=== PATIENT | female | born 1935 | race Caucasian/White ===

== ENCOUNTER 2016-05-26 10:52 | Inpatient (IN) | payer MEDICARE, OTHER ==
[~2016-05-26] VITALS: Ht 172.7 cm; Wt 97.5 kg
[~2016-05-26 10:52] MED LIST: AC325T PO; ALB0.5V INH; ALLP100T PO; ASP325T PO; ATEN100T45 PO; AZIT500T PO; CALC-18 PO; CEFD300C3 PO; CLOP75TA; CLOP75TA PO; DCS100C PO; EZET1TAB44; FISH OIL; FRSM40T; HYDR-2997 PO; HYDR-700; LEVO125T66; LOVA20TA2 PO; LSNP20T; LVT.15T PO; MULT-608 PO; NAPR250T34; NF-HYDR25T; NF-POTCH10; OMEG1CAP58 PO; POTA10CA16 PO; PRD10T PO; SSD50T; SULF1TAB38 PO; TRAM-21; TRAM50TA2 PO
[2016-05-26] MEDS ORDERED: fentaNYL INJECTION 100 MCG/2 ML AMP ONE (11:31)
--- NOTE | 2016-05-26 11:34 | ED Fall/Injury ---
General Chief Complaint: Trauma-Non Activation Stated Complaint: R HIP/LEG PAIN, FALL Nursing Triage Note: SEE TRAUMA NOTE. Source: patient, caregiver Exam Limitations: no limitations History of Present Illness Time seen by provider: 11:34 Initial Comments 80-year-old female patient presents to the emergency department with reports of losing her balance and falling onto the right side/hip. Now complains of right hip pain. Patient does take Plavix and aspirin. Denies hitting her head, loss of consciousness, headache, confusion, dizziness, neck pain, back pain. Location Injury Occurred: PT HOME Occurred: this morning Injuries/Pain Location: pelvis, lower extremity (rt hip) Context: lost balance Loss of Consciousness: no loss of consciousness Modifying Factors: Improves With Immobilization, Worse With Movement Allergies and Home Medications Allergies Coded Allergies: codeine (Unverified Allergy, Mild, 11/15/08) Penicillins (Verified Allergy, Unknown, 04/07/08) morphine (Verified Adverse Reaction, Mild, NAUSEA, 04/07/08) nylon (Verified Adverse Reaction, Unknown, ITCH, 04/07/08) Home Medications Acetaminophen 325 Mg Tablet, 650 MG PO Q6H PRN, (Reported) FOR MILD TO MODERATE PAIN Albuterol 2.5 Mg/0.5 Ml Nebu, 1 APPLIC INH TID&PRN, (Reported) USE NEBULIZER THREE TIMES PER DAY AND NEEDED FOR SHORTNESS OR AIR. Amlodipine/Atorvastatin 1 Each Tablet, 1 EACH PO DAILY, (Reported) Aspirin 325 Mg Tab, 325 MG PO DAILY, (Reported) Atenolol 100 Mg Tablet, 100 MG PO DAILY, (Reported) Azithromycin 500 Mg Tablet, 500 MG PO DAILY for 4 Days, (Reported) TAKE 500MG A DAY FOR 4 MORE DAYS Calcium Carbonate/Vitamin D3 1 Each Tablet, 1 TAB PO BID, (Reported) Cefdinir 300 Mg Capsule, 300 MG PO BID for 5 Days, (Reported) TAKE 300MG TWICE A DAY FOR 5 DAYS Clopidogrel Bisulfate 75 Mg Tablet, 75 MG PO, (Reported) TAKES SAT-SAT-SAT Docusate Sodium 100 Mg Capsule, 100 MG PO DAILY, (Reported) Levothyroxine Sodium 150 Mcg Tablet, 137 MCG PO DAILY, (Reported) Lovastatin 20 Mg Tablet, 40 MG PO DAILY, (Reported) Multivitamins 1 Tab Tablet, 1 TAB PO DAILY, (Reported) [place]-3 Fatty Acids/Fish Oil 1 Each Capsule, 2,000 MG PO DAILY, (Reported) Tramadol Hcl 50 Mg Tablet, 50 MG PO Q6H, (Reported) Constitutional: no symptoms reported Eyes: No Symptoms Reported Ears, Nose, Mouth, Throat: no symptoms reported Respiratory: No cough, No short of breath, No stridor, No wheezing Cardiovascular: No chest pain, No palpitations, No syncope Gastrointestinal: no symptoms reported Genitourinary: no symptoms reported Musculoskeletal: see HPI, No back pain, joint pain, No neck pain Skin: no symptoms reported Psychiatric/Neurological: Denies Headache, Denies Numbness, Denies Paresthesia , Denies Seizure, Denies Tingling, Denies Weakness All Other Systems Reviewed Negative Unless Noted: Yes (Negative excepted noted.) Past Nonqygf-Gwawsa-Yzezbl Hx Patient Social History Alcohol Use: Denies Use Recreational Drug Use: No Smoking Status: Never a Smoker 2nd Hand Smoke Exposure: No Recent Foreign Travel: No Contact w/Someone Who Travel: No Recent Infectious Disease Expo: No Recent Hopitalizations: No Surgeries HX Surgeries: Yes (heart stent, cataracts, MOLE REMOVAL, NECK FUSION) Surgeries: Hysterectomy, Thyroidectomy Respiratory Hx Respiratory Disorders: No Cardiovascular Hx Cardiac Disorders: Yes Cardiac Disorders: High Cholesterol, Hypertension Neurological Hx Neurological Disorders: No Reproductive System 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 Genitourinary Hx Genitourinary Disorders: Yes (stress incont) Gastrointestinal Hx Gastrointestinal Disorders: Yes (stricture esophagus) Musculoskeletal Hx Musculoskeletal Disorders: No Endocrine Hx Endocrine Disorders: Yes Endocrine Disorders: Hypothyroidsim HEENT HX ENT Disorders: No Cancer Hx Cancer: No Psychosocial Hx Psychiatric Problems: No Blood Transfusions Hx Blood Disorders: No Reviewed Nursing Assessment Reviewed/Agree w Nursing PMH: Yes Family Medical History Significant Family History: No Pertinent Family Hx Physical Exam Vital Signs Vital Sign - Last 12Hours 05/26/16 10:55 Temp 97.6 Pulse 68 Resp 20 B/P (MAP) 203/86 Pulse Ox 97 O2 Delivery Room Air Capillary Refill : Less Than 3 Seconds General Appearance: WD/WN, no apparent distress HEENT: PERRL/EOMI, normal ENT inspection, TMs normal, pharynx normal, other ( normocephalic, atraumatic.) Neck: non-tender, full range of motion, supple, normal inspection Cardiovascular: normal peripheral pulses, regular rate, rhythm, no murmur Respiratory: lungs clear, normal breath sounds, no respiratory distress Peripheral Pulses: 2+ Dorsalis Pedis (R), 2+ Left Dors-Pedis (L), 2+ Radial Pulses (R), 2+ Radial Pulses (L) Gastrointestinal: normal bowel sounds, non tender, soft, No distended Back: normal inspection, no vertebral tenderness Extremities: normal capillary refill, pelvis stable, other (tenderness and swelling right hip. Decreased range of motion.) Neurologic/Psychiatric: prefinish operator II-XII nml as tested, no motor/sensory deficits, alert, normal mood/affect, oriented x 3 Skin: normal color, warm/dry [place] Score Best Eye Response: (4) Open Spontaneously Best Verbal Response: (5) Oriented Best Motor Response: (6) Obeys Commands William Total: 15 Progress/Results/Core Measures Results/Orders Lab Results Laboratory Tests Test 05/26/16 11:30 Range/Units White Blood Count 6.5 4.3-11.0 10^3/uL Red Blood Count 4.75 4.35-5.85 10^6/uL Hemoglobin 14.9 11.5-16.0 G/DL Hematocrit 44 35-52 % Mean Corpuscular Volume 92 80-99 FL Mean Corpuscular Hemoglobin 31 25-34 PG Mean Corpuscular Hemoglobin Concent 34 32-36 G/DL Red Cell Distribution Width 13.0 10.0-14.5 % Platelet Count 213 130-400 10^3/uL Mean Platelet Volume 9.9 7.4-10.4 FL Neutrophils (%) (Auto) 56 42-75 % Lymphocytes (%) (Auto) 30 12-44 % Monocytes (%) (Auto) 9 0-12 % Eosinophils (%) (Auto) 4 0-10 % Basophils (%) (Auto) 0 0-10 % Neutrophils # (Auto) 3.7 1.8-7.8 X 10^3 Lymphocytes # (Auto) 2.0 1.0-4.0 X 10^3 Monocytes # (Auto) 0.6 0.0-1.0 X 10^3 Eosinophils # (Auto) 0.3 0.0-0.3 10^3/uL Basophils # (Auto) 0.0 0.0-0.1 10^3/uL Prothrombin Time 12.9 12.2-14.7 SEC INR Comment 1.0 0.8-1.4 Activated Partial Thromboplast Time 24 24-35 SEC Sodium Level 142 135-145 MMOL/L Potassium Level 4.1 3.6-5.0 MMOL/L Chloride Level 110 H 98-107 MMOL/L Carbon Dioxide Level 21 21-32 MMOL/L Anion Gap 11 5-14 MMOL/L Blood Urea Nitrogen 14 7-18 MG/DL Creatinine 0.82 0.60-1.30 MG/DL Estimat Glomerular Filtration Rate > 60 BUN/Creatinine Ratio 17 Glucose Level 102 70-105 MG/DL Calcium Level 9.3 8.5-10.1 MG/DL Total Bilirubin 0.7 0.1-1.0 MG/DL Aspartate Amino Transf (AST/SGOT) 21 5-34 U/L Alanine Aminotransferase (ALT/SGPT) 15 0-55 U/L Alkaline Phosphatase 77 40-136 U/L Total Protein 6.2 L 6.4-8.2 G/DL Albumin 3.8 3.2-4.5 G/DL My Orders Orders - BOBO REDMOND PA Fentanyl Injection (Sublimaze Injection (05/26/16 11:45) Ct Head Wo (05/26/16 11:34) Saline Lock/Iv-Start (05/26/16 11:38) Chest 1 View, Ap/Pa Only (05/26/16 11:41) Cbc With Automated Diff (05/26/16 12:03) Comprehensive Metabolic Panel (05/26/16 12:03) Protime With Inr (05/26/16 12:03) Partial Thromboplastin Time (05/26/16 12:03) Ua Culture If Indicated (05/26/16 12:03) Dipht,Pertuss(Acell),Tet Adult (Boostrix (05/26/16 12:03) Catheter(Urinary) Insert & Ass 15 (05/26/16 12:03) Fentanyl Injection (Sublimaze Injection (05/26/16 12:15) Medications Given in ED Current Medications Medications Dose Ordered Sig/Tmi Route Start Time Stop Time Status Last Admin Dose Admin Fentanyl Citrate 50 mcg ONCE ONCE IVP 05/26/16 11:45 05/26/16 11:46 DC 05/26/16 11:45 50 MCG Fentanyl Citrate 50 mcg ONCE ONCE IVP 05/26/16 12:15 05/26/16 12:16 DC 05/26/16 12:20 50 MCG Vital Signs/I&O Vital Sign - Last 12Hours 05/26/16 10:55 Temp 97.6 Pulse 68 Resp 20 B/P (MAP) 203/86 Pulse Ox 97 O2 Delivery Room Air Blood Pressure Mean: 125 Diagnostic Imaging Diagonstic Imaging: CT Plain Films/CT/US/NM/MRI: head Comments Findings: There is moderate cortical atrophy. There is also considerable cerebellar atrophy. There is no intracranial hemorrhage. No mass effect. No extra-axial fluid collection. No hydrocephalus. Basal cisterns are clear. Mastoid air cells and paranasal sinuses are clear. IMPRESSION: No acute intracranial abnormalities noted. There is generalized cortical atrophy as described. Dictated by: Dictated on workstation # [id number] Reviewed: Reviewed by Me (radiology report reviewed by me) Diagonstic Imaging: Xray Plain Films/CT/US/NM/MRI: pelvis Comments FINDINGS: AP view of the pelvis shows SI joints are symmetrical with moderate sclerosis. Pubic symphysis is in good alignment. There are no pelvic fractures. Femoral heads are in normal articulation bilaterally. There is noted a transverse fracture of the right femoral neck. IMPRESSION: 1. No pelvic fracture. 2. Transverse fracture right femoral neck. Dictated by: Dictated on workstation # [id number] Reviewed: Reviewed by Me (radiology report reviewed by me) Diagonstic Imaging: Xray Plain Films/CT/US/NM/MRI: hip Comments FINDINGS: 2 view shows femoral neck fracture. Alignment is good. Femoral head remains in articulation with the acetabulum. No evidence of trochanteric fracture. IMPRESSION: Transverse femoral neck fracture with no evidence of displacement. Dictated by: Dictated on workstation # [id number] Reviewed: Reviewed by Me (radiology report reviewed by me) Diagonstic Imaging: Xray Plain Films/CT/US/NM/MRI: chest Comments FINDINGS: Lungs are well-aerated. No infiltrates or masses have developed. There is cardiomegaly. There is no pulmonary edema. No pleural effusion. IMPRESSION: Cardiomegaly with no acute changes. Dictated by: Dictated on workstation # [id number] Reviewed: Reviewed by Me (radiology report reviewed by me) Departure Communication Time/Spoke to Admitting Phy: 12:[address] Rose accepts patient to his orthopedic surgical service for planned surgical intervention tomorrow morning at 0800. Time/Spoke to Consulting Physi: 13:09 Communication/Consulting 1309 Dr. Roach notified of consult for medical management. 1311 Dr. Stratton notified of consult for cardiac clearance. Progress Notes Diagnostic findings as well as plan for admission discussed with the patient. Patient voices understanding and agrees with the treatment plan. Patient case discussed with Wai Cole, he agrees with the plan of care. Impression Impression: Primary Impression: Closed right hip fracture Qualified Codes: S72.001A - Fracture of unspecified part of neck of right femur, initial encounter for closed fracture Additional Impression: Fall on same level Qualified Codes: W18.30XA - Fall on same level, unspecified, initial encounter Disposition: ADMITTED INPATIENT Condition: Stable Decision to Admit Reason: Admit from ER (General) Decision to Admit/Date: May 26, 2016 Time/Decision to Admit Time: 12:20 Departure-Patient Inst. Referrals: BELLA DIEGO DO (PCP/Family) Primary Care Physician BOBO REDMOND May 26, 2016 11:34
[2016-05-26] MEDS ORDERED: fentaNYL INJECTION 100 MCG/2 ML AMP IVP ONE ×2 (11:45→12:15)
[2016-05-26] MEDS ORDERED: TETANUS,DIPTH,PERTUSS P/F (BOOSTRIX) 0.5 ML VIAL IM STA (12:03)
--- NOTE | 2016-05-26 12:04 | Diagnostic Imaging Report ---
PROCEDURE: CT head without contrast. TECHNIQUE: Multiple contiguous axial images were obtained through the brain without the use of intravenous contrast. INDICATION: Fall. Comparison with 04/03/2013. Findings: There is moderate cortical atrophy. There is also considerable cerebellar atrophy. There is no intracranial hemorrhage. No mass effect. No extra-axial fluid collection. No hydrocephalus. Basal cisterns are clear. Mastoid air cells and paranasal sinuses are clear. IMPRESSION: No acute intracranial abnormalities noted. There is generalized cortical atrophy as described. Dictated by: Dictated on workstation # [id number]
--- NOTE | 2016-05-26 12:05 | Diagnostic Imaging Report ---
INDICATION: Fall. FINDINGS: 2 view shows femoral neck fracture. Alignment is good. Femoral head remains in articulation with the acetabulum. No evidence of trochanteric fracture. IMPRESSION: Transverse femoral neck fracture with no evidence of displacement. Dictated by: Dictated on workstation # [id number]
--- NOTE | 2016-05-26 12:08 | Diagnostic Imaging Report ---
INDICATION: Loss of balance, fall. FINDINGS: AP view of the pelvis shows SI joints are symmetrical with moderate sclerosis. Pubic symphysis is in good alignment. There are no pelvic fractures. Femoral heads are in normal articulation bilaterally. There is noted a transverse fracture of the right femoral neck. IMPRESSION: 1. No pelvic fracture. 2. Transverse fracture right femoral neck. Dictated by: Dictated on workstation # [id number]
[2016-05-26 12:09] LABS: BASOPHILS % (AUTO) 0 % (0-10); EOSINOPHILS # (AUTO) 0.3 10^3/uL (0.0-0.3); EOSINOPHILS % (AUTO) 4 % (0-10); LYMPHOCYTES % (AUTO) 30 % (12-44); MEAN CORPUSCULAR HEMOGLOBIN 31 PG (25-34); MEAN CORPUSCULAR HGB CONC 34 G/DL (32-36); MEAN CORPUSCULAR VOLUME 92 FL (80-99); MEAN PLATELET VOLUME 9.9 FL (7.4-10.4); MONOCYTES # (AUTO) 0.6 X 10^3 (0.0-1.0); MONOCYTES % (AUTO) 9 % (0-12); NEUTROPHILS # (AUTO) 3.7 X 10^3 (1.8-7.8); NEUTROPHILS % (AUTO) 56 % (42-75); PLATELET COUNT 213 10^3/uL (130-400); RED BLOOD COUNT 4.75 10^6/uL (4.35-5.85); WHITE BLOOD COUNT 6.5 10^3/uL (4.3-11.0)
--- NOTE | 2016-05-26 12:10 | Diagnostic Imaging Report ---
INDICATION: Hip fracture. Comparison with 01/30/2012. FINDINGS: Lungs are well-aerated. No infiltrates or masses have developed. There is cardiomegaly. There is no pulmonary edema. No pleural effusion. IMPRESSION: Cardiomegaly with no acute changes. Dictated by: Dictated on workstation # [id number]
[2016-05-26 12:13] LABS: PROTHROMBIN TIME PATIENT 12.9 SEC (12.2-14.7)
[2016-05-26 12:21] LABS: ALANINE AMINOTRANSFERASE 15 U/L (0-55); ALBUMIN 3.8 G/DL (3.2-4.5); ANION GAP 11 MMOL/L (5-14); ASPARTATE AMINO TRANSFERASE 21 U/L (5-34); BILIRUBIN,TOTAL 0.7 MG/DL (0.1-1.0); BLOOD UREA NITROGEN 14 MG/DL (7-18); BUN/CREATININE RATIO 17; CALCIUM 9.3 MG/DL (8.5-10.1); CARBON DIOXIDE 21 MMOL/L (21-32); CHLORIDE 110 MMOL/L (98-107); CREATININE SERUM 0.82 MG/DL (0.60-1.30); GFR ESTIMATED > 60; GLUCOSE 102 MG/DL (70-105); POTASSIUM 4.1 MMOL/L (3.6-5.0); SODIUM 142 MMOL/L (135-145); TOTAL PROTEIN 6.2 G/DL (6.4-8.2)
[2016-05-26 12:37] LABS: BILIRUBIN,URINE NEGATIVE (NEGATIVE); KETONES,URINE NEGATIVE (NEGATIVE); LEUKOCYTE ESTERASE ,URINE 3+ (NEGATIVE); NITRITE,URINE NEGATIVE (NEGATIVE); PH,URINE 7 (5-9); PROTEIN,URINE 1+ (NEGATIVE); UROBILINOGEN,URINE NORMAL (NORMAL)
[2016-05-26 12:45] LABS: SQUAMOUS EPITHELIAL CELL,UR RARE /HPF; WBC,URINE 50-100 /HPF
[2016-05-26] MEDS ORDERED: HYDROmorphone (DILAUDID) 2 MG/ML VIAL IVP STA (12:57)
[2016-05-26] MEDS ORDERED: ONDANSETRON 4 MG/2 ML (SDV) Z0FRAN IVP ONE (13:00)
[2016-05-26] MEDS ORDERED: ACETAMINOPHEN 325 MG TABLET/CAPLET (TYLENOL) ONE ×2 (13:51→14:52)
[2016-05-26] MEDS ORDERED: CATHETER FLUSH 10 ML SYR IV PRN (14:45)
[2016-05-26] MEDS ORDERED: NS IV 1000 ML 1,000 ML IV SCH ×2 (14:45→23:59)
[2016-05-26] MEDS ORDERED: cefTRIAXone 1 GM/NS 50 ML IVPB IV SCH ×2 (15:00)
[2016-05-26] MEDS ORDERED: ACETAMINOPHEN 500 MG TAB (TYLENOL) PO PRN (15:00)
[2016-05-26] MEDS ORDERED: ONDANSETRON 4 MG/2 ML (SDV) Z0FRAN ONE (15:12)
[2016-05-26] MEDS ORDERED: NS IV 1000 ML 1,000 ML ONE (15:14)
--- NOTE | 2016-05-26 15:18 | Consultation-Cardiology ---
HPI-Cardiology Cardiology Consultation: Date of Consultation 05/26/16 Date of Admission Attending Physician Carmella Gonzalez MD Admitting Physician Carmella Gonzalez MD Consulting Physician RAJAT KIRAN MD, FACP, FACC, [facility], CCDS Physician requesting consult: Dr Rose HPI: Chief Complaint: Reason for consultation: Cardiac eval prior to hip surgery 80 yo woman who took a non-syncopal fall at home that has resulted in R hip fracture and she is now awaiting hip surgery She does not report cp or palp or shortness of breath or syncope She does not report any other new symptoms lately Review of Systems-Cardiology Review of Systems Constitutional: No weight loss, No weight gain Eyes: No vision change Ears/Nose/Throat: No epistaxis, No nasal drainage, No recent hearing loss Respiratory: As described under HPI Cardiovascular: As described under HPI Gastrointestinal: No diarrhea, No nausea, No vomiting Genitourinary: No dysuria, No hematuria Musculoskeletal: back pain (chronic) Skin: No rash, No ulcerations Psychiatric/Neurological: No focal weakness, No seizure, No syncope Hematologic: No bleeding abnormalities All Other Systems Reviewed Negative Unless Noted: Yes (Negative excepted noted.) RPW-Rzpibz-Tlgsee Hx Patient Social History Alcohol Use: Denies Use Recreational Drug Use: No Smoking Status: Never a Smoker 2nd Hand Smoke Exposure: No Recent Foreign Travel: No Recent Infectious Disease Expo: No Hospitalization with Isolation: Denies Past Medical History PMH As described under Assessment. Family Medical History Family Medical History: She does not report fam h/o early CAD Allergies and Home Medications Allergies Coded Allergies: codeine (Unverified Allergy, Mild, 11/15/08) Penicillins (Verified Allergy, Unknown, 04/07/08) morphine (Verified Adverse Reaction, Mild, NAUSEA, 04/07/08) nylon (Verified Adverse Reaction, Unknown, ITCH, 04/07/08) Home Medications Acetaminophen 325 Mg Tablet, 650 MG PO Q6H PRN, (Reported) FOR MILD TO MODERATE PAIN Albuterol 2.5 Mg/0.5 Ml Nebu, 1 APPLIC INH TID&PRN, (Reported) USE NEBULIZER THREE TIMES PER DAY AND NEEDED FOR SHORTNESS OR AIR. Amlodipine/Atorvastatin 1 Each Tablet, 1 EACH PO DAILY, (Reported) Aspirin 325 Mg Tab, 325 MG PO DAILY, (Reported) Atenolol 100 Mg Tablet, 100 MG PO DAILY, (Reported) Azithromycin 500 Mg Tablet, 500 MG PO DAILY for 4 Days, (Reported) TAKE 500MG A DAY FOR 4 MORE DAYS Calcium Carbonate/Vitamin D3 1 Each Tablet, 1 TAB PO BID, (Reported) Cefdinir 300 Mg Capsule, 300 MG PO BID for 5 Days, (Reported) TAKE 300MG TWICE A DAY FOR 5 DAYS Clopidogrel Bisulfate 75 Mg Tablet, 75 MG PO DAILY, (Reported) Docusate Sodium 100 Mg Capsule, 100 MG PO DAILY, (Reported) Levothyroxine Sodium 150 Mcg Tablet, 137 MCG PO DAILY, (Reported) Lovastatin 20 Mg Tablet, 40 MG PO DAILY, (Reported) Multivitamins 1 Tab Tablet, 1 TAB PO DAILY, (Reported) [place]-3 Fatty Acids/Fish Oil 1 Each Capsule, 2,000 MG PO DAILY, (Reported) Tramadol Hcl 50 Mg Tablet, 50 MG PO Q6H, (Reported) Physical Exam-Cardiology Physical Exam Vital Signs/I&O Vital Sign - Last 12Hours 05/26/16 05/26/16 10:55 13:37 Temp 97.6 97.6 Pulse 68 62 Resp 20 16 B/P (MAP) 203/86 Pulse Ox 97 96 O2 Delivery Room Air Capillary Refill : Less Than 3 Seconds Constitutional: AAO x 3, well-developed, well-nourished HEENT: EOMI, hearing is well preserved, No xanthelasmas are seen Neck: carotid pulses are 2 + bilaterally, with good upstrokes Respiratory: No accessory muscle use, lungs clear to auscultation Cardiovascular: regular rate-rhythm, S1 and S2, systolic murmur (faint JEAN PIERRE at cardiac base) Gastrointestinal: No tender, soft, No guarding, No rebound, audible bowel sounds Extremities: No clubbing, No cyanosis, No significant edema Neurologic/Psychiatric: grossly intact, power is 5/5 both on sides (we did not attempt any motion at the hip joints) Data Review Labs Laboratory Tests 05/26/16 11:30: White Blood Count 6.5, Red Blood Count 4.75, Hemoglobin 14.9, Hematocrit 44, Mean Corpuscular Volume 92, Mean Corpuscular Hemoglobin 31, Mean Corpuscular Hemoglobin Concent 34, Red Cell Distribution Width 13.0, Platelet Count 213, Mean Platelet Volume 9.9, Neutrophils (%) (Auto) 56, Lymphocytes (%) (Auto) 30, Monocytes (%) (Auto) 9, Eosinophils (%) (Auto) 4, Basophils (%) (Auto) 0, Neutrophils # (Auto) 3.7, Lymphocytes # (Auto) 2.0, Monocytes # (Auto) 0.6, Eosinophils # (Auto) 0.3, Basophils # (Auto) 0.0, Prothrombin Time 12.9, INR Comment 1.0, Activated Partial Thromboplast Time 24, Sodium Level 142, Potassium Level 4.1, Chloride Level 110H, Carbon Dioxide Level 21, Anion Gap 11 , Blood Urea Nitrogen 14, Creatinine 0.82, Estimat Glomerular Filtration Rate > 60, BUN/Creatinine Ratio 17, Glucose Level 102, Calcium Level 9.3, Total Bilirubin 0.7, Aspartate Amino Transf (AST/SGOT) 21, Alanine Aminotransferase ( ALT/SGPT) 15, Alkaline Phosphatase 77, Total Protein 6.2L, Albumin 3.8 05/26/16 12:30: Urine Color YELLOW, Urine Clarity SLIGHTLY CLOUDY, Urine pH 7, Urine Specific [place] 1.015L, Urine Protein 1+H, Urine Glucose (UA) NEGATIVE, Urine Ketones NEGATIVE, Urine Nitrite NEGATIVE, Urine Bilirubin NEGATIVE, Urine Urobilinogen NORMAL, Urine Leukocyte Esterase 3+H, Urine RBC (Auto) 1+H, Urine RBC NONE, Urine WBC 50-100H, Urine Squamous Epithelial Cells RARE, Urine Crystals NONE, Urine Bacteria MODERATEH, Urine Casts NONE, Urine Mucus NEGATIVE, Urine Culture Indicated YES ECG Impression ECG Comment ECG on 05/26/16: NSR with LVH and associated ST abn; no acute ST/T changes A/P-Cardiology Assessment/Admission Diagnosis Right hip fracture following a non-syncopal fall on 05/26/16 Coronary artery disease, primarily single vessel, treated with drug-eluting stenting of the mid left anterior descending artery with Promus 3.0 x 15-mm stent on 04/07/08. 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 Dick. Tests of 01/13/16 are consistent with some degree of hyperthyroidism, probably due to overcorrection, and she is following with Dr Dick for that Moderate distal peripheral arterial disease. Ankle brachial indices in February 2007 were normal, but the toe brachial indices were moderately diminished. MAXIMINO if February 2016 showed no evidence of any significant obstructive peripheral arterial disease Degenerative joint disease Low backache Hyperlipidemia, currently being treated with lovastatin Elevated body mass index of approximately 33 History of chronic right ankle swelling, minimal, following remote trauma, currently controlled Mild bilateral carotid arterial disease per u/s of August 2015 Impaired fasting glucose, mild. Discussion and Recomendations * Cardiac risk for non-cardiac surgery is estimated to be intermediate. This appears clinically well optimized. I explained her risk to her and her fam. They understand and wish to proceed * Continue current cardiac regimen as far as possible * DVT prophylaxis with enoxaparin is recommended RAJAT KIRAN MD FACP FAC CCDS May 26, 2016 15:18
[2016-05-26] MEDS: fentaNYL INJECTION 100 MCG/2 ML AMP IV PRN ×3 (15:44→22:55)
[2016-05-26] MEDS ORDERED: [UNRECOGNIZED DRUG - CODE] PO (15:57)
[2016-05-26] MEDS ORDERED: ATENOLOL 50 MG (TENORMIN) TAB PO NR (16:00)
[2016-05-26] MEDS ORDERED: amLODIPine 5 MG (NORVASC) TAB PO NR (16:00)
[2016-05-26] MEDS ORDERED: ASPIRIN 81 MG CHEW (CHILDREN'S ASA) PO ONE (16:00)
[2016-05-26] MEDS ORDERED: ENOXAPARIN 40 MG/0.4 ML (LOVENOX) SYR SC SCH (16:00)
[2016-05-26] MEDS ORDERED: PROMETHAZINE INJ 25 MG/ML (PHENERGAN) AMP IVP PRN (16:45)
[2016-05-26 16:50] VITALS: BP 134/96
--- NOTE | 2016-05-26 16:52 | History & Physicial ---
History of Present Illness History of Present Illness Reason for visit/HPI Patient fell and landed on her right side and fractured her right hip. Onset this morning brought out to the emergency room and admitted area Surgeries complete hysterectomy, thyroid, mild from hand and stent 2008. Family history grandson asthma denies TB diabetes heart disease lung disease cancer in family. Head denies headache dizziness fainting problem with HEENT denies diplopia tinnitus or throat. Heart denies chest pain shortness of breath or diaphoresis. Has coronary stent on aspirin and Plavix. Lungs denies asthma TB coughing congestion smoking the wheezing. Gastrointestinal is vomiting now. Genitourinary denies blood pain or frequency. UA shows infection Date of Admission May 26, 2016 at 12:27 I consulted on this patient on 05/26/16 16:39 Attending Physician Carmella Gonzalez MD Admitting Physician Carmella Gonzalez MD Consult Allergies and Home Medications Allergies Coded Allergies: codeine (Unverified Allergy, Mild, 11/15/08) Penicillins (Verified Allergy, Unknown, 04/07/08) morphine (Verified Adverse Reaction, Mild, NAUSEA, 04/07/08) nylon (Verified Adverse Reaction, Unknown, ITCH, 04/07/08) Home Medications Acetaminophen 325 Mg Tablet, 650 MG PO Q6H PRN, (Reported) FOR MILD TO MODERATE PAIN Albuterol 2.5 Mg/0.5 Ml Nebu, 1 APPLIC INH TID&PRN, (Reported) USE NEBULIZER THREE TIMES PER DAY AND NEEDED FOR SHORTNESS OR AIR. Amlodipine/Atorvastatin 1 Each Tablet, 1 EACH PO DAILY, (Reported) Aspirin 325 Mg Tab, 325 MG PO DAILY, (Reported) Atenolol 100 Mg Tablet, 100 MG PO DAILY, (Reported) Azithromycin 500 Mg Tablet, 500 MG PO DAILY for 4 Days, (Reported) TAKE 500MG A DAY FOR 4 MORE DAYS Calcium Carbonate/Vitamin D3 1 Each Tablet, 1 TAB PO BID, (Reported) Cefdinir 300 Mg Capsule, 300 MG PO BID for 5 Days, (Reported) TAKE 300MG TWICE A DAY FOR 5 DAYS Clopidogrel Bisulfate 75 Mg Tablet, 75 MG PO, (Reported) TAKES MON-WED-SAT Docusate Sodium 100 Mg Capsule, 100 MG PO DAILY, (Reported) Levothyroxine Sodium 150 Mcg Tablet, 137 MCG PO DAILY, (Reported) Lovastatin 20 Mg Tablet, 40 MG PO DAILY, (Reported) Multivitamins 1 Tab Tablet, 1 TAB PO DAILY, (Reported) [place]-3 Fatty Acids/Fish Oil 1 Each Capsule, 2,000 MG PO DAILY, (Reported) Tramadol Hcl 50 Mg Tablet, 50 MG PO Q6H, (Reported) Past Qtjbplb-Lvuohv-Dkyuia Hx Patient Social History Alcohol Use: Denies Use Recreational Drug Use: No Smoking Status: Never a Smoker 2nd Hand Smoke Exposure: No Recent Foreign Travel: No Contact w/other who traveled: No Recent Hopitalizations: No Recent Infectious Disease Expo: No Surgeries HX Surgeries: Yes (heart stent, cataracts, MOLE REMOVAL, NECK FUSION) Surgeries: Coronary Stent, Hysterectomy, Thyroidectomy Respiratory Hx Respiratory Disorders: No Cardiovascular Hx Cardiovascular Disorders: Yes Cardiac Disorders: High Cholesterol, Hypertension Neurological Hx Neurological Disorders: No Reproductive System Hx Reproductive Disorders: No Genitourinary Hx Genitourinary Disorders: Yes (stress incont) Gastrointestinal Hx Gastrointestinal Disorders: Yes (stricture esophagus) Musculoskeletal Hx Musculoskeletal Disorders: No Endocrine Hx Endocrine Disorders: Yes Endocrine Disorders: Hypothyroidsim HEENT HX ENT Disorders: No Cancer Hx Cancer: No Psychosocial Hx Psychiatric Problems: No Blood Transfusions Hx Blood Disorders: No Reviewed Nursing Assessment Reviewed/Agree w Nursing PMH: Yes Family Medical History Significant Family History: No Pertinent Family Hx Constitutional: no symptoms reported EENTM: no symptoms reported Respiratory: no symptoms reported Cardiovascular: no symptoms reported Gastrointestinal: nausea, vomiting Genitourinary: no symptoms reported Physical Exam Vital Signs Vital Sign - Last 12Hours 05/26/16 10:55 Temp 97.6 Pulse 68 Resp 20 B/P (MAP) 203/86 Pulse Ox 97 O2 Delivery Room Air Capillary Refill : Less Than 3 Seconds General Appearance: No Apparent Distress, WD/WN Eyes: Bilateral Eye Normal Inspection HEENT: Normal ENT Inspection Neck: Full Range of Motion, Normal Inspection, Non Tender Respiratory: Chest Non Tender, Lungs Clear, Normal Breath Sounds, No Accessory Muscle Use, No Respiratory Distress Cardiovascular: Regular Rate, Rhythm, No Murmur Gastrointestinal: Non Tender, Soft Assessment/Plan Assessment and Plan Right hip fracture. Coronary artery disease. Stent. Hypertension. infection. Patient have surgery tomorrow. Spoke to patient and daughter Problems: ABHINAV LOVELL DO May 26, 2016 16:51
[2016-05-26] MEDS ORDERED: ONDANSETRON 4 MG/2 ML (SDV) Z0FRAN IV PRN (19:00)
[2016-05-26] MEDS: CYCLOBENZAPRINE 10 MG (FLEXERIL) TAB PO PRN (19:54)
[2016-05-26] MEDS: GABAPENTIN 300 MG (NEURONTIN) CAP PO SCH (20:10)
[2016-05-26] MEDS: FAMOTIDINE 20MG/2ML IV (PEPCID) IV SCH (20:10)
[2016-05-26 20:36] VITALS: BP 183/75
[2016-05-26 23:34] VITALS: BP 156/71
[2016-05-27] MEDS: fentaNYL INJECTION 100 MCG/2 ML AMP IV PRN ×2 (02:27→05:45)
[2016-05-27 04:00] VITALS: BP_SYST 136; BP_DIAS 6; BP_DIAS 62
[2016-05-27 04:57] LABS: BASOPHILS % (AUTO) 0 % (0-10); EOSINOPHILS # (AUTO) 0.1 10^3/uL (0.0-0.3); EOSINOPHILS % (AUTO) 1 % (0-10); LYMPHOCYTES # (AUTO) 1.5 X 10^3 (1.0-4.0); LYMPHOCYTES % (AUTO) 16 % (12-44); MEAN CORPUSCULAR HEMOGLOBIN 31 PG (25-34); MEAN CORPUSCULAR HGB CONC 33 G/DL (32-36); MEAN CORPUSCULAR VOLUME 93 FL (80-99); MEAN PLATELET VOLUME 9.8 FL (7.4-10.4); MONOCYTES % (AUTO) 11 % (0-12); NEUTROPHILS # (AUTO) 6.9 X 10^3 (1.8-7.8); NEUTROPHILS % (AUTO) 72 % (42-75); PLATELET COUNT 224 10^3/uL (130-400); RED BLOOD COUNT 4.27 10^6/uL (4.35-5.85); WHITE BLOOD COUNT 9.6 10^3/uL (4.3-11.0)
[2016-05-27 05:13] LABS: ALANINE AMINOTRANSFERASE 12 U/L (0-55); ALBUMIN 3.4 G/DL (3.2-4.5); ANION GAP 7 MMOL/L (5-14); ASPARTATE AMINO TRANSFERASE 15 U/L (5-34); BILIRUBIN,TOTAL 0.6 MG/DL (0.1-1.0); BLOOD UREA NITROGEN 13 MG/DL (7-18); BUN/CREATININE RATIO 17; CALCIUM 8.4 MG/DL (8.5-10.1); CARBON DIOXIDE 25 MMOL/L (21-32); CHLORIDE 109 MMOL/L (98-107); CREATININE SERUM 0.75 MG/DL (0.60-1.30); GFR ESTIMATED > 60; GLUCOSE 89 MG/DL (70-105); POTASSIUM 3.9 MMOL/L (3.6-5.0); SODIUM 141 MMOL/L (135-145); TOTAL PROTEIN 5.5 G/DL (6.4-8.2)
[2016-05-27] MEDS: LEVOTHYROXINE 112 MCG (LEVOTHROID) TAB PO SCH (05:45)
[2016-05-27] MEDS: LEVOTHYROXINE 25 MCG (LEVOTHROID) TAB PO SCH (05:46)
[2016-05-27] MEDS ORDERED: fentaNYL INJECTION 100 MCG/2 ML AMP ONE (06:50)
[2016-05-27] MEDS ORDERED: LIDOCAINE PF 2% 10 ML (XYLOCAINE) AMP ONE (06:52)
[2016-05-27] MEDS ORDERED: ROCURONIUM 50 MG/5 ML (ZEMURON) VIAL IV ONE (06:52)
[2016-05-27] MEDS ORDERED: LIDOCAINE JELLY 2% (XYLOCAINE) 5 ML TUBE ONE (06:52)
[2016-05-27] MEDS ORDERED: proPOfol 200 MG/20 ML (DIPRIVAN) VIAL IV ONE (06:52)
[2016-05-27] MEDS ORDERED: ONDANSETRON 4 MG/2 ML (SDV) Z0FRAN ONE (06:52)
[2016-05-27] MEDS ORDERED: MIDAZOLAM 2 MG/2 ML (VERSED) VIAL ONE (06:53)
[2016-05-27] MEDS ORDERED: LACTATED RINGERS 1,000 ML IV ONE ×2 (06:53→09:00)
[2016-05-27] MEDS ORDERED: BUPIVACAINE 0.5% 30 ML (SENSORCAINE) VIAL ONE (06:53)
--- NOTE | 2016-05-27 07:13 | Progress Note (SOAP) ---
Subjective Subjective/Events-last exam fractured hip. Patient ready for surgery. Patient has pain in hip. Objective Exam Vital Signs Date Time Temp Pulse Resp B/P (MAP) Pulse Ox O2 Delivery O2 Flow Rate FiO2 05/27/16 04:00 98.5 66 20 136/6 31 Room Air 05/26/16 23:34 98.9 59 18 156/71 92 Room Air 05/26/16 20:36 98.5 67 18 183/75 93 Room Air 05/26/16 16:50 97.1 60 18 134/96 92 Room Air 05/26/16 13:37 97.6 62 16 96 05/26/16 10:55 97.6 68 20 203/86 97 Room Air I & O 05/27/16 07:00 Intake Total 340 ml Output Total 1100 ml Balance -760 ml Capillary Refill : Less Than 3 Seconds General Appearance: No Apparent Distress, WD/WN HEENT: Normal ENT Inspection Neck: Full Range of Motion, Normal Inspection Respiratory: Chest Non Tender, Lungs Clear, Normal Breath Sounds, No Accessory Muscle Use, No Respiratory Distress Cardiovascular: Regular Rate, Rhythm, No Murmur Results Lab Laboratory Tests 05/26/16 11:30 05/27/16 04:35 Laboratory Tests 05/26/16 11:30: White Blood Count 6.5, Red Blood Count 4.75, Hemoglobin 14.9, Hematocrit 44, Mean Corpuscular Volume 92, Mean Corpuscular Hemoglobin 31, Mean Corpuscular Hemoglobin Concent 34, Red Cell Distribution Width 13.0, Platelet Count 213, Mean Platelet Volume 9.9, Neutrophils (%) (Auto) 56, Lymphocytes (%) (Auto) 30, Monocytes (%) (Auto) 9, Eosinophils (%) (Auto) 4, Basophils (%) (Auto) 0, Neutrophils # (Auto) 3.7, Lymphocytes # (Auto) 2.0, Monocytes # (Auto) 0.6, Eosinophils # (Auto) 0.3, Basophils # (Auto) 0.0, Prothrombin Time 12.9, INR Comment 1.0, Activated Partial Thromboplast Time 24, Sodium Level 142, Potassium Level 4.1, Chloride Level 110H, Carbon Dioxide Level 21, Anion Gap 11 , Blood Urea Nitrogen 14, Creatinine 0.82, Estimat Glomerular Filtration Rate > 60, BUN/Creatinine Ratio 17, Glucose Level 102, Calcium Level 9.3, Total Bilirubin 0.7, Aspartate Amino Transf (AST/SGOT) 21, Alanine Aminotransferase ( ALT/SGPT) 15, Alkaline Phosphatase 77, Total Protein 6.2L, Albumin 3.8 05/26/16 12:30: Urine Color YELLOW, Urine Clarity SLIGHTLY CLOUDY, Urine pH 7, Urine Specific Bernice 1.015L, Urine Protein 1+H, Urine Glucose (UA) NEGATIVE, Urine Ketones NEGATIVE, Urine Nitrite NEGATIVE, Urine Bilirubin NEGATIVE, Urine Urobilinogen NORMAL, Urine Leukocyte Esterase 3+H, Urine RBC (Auto) 1+H, Urine RBC NONE, Urine WBC 50-100H, Urine Squamous Epithelial Cells RARE, Urine Crystals NONE, Urine Bacteria MODERATEH, Urine Casts NONE, Urine Mucus NEGATIVE, Urine Culture Indicated YES 05/27/16 04:35: White Blood Count 9.6, Red Blood Count 4.27L, Hemoglobin 13.2, Hematocrit 40, Mean Corpuscular Volume 93, Mean Corpuscular Hemoglobin 31, Mean Corpuscular Hemoglobin Concent 33, Red Cell Distribution Width 13.0, Platelet Count 224, Mean Platelet Volume 9.8, Neutrophils (%) (Auto) 72, Lymphocytes (%) (Auto) 16, Monocytes (%) (Auto) 11, Eosinophils (%) (Auto) 1, Basophils (%) (Auto) 0, Neutrophils # (Auto) 6.9, Lymphocytes # (Auto) 1.5, Monocytes # (Auto) 1.0, Eosinophils # (Auto) 0.1, Basophils # (Auto) 0.0, Sodium Level 141, Potassium Level 3.9, Chloride Level 109H, Carbon Dioxide Level 25, Anion Gap 7, Blood Urea Nitrogen 13, Creatinine 0.75, Estimat Glomerular Filtration Rate > 60, BUN/ Creatinine Ratio 17, Glucose Level 89, Calcium Level 8.4L, Total Bilirubin 0.6, Aspartate Amino Transf (AST/SGOT) 15, Alanine Aminotransferase (ALT/SGPT) 12, Alkaline Phosphatase 64, Total Protein 5.5L, Albumin 3.4 Assessment/Plan Assessment/Plan Assess & Plan/Chief Complaint hip fracture. Patient have surgery this morning Clinical Quality Measures DVT/VTE Risk/Contraindication: Risk Factor Score Per Nursin RFS Level Per Nursing on Admit: 4+=Very High Contraindications-Pharm: Other *list below* Contraindications-Mechi: Other *list below* ABHINAV LOVELL DO May 27, 2016 07:13
[2016-05-27] MEDS: LACTATED RINGERS 1,000 ML IV SCH ×2 (07:25→09:00)
[2016-05-27] MEDS: ATENOLOL 50 MG (TENORMIN) TAB PO SCH (07:30)
[2016-05-27] MEDS ORDERED: diphenhydrAMINE 50 MG/ML INJ (BENADRYL) IVP PRN (07:45)
[2016-05-27] MEDS ORDERED: fentaNYL INJECTION 100 MCG/2 ML AMP IVP PRN ×2 (07:45→09:45)
[2016-05-27] MEDS ORDERED: ONDANSETRON 4 MG/2 ML (SDV) Z0FRAN IVP PRN ×2 (07:45→09:45)
[2016-05-27] MEDS ORDERED: ceFAZolin 2 GM/50 ML NS 50 ML IV NR (07:45)
[2016-05-27] MEDS ORDERED: TEMAZEPAM 15 MG (RESTORIL) CAP PO PRN (07:45)
--- NOTE | 2016-05-27 07:49 | Progress Note-Pre Operative ---
Pre-Operative Progress Note H&P Reviewed The H&P was reviewed, patient examined and no changes noted. Date H&P Reviewed: May 27, 2016 Time H&P Reviewed: 07:11 Pre-Operative Diagnosis: Closed, displaced right femoral neck fracture ROLO JO MD May 27, 2016 07:49
--- NOTE | 2016-05-27 07:50 | Progress Note-Post Operative ---
Post-Operative Progess Note Inside Phone Sales Bebeto Mcguire Pre-Operative Diagnosis Closed, displaced right femoral neck fracture Post-Operative Diagnosis Closed, displaced right femoral neck fracture Post-Op Procedure Note Date of Procedure: May 27, 2016 Name of Procedure: right hip bipolar replacement Anesthesia Type GETA Estimated blood loss (mL): 200 ML Packing: none Specimen(s) collected NONE ROLO JO MD May 27, 2016 07:50
[2016-05-27] MEDS ORDERED: ISOFLURANE (FORANE) 15 ML/15 MIN INHALATION ONE ×7 (08:42→09:19)
[2016-05-27] MEDS ORDERED: hydrALAZINE (APESOLINE) 20 MG/ML VIAL ONE (08:42)
[2016-05-27] MEDS ORDERED: HYDROmorphone (DILAUDID) 2 MG/ML VIAL ONE (09:19)
[2016-05-27] MEDS ORDERED: MEPERIDINE (DEMEROL) INJ 50 MG/ML IVP PRN (09:45)
--- NOTE | 2016-05-27 10:22 | Diagnostic Imaging Report ---
INDICATION: Postop right hip. FINDINGS: Two views of the right hip shows postoperative changes of total joint arthroplasty. There is satisfactory alignment. There is no fracture. No unsuspected foreign body is seen. IMPRESSION: Satisfactory postoperative right hip. Dictated by: Dictated on workstation # [id number]
--- NOTE | 2016-05-27 10:24 | Diagnostic Imaging Report ---
INDICATION: Postop right hip. Left hip pain Two views of the left hip show no fracture, dislocation or other acute bony abnormality. No significant degenerative changes are seen. No avascular necrosis is seen. IMPRESSION: No significant abnormality is seen. Dictated by: Dictated on workstation # [id number]
[2016-05-27] MEDS: FAMOTIDINE 20MG/2ML IV (PEPCID) IV SCH ×2 (11:12→20:23)
[2016-05-27] MEDS: GABAPENTIN 300 MG (NEURONTIN) CAP PO SCH ×2 (11:13→20:23)
[2016-05-27] MEDS: amLODIPine 5 MG (NORVASC) TAB PO SCH (11:13)
[2016-05-27] MEDS: SENNOSIDES 8.6 MG (SENOKOT) TAB PO SCH ×2 (11:13→20:23)
[2016-05-27] MEDS: oxyCODONE/APAP 5/325MG (PERCOCET 5) TABLET PO PRN ×2 (11:14→15:37)
[2016-05-27 12:00] VITALS: BP 130/57
--- NOTE | 2016-05-27 13:27 | HISTORY AND PHYSICAL ---
DATE OF ADMISSION: 05/26/2016 REASON FOR ADMISSION: Right displaced femoral neck fracture. SUMMARY: The patient is an 80-year-old independently living female who fell at home today. She presented with complaints of right leg pain. She was found to have a Garden type III closed right femoral neck fracture for which she was admitted. She denies any antecedent pain. She denies any loss of consciousness. REVIEW OF SYSTEMS: No chest pain, no shortness of breath. No dysuria. ALLERGIES: 1. CODEINE. 2. PENICILLIN. 3. MORPHINE. 4. NYLON. MEDICATIONS: 1. Acetaminophen. 2. Albuterol. 3. Allopurinol. 4. Aspirin. 5. Atenolol. 6. Calcium. 7. Cefdinir. 8. Plavix. 9. Levothyroxine. 10. Lovastatin. 11. Multivitamin. 12. Potassium. 13. Tramadol. SOCIAL HISTORY: The patient denies alcohol and tobacco use. PAST SURGERIES: 1. Coronary stent. 2. Cervical fusion. 3. Hysterectomy. 4. Thyroidectomy. PHYSICAL EXAMINATION: The patient is well-developed, well-nourished, in no acute distress. HEENT: Normocephalic, atraumatic. Pupils are equal, round and reactive to light, oropharynx is clear. NECK: Supple. No lymphadenopathy. LUNGS: Clear to auscultation bilaterally. HEART: Regular rate and rhythm. ABDOMEN: Soft, nontender, nondistended. EXTREMITY EXAM: The right lower extremity demonstrates tenderness at her hip. There are no skin lesions noted. She has intact dorsiflexion and plantarflexion of the toes, sensation is intact throughout. IMPRESSION: Right displaced femoral neck fracture closed. PLAN: Right hip bipolar replacement. The risks, benefits, options, ramifications and recovery were discussed at length with the patient and her daughter. They understand and wish to proceed. Job ID: [id number] Dictated Date: 05/26/2016 15:10:20 Desk Reporter Date: 05/27/2016 13:22:00/nilton
--- NOTE | 2016-05-27 14:56 | OPERATIVE REPORT ---
PROCEDURE PHYSICIAN: ROLO JO DATE OF PROCEDURE: 05/27/2016 PREOPERATIVE DIAGNOSIS: Right displaced closed femoral neck fracture. POSTOPERATIVE DIAGNOSIS: Right displaced closed femoral neck fracture. PROCEDURE: Right hip bipolar replacement SURGEON: Rose PACKAGING ASSEMBLER: Bebeto Mcguire who assisted throughout the procedure and closed the incision. ANESTHESIA: General endotracheal by Bebeto Javed. ESTIMATED BLOOD LOSS: 200 mL. DRAINS: None. COMPLICATIONS: None. MATERIALS: Press-fit size 7 stem with -3 neck, 28 mm head and a 53 mm shell. POSTOPERATIVE PLAN: Routine hip precautions. The patient was transported to the recovery room, awake, and in stable condition. STATEMENT OF MEDICAL NECESSITY: The patient is an 80-year-old female who fell at home yesterday and was found to have a displaced right femoral neck fracture. In order to maintain her ambulatory status, the patient elected to proceed with surgical intervention. PROCEDURE: After risks and benefits of procedure were discussed and questions were answered an informed consent was signed and placed on the chart. The operative site was confirmed in the preoperative holding and initialed by the surgeon. The patient was then transported to the operating room and after adequate levels of general endotracheal anesthetic were obtained, the patient was carefully placed in the left lateral decubitus position, being careful to place on the axillary roll and pad all bony prominences. The right hip and lower extremity were prepped and draped usual sterile fashion. A standard anterolateral approach was utilized. Hemostasis was obtained with cautery. The iliotibial band was incised in line with the incision. The abductor tendon was released and tagged in the greater trochanter. A capsulotomy was performed and the hip was dislocated. A broach was used as a guide with the femoral neck cut which was made 2 cm proximal to the lesser trochanter. The femoral head was removed. No abnormalities were noted grossly. This was sized to a size 53. The acetabulum was irrigated. No loose bodies were noted. The femur was then prepared with a cookie punch followed by the T-handle reamer and the broaches. This was broached to a size 7 with good fill noted. The trials were placed and with a -3 neck and a 53 mm shell; reduction was obtained and the hip was stable in all planes with no impingement noted and no instability noted. The trials were removed after re-dislocating the prosthesis. The joint was copiously irrigated with pulse lavage. The press fit stem was placed in 15 degrees of anteversion. The neck was then irrigated and the head shell construct was placed. The acetabulum was closely inspected for any loose bodies. The hip was reduced and taken through a range of motion and was found to be stable in all planes with no impingement noted. A total of 3 liters of pulse lavage was used. The abductor and capsule was reapproximated with a number 5 Tevdek in a [id number] interrupted fashion. The iliotibial band was then closed in running fashion with number 1 Vicryl. The subcutaneous tissues were copiously irrigated. 0 Vicryl was used for deep subcutaneous tissue. 2-0 Vicryl for superficial subcutaneous tissue. Quan were used on the skin. A soft dressing and abduction pillow were applied. The patient was transported to the recovery room, awake, in stable condition. Job ID: [id number] Dictated Date: 05/27/2016 09:34:06 [place] Worker Date: 05/27/2016 14:44:11 / nilton
[2016-05-27] MEDS: CYCLOBENZAPRINE 10 MG (FLEXERIL) TAB PO PRN (15:37)
[2016-05-27] MEDS ORDERED: NS IV 1000 ML 1,000 ML ONE (15:57)
[2016-05-27] MEDS: CEFUROXIME INJECTION 750 MG in NS (IVPB) 50 ML IV SCH ×2 (16:01→23:33)
--- NOTE | 2016-05-27 16:10 | Progress Note-Cardiology ---
Cardiology SOAP Progress Note Subjective: No cp or palp or syncope or shortness of breath Objective: I&O/Vital Signs Vital Sign - Last 12Hours 05/27/16 05/27/16 05/27/16 10:55 12:00 15:40 Temp 98.4 Pulse 63 Resp 20 B/P (MAP) 130/57 Pulse Ox 92 97 O2 Delivery Nasal Cannula Room Air O2 Flow Rate 2.00 1.00 Intake and Output 05/27/16 00:00 Intake Total 340 ml Output Total 700 ml Balance -360 ml Weight (Pounds): 215 Weight (Ounces): 0.0 Weight (Calculated Kilograms): 97.488962 Constitutional: AAO x 3, well-developed, well-nourished Respiratory: No accessory muscle use, lungs clear to auscultation Cardiovascular: regular rate-rhythm, S1 and S2, systolic murmur (faint JEAN PIERRE at cardiac base) Gastrointestional: No tender, soft, No guarding, No rebound, audible bowel sounds Extremities: No clubbing, No cyanosis, No significant edema Neurologic/Psychiatric: grossly intact, power is 5/5 both on sides (we did not attempt any motion at the hip joints) Results/Procedures: Labs Laboratory Tests 05/27/16 04:35: White Blood Count 9.6, Red Blood Count 4.27L, Hemoglobin 13.2, Hematocrit 40, Mean Corpuscular Volume 93, Mean Corpuscular Hemoglobin 31, Mean Corpuscular Hemoglobin Concent 33, Red Cell Distribution Width 13.0, Platelet Count 224, Mean Platelet Volume 9.8, Neutrophils (%) (Auto) 72, Lymphocytes (%) (Auto) 16, Monocytes (%) (Auto) 11, Eosinophils (%) (Auto) 1, Basophils (%) (Auto) 0, Neutrophils # (Auto) 6.9, Lymphocytes # (Auto) 1.5, Monocytes # (Auto) 1.0, Eosinophils # (Auto) 0.1, Basophils # (Auto) 0.0, Sodium Level 141, Potassium Level 3.9, Chloride Level 109H, Carbon Dioxide Level 25, Anion Gap 7, Blood Urea Nitrogen 13, Creatinine 0.75, Estimat Glomerular Filtration Rate > 60, BUN/ Creatinine Ratio 17, Glucose Level 89, Calcium Level 8.4L, Total Bilirubin 0.6, Aspartate Amino Transf (AST/SGOT) 15, Alanine Aminotransferase (ALT/SGPT) 12, Alkaline Phosphatase 64, Total Protein 5.5L, Albumin 3.4 Microbiology 05/26/16 Urine Culture - Preliminary, Resulted A/P: Assessment: Right hip fracture following a non-syncopal fall on 05/26/16; s/p R hip surgery on 05/27/16 Coronary artery disease, primarily single vessel, treated with drug-eluting stenting of the mid left anterior descending artery with Promus 3.0 x 15-mm stent on 04/07/08. 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 Dick. Tests of 01/13/16 are consistent with some degree of hyperthyroidism, probably due to overcorrection, and she is following with Dr Dick for that Moderate distal peripheral arterial disease. Ankle brachial indices in February 2007 were normal, but the toe brachial indices were moderately diminished. MAXIMINO if February 2016 showed no evidence of any significant obstructive peripheral arterial disease Degenerative joint disease Low backache Hyperlipidemia, currently being treated with lovastatin Elevated body mass index of approximately 33 History of chronic right ankle swelling, minimal, following remote trauma, currently controlled Mild bilateral carotid arterial disease per u/s of August 2015 Impaired fasting glucose, mild. Plan: * I spoke with her regarding her CV issues * Continue to monitor lab work and to monitor clinically * DVT prophylaxis with enoxaparin is recommended (this is being managed by the [facility]opedic [facility]) RAJAT KIRAN MD FACP FAC CCDS May 27, 2016 16:10
[2016-05-27] MEDS: NS IV 1000 ML 1,000 ML IV SCH (16:34)
[2016-05-27 16:59] VITALS: BP 110/50
[2016-05-27 20:00] VITALS: BP 163/91
[2016-05-27 23:25] VITALS: BP 160/75
[2016-05-28] MEDS: NS IV 1000 ML 1,000 ML IV SCH ×3 (03:13→18:52)
[2016-05-28 04:00] VITALS: BP 111/55
[2016-05-28] MEDS: MULTIVIT W/MINERALS TAB (THERAGRAN M) PO SCH (06:16)
[2016-05-28] MEDS: LEVOTHYROXINE 112 MCG (LEVOTHROID) TAB PO SCH (06:16)
[2016-05-28] MEDS: LEVOTHYROXINE 25 MCG (LEVOTHROID) TAB PO SCH (06:16)
--- NOTE | 2016-05-28 07:55 | Progress Note-Standard ---
Standard Progress Note Progress Notes/Assess & Plan Progress/Assessment & Plan c/o lateral hip pain Vital Signs Date Time Temp Pulse Resp B/P (MAP) Pulse Ox O2 Delivery O2 Flow Rate FiO2 05/28/16 04:00 98.9 70 20 111/55 94 Room Air 05/27/16 23:25 97.5 60 20 160/75 90 Room Air 05/27/16 21:00 Nasal Cannula 2.00 05/27/16 20:00 96.3 64 20 163/91 93 Room Air 05/27/16 16:59 97.3 63 20 110/50 94 Room Air 05/27/16 15:40 97 1.00 05/27/16 12:00 98.4 63 20 130/57 92 Room Air 05/27/16 10:55 Nasal Cannula 2.00 I & O 05/28/16 07:00 Intake Total 2780 ml Output Total 720 ml Balance 2060 ml RLE--dressing intact. NVI distally no calf tenderness Radiographs--HW well positioned. No fractures s/p R bipolar hip mobilize IRU ROLO Cornell MD May 28, 2016 07:55
[2016-05-28 08:00] VITALS: BP 101/67
[2016-05-28] MEDS ORDERED: ENOXAPARIN 40 MG/0.4 ML (LOVENOX) SYR SC SCH (08:00)
[2016-05-28] MEDS: oxyCODONE/APAP 5/325MG (PERCOCET 5) TABLET PO PRN (08:17)
--- NOTE | 2016-05-28 08:38 | Progress Note-Cardiology ---
Cardiology SOAP Progress Note Subjective: In bed. C/O right hip discomfort. No c/o CP, palpitations or dyspnea. Objective: I&O/Vital Signs Vital Sign - Last 12Hours 05/27/16 05/28/16 05/28/16 23:25 04:00 08:00 Temp 97.5 98.9 100.2 Pulse 60 70 87 Resp 20 20 20 B/P (MAP) 160/75 111/55 101/67 Pulse Ox 90 94 94 O2 Delivery Room Air Room Air Room Air Intake and Output 05/28/16 00:00 Intake Total 580 ml Output Total 400 ml Balance 180 ml Weight (Pounds): 215 Weight (Ounces): 0.0 Weight (Calculated Kilograms): 97.726701 Constitutional: AAO x 3, well-developed, well-nourished Respiratory: No accessory muscle use, lungs clear to auscultation Cardiovascular: regular rate-rhythm, S1 and S2, systolic murmur (faint JEAN PIERRE at cardiac base) Gastrointestional: No tender, soft, No guarding, No rebound, audible bowel sounds Extremities: No clubbing, No cyanosis, No significant edema Neurologic/Psychiatric: grossly intact, power is 5/5 both on sides (we did not attempt any motion at the hip joints) Results/Procedures: Labs Microbiology 05/26/16 Urine Culture - Final, Complete Laboratory Tests 05/26/16 11:30 05/27/16 04:35 A/P: Assessment: Right hip fracture following a non-syncopal fall on 05/26/16; s/p R hip surgery on 05/27/16 Coronary artery disease, primarily single vessel, treated with drug-eluting stenting of the mid left anterior descending artery with Promus 3.0 x 15-mm stent on 04/07/08. 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 Dick. Tests of 01/13/16 are consistent with some degree of hyperthyroidism, probably due to overcorrection, and she is following with Dr Dick for that Moderate distal peripheral arterial disease. Ankle brachial indices in February 2007 were normal, but the toe brachial indices were moderately diminished. MAXIMINO if February 2016 showed no evidence of any significant obstructive peripheral arterial disease Degenerative joint disease Low backache Hyperlipidemia, currently being treated with lovastatin Elevated body mass index of approximately 33 History of chronic right ankle swelling, minimal, following remote trauma, currently controlled Mild bilateral carotid arterial disease per u/s of August 2015 Impaired fasting glucose, mild. Plan: * No new c/o * Continue to monitor lab work and to monitor clinically * DVT prophylaxis with enoxaparin is recommended (this is being managed by the Orthopedic [facility]) Physician Assessment Physician Assessment Lungs: good bilat air entry Cor: reg A&R * As documented in our note above JENNIFER BASHIR May 28, 2016 08:38 RAJAT KIRAN MD FACP FAC CCDS May 28, 2016 09:14
--- NOTE | 2016-05-28 08:52 | Progress Note (SOAP) ---
Subjective Subjective/Events-last exam PT IS AN 80 Y/O FEMALE WHO IS A NEW PATIENT IN MY PRACTICE. THE PATIENT REPORTS THAT SHE DOES NOT KNOW WHY SHE FELL, BUT SHE ENDED UP ON HER RIGHT HIP, WITH TREMENDOUS PAIN AND WAS TRANSPORTED TO THE HOSPITAL. SHE UNDERWENT A PARTIAL RIGHT HIP REPLACEMENT ON 05/27/16. SHE REPORTS THAT SHE HAS SOME PAIN IN HER HIP, BUT MOST OF HER DISCOMFORT IS FROM THE WEDGE BETWEEN HER LEGS. Review of Systems General: Fatigue HEENT: No Head Aches Pulmonary: No Dyspnea, No Cough Cardiovascular: No: Chest Pain, Palpitations Gastrointestinal: No: Abdominal Pain, Constipation, Nausea Genitourinary: No Dysuria Musculoskeletal: leg pain (RIGHT HIP) Neurological: Confusion (INTERMITTENT), Weakness Objective Exam Vital Signs Date Time Temp Pulse Resp B/P (MAP) Pulse Ox O2 Delivery O2 Flow Rate FiO2 05/28/16 04:00 98.9 70 20 111/55 94 Room Air 05/27/16 23:25 97.5 60 20 160/75 90 Room Air 05/27/16 21:00 Nasal Cannula 2.00 05/27/16 20:00 96.3 64 20 163/91 93 Room Air 05/27/16 16:59 97.3 63 20 110/50 94 Room Air 05/27/16 15:40 97 1.00 05/27/16 12:00 98.4 63 20 130/57 92 Room Air 05/27/16 10:55 Nasal Cannula 2.00 I & O 05/28/16 07:00 Intake Total 2780 ml Output Total 720 ml Balance 2060 ml Capillary Refill : Less Than 3 Seconds General Appearance: No Apparent Distress, WD/WN HEENT: PERRL/EOMI, Pharynx Normal Neck: Full Range of Motion, Supple Respiratory: Chest Non Tender, Lungs Clear, Normal Breath Sounds, No Accessory Muscle Use Cardiovascular: Regular Rate, Rhythm, No Edema Gastrointestinal: normal bowel sounds, non tender, soft, no organomegaly, no pulsatile mass Extremity: Pedal Edema Neurologic/Psychiatric: Alert, No Motor/Sensory Deficits, Normal Mood/Affect, Other (ORIENTED TO PERSON, PLACE, NOT TIME) Skin: Warm/Dry Lymphatic: No Adenopathy Results Lab Microbiology 05/26/16 Urine Culture - Final, Complete Assessment/Plan Assessment/Plan Assess & Plan/Chief Complaint RIGHT HIP FRACTURE HYPERTENSION CONFUSION HYPERLIPIDEMIA PERIPHERAL VASCULAR DISEASE PERIPHERAL NEUROPATHY RIGHT HIP FX - PT IS POST OP DAY #1 PARTIAL RIGHT HIP REPLACEMENT. CONTINUE WITH CURRENT TREATMENT WITH THERAPY - WILL ASK SOFTWARE DEVELOPMENT ENGINEER TO GET PT EVAL FROM [facility] [place] [facility] FOR REHAB. HTN - RESTARTED HOME MEDICATION - MONITOR PRESSURES, MAY INCREASE THE AMLODIPINE FURTHER IF INDICATED. CONFUSION - LIKELY DUE TO HER PAIN MEDICATION - MONITOR SYMPTOMS. MAY NEED TO RESTART TRAMADOL. HYPERLIPIDEMIA - RESTART STATIN. PERIPHERAL VASCULAR DISEASE - PT ON PLAVIX AT HOME - WILL RESTART ON DISCHARGE. PERIPHERAL NEUROPATHY - RESTART GABAPENTIN Clinical Quality Measures DVT/VTE Risk/Contraindication: Risk Factor Score Per Nursin RFS Level Per Nursing on Admit: 4+=Very High Contraindications-Pharm: Other *list below* Contraindications-Mechi: Other *list below* HEATHER DAHL MD May 28, 2016 08:51
[2016-05-28] MEDS: FAMOTIDINE 20MG/2ML IV (PEPCID) IV SCH (09:37)
[2016-05-28] MEDS: amLODIPine 5 MG (NORVASC) TAB PO SCH (09:37)
[2016-05-28] MEDS: SENNOSIDES 8.6 MG (SENOKOT) TAB PO SCH ×2 (09:37→20:31)
[2016-05-28] MEDS: ATENOLOL 50 MG (TENORMIN) TAB PO SCH (09:37)
[2016-05-28] MEDS: GABAPENTIN 300 MG (NEURONTIN) CAP PO SCH ×2 (09:38→20:31)
--- NOTE | 2016-05-28 09:59 | Physical Therapy Evaluation ---
PT Evaluation-General Medical Diagnosis Admission Date May 26, 2016 at 12:27 Medical Diagnosis: right femoral neck fracture Onset Date: May 26, 2016 Therapy Diagnosis Therapy Diagnosis: generalized weakness and debility Height/Weight Height (Feet): 5 Height (Inches): 8.00 Weight (Pounds): 215 Weight (Ounces): 0.0 Precautions Precautions/Isolations: Fall Prevention, Standard Precautions Weight Bear Status Weight Bearing Restriction: Weight Bearing/Tolerated Location Restriction: R LE Referral Physician: Rose Reason for Referral: Evaluation/Treatment Medical History Pertinent Medical History: HTN, Hypothroidism Additional Medical History fall at home/unable to remember exact details Current History s/p bipolar right hip Reviewed History: Yes Social History Home: Apartment Current Living Status: Alone Entry Into Home: Level Entry Prior/Core FIM Prior Level of Function Functional [place] Measure 0=Not Assessed/NA 4=Minimal Assistance 1=Total Assistance 5=Supervision or Setup 2=Maximal Assistance 6=Modified [place] 3=Moderate Assistance 7=Complete [place] Bed Mobility: 6 Transfers (B,C,W/C) (FIM): 6 Gait: 6 4WW and cane PLOF PT Evaluation-Current Subjective Patient is in bed and agrees to PT. Pain Numeric Pain Scale: 10-Worst Possible Pain Location: Right Location Body Site: Hip Pain Description: Acute Objective Patient Orientation: Normal For Age Problem Solving: Fair Attachments: Morrell Catheter, IV ROM/Strength ROM Lower Extremities left LE WFL right LE hip precautions Strenght Lower Extremities left knee flexion/extension 3/5; hip flexion 3/5; ankle dorsi/plantarflexion 3/5 right knee flexion/extension 3-/5; hip flexion 2-/5; ankle dorsi/plantarflexion 3/5 Integumentary/Posture Integumentary refer to nursing notes Bowel Incontinence: No Bladder Incontinence: Morrell Cath Posture flexed hip posture Neuromuscular (Tone, Coordination, Reflexes) grossly intact Sensory Vision: Functional Hearing: Functional Sensation Right Lower Extremit: Intact Sensation Left Lower Extremity: Intact Transfers Functional [place] Measure 0=Not Assessed/NA 4=Minimal Assistance 1=Total Assistance 5=Supervision or Setup 2=Maximal Assistance 6=Modified [place] 3=Moderate Assistance 7=Complete [place] Transfers (B, C, W/C) (FIM): 3 Scootin Rollin Supine to/from Sit: 3 Sit to/from Stand: 3 Gait Mode of Locomotion: Walk Anticipated Mode of Locomotion: Walk Gait (FIM): 1 Distance (FIM): 1=up to 49 ft Distance: 5' Gait Level of Assist: 3 Gait Persons Needed: 1 Gait Assistive Device: FWW Comments/Gait Description continuous verbal instruction for posture and FWW use. Patient unable to advance right or left LE at this time and "scoots" feet to move. Patient is also impulsive to sit in hip chair before it is safe. Balance Sitting Static: Normal Sitting Dynamic: Normal Standing Static: Fair Standing Dynamic: Fair Assessment/Needs 80 y.o. female, will benefit from skilled PT to address functional strength and mobility to improve current LOF and to safely return to home or care facility at maximum LOF. Patient is highly limited with safe mobility and will require time to advance to safe mobility. Rehab Potential: Good Post Rehab Potential-Barriers: pain PT Short Term Goals Short Term Goals Time Frame: Jun 04, 2016 Transfers (B,C,W/C) (FIM): 4 Gait (FIM): 2 Distance (FIM): 4=145-53 ft Gait Distance Comment: 50' Gait Level of Assist: 4 Gait Assistive Device: FWW PT Heel Seat Fitter Goals Skilled Nursing Goals PT Skilled Nursing Goals Time Frame: Jun 11, 2016 Transfers (B,C,W/C) (FIM): 5 Gait (FIM): 5 Gait distance (FIM): 3=150 ft Distance: 200' Gait Level of Assist: 5 Gait Assistive Device: FWW PT Plan Problem List Problem List: Activity Tolerance, Functional Strength, Safety, Balance, Gait, Transfer, Bed Mobility Treatment/Plan Treatment Plan: Continue Plan of Care Treatment Plan: Bed Mobility, Education, Functional Activity [place], Functional Strength, Gait, Safety, Therapeutic Exercise, Transfers Treatment Duration: Jun 11, 2016 # of days/week 6 Visits Per Week: 11 Pt/Family Agrees w/Plan: Yes Safety Risks/Education Patient Education: Safety Issues Teaching Recipient: Patient Teaching Methods: Discussion Response to Teaching: Verbalize Understanding, Reinforcement Needed Discharge Recommendations Therapy D/C Recommendations: Home Independently, Physical Therapy Home Care, Jail (TCU/NH) Time/GCodes Time In: 901 Time Out: 930 Total Billed Treatment Time: 29 [facility] May 28, 2016 09:59
[2016-05-28 10:07] LABS: MEAN PLATELET VOLUME 9.7 FL (7.4-10.4); RED BLOOD COUNT 3.3 10^6/uL (4.35-5.85); RED CELL DISTRIBUTION WIDTH 13.1 % (10.0-14.5); WHITE BLOOD COUNT 10.5 10^3/uL (4.3-11.0)
[2016-05-28 10:35] LABS: ANION GAP 8 MMOL/L (5-14); BLOOD UREA NITROGEN 20 MG/DL (7-18); BUN/CREATININE RATIO 23; CALCIUM 8.2 MG/DL (8.5-10.1); CARBON DIOXIDE 22 MMOL/L (21-32); CHLORIDE 108 MMOL/L (98-107); CREATININE SERUM 0.88 MG/DL (0.60-1.30); GFR ESTIMATED > 60; GLUCOSE 131 MG/DL (70-105); POTASSIUM 3.8 MMOL/L (3.6-5.0); SODIUM 138 MMOL/L (135-145)
[2016-05-28] MEDS ORDERED: GABA-488 PO (11:02)
[2016-05-28] MEDS ORDERED: CLOP75TA28 PO (11:02)
[2016-05-28] MEDS ORDERED: AMLO2.5T PO (11:02)
[2016-05-28] MEDS ORDERED: LOVA40TA2 PO (11:02)
[2016-05-28] MEDS ORDERED: ATEN100T PO (11:02)
[2016-05-28] MEDS: ACETAMINOPHEN 325 MG TABLET/CAPLET (TYLENOL) PO PRN ×2 (11:10→17:13)
[2016-05-28] MEDS: ENOXAPARIN 40 MG/0.4 ML (LOVENOX) SYR SC SCH (11:12)
[2016-05-28 12:00] VITALS: BP 129/75
--- NOTE | 2016-05-28 14:00 | Anesthesia-General Post-Op ---
General Patient Condition Mental Status/LOC: Same as Preop Cardiovascular: Satisfactory Nausea/Vomiting: Absent Respiratory: Satisfactory Pain: Controlled Complications: Absent Post Op Complications Complications None Follow Up Care/Instructions Patient Instructions None needed. Anesthesia/Patient Condition Patient Condition Patient is doing well, no complaints, stable vital signs, no apparent adverse anesthesia problems. No complications reported per nursing. D/C home per [facility] Criteria: No ELVIA REID CRNA May 28, 2016 14:00
--- NOTE | 2016-05-28 14:08 | Physical Therapy Daily Note ---
PT Daily Note-Current Subjective Patient is in bed and very lethargic. Pain Numeric Pain Scale: 10-Worst Possible Pain Location: Right Location Body Site: Hip Pain Description: Acute Comment: FLACC Mental Status Patient Orientation: Mumbles, Listless Attachments: Morrell Catheter, IV Transfers Functional [place] Measure 0=Not Assessed/NA 4=Minimal Assistance 1=Total Assistance 5=Supervision or Setup 2=Maximal Assistance 6=Modified [place] 3=Moderate Assistance 7=Complete IndependenceIRFPAI Quality Coding Scale 6 Independent with activity with or without an assistive device 5 Patient requires set up or clean up by helper. Patient completes activity by themselves 4 Supervision or touching assist (CGA). [place] provide cues , steadying assist 3 The helper provides less than half the effort to complete the activity 2 The helper provides more than half the effort to complete the activity 1 Dependent. The helper does all the effort to complete an activity 7 Patient refused to complete or attempt activity 9 The patient did not perform the activity before the current illness or injury 88 Not attempted due to Medical conditions or safety concerns Exercises Supine Ex: Ankle pumps, Heel Slides, Straight leg raise, Hip abd/add Supine Reps: 15 (bilateral LE AAROM x 2 sets) Assessment Patient is too lethargic and unsafe to be up OOB at this time. RN agrees. PT to increase activity as tolerated by patient. PT Short Term Goals Short Term Goals Time Frame: Jun 04, 2016 Transfers (B,C,W/C) (FIM): 4 Gait (FIM): 2 Distance (FIM): 0=893-51 ft Gait Distance Comment: 50' Gait Level of Assist: 4 Gait Assistive Device: FWW PT Grounds Maintenance Worker Goals Grounds Maintenance Worker Goals PT Grounds Maintenance Worker Goals Time Frame: Jun 11, 2016 Transfers (B,C,W/C) (FIM): 5 Gait (FIM): 5 Gait distance (FIM): 3=150 ft Distance: 200' Gait Level of Assist: 5 Gait Assistive Device: FWW PT Plan Treatment/Plan Treatment Plan: Continue Plan of Care Treatment Plan: Bed Mobility, Education, Functional Activity [place], Functional Strength, Gait, Safety, Therapeutic Exercise, Transfers Treatment Duration: Jun 11, 2016 Visits Per Week: 11 Time/GCodes Time In: 1345 Time Out: 1400 Total Billed Treatment Time: 15 Total Billed Treatment 1 visit EX 15 min CALI SAM PT May 28, 2016 14:08
--- NOTE | 2016-05-28 15:15 | Occupational Therapy Eval ---
OT Evaluation-General/PLF Medical Diagnosis Admission Date May 26, 2016 at 12:27 Medical Diagnosis: right femoral neck fracture Onset Date: May 26, 2016 Therapy Diagnosis Therapy Diagnosis: weakness, decr self care, decr functional mobility, decr activ tolerance Height/Weight Height (Feet): 5 Height (Inches): 8.00 Weight (Pounds): 215 Weight (Ounces): 0.0 Precautions Precautions/Isolations: Fall Prevention, Standard Precautions, Pressure Ulcer Safety Interventions: Bed Exit Alarm Weight Bear Status Weight Bearing Restriction: Weight Bearing/Tolerated Location Restriction: R LE Total Hip Precautions Referral Physician: Rose Referral Reason: Evaluation/Treatment Medical History Pertinent Medical History: CAD, HTN, Hypothroidism, Neuropathy, PVD Additional Medical History Cardiac stents, cataract surgery, neck fusion, stress incontinence, esophageal stricture Current History Fell on R hip, with fx. R SCHUYLER put in 05-27-16 Social History Home: Apartment ([address] in [place]) Current Living Status: Alone Entry Into Home: Level Entry ADL-Prior Level of Function ADL PLOF Comments Pt reported that she was able to manage her basic self care needs. 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 she indicated that she has never driven. Occupation: director of early childhood Drive Self: No OT Current Status Subjective Pt seen in room, up in hip chair after PT. Pt indicated that her low back hurt but she was unable to rate or describe her pain. Appearance Awake but lethargic. Mumbles and hard to understand at times Mental Status/Objective Patient Orientation: Person Attachments: Morrell Catheter, IV Current Glasses/Contacts: Yes Hand Dominance: Right Upper Extremity ROM Grossly WFL bilat (shoulders to about 90 degr flex/abd) Upper Extremity Strength Grossly 4/5 bilat. Difficult to test due to IV in wrist Pt's R iris was smaller than L and tended to point toward center. Movements not parallel with L eye. Nursing aware ADL-Treatment ADL-Current Deferred Functional [place] Measure 0=Not Assessed/NA 4=Minimal Assistance 1=Total Assistance 5=Supervision or Setup 2=Maximal Assistance 6=Modified [place] 3=Moderate Assistance 7=Complete IndependenceIRFPAI Quality Coding Scale 6 Independent with activity with or without an assistive device 5 Patient requires set up or clean up by helper. Patient completes activity by themselves 4 Supervision or touching assist (CGA). [place] provide cues , steadying assist 3 The helper provides less than half the effort to complete the activity 2 The helper provides more than half the effort to complete the activity 1 Dependent. The helper does all the effort to complete an activity 7 Patient refused to complete or attempt activity 9 The patient did not perform the activity before the current illness or injury 88 Not attempted due to Medical conditions or safety concerns Other Treatments Discusse dhip precautions with pt and her friend and wrote them on the white board in her room Education OT Patient Education: Purpose of tx/functional activities, Rehab process Teaching Recipient: Patient Teaching Methods: Discussion Response to Teaching: Verbalize Understanding OT Short Term Goals Short Term Goals 1=Demonstrate adherence to instructed precautions during ADL tasks. 2=Patient will verbalize/demonstrate understanding of assistive devices/ modifications for ADL. 3=Patient will improve strength/tolerance for activity to enable patient to perform ADL's. OT Oracle Database Developer Goals Detention Goals Time Frame: Jun 15, 2016 Eating (FIM): 6 Grooming(FIM): 6 Bathing(FIM): 5 Upper Body Dressing(FIM): 5 Lower Body Dressing(FIM): 5 Toileting(FIM): 5 Toilet/Commode Transfer(FIM): 5 Shower Transfer(FIM): 5 Additional Goals: 2-Verbalize Understanding, 3-ImproveStrength/[place]rey 1=Demonstrate adherence to instructed precautions during ADL tasks. 2=Patient will verbalize/demonstrate understanding of assistive devices/ modifications for ADL. 3=Patient will improve strength/tolerance for activity to enable patient to perform ADL's. OT Education/Plan Problem List/Assessment Assessment: Decreased Activ Tolerance, Decreased Safety Aware, Decreased UE Strength, Dependent Transfers, Impaired Funct Balance, Impaired Self-Care Skills Pt would benefit from skilled OT to increase her independence in basic self care to allow her to return to her apartment to live alone Discharge Recommendations Plan/Recommendations: Continue POC Treatment Plan/Plan of Care Treatment,Training & Education: Yes Patient would benefit from OT for education, treatment and training to promote independence in ADL's, mobility, safety and/or upper extremity function for ADL' s. Plan of Care: ADL Retraining, Functional Mobility, UE Funct Exercise/Act, UE Neuromus Re-Ed/Coord Treatment Duration: Jun 15, 2016 # of days/week 5 Visits Per Week: 5 Agreement: Yes Rehab Potential: Good Time/GCodes Start Time: 09:35 Stop Time: 09:50 Total Time Billed (hr/min): 15 Billed Treatment Time visit, 15 minutes evaluation moderate complexity BELLA BERMUDEZ OT May 28, 2016 15:15
[2016-05-28 16:24] VITALS: BP 118/71
[2016-05-28] MEDS: ASPIRIN 81 MG CHEW (CHILDREN'S ASA) PO SCH (18:25)
[2016-05-28 20:00] VITALS: BP 149/68
[2016-05-28] MEDS: FAMOTIDINE 20 MG (PEPCID) TABLET PO SCH (20:31)
[2016-05-29] VITALS (7 sets, daily range): BP systolic 148–179; BP diastolic 66–82
[2016-05-29] MEDS: ACETAMINOPHEN 325 MG TABLET/CAPLET (TYLENOL) PO PRN ×4 (00:27→21:08)
[2016-05-29] MEDS: CYCLOBENZAPRINE 10 MG (FLEXERIL) TAB PO PRN ×2 (00:27→21:08)
[2016-05-29] MEDS: NS IV 1000 ML 1,000 ML IV SCH (03:20)
[2016-05-29] MEDS: MULTIVIT W/MINERALS TAB (THERAGRAN M) PO SCH (06:20)
[2016-05-29] MEDS: LEVOTHYROXINE 112 MCG (LEVOTHROID) TAB PO SCH (06:20)
[2016-05-29] MEDS: LEVOTHYROXINE 25 MCG (LEVOTHROID) TAB PO SCH (06:20)
--- NOTE | 2016-05-29 07:02 | Progress Note-Standard ---
Standard Progress Note Progress Notes/Assess & Plan Progress/Assessment & Plan c/o lateral hip pain Vital Signs Date Time Temp Pulse Resp B/P (MAP) Pulse Ox O2 Delivery O2 Flow Rate FiO2 05/28/16 04:00 98.9 70 20 111/55 94 Room Air 05/27/16 23:25 97.5 60 20 160/75 90 Room Air 05/27/16 21:00 Nasal Cannula 2.00 05/27/16 20:00 96.3 64 20 163/91 93 Room Air 05/27/16 16:59 97.3 63 20 110/50 94 Room Air 05/27/16 15:40 97 1.00 05/27/16 12:00 98.4 63 20 130/57 92 Room Air 05/27/16 10:55 Nasal Cannula 2.00 I & O 05/28/16 07:00 Intake Total 2780 ml Output Total 720 ml Balance 2060 ml RLE--dressing intact. NVI distally no calf tenderness Radiographs--HW well positioned. No fractures s/p R bipolar hip mobilize IRU eval Final Diagnosis Patient confused this AM Vital Signs Date Time Temp Pulse Resp B/P (MAP) Pulse Ox O2 Delivery O2 Flow Rate FiO2 05/29/16 05:03 100.2 99 20 165/69 93 Room Air 05/29/16 04:30 100.4 105 22 173/74 90 Room Air 05/29/16 00:19 97.6 89 18 148/69 99 Room Air 05/28/16 20:00 98.9 78 20 149/68 91 Room Air 05/28/16 16:24 98.7 73 20 118/71 94 Room Air 05/28/16 12:00 100.9 72 20 129/75 92 Room Air 05/28/16 08:00 100.2 87 20 101/67 94 Room Air I & O 05/29/16 07:00 Intake Total 2810 ml Output Total 1900 ml Balance 910 ml Laboratory Tests Test 05/28/16 09:59 05/29/16 06:15 Range/Units White Blood Count 10.5 4.3-11.0 10^3/uL Red Blood Count 3.30 L 4.35-5.85 10^6/uL Hemoglobin 10.5 #L 11.5-16.0 G/DL Hematocrit 31 L 35-52 % Mean Corpuscular Volume 95 80-99 FL Mean Corpuscular Hemoglobin 32 25-34 PG Mean Corpuscular Hemoglobin Concent 34 32-36 G/DL Red Cell Distribution Width 13.1 10.0-14.5 % Platelet Count 210 130-400 10^3/uL Mean Platelet Volume 9.7 7.4-10.4 FL Sodium Level 138 135-145 MMOL/L Potassium Level 3.8 3.6-5.0 MMOL/L Chloride Level 108 H 98-107 MMOL/L Carbon Dioxide Level 22 21-32 MMOL/L Anion Gap 8 5-14 MMOL/L Blood Urea Nitrogen 20 H 7-18 MG/DL Creatinine 0.88 0.60-1.30 MG/DL Estimat Glomerular Filtration Rate > 60 BUN/Creatinine Ratio 23 Glucose Level 131 H 70-105 MG/DL Calcium Level 8.2 L 8.5-10.1 MG/DL R hip incision clean and dry. No calf tenderness s/p r bipolar mobilize IRU? ROLO Dunham MD May 29, 2016 07:02
[2016-05-29] MEDS: FAMOTIDINE 20 MG (PEPCID) TABLET PO SCH ×2 (09:05→21:07)
[2016-05-29] MEDS: GABAPENTIN 300 MG (NEURONTIN) CAP PO SCH ×2 (09:05→21:07)
[2016-05-29] MEDS: SENNOSIDES 8.6 MG (SENOKOT) TAB PO SCH ×2 (09:05→21:07)
[2016-05-29] MEDS: ASPIRIN 81 MG CHEW (CHILDREN'S ASA) PO SCH (09:05)
[2016-05-29] MEDS: amLODIPine 5 MG (NORVASC) TAB PO SCH (09:05)
[2016-05-29] MEDS: ATENOLOL 50 MG (TENORMIN) TAB PO SCH (09:05)
--- NOTE | 2016-05-29 09:14 | Progress Note (SOAP) ---
Subjective Subjective/Events-last exam PT REPORTS THAT SHE IS FEELING BETTER TODAY. SHE REPORTS STILL HAVING PAIN IN LATERAL RIGHT HIP. Review of Systems General: Fatigue HEENT: Head Aches Pulmonary: No Dyspnea, No Cough Cardiovascular: No: Chest Pain Gastrointestinal: No: Abdominal Pain, Nausea Genitourinary: No Dysuria Musculoskeletal: leg pain Neurological: Confusion (INTERMITTENT - WORSE IN EVENINGS), Weakness Objective Exam Vital Signs Date Time Temp Pulse Resp B/P (MAP) Pulse Ox O2 Delivery O2 Flow Rate FiO2 05/29/16 08:00 99.6 88 24 179/82 94 Room Air 05/29/16 05:03 100.2 99 20 165/69 93 Room Air 05/29/16 04:30 100.4 105 22 173/74 90 Room Air 05/29/16 00:19 97.6 89 18 148/69 99 Room Air 05/28/16 20:00 98.9 78 20 149/68 91 Room Air 05/28/16 16:24 98.7 73 20 118/71 94 Room Air 05/28/16 12:00 100.9 72 20 129/75 92 Room Air I & O 05/29/16 07:00 Intake Total 2810 ml Output Total 1900 ml Balance 910 ml Capillary Refill : Less Than 3 SecondsLess Than 3 Seconds General Appearance: No Apparent Distress, WD/WN HEENT: PERRL/EOMI, Pharynx Normal Neck: Full Range of Motion, Supple Respiratory: Chest Non Tender, Lungs Clear, Normal Breath Sounds Gastrointestinal: normal bowel sounds, non tender, soft, no organomegaly, no pulsatile mass Extremity: Pedal Edema, Other (HEALING INCISION RIGHT LATERAL HIP) Skin: Warm/Dry Lymphatic: No Adenopathy Results Lab Laboratory Tests 05/28/16 09:59: White Blood Count 10.5, Red Blood Count 3.30L, Hemoglobin 10.5#L, Hematocrit 31L , Mean Corpuscular Volume 95, Mean Corpuscular Hemoglobin 32, Mean Corpuscular Hemoglobin Concent 34, Red Cell Distribution Width 13.1, Platelet Count 210, Mean Platelet Volume 9.7, Sodium Level 138, Potassium Level 3.8, Chloride Level 108H, Carbon Dioxide Level 22, Anion Gap 8, Blood Urea Nitrogen 20H, Creatinine 0.88, Estimat Glomerular Filtration Rate > 60, BUN/Creatinine Ratio 23, Glucose Level 131H, Calcium Level 8.2L 05/29/16 06:15: Hemoglobin 8.9L, Hematocrit 27L Microbiology 05/27/16 MRSA Screen - Final, Complete MRSA not isolated 05/26/16 Urine Culture - Final, Complete Assessment/Plan Assessment/Plan Assess & Plan/Chief Complaint RIGHT HIP FRACTURE HYPERTENSION CONFUSION HYPERLIPIDEMIA PERIPHERAL VASCULAR DISEASE PERIPHERAL NEUROPATHY RIGHT HIP FX - PT IS POST OP DAY #2 PARTIAL RIGHT HIP REPLACEMENT. CONTINUE WITH CURRENT TREATMENT WITH THERAPY -FAMILY AND PATIENT HAVE DECIDED ON INPATIENT REHAB HTN - RESTARTED HOME MEDICATION - MONITOR PRESSURES, MAY INCREASE THE AMLODIPINE FURTHER IF INDICATED. CONFUSION - LIKELY DUE TO HER PAIN MEDICATION - MONITOR SYMPTOMS. HYPERLIPIDEMIA - RESTARTED STATIN. PERIPHERAL VASCULAR DISEASE - PT ON PLAVIX AT HOME - WILL RESTART ON DISCHARGE. PERIPHERAL NEUROPATHY - RESTART GABAPENTIN Clinical Quality Measures DVT/VTE Risk/Contraindication: Risk Factor Score Per Nursin RFS Level Per Nursing on Admit: 4+=Very High Contraindications-Pharm: Other *list below* Contraindications-Mechi: Other *list below* HEATHER DAHL MD May 29, 2016 09:14
--- NOTE | 2016-05-29 10:09 | Progress Note-Cardiology ---
Cardiology SOAP Progress Note Subjective: C/O some discomfort at the surgical site. Daughter at the bedside. No c/o CP, palpitations, dyspnea, syncope or near syncope. Reports some confusion over night. Objective: I&O/Vital Signs Vital Sign - Last 12Hours 05/29/16 05/29/16 05/29/16 05/29/16 04:30 05:03 08:00 12:00 Temp 100.4 100.2 99.6 99.1 Pulse 105 99 88 71 Resp 22 20 24 20 B/P (MAP) 173/74 165/69 179/82 148/66 Pulse Ox 90 93 94 95 O2 Delivery Room Air Room Air Room Air Room Air Intake and Output 05/29/16 00:00 Intake Total 1610 ml Output Total 1650 ml Balance -40 ml Weight (Pounds): 215 Weight (Ounces): 0.0 Weight (Calculated Kilograms): 97.195950 Constitutional: AAO x 3, well-developed, well-nourished Respiratory: No accessory muscle use, lungs clear to auscultation Cardiovascular: regular rate-rhythm, S1 and S2, systolic murmur (faint JEAN PIERRE at cardiac base) Gastrointestional: No tender, soft, round, No guarding, No rebound, audible bowel sounds Extremities: No clubbing, No cyanosis, No significant edema Neurologic/Psychiatric: grossly intact Results/Procedures: Labs Laboratory Tests 05/29/16 06:15: Hemoglobin 8.9L, Hematocrit 27L Microbiology 05/27/16 MRSA Screen - Final, Complete MRSA not isolated 05/26/16 Urine Culture - Final, Complete A/P: Assessment: Right hip fracture following a non-syncopal fall on 05/26/16; s/p R hip surgery on 05/27/16 Mild post-op anemia - management per medical/ortho services UTI - management per medical services Coronary artery disease, primarily single vessel, treated with drug-eluting stenting of the mid left anterior descending artery with Promus 3.0 x 15-mm stent on 04/07/08. 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 Dick. Tests of 01/13/16 are consistent with some degree of hyperthyroidism, probably due to overcorrection, and she is following with Dr Dick for that Moderate distal peripheral arterial disease. Ankle brachial indices in February 2007 were normal, but the toe brachial indices were moderately diminished. MAXIMINO if February 2016 showed no evidence of any significant obstructive peripheral arterial disease Degenerative joint disease Low backache Hyperlipidemia, currently being treated with lovastatin Elevated body mass index of approximately 33 History of chronic right ankle swelling, minimal, following remote trauma, currently controlled Mild bilateral carotid arterial disease per u/s of August 2015 Impaired fasting glucose, mild. Plan: * Mild post-op anemia - management per medical/orthopedic services * Continue to monitor lab work and to monitor clinically * BP somewhat elevated - pt and family would like to hold off on increasing anti -hypertensives at this time - will monitor * Confusion over night possibly r/t pain medications and/or UTI - pain meds reduced per medical services * UTI - management per medical services * DVT prophylaxis with enoxaparin is recommended (this is being managed by the Orthopedic Service) Physician Assessment Physician Assessment Lungs: good bilateral air entry Cor: reg A&R * As documented in our note above JENNIFER BASHIR May 29, 2016 10:08 RAJAT KIRAN MD FACP FAC CCDS May 29, 2016 13:37
[2016-05-29] MEDS: ENOXAPARIN 40 MG/0.4 ML (LOVENOX) SYR SC SCH (10:50)
[2016-05-29] MEDS: cefTRIAXone INJECTION 1,000 MG in NS (IVPB) 50 ML IV SCH (10:50)
--- NOTE | 2016-05-29 11:50 | Physical Therapy Daily Note ---
PT Daily Note-Current Subjective Patient is in bed and agrees to PT. Pain Numeric Pain Scale: 10-Worst Possible Pain Location: Right Location Body Site: Hip Pain Description: Acute Comment: FLACC Mental Status Patient Orientation: Person, Time, Situation Attachments: IV Transfers Functional [place] Measure 0=Not Assessed/NA 4=Minimal Assistance 1=Total Assistance 5=Supervision or Setup 2=Maximal Assistance 6=Modified [place] 3=Moderate Assistance 7=Complete IndependenceIRFPAI Quality Coding Scale 6 Independent with activity with or without an assistive device 5 Patient requires set up or clean up by helper. Patient completes activity by themselves 4 Supervision or touching assist (CGA). [place] provide cues , steadying assist 3 The helper provides less than half the effort to complete the activity 2 The helper provides more than half the effort to complete the activity 1 Dependent. The helper does all the effort to complete an activity 7 Patient refused to complete or attempt activity 9 The patient did not perform the activity before the current illness or injury 88 Not attempted due to Medical conditions or safety concerns Transfers (B, C, W/C) (FIM): 2 Scootin Supine to/from Sit: 2 Sit to/from Stand: 3 Bed to/from Chair: 3 Weight Bearing Weight Bearing Restriction: Weight Bearing/Tolerated Location Restriction: R LE Gait Training Gait (FIM): 1 Distance (FIM): 1=up to 49 ft Distance: 3 steps Gait Level of Assist: 2 Gait Persons Needed: 1 Gait Assistive Device: FWW Patient is able to advance right LE slightly in stand with FWW, however, patient is unable to weight shift to right to advance left LE due to pain, posture and strength. Education with patient on weight shifting to right, however, patient is very resistive to perform this due to pain. Patient took 3 shuffle steps with extremely decreased step length and required chair to be place behind her due to impulsiveness to sit. Exercises Supine Ex: Ankle pumps, Heel Slides, Straight leg raise Supine Reps: 10 Assessment Patient tolerates minimal activity at this time due to pain tolerance right LE. From a PT standpoint, patient will require extended time to fully recover from right hip surgery to return safely to home at [facility]. PT Short Term Goals Short Term Goals Time Frame: Jun 04, 2016 Gait (FIM): 2 Distance (FIM): 8=483-99 ft Gait Distance Comment: 50' Gait Level of Assist: 4 Gait Assistive Device: FWW PT Fpc Goals Fpc Goals PT Radio Broadcaster Goals Time Frame: Jun 11, 2016 Transfers (B,C,W/C) (FIM): 5 Gait (FIM): 5 Gait distance (FIM): 3=150 ft Distance: 200' Gait Level of Assist: 5 Gait Assistive Device: FWW PT Plan Treatment/Plan Treatment Plan: Continue Plan of Care Treatment Plan: Bed Mobility, Education, Functional Activity Jeffrey, Functional Strength, Gait, Safety, Therapeutic Exercise, Transfers Treatment Duration: Jun 11, 2016 Visits Per Week: 11 Time/GCodes Time In: 1101 Time Out: 1126 Total Billed Treatment Time: 25 Total Billed Treatment 1 visit EX 10 min FA 15 min CALI SAM PT May 29, 2016 11:50
--- NOTE | 2016-05-29 13:25 | Physical Therapy Daily Note ---
PT Daily Note-Current Subjective Patient is up in hip chair and agrees to PT and to return to bed. Pain Numeric Pain Scale: 10-Worst Possible Pain Location: Right Location Body Site: Hip Pain Description: Acute Comment: Nursing in to administer pain medication Mental Status Patient Orientation: Person, Time, Situation Transfers Functional [place] Measure 0=Not Assessed/NA 4=Minimal Assistance 1=Total Assistance 5=Supervision or Setup 2=Maximal Assistance 6=Modified [place] 3=Moderate Assistance 7=Complete IndependenceIRFPAI Quality Coding Scale 6 Independent with activity with or without an assistive device 5 Patient requires set up or clean up by helper. Patient completes activity by themselves 4 Supervision or touching assist (CGA). [place] provide cues , steadying assist 3 The helper provides less than half the effort to complete the activity 2 The helper provides more than half the effort to complete the activity 1 Dependent. The helper does all the effort to complete an activity 7 Patient refused to complete or attempt activity 9 The patient did not perform the activity before the current illness or injury 88 Not attempted due to Medical conditions or safety concerns Transfers (B, C, W/C) (FIM): 1 Scootin Rollin Supine to/from Sit: 1 Sit to/from Stand: 2 Bed to/from Chair: 3 Patient unable to assist with bed mobility exercises due to pain and resistive to all movement right LE. Weight Bearing Weight Bearing Restriction: Weight Bearing/Tolerated Location Restriction: R LE Gait Training Gait (FIM): 1 Distance (FIM): 1=up to 49 ft Distance: 3 steps Gait Level of Assist: 2 Gait Persons Needed: 1 Gait Assistive Device: FWW Patient able to advance right LE slightly and scoot left foot forward to "scoot " to move to bed. Patient educated during treatment on weight shifting techniques to right to advance left LE, however, patient is unable to perform. Patient continues to present with flexed trunk posture with FWW. Exercises Supine Ex: Ankle pumps, Heel Slides, Straight leg raise, Hip abd/add Supine Reps: 10 (AAROM bilaterally) Seated Therapy Exercises: Ankle pumps, Long arc quads Seated Reps: 10 (AAROM) Assessment Patient tolerates minimal activity and is repositioned supine in bed with pillow between bilateral LE and SCD's in place. Patient also toileted ( dependent assist) prior to returning to bed. Call light in hand and side rails up. Patient progressing very slowly. PT Short Term Goals Short Term Goals Time Frame: Jun 04, 2016 Gait (FIM): 2 Distance (FIM): 7=857-59 ft Gait Distance Comment: 50' Gait Level of Assist: 4 Gait Assistive Device: FWW PT Long-Term Goals Charge Loader Goals PT Charge Loader Goals Time Frame: Jun 11, 2016 Transfers (B,C,W/C) (FIM): 5 Gait (FIM): 5 Gait distance (FIM): 3=150 ft Distance: 200' Gait Level of Assist: 5 Gait Assistive Device: FWW PT Plan Treatment/Plan Treatment Plan: Continue Plan of Care Treatment Plan: Bed Mobility, Education, Functional Activity Jeffrey, Functional Strength, Gait, Safety, Therapeutic Exercise, Transfers Treatment Duration: Jun 11, 2016 Visits Per Week: 11 Time/GCodes Time In: 1250 Time Out: 1315 Total Billed Treatment Time: 25 Total Billed Treatment 1 visit FA 15 min EX 10 min CALI SAM PT May 29, 2016 13:25
--- NOTE | 2016-05-29 14:21 | Occupational Ther Daily Note ---
OT Current Status-Daily Note Subjective Pt seen in room, up in bed, agreeable to OT. No pain mentioned Appearance Alert, cooperative Mental Status/Objective Functional [place] Measure 0=Not Assessed/NA 4=Minimal Assistance 1=Total Assistance 5=Supervision or Setup 2=Maximal Assistance 6=Modified [place] 3=Moderate Assistance 7=Complete [place] ADL-Treatment Pt was given information on hip precautions yesterday during evaluation and they were written on her white board. Today she could not recall any of the precautions so was given written information which she was able to read. Each of the three precautions were discussed and practical examples of each were provided (she demonstrated understanding by talking about a java support engineer that she uses at home to keep from bending over). After education, she was unable to recall any of the hip precautions. Pt encouraged to review written instructions on her own in preparation for coming to ARU tomorrow. She will require repetition and reinforcement with these precautions in order to not dislocate her hip. Pt left up in bed, all needs met. Education OT Patient Education: Disease process, Modified ADL techniques, Purpose of tx/ functional activities, Reviewed precautions (hip precautions) Teaching Recipient: Patient Teaching Methods: Discussion Response to Teaching: Reinforcement Needed OT Short Term Goals Short Term Goals 1=Demonstrate adherence to instructed precautions during ADL tasks. 2=Patient will verbalize/demonstrate understanding of assistive devices/ modifications for ADL. 3=Patient will improve strength/tolerance for activity to enable patient to perform ADL's. OT Usp Goals Gas Meter Checker Goals Time Frame: Jun 15, 2016 Eating (FIM): 6 Grooming(FIM): 6 Bathing(FIM): 5 Upper Body Dressing(FIM): 5 Lower Body Dressing(FIM): 5 Toileting(FIM): 5 Toilet/Commode Transfer(FIM): 5 Shower Transfer(FIM): 5 Additional Goals: 2-Verbalize Understanding, 3-ImproveStrength/[place] 1=Demonstrate adherence to instructed precautions during ADL tasks. 2=Patient will verbalize/demonstrate understanding of assistive devices/ modifications for ADL. 3=Patient will improve strength/tolerance for activity to enable patient to perform ADL's. OT Education/Plan Problem List/Assessment Pt would benefit from skilled OT to increase her independence in basic self care to allow her to return to her apartment to live alone Discharge Recommendations Plan/Recommendations: Continue POC Treatment Plan/Plan of Care Patient would benefit from OT for education, treatment and training to promote independence in ADL's, mobility, safety and/or upper extremity function for ADL' s. Plan of Care: ADL Retraining, Functional Mobility, UE Funct Exercise/Act, UE Neuromus Re-Ed/Coord Treatment Duration: Jun 15, 2016 Visits Per Week: 5 Agreement: Yes Rehab Potential: Good Time/GCodes Start Time: 13:55 Stop Time: 14:10 Total Time Billed (hr/min): 15 Billed Treatment Time visit, 15 minutes ADL BELLA BERMUDEZ OT May 29, 2016 14:21
[2016-05-30] VITALS: BP 150/74
[2016-05-30 04:00] VITALS: BP 177/89
[2016-05-30] MEDS: LEVOTHYROXINE 25 MCG (LEVOTHROID) TAB PO SCH (06:11)
[2016-05-30] MEDS: MULTIVIT W/MINERALS TAB (THERAGRAN M) PO SCH (06:11)
[2016-05-30] MEDS: LEVOTHYROXINE 112 MCG (LEVOTHROID) TAB PO SCH (06:11)
[2016-05-30 08:00] VITALS: BP 180/72
[2016-05-30] MEDS ORDERED: SULF1TAB35 PO (08:44)
[2016-05-30] MEDS ORDERED: AMLO5TAB2 PO (08:44)
[2016-05-30] MEDS ORDERED: ASPI-999 PO (08:44)
[2016-05-30] MEDS ORDERED: LACT1CAP45 PO (08:44)
--- NOTE | 2016-05-30 08:45 | Discharge Summary ---
Diagnosis/Chief Complaint Date of Admission May 26, 2016 at 12:27 Date of Discharge Discharge Date: May 30, 2016 Discharge Time: 929 Admission Diagnosis Admission Diagnosis Right hip fracture. Coronary artery disease. Stent. Hypertension. infection. Patient have surgery tomorrow. Spoke to patient and daughter Discharge Diagnosis RIGHT HIP FRACTURE HYPERTENSION CONFUSION HYPERLIPIDEMIA PERIPHERAL VASCULAR DISEASE PERIPHERAL NEUROPATHY Reason Hospital Visit Patient fell and landed on her right side and fractured her right hip. Onset this morning brought out to the emergency room and admitted area Surgeries complete hysterectomy, thyroid, mild from hand and stent 2008. Family history grandson asthma denies TB diabetes heart disease lung disease cancer in family. Head denies headache dizziness fainting problem with HEENT denies diplopia tinnitus or throat. Heart denies chest pain shortness of breath or diaphoresis. Has coronary stent on aspirin and Plavix. Lungs denies asthma TB coughing congestion smoking the wheezing. Gastrointestinal is vomiting now. Genitourinary denies blood pain or frequency. UA shows infection Discharge Summary Discharge Physical Examination Allergies: Coded Allergies: codeine (Unverified Allergy, Mild, 11/15/08) Penicillins (Verified Allergy, Unknown, HAS RECEIVED ANCEF IN THE PAST, ) morphine (Verified Adverse Reaction, Mild, NAUSEA, 04/07/08) Influenza Virus Vaccines (Unverified Adverse Reaction, Unknown, 05/30/16) nylon (Verified Adverse Reaction, Unknown, ITCH, 04/07/08) Vitals & I&Os General Appearance: Alert, Oriented X3, Cooperative HEENT: Atraumatic, PERRLA Respiratory: Clear to Auscultation Cardiovascular: Regular Rate Abdominal: Normal Bowel Sounds, Soft Extremities: No Clubbing Skin: Other Psych/Mental Status: Mental Status NL, Mood NL Hospital Course RIGHT HIP FRACTURE HYPERTENSION CONFUSION HYPERLIPIDEMIA PERIPHERAL VASCULAR DISEASE PERIPHERAL NEUROPATHY RIGHT HIP FX - PT IS POST OP PARTIAL RIGHT HIP REPLACEMENT. CONTINUE WITH CURRENT TREATMENT WITH THERAPY - PT TO GO TO INPATIENT REHAB HTN - RESTARTED HOME MEDICATION - MONITOR PRESSURES, MAY INCREASE THE AMLODIPINE FURTHER IF INDICATED. CONFUSION - LIKELY DUE TO HER PAIN MEDICATION - MONITOR SYMPTOMS. MAY NEED TO RESTART TRAMADOL. HYPERLIPIDEMIA - RESTART STATIN. PERIPHERAL VASCULAR DISEASE - PT ON PLAVIX AT HOME - WILL RESTART ON DISCHARGE. PERIPHERAL NEUROPATHY - RESTART GABAPENTIN Discharge Condition at discharge IMPROVING Instructions to patient/family Please see electonic discharge instructions given to patient. Discharge Medications Reviewed and agree with Discharge Medication list on patient's Discharge Instruction sheet Clinical Quality Measures DVT/VTE Risk/Contraindication: Risk Factor Score Per Nursin RFS Level Per Nursing on Admit: 4+=Very High Contraindications-Pharm: Other *list below* Contraindications-Mechi: Other *list below* HEATHER DAHL MD May 30, 2016 08:45
--- NOTE | 2016-05-30 09:20 | Progress Note-Cardiology ---
Cardiology SOAP Progress Note Subjective: Sitting up in a chair at the bedside. No c/o CP, dyspnea or palpitations. Objective: I&O/Vital Signs Vital Sign - Last 12Hours 05/30/16 05/30/16 08:00 10:00 Temp 99.8 Pulse 85 85 Resp 24 24 B/P (MAP) 180/72 180/72 Pulse Ox 96 96 O2 Delivery Room Air O2 Flow Rate 2.00 Intake and Output 05/30/16 00:00 Intake Total 2050 ml Output Total 575 ml Balance 1475 ml Weight (Pounds): 215 Weight (Ounces): 0.0 Weight (Calculated Kilograms): 97.947300 Constitutional: AAO x 3, well-developed, well-nourished Respiratory: No accessory muscle use, lungs clear to auscultation Cardiovascular: regular rate-rhythm, S1 and S2, systolic murmur (faint JEAN PIERRE at cardiac base) Gastrointestional: No tender, soft, round, No guarding, No rebound, audible bowel sounds Extremities: No clubbing, No cyanosis, No significant edema Neurologic/Psychiatric: grossly intact Results/Procedures: Labs Microbiology 05/27/16 MRSA Screen - Final, Complete MRSA not isolated 05/26/16 Urine Culture - Final, Complete A/P: Assessment: Right hip fracture following a non-syncopal fall on 05/26/16; s/p R hip surgery on 05/27/16 Mild post-op anemia - management per medical/ortho services UTI - management per medical services Coronary artery disease, primarily single vessel, treated with drug-eluting stenting of the mid left anterior descending artery with Promus 3.0 x 15-mm stent on 04/07/08. 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 Dick. Tests of 01/13/16 are consistent with some degree of hyperthyroidism, probably due to overcorrection, and she is following with Dr Dick for that Moderate distal peripheral arterial disease. Ankle brachial indices in February 2007 were normal, but the toe brachial indices were moderately diminished. MAXIMINO if February 2016 showed no evidence of any significant obstructive peripheral arterial disease Degenerative joint disease Low backache Hyperlipidemia, currently being treated with lovastatin Elevated body mass index of approximately 33 History of chronic right ankle swelling, minimal, following remote trauma, currently controlled Mild bilateral carotid arterial disease per u/s of August 2015 Impaired fasting glucose, mild. Plan: * Mild post-op anemia - management per medical/orthopedic services * Continue to monitor lab work and to monitor clinically * BP remains elevated - will adjust antihypertensive regimen * Confusion - improved * UTI - management per medical services * DVT prophylaxis with enoxaparin is recommended (this is being managed by the Orthopedic Service) Physician Assessment Physician Assessment Lungs: clear Cor: reg A&R As documented in our note above I reviewed management plan for hypertension JENNIFER BASHIR May 30, 2016 09:20 RAJAT KIRAN MD FACP FAC CCDS May 30, 2016 17:06
[2016-05-30] MEDS: cefTRIAXone INJECTION 1,000 MG in NS (IVPB) 50 ML IV SCH (09:22)
[2016-05-30] MEDS: FAMOTIDINE 20 MG (PEPCID) TABLET PO SCH (09:23)
[2016-05-30] MEDS: amLODIPine 5 MG (NORVASC) TAB PO SCH (09:23)
[2016-05-30] MEDS: ENOXAPARIN 40 MG/0.4 ML (LOVENOX) SYR SC SCH (09:23)
[2016-05-30] MEDS: GABAPENTIN 300 MG (NEURONTIN) CAP PO SCH (09:23)
[2016-05-30] MEDS: SENNOSIDES 8.6 MG (SENOKOT) TAB PO SCH (09:23)
[2016-05-30] MEDS: ASPIRIN 81 MG CHEW (CHILDREN'S ASA) PO SCH (09:23)
[2016-05-30] MEDS: ATENOLOL 50 MG (TENORMIN) TAB PO SCH (09:23)
[2016-05-30] MEDS ORDERED: ATENOLOL 25 MG (TENORMIN) TAB PO NR (09:39)
[2016-05-30 10:00] VITALS: BP 180/72
[2016-05-31] MEDS ORDERED: ATENOLOL 50 MG (TENORMIN) TAB PO SCH (09:00)
[2016-06-15] MEDS ORDERED: POLY17PO23 PO (08:20)
[2016-06-15] MEDS ORDERED: Multivitamins/Minerals Therap PO (08:20)
[2016-06-15] MEDS ORDERED: LEVO25TA5 PO (08:20)
[2016-06-15] MEDS ORDERED: SENN-140 PO (08:20)
[2016-06-15] MEDS ORDERED: LEVO112T55 PO (08:20)
[2016-06-15] MEDS ORDERED: ACET325T49 PO (08:20)
[2016-06-15] MEDS ORDERED: ACID1TAB PO (08:20)
[2016-06-15] MEDS ORDERED: FAMO20TA5 PO (08:20)
== END 2016-05-30 10:25 | DRG 470 ==
LOC: DELPENDDIS → EDUNIT# 10:52 → ER 10:53 → 4TH 12:27 → OBSVTOIN 12:27
PROVIDERS: ADMIT Orthopaedic Surgery; ATTEND Family Medicine
PROC: 0SRR01A Replacement of Right Hip Joint, Femoral Surface with Metal Synthetic Substitute, Uncemented, Open Approach (ICD-10-PCS; principal; 2016-05-27 07:45)
DX: S72.001A Fracture of unspecified part of neck of right femur, initial encounter for closed fracture (principal); N39.0 Urinary tract infection, site not specified; I10 Essential (primary) hypertension; E89.0 Postprocedural hypothyroidism; E78.00 Pure hypercholesterolemia, unspecified; N39.3 Stress incontinence (female) (male); I11.9 Hypertensive heart disease without heart failure; I73.9 Peripheral vascular disease, unspecified; M54.5 Low back pain; G62.9 Polyneuropathy, unspecified; R41.0 Disorientation, unspecified; I65.23 Occlusion and stenosis of bilateral carotid arteries; D64.9 Anemia, unspecified; R73.01 Impaired fasting glucose; Z95.5 Presence of coronary angioplasty implant and graft; Z79.82 Long term (current) use of aspirin; Z98.1 Arthrodesis status; Z79.02 Long term (current) use of antithrombotics/antiplatelets; W18.30XA Fall on same level, unspecified, initial encounter; Y92.009 Unspecified place in unspecified non-institutional (private) residence as the place of occurrence of the external cause
CPT/HCPCS: 36415; 51702; 70450; 71010; 72170; 73502; 80048; 80053; 81000; 85014; 85018; 85025; 85027; 85610; 85730; 86850; 86900; 86901; 87081; 87088; 93005; 94664; 96374; 96375; 96376

== ENCOUNTER 2016-05-30 08:44 | Inpatient (IN) | payer MEDICARE, OTHER ==
[~2016-05-30] VITALS: Ht 172.7 cm; Wt 97.2 kg
[~2016-05-30 08:44] MED LIST changes: +AMLO2.5T PO; +AMLO5TAB2 PO; +ASPI-999 PO; +ATEN100T PO; +CLOP75TA28 PO; +GABA-488 PO; +LACT1CAP45 PO; +LOVA40TA2 PO; +SULF1TAB35 PO; +[UNRECOGNIZED DRUG - CODE] PO
[2016-05-30] MEDS ORDERED: ATENOLOL 25 MG (TENORMIN) TAB PO NR (10:44)
[2016-05-30] MEDS ORDERED: CATHETER FLUSH 10 ML SYR IV PRN (10:45)
[2016-05-30 10:48] VITALS: BP 126/65
--- NOTE | 2016-05-30 10:52 | Progress Note-Standard ---
Standard Progress Note Progress Notes/Assess & Plan Progress/Assessment & Plan To IRU feeling better today RLE--dressing intact. Neg Brandon. Neg SLR s/p R bipolar continue PT/OT ROLO JO MD May 30, 2016 10:52
--- NOTE | 2016-05-30 11:03 | Physical Therapy Evaluation ---
PT Evaluation-General Medical Diagnosis Admission Date May 30, 2016 at 10:25 Medical Diagnosis: right femoral neck fx Onset Date: May 26, 2016 Therapy Diagnosis Therapy Diagnosis: impaired mobility, strength, endurance, ROM Height/Weight Height (Feet): 5 Height (Inches): 8.00 Weight (Pounds): 215 Weight (Ounces): 0.0 Precautions Precautions/Isolations: Standard Precautions Weight Bear Status Weight Bearing Restriction: Weight Bearing/Tolerated Location Restriction: R LE Referral Physician: Vu Reason for Referral: Evaluation/Treatment Medical History Pertinent Medical History: CAD, HTN, Hypothroidism, Neuropathy, PVD Additional Medical History Patient had a fall at home. Current History s/p bipolar right total hip Reviewed History: Yes Social History Home: Single Level Current Living Status: Alone Entry Into Home: Level Entry Prior/Core FIM Prior Level of Function Functional [place] Measure 0=Not Assessed/NA 4=Minimal Assistance 1=Total Assistance 5=Supervision or Setup 2=Maximal Assistance 6=Modified [place] 3=Moderate Assistance 7=Complete [place] Bed Mobility: 6 Transfers (B,C,W/C) (FIM): 6 Gait: 6 Patient used a single point cane, she also has a 4 wheeled walker and shower chair PT Evaluation-Current Subjective Patient in chair pre tx, agrees to PT, patient is on medical floor, ready to go to rehab. Patient states she has pain of 9/10 in her right hip. She is aware of her precautions but can only state 2 of them. Pt/Family Goals to be independent at home Objective Patient Orientation: Person, Situation Patient had to ask what town she was in. ROM/Strength ROM Lower Extremities NT Strenght Lower Extremities left lower extremity (hip flexion 3+/5, knee flexion 4+/5, knee extension 4+/5, dorsiflexion 5/5), right lower extremity (hip flexion 3-/5, knee flexion 4+/5, knee extension 4+/5, dorsiflexion 5/5) Integumentary/Posture Bowel Incontinence: No Bladder Incontinence: No Neuromuscular (Tone, Coordination, Reflexes) WNL Sensory Vision: Wears Glasses Hearing: Hearing Aid/Aides Sensation Right Lower Extremit: Intact Sensation Left Lower Extremity: Intact Sensation Lower Extremities Patient states she has neuropathy but she did have intact light touch sensation in both legs. Transfers Functional [place] Measure 0=Not Assessed/NA 4=Minimal Assistance 1=Total Assistance 5=Supervision or Setup 2=Maximal Assistance 6=Modified [place] 3=Moderate Assistance 7=Complete IndependenceIRFPAI Quality Coding Scale 6 Independent with activity with or without an assistive device 5 Patient requires set up or clean up by helper. Patient completes activity by themselves 4 Supervision or touching assist (CGA). [place] provide cues , steadying assist 3 The helper provides less than half the effort to complete the activity 2 The helper provides more than half the effort to complete the activity 1 Dependent. The helper does all the effort to complete an activity 7 Patient refused to complete or attempt activity 9 The patient did not perform the activity before the current illness or injury 88 Not attempted due to Medical conditions or safety concerns Transfers (B, C, W/C) (FIM): 3 Scootin Rollin Roll Left to Right (QC): 4 Supine to/from Sit: 3 Sit to/from Stand: 3 bed t/f WC(FIM only if WC use): 3 Sit to Lying (QC): 2 Lying to Sitting/Side of Bed(Q: 2 Sit to Stand (QC): 2 Chair/Cqx-co-Qmjut Xfer(QC): 2 Car Transfer (QC): 88 cues for safety and hand placement Gait Does the Patient Walk?: Yes Mode of Locomotion: Both Anticipated Mode of Locomotion: Walk Gait (FIM): 1 Walk 10 feet (QC): 4 Walk 50 ft with 2 Turns(QC): 88 Walk 150 ft (QC): 88 Walking 10ft/uneven surface-QC: 88 Gait Level of Assist: 4 Gait Persons Needed: 1 Gait Assistive Device: FWW Comments/Gait Description slow, antalgic, patient has trouble advancing her right leg due to weakness and also her left leg because she has trouble bearing weight on it Wheelchair Training Does the Pt Use a Wheelchair?: Yes Wheelchair (FIM): 1 Distance: 10' Wheelchair Level of Assist: 2 Type of Wheelchair: Manual patient can only propel a manual wheelchair in a strait line Stairs NT due to patient impairments in strength, not safe for stairs, fall risk. Balance Sitting Static: Normal Sitting Dynamic: Normal Standing Static: Fair Standing Dynamic: Fair Picking up an Object (QC): 88 Treatment Patient was also toileted and wheelchair adjusted. Assessment/Needs Patient has impairment in mobility, strength, endurance post right hip fx and SCHUYLER. Rehab Potential: Fair PT Short Term Goals Short Term Goals Time Frame: Jun 06, 2016 Transfers (B,C,W/C) (FIM): 4 Gait (FIM): 2 Gait Distance Comment: 50' Gait Level of Assist: 4 PT Rfid Developer Goals Rfid Developer Goals PT Rfid Developer Goals Time Frame: Jun 20, 2016 Transfers (B,C,W/C) (FIM): 5 Sit to Lying (QC): 4 Lying-Sitting on Side/Bed(QC): 4 Sit to Stand (QC): 4 Rollin Roll Left to Right (QC): 4 Chair/Bby-az-Zahxe Xfer(QC): 4 Car Transfer (QC): 3 Gait (FIM): 4 Distance: 150' Walk 10 feet (QC): 4 Walk 10ft-Uneven Surface(QC): 4 Walk 50ft with 2 Turns (QC): 4 Walk 150 ft (QC): 4 Gait Level of Assist: 4 Gait Assistive Device: FWW Stairs (FIM): 2 # of Steps: 4 1 Step (curb) (QC): 4 4 Steps (QC): 4 12 Steps (QC): 88 Stairs Level Of Assist: 4 Picking up an Object (QC): 88 PT Plan Problem List Problem List: Activity Tolerance, Functional Strength, Safety, Balance, Gait, Transfer, Bed Mobility, ROM Treatment/Plan Treatment Plan: Continue Plan of Care Treatment Plan: Bed Mobility, Education, Functional Activity Jeffrey, Functional Strength, Group Therapy, Gait, Safety, Therapeutic Exercise, Transfers Treatment Duration: Jun 20, 2016 # of days/week 5-6 Visits Per Week: 10-11 Minutes/Day (M-F): 60-90 Minutes/Day (Sat/[place]): 15-30 Pt/Family Agrees w/Plan: Yes Safety Risks/Education Patient Education: Gait Training, Transfer Techniques, Reviewed Precautions, Correct Positioning, W/C Management, Disease Process, Safety Issues Teaching Recipient: Patient Teaching Methods: Demonstration, Discussion Response to Teaching: Reinforcement Needed Discharge Recommendations Plan Patient will perform bed mobility and transfer training, balance and endurance training, functional strengthening, stair training, gait training, and education to improve functional mobility and independence at home. Therapy D/C Recommendations: Home w/ Family Support Time/GCodes Time In: 1100 Time Out: 1200 Total Billed Treatment Time: 60 Total Billed Treatment 1 visit EVL 15 min GT 15 min FA 15 min WCH 15 min GISELLE BAH PT May 30, 2016 11:03
[2016-05-30] MEDS: ACETAMINOPHEN 325 MG TABLET/CAPLET (TYLENOL) PO PRN (12:03)
[2016-05-30] MEDS: LACTOBACILLUS Acidoph/Bulgar (LACTINEX/FLORANEX) TAB PO SCH ×2 (12:03→16:00)
--- NOTE | 2016-05-30 12:57 | Occupational Therapy Eval ---
OT Evaluation-General/PLF Medical Diagnosis Admission Date May 30, 2016 at 10:25 Medical Diagnosis: right femoral neck fx Onset Date: May 26, 2016 Therapy Diagnosis Therapy Diagnosis: weakness, decr self care, decr funct mobility, decr activ tolerance Height/Weight Height (Feet): 5 Height (Inches): 8.00 Weight (Pounds): 215 Weight (Ounces): 0.0 Precautions Precautions/Isolations: Fall Prevention, Standard Precautions Weight Bear Status Weight Bearing Restriction: Weight Bearing/Tolerated Location Restriction: R LE Total hip precautions Referral Physician: Vu Medical History Pertinent Medical History: CAD, HTN, Hypothroidism, Neuropathy, PVD Additional Medical History Cardiac stents, cataract surgery, neck fusion, stress incontinence, esophageal stricture Current History Fell on R hip, with fx. R SCHUYLER put in 05/27/16 Social History Home: Apartment ([place] in [place]) Current Living Status: Alone Entry Into Home: Level Entry ADL-Prior Level of Function ADL PLOF Comments Pt reported that she was able to manage her basic self care needs prior to injury. 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 She indicated that she has never driven. 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 She reported pain in her R hip rated 4-5/10 and described it as "Aching or pressing." She requested pain meds. Appearance Alert, cooperative Mental Status/Objective Patient Orientation: Person, Place Memory: 3 (recalls common tasks but is unable to recall hip precautions during same tx session) Current Glasses/Contacts: Yes Dentures/Partials: No (missing teeth) Hand Dominance: Right Upper Extremity ROM Grossly WFL bilat Upper Extremity Sensation Pt reported neuropathy in hands and feet. She said that using her hands seems to help the neuropathy Upper Extremity Strength Grossly 4/5 bilat ADL-Treatment ADL-Current Hip precautions were reviewed with patient and she read them from a handout. She was able to identify some ADL situations that would be affected by these precautions but, later in treatment session, could not recall the precautions. Pt may need BSC over toilet at home to raise toilet to follow precautions. Functional [place] Measure 0=Not Assessed/NA 4=Minimal Assistance 1=Total Assistance 5=Supervision or Setup 2=Maximal Assistance 6=Modified [place] 3=Moderate Assistance 7=Complete IndependenceIRFPAI Quality Coding Scale 6 Independent with activity with or without an assistive device 5 Patient requires set up or clean up by helper. Patient completes activity by themselves 4 Supervision or touching assist (CGA). Bath provide cues , steadying assist 3 The helper provides less than half the effort to complete the activity 2 The helper provides more than half the effort to complete the activity 1 Dependent. The helper does all the effort to complete an activity 7 Patient refused to complete or attempt activity 9 The patient did not perform the activity before the current illness or injury 88 Not attempted due to Medical conditions or safety concerns Eating (FIM): 5 (Some setup. Able to feed self without devices) Eating (QC): 5 Toileting (FIM): 1 (Two nurses to manage clothing and hygiene with BSC, FWW) Toileting Hygiene (QC): 1 (Two person assist, one for pt management, one for clothing help) Transfers (B, C, W/C) (FIM): 3 (Transferred mod assist from recliner to w/c and back, moving very slowly. Skilled cues needed for hand placement, FWW. Some difficulty with weight shifting) Toilet/Commode Transfer (FIM): 1 (Two nurses transferred her on and off BSC, FWW. Mod assist sit to stand) Toilet Transfer (QC): 1 (two person help) Other Treatments Pt transferred to w/c mod assist, FWW. Transported to gym where she completed 10 minutes bilat UE exercise on arm bike set at 10W resistance, requiring at least one recovery period. Exercise to help with transfers and standing during ADLs and weight bearing during ambulation. Pt was returned to her room, transferred mod assist to recliner, left up in chair with legs elevated, all needs met. Education OT Patient Education: Modified ADL techniques, Progress toward Goal/Update tx plan, Purpose of tx/functional activities, Rehab process, Safety issues, Transfer techniques Teaching Recipient: Patient Teaching Methods: Demonstration, Discussion Response to Teaching: Reinforcement Needed OT Short Term Goals Short Term Goals Time Frame: Jun 08, 2016 Lower Body Dressing(FIM): 3 Toileting(FIM): 3 Toilet/Commode Transfer(FIM): 3 Additional Short Term Goals: 2-Verbalize Understanding, 3-ImproveStrength/Jeffrey 1=Demonstrate adherence to instructed precautions during ADL tasks. 2=Patient will verbalize/demonstrate understanding of assistive devices/ modifications for ADL. 3=Patient will improve strength/tolerance for activity to enable patient to perform ADL's. OT Turning And Beading Machine Operator Goals Turning And Beading Machine Operator Goals Time Frame: Jun 20, 2016 Eating (FIM): 6 Eating (QC): 6 Groomin Oral Hygiene (QC): 6 Bathing(FIM): 5 Shower/Bathe Self (QC): 5 Upper Body Dressing(FIM): 5 Upper Body Dressing (QC): 5 Lower Body Dressing(FIM): 5 Lower Body Dressing (QC): 5 On/Off Footwear (QC): 5 Toileting(FIM): 6 Toileting Hygiene (QC): 6 Transfers (B,C,W/C) (FIM): 5 Toilet/Commode Transfer(FIM): 6 Toilet/Commode Transfer (QC): 6 Shower Transfer(FIM): 5 Additional Goals: 2-Verbalize Understanding, 3-ImproveStrength/Jeffrey 1=Demonstrate adherence to instructed precautions during ADL tasks. 2=Patient will verbalize/demonstrate understanding of assistive devices/ modifications for ADL. 3=Patient will improve strength/tolerance for activity to enable patient to perform ADL's. OT Education/Plan Problem List/Assessment Assessment: Decreased Activ Tolerance, Decreased Safety Aware, Decreased UE Strength, Dependent Transfers, Impaired Funct Balance, Impaired Self-Care Skills Pt would benefit from skilled OT to increase her independence in basic self care to allow her to return safely to her home and to decrease caregiver burden. Discharge Recommendations Plan/Recommendations: Continue POC Barriers to Progress Decreased recall of hip precautions Target Placement Home if able to be safe Treatment Plan/Plan of Care Treatment,Training & Education: Yes Patient would benefit from OT for education, treatment and training to promote independence in ADL's, mobility, safety and/or upper extremity function for ADL' s. Plan of Care: ADL Retraining, Functional Mobility, Group Exercise/Act as Ind ( education, exercise, memory, functional activities, socialization), UE Funct Exercise/Act, UE Neuromus Re-Ed/Coord, W/C Management Training Treatment Duration: Jun 20, 2016 # of days/week 5-6 Visits Per Week: 10-11 Minutes/Day (M-F): 75-90 Minutes/Day (Sat/[place]): PRN Agreement: Yes Rehab Potential: Fair Time/GCodes Start Time: 11:00 Stop Time: 12:00 Total Time Billed (hr/min): 60 Billed Treatment Time visit, evaluation 15 minutes moderate complexity, ADL 15 minutes, exercise 30 minutes BELLA BERMUDEZ OT May 30, 2016 12:57
--- NOTE | 2016-05-30 14:38 | Therapy Group Daily Note ---
Therapy Daily Group Note Patient Education Topic Fall Prevention Exercises LE Seated Exercise, UE Exercise Other/Notes Pt was an active participant in OT/PT group. She introduced herself to the group for socialization and participated in education/discussion on fall prevention and home safety. At the end of the discussion, she was able to identify at least one change that she has made or will make in her home to be safer. She also did seated UE and LE exercises and was returned to her room per w/c. She was left up in the w/c, visiting a friend, per her request. All needs met. Start Time: 13:00 Stop Time: 14:15 Total Billed Treatment Time: 75 Total Billed Treatment visit, 75 minutes group BELLA BERMUDEZ OT May 30, 2016 14:38
--- NOTE | 2016-05-30 15:39 | ST Cognitive Linguistic Eval ---
Speech Evaluation-General Medical Diagnosis right femoral neck fx Onset Date: May 26, 2016 Therapy Diagnosis Therapy Diagnosis: Mild Cognitive Impairment Precautions Precautions/Isolations: Fall Prevention, Standard Precautions Referral Referring Physician: Dr. Marlon Womack Reason for Referral: Evaluation/Treatment Cognitive Evaluation Medical History Pertinent Medical History: CAD, HTN, Hypothroidism, Neuropathy, PVD Reviewed History: Yes Social History Current Living Status: Alone Speech PLF-Current Status Prior Level of Function The patient denied prior challenges with speech, language, or cognition. To note, the patient independently read the white board in her room. She stated to the clinician they must have written the wrong information on the board because it lists "hip precautions." The patient was reminded of her hip precautions covered earlier this date with OT. Subjective The patient was recently admitted to [facility] following a hip fracture. The patient greeted the clinician appropriately and agreed to participate in the cognitive evaluation on this date. Language Eval: Auditory Comprehends Simple Yes/No Ques: Functional Indent/Objects Multiple Zuniga: Functional Ident/Pics in Multiple Zuniga: Functional Follows 1-Step Commands: Functional Follows Complex Directions: Mild Follows General Conversations: Mild Language Eval: Verbal Language Completes Spontaneous Greeting: Functional Produces Auto, Serial Info: Mild (Patient demonstrated difficulty recalling home address.) Imitates Simple Words/Phrases: Functional Word Finding: Functional Requests Basic Needs: Functional States Basic Personal Info: Functional Expresses Complex Ideas: Mild Cognitive Patient Orientation The patient was oriented to day of week and year. The patient required clinician cueing to adequately recall month and date. Objective Cognitive Domain Attention: WNL Memory: Mild Problem Solving: Mild Objective Impression The patient demonstrated mild cognitive impairments in the areas of memory and problem solving. Communication/Social Cognition Comprehension: 4 Expression: 5 Social Interaction: 5 Problem Solvin Memory: 2 Speech Patient Assess Expression of Ideas/Wants: Expression (4) Understanding [place] Content: Understands (4) Brief Interview-Mental Status: Yes Repetition of Three Words: Three (3) Temporal Orientation: Year: Correct (3) Temporal Orientation: Month: Accurate within 5 days(2) Temporal Orientation: Day: Correct (1) Recall : Wear to say "Sock": Yes, no cue required (2) Recall : Color: Yes, after cueing (1) Recall : Bed: Yes,after cueing (1) Speech Short Term Goals Short Term Goals Short Term Goals 1. The patient will demonstrate and recall three functional memory strategies for use at home. 2. The patient will recall hip precautions with 80% accuracy, independently. 3. The patient will demonstrated 80% accuracy with functional safety problem solving. Time Frame-STG: Two Weeks Speech Advertising Layout Worker Goals Advertising Layout Worker Goals 1. The patient will demonstrate improved cognitive linguistic skills for increased safety and function with ADL's in the least restrictive setting. Time Frame: Three Weeks Comprehension: 5 Expression: 5 Social Interaction: 5 Problem Solvin Memory: 4 Speech-Plan Treatment Plan Speech Therapy Treatment Plan: Continue Plan of Care Continue skilled speech pathology to target functional memory and problem solving. Treatment Duration: Jun 20, 2016 # of days/week Five. Visits Per Week: Five. Minutes/Day (M-F): 30 Rehab Potential: Fair Safety Risks/Education Teaching Recipient: Patient Teaching Methods: Discussion Response to Teaching: Verbalize Understanding Education Topics Provided: Plan of Care, Results, Recommendations Time Speech Therapy Time In: 14:30 Speech Therapy Time Out: 14:45 Total Billed Time: 15 Billed Treatment Time 1, VICTORIA MONTOYA May 30, 2016 15:39
[2016-05-30] MEDS: TRIM/SULFAMETH 160/800 (SEPTRA DS) TAB PO SCH (16:01)
[2016-05-30 18:16] VITALS: BP 133/74
[2016-05-30] MEDS: FAMOTIDINE 20 MG (PEPCID) TABLET PO SCH (20:32)
[2016-05-30] MEDS: SIMvastatin 40 MG (ZOCOR) TAB PO SCH (20:32)
[2016-05-30] MEDS: GABAPENTIN 300 MG (NEURONTIN) CAP PO SCH (20:32)
[2016-05-30] MEDS: SENNOSIDES 8.6 MG (SENOKOT) TAB PO SCH (20:32)
[2016-05-31] MEDS: ACETAMINOPHEN 325 MG TABLET/CAPLET (TYLENOL) PO PRN ×3 (03:43→20:31)
[2016-05-31] MEDS: CYCLOBENZAPRINE 10 MG (FLEXERIL) TAB PO PRN ×2 (05:03→20:30)
[2016-05-31 05:28] VITALS: BP 167/69
[2016-05-31 06:07] LABS: ANION GAP 7 MMOL/L (5-14); BLOOD UREA NITROGEN 16 MG/DL (7-18); BUN/CREATININE RATIO 23; CALCIUM 8.4 MG/DL (8.5-10.1); CARBON DIOXIDE 24 MMOL/L (21-32); CHLORIDE 111 MMOL/L (98-107); GFR ESTIMATED > 60; GLUCOSE 102 MG/DL (70-105); POTASSIUM 3.6 MMOL/L (3.6-5.0); SODIUM 142 MMOL/L (135-145)
[2016-05-31] MEDS: LEVOTHYROXINE 25 MCG (LEVOTHROID) TAB PO SCH (06:15)
[2016-05-31] MEDS: LACTOBACILLUS Acidoph/Bulgar (LACTINEX/FLORANEX) TAB PO SCH ×3 (06:15→18:33)
[2016-05-31] MEDS: TRIM/SULFAMETH 160/800 (SEPTRA DS) TAB PO SCH ×2 (06:15→18:33)
[2016-05-31] MEDS: LEVOTHYROXINE 112 MCG (LEVOTHROID) TAB PO SCH (06:15)
[2016-05-31] MEDS: MULTIVIT W/MINERALS TAB (THERAGRAN M) PO SCH (06:16)
--- NOTE | 2016-05-31 07:33 | HISTORY AND PHYSICAL ---
DATE OF ADMISSION: 05/30/2016 CHIEF COMPLAINT: Difficulty with walking. HISTORY OF THE PRESENT ILLNESS: The patient is an 80-year-old female who had been modified independent with a cane, who lives alone. She fell at home 05/26/2016. [facility] where x-rays revealed a right femoral neck fracture. She was admitted to the service of Dr. Gonzalez, PCP. She was seen in consultation by Dr. Rose and on 05/27 the patient underwent emergency right hip bipolar replacement. The patient had a decline in functional independence due to all of this. Her UA was abnormal and she had some confusion. She was treated empirically for UTI. She is now referred to Inpatient Rehabilitation Unit. DVT prophylaxis is managed with Lovenox subcutaneous. Currently, she is mod assist for transfers and assist for ambulation short distances with a front wheel walker. She is set up for eating. Mod assist for transfers. Mod assist for toileting. Min assist for upper body dressing. Max assist for lower body dressing. She is utilizing Tylenol for pain control. She is on Bactrim DS she is utilizing Flexeril p.r.n. for spasms. PAST MEDICAL HISTORY: 1. Hypertension. 2. Hypercholesteremia. 3. Falls. PAST SURGICAL HISTORY: As per above. ALLERGIES: 1. INFLUENZA VIRUS VACCINE INTOLERANCE. 2. PENICILLIN. 3. CODEINE. 4. MORPHINE. 5. NYLON. FAMILY HISTORY: Noncontributory. SOCIAL HISTORY: Lives alone in [place]. She is . REVIEW OF SYSTEMS: Ten-point review of systems significant for hip pain, hearing loss. MEDICATIONS: 1. Plavix 75 mg p.o. on Saturday, Saturday, Saturday. 2. Lovenox 40 mg subcutaneous daily. 3. ASA 81 mg p.o. daily. 4. Atenolol 100 mg p.o. daily. 5. Norvasc 5 mg p.o. daily. 6. MiraLAX 17 grams p.o. daily. 7. Multivitamins with minerals 1 tablet p.o. daily. 8. Synthroid 137 mcg p.o. daily. 9. Pepcid 20 mg p.o. b.i.d. 10. Gabapentin 300 mg p.o. b.i.d. 11. Senokot 1 tablet p.o. b.i.d. 12. Zocor 40 mg p.o. at bedtime. 13. Bactrim DS 1 tablet p.o. b.i.d. 14. Lactinex 1 tablet p.o. before meals. 15. Flexeril 10 mg p.o. q.6 hours p.r.n. muscle spasm. 16. Tylenol 650 mg p.o. q.6 hours p.r.n. mild pain or fever. PHYSICAL EXAMINATION: Significant for a pleasant female, appearing her stated age, alert and oriented, somewhat obese with a BMI of 32.7 kg per meter squared. VITAL SIGNS: She is afebrile. Pulse 74, respirations 18, blood pressure 133/74, O2 sats 96% on room air. HEENT: Vision, speech, hearing, grossly intact. No oral lesion is noted. NECK: Supple without mass. HEART: Regular rhythm. LUNGS: Clear. ABDOMEN: Soft, nontender. Bowel sounds present. EXTREMITIES: Trace edema right ankle, no calf tenderness. MUSCULOSKELETAL: The patient has functional strength and active range of motion in both of upper extremities. Right lower extremity 2-/5 hip flexion, knee flexion 4+/5, knee extension 4+/5, dorsiflexion at the ankle 5/5. Left lower extremity hip flexion 3+/5, knee flexion 4+/5, knee extension, 4+/5, dorsiflexion 5/5. NEUROLOGIC: Sensation grossly intact to touch. She has hearing aids. She wears glasses. Sensation is grossly intact to touch. Cognition grossly intact. IMPRESSION: 1. Ambulatory dysfunction status post fall resulting right hip fracture status post bipolar hip replacement, Dr. Rose, 05/27/2016, weight-bearing as tolerated. 2. Hypertension, controlled with medication. 3. Postop DVT prophylaxis, on Lovenox subcutaneous. 4. UTI, under treatment. 5. Hyperlipidemia, on statin. 6. Hypothyroidism on replacement. 7. Coronary artery disease, status post stent, on Plavix PLAN: The patient will comprehensive program of inpatient orthopedic rehabilitation with goal of maximizing level of functional independence prior to discharge home with family with home health care. The patient will have PT/OT 90 minutes per day, each discipline, 5 days week for gait strengthening, conditioning, balance, ADLs, any patient/family/caregiver training necessary, any adaptive equipment and training necessary. Speech therapy has done cognitive assessment and found patient to be functional signed off. Rehabilitation nursing to assist with bowel, bladder, skin, wound care, medication administration, pain management. food and nutrition services assistant to assist with discharge planning, community reentry. Follow-up with Dr. Gonzalez and Dr. Rose as per their schedules. I appreciate Dr. Rose's note. ESTIMATED LENGTH OF STAY: Two to 3 weeks. PROGNOSIS: Rehab prognosis appears good for goal of discharging home with family and home health care modified independent to supervision for ADLs and mobility skills. DIET: Regular. CODE STATUS: FULL code. POST ADMISSION PHYSICIAN ASSESSMENT: The preadmission screen agrees with the post admission assessment that the patient is a good candidate for inpatient rehabilitation. She appears to be well motivated to participate in 3 hours of therapy a day. She should be able tolerate 3 hours of therapy a day from a medical and surgical standpoint. She should benefit 3 hours of therapy a day. She has reasonable discharge plan, reasonable discharge rehabilitation goals and supportive family. She has various comorbidities that need to be closely monitored with medications and treatments adjusted on a daily basis as needed. These include her hypertension, and history of coronary artery disease. BARRIERS TO DISCHARGE: Barriers to discharge for this patient who had been modified independent prior to this are for her to be modified independent to supervision for ADLs and mobility skills prior to discharge home so as to lessen the burden of the caregivers. RISKS FOR THIS PATIENT INCLUDE: 1. Recurrent fall. 2. Fracture. 3. DVT. 4. Pulmonary embolism. 5. Skin breakdown. 6. Wound infection. 7. Contractures. 8. Poorly control pain. 9. Poorly controlled hypertension. 10. Urinary retention. 11. Recurrent UTI. 12. Respiratory infection. 13. Aspiration. Job ID: [id number] Dictated Date: 05/30/2016 21:06:26 C4 Planner Date: 05/31/2016 07:15:00/irvin
[2016-05-31 08:01] VITALS: BP 146/72
[2016-05-31] MEDS: SENNOSIDES 8.6 MG (SENOKOT) TAB PO SCH ×2 (08:03→20:30)
[2016-05-31] MEDS: ASPIRIN 81 MG CHEW (CHILDREN'S ASA) PO SCH (08:03)
[2016-05-31] MEDS: FAMOTIDINE 20 MG (PEPCID) TABLET PO SCH ×2 (08:03→20:30)
[2016-05-31] MEDS: amLODIPine 5 MG (NORVASC) TAB PO SCH (08:03)
[2016-05-31] MEDS: GABAPENTIN 300 MG (NEURONTIN) CAP PO SCH ×2 (08:03→20:30)
[2016-05-31] MEDS: POLYETHYLENE GLYCOL 17 GM (MIRALAX) PACK PO SCH (08:04)
[2016-05-31] MEDS: ATENOLOL 50 MG (TENORMIN) TAB PO SCH (08:31)
--- NOTE | 2016-05-31 08:51 | PM & R (SOAP) Progress Note ---
Subjective Subjective/Events-last exam Patient was seen in her room this AM Adjusting well to unit.Therapy assessments noted Objective Exam Last Set of Vital Signs Vital Signs Date Time Temp Pulse Resp B/P (MAP) Pulse Ox O2 Delivery O2 Flow Rate FiO2 05/31/16 08:01 87 146/72 05/31/16 05:28 99.9 20 93 Room Air Capillary Refill : Less Than 3 Seconds I&O Bad tableGeneral: Alert, Oriented X3, Cooperative, No Acute Distress HEENT: Atraumatic, PERRLA, EOMI, Mucous Memb Moist/[place] Neck: Supple, No JVD Lungs: Clear to Auscultation Heart: Regular Rate Abdomen: Normal Bowel Sounds Extremities: Other (trace edema rt ankle) Neuro: Other (weakness proximal rt hip s/p frx and repair) Results Lab Laboratory Tests 05/31/16 05:40: Hemoglobin 8.1L, Hematocrit 25L, Sodium Level 142, Potassium Level 3.6, Chloride Level 111H, Carbon Dioxide Level 24, Anion Gap 7, Blood Urea Nitrogen 16, Creatinine 0.70, Estimat Glomerular Filtration Rate > 60, BUN/Creatinine Ratio 23, Glucose Level 102, Calcium Level 8.4L Assessment/Plan Assessment Fall/frx rt hip s/p repair ortho WBAT HTN controlled Plan Continue PT/OT Check labs See orders. BRITTA WALLACE MD May 31, 2016 08:51
[2016-05-31] MEDS ORDERED: cefTRIAXone INJECTION 1,000 MG in NS (IVPB) 50 ML IV SCH (09:00)
[2016-05-31] MEDS ORDERED: ATENOLOL 50 MG (TENORMIN) TAB PO SCH (09:00)
--- NOTE | 2016-05-31 09:19 | Consultation ---
History of Present Illness History of Present Illness Patient Consulted On(shanelle/time) 05/31/16 09:19 Date of Admission History of Present Illness pt was admitted to the hospital with hip fracture, surgically fixed by Orthopedics, transferred to inpatient rehab for therapy with goal of pt going home on discharge. Allergies and Home Medications Allergies Coded Allergies: codeine (Unverified Allergy, Mild, 11/15/08) Penicillins (Verified Allergy, Unknown, HAS RECEIVED ANCEF IN THE PAST, ) morphine (Verified Adverse Reaction, Mild, NAUSEA, 04/07/08) Influenza Virus Vaccines (Unverified Adverse Reaction, Unknown, 05/30/16) nylon (Verified Adverse Reaction, Unknown, ITCH, 04/07/08) Home Medications Acetaminophen 325 Mg Tablet, 650 MG PO Q6H PRN for Mild Pain or Fever for 30 Days, #30 Prescribed by: BRITTA WALLACE on 06/15/16819 Atenolol 100 Mg Tablet, 100 MG PO DAILY, (Reported) Clopidogrel Bisulfate 75 Mg Tablet, 75 MG PO MoWeFr, (Reported) Famotidine 20 Mg Tablet, 20 MG PO BID for 30 Days, #30 Prescribed by: BRITTA WALLACE on 06/15/16819 Gabapentin 300 Mg Capsule, 300 MG PO BID, (Reported) L. Acidophilus/Bulgaricus 1 Each Tablet, 1 TAB.CHEW PO AC for 30 Days, #30 Prescribed by: BRITTA WALLACE on 06/15/16819 Levothyroxine Sodium 112 Mcg Tablet, 112 MCG PO DAILY@0630 for 30 Days, #30 Prescribed by: BRITTA WALLACE on 06/15/16819 Levothyroxine Sodium 25 Mcg Tablet, 25 MCG PO DAILY@0630 for 30 Days, #30 Prescribed by: BRITTA WALLACE on 06/15/16819 Lovastatin 40 Mg Tablet, 80 MG PO DAILY, (Reported) TAKES 2 (40 MG) TABLETS Polyethylene Glycol 3350 17 Gm Powd.pack, 17 GM PO DAILY for 30 Days, #30 Prescribed by: BRITTA WALLACE on 06/15/16819 Sennosides 8.6 Mg Tablet, 8.6 MG PO BID for 30 Days, #60 Prescribed by: BRITTA WALLACE on 06/15/16819 [Multivitamins/Minerals Therap] 1 EA TABLET, 1 EA PO DAILY@0700 for 30 Days, #30 Prescribed by: BRITTA WALLACE on 06/15/16 0820 Past Rpcfvxz-Emqwwl-Cazlmt Hx Patient Social History Alcohol Use: Denies Use Recreational Drug Use: No Smoking Status: Never a Smoker 2nd Hand Smoke Exposure: No Recent Foreign Travel: No Contact w/Someone Who Travel: No Recent Infectious Disease Expo: No Recent Hopitalizations: No Physical Abuse Screen: No Sexual Abuse: No Immunizations Up To Date Date of Pneumonia Vaccine: May 30, 2014 Seasonal Allergies Seasonal Allergies: No Surgeries HX Surgeries: Yes (heart stent, cataracts, MOLE REMOVAL, NECK FUSION) Surgeries: Coronary Stent, Hysterectomy, Thyroidectomy Respiratory Hx Respiratory Disorders: No Cardiovascular Hx Cardiac Disorders: Yes Cardiac Disorders: High Cholesterol, Hypertension Neurological Hx Neurological Disorders: No Reproductive System Hx Reproductive Disorders: No 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 Genitourinary Hx Genitourinary Disorders: Yes (stress incont) Gastrointestinal Hx Gastrointestinal Disorders: Yes (stricture esophagus) Musculoskeletal Hx Musculoskeletal Disorders: No Endocrine Hx Endocrine Disorders: Yes Endocrine Disorders: Hypothyroidsim HEENT HX ENT Disorders: No HEENT Disorders: Cataract Loss of Vision: Bilateral Hearing Impairment: Hard of Hearing, Bilateral Hearing Aide Cancer Hx Cancer: No Psychosocial Hx Psychiatric Problems: No Blood Transfusions Hx Blood Disorders: No Reviewed Nursing Assessment Reviewed/Agree w Nursing PMH: Yes Family Medical History Significant Family History: Hypertension, Stroke Family Medial History: Completed stroke Hypertension 19 FATHER 19 MOTHER Review of Systems-General Constitutional: No chills, No fever, weakness EENTM: No hoarseness, No throat pain Respiratory: No cough, No dyspnea on exertion Cardiovascular: No chest pain Gastrointestinal: No abdominal pain Genitourinary: no symptoms reported Musculoskeletal: other (hip pain) Skin: no symptoms reported Psychiatric/Neurological: Anxiety Physical Exam-General Problems Physical Exam Vital Signs Vital Sign - Last 12Hours 05/30/16 10:48 Temp 98.6 Pulse 75 Resp 18 B/P (MAP) 126/65 Pulse Ox 95 O2 Delivery Room Air Capillary Refill : Less Than 3 Seconds General Appearance: WD/WN, no apparent distress Eyes: Bilateral Eye EOMI, Bilateral Eye Normal Inspection, Bilateral Eye PERRL HEENT: PERRL/EOMI, pharynx normal Neck: non-tender, supple Respiratory: chest non-tender, lungs clear, normal breath sounds, no respiratory distress Cardiovascular: regular rate, rhythm Gastrointestinal: normal bowel sounds, non tender, soft, no organomegaly, no pulsatile mass Extremities: other (surgical dressing c/d/i) Neurologic/Psychiatric: storage engineer II-XII nml as tested, alert, oriented x 3 Lymphatic: no adenopathy Assessment/Plan Assessment/Plan Admission Diagnosis/Plan RIGHT HIP FRACTURE HYPERTENSION CONFUSION HYPERLIPIDEMIA PERIPHERAL VASCULAR DISEASE PERIPHERAL NEUROPATHY RIGHT HIP FX - PT IS POST OP PARTIAL RIGHT HIP REPLACEMENT. CONTINUE WITH CURRENT TREATMENT WITH THERAPY -FAMILY AND PATIENT HAVE DECIDED ON INPATIENT REHAB -CONTINUE WITH THERAPY - GOAL OF PT TO GO HOME ON DISCHARGE. HTN - RESTARTED HOME MEDICATION - MONITOR PRESSURES, MAY INCREASE THE AMLODIPINE FURTHER IF INDICATED. CONFUSION - LIKELY DUE TO HER PAIN MEDICATION - MONITOR SYMPTOMS. HYPERLIPIDEMIA - RESTARTED STATIN. PERIPHERAL VASCULAR DISEASE - PT ON PLAVIX AT HOME - WILL RESTART ON DISCHARGE. PERIPHERAL NEUROPATHY - RESTART GABAPENTIN Clinical Quality Measures DVT/VTE Risk/Contraindication: Risk Factor Score Per Nursin RFS Level Per Nursing on Admit: 4+=Very High HEATHER DAHL MD May 31, 2016 09:19
[2016-05-31] MEDS: ENOXAPARIN 40 MG/0.4 ML (LOVENOX) SYR SC SCH (10:18)
--- NOTE | 2016-05-31 10:42 | Progress Note-Cardiology ---
Cardiology SOAP Progress Note Subjective: Sitting up in a chair at the bedside. No c/o CP, SOB, palpitations, syncope or near syncope. Objective: I&O/Vital Signs Vital Sign - Last 12Hours 05/31/16 05/31/16 05/31/16 05:28 08:01 08:58 Temp 99.9 Pulse 57 87 Resp 20 B/P (MAP) 167/69 146/72 Pulse Ox 93 O2 Delivery Room Air Room Air Intake and Output 05/31/16 00:00 Intake Total 560 ml Balance 560 ml Weight (Pounds): 215 Weight (Ounces): 0.0 Weight (Calculated Kilograms): 97.023659 Constitutional: AAO x 3 Respiratory: lungs clear to auscultation Cardiovascular: regular rate-rhythm Gastrointestional: soft, round, audible bowel sounds Extremities: significant edema (mild to mod RLE edema (post surgical)) Neurologic/Psychiatric: grossly intact Skin: No rash, No ulcerations Results/Procedures: Labs Laboratory Tests 05/31/16 05:40: Hemoglobin 8.1L, Hematocrit 25L, Sodium Level 142, Potassium Level 3.6, Chloride Level 111H, Carbon Dioxide Level 24, Anion Gap 7, Blood Urea Nitrogen 16, Creatinine 0.70, Estimat Glomerular Filtration Rate > 60, BUN/Creatinine Ratio 23, Glucose Level 102, Calcium Level 8.4L A/P: Assessment: Right hip fracture following a non-syncopal fall on 05/26/16; s/p R hip surgery on 05/27/16 Mild post-op anemia - management per medical/ortho services UTI - management per medical services Coronary artery disease, primarily single vessel, treated with drug-eluting stenting of the mid left anterior descending artery with Promus 3.0 x 15-mm stent on 04/07/08. 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 Dick. Tests of 01/13/16 are consistent with some degree of hyperthyroidism, probably due to overcorrection, and she is following with Dr Dick for that Moderate distal peripheral arterial disease. Ankle brachial indices in February 2007 were normal, but the toe brachial indices were moderately diminished. MAXIMINO if February 2016 showed no evidence of any significant obstructive peripheral arterial disease Degenerative joint disease Low backache Hyperlipidemia, currently being treated with lovastatin Elevated body mass index of approximately 33 History of chronic right ankle swelling, minimal, following remote trauma, currently controlled Mild bilateral carotid arterial disease per u/s of August 2015 Impaired fasting glucose, mild. Plan: Continue current regimen Monitor lab Cardiac status clinically stable Physician Assessment Physician Assessment Lungs: good bilat air entry Cor: reg A&R * As documented in our note above JENNIFER BASHIR DEVELOPMENT EXPERT May 31, 2016 10:42 RAJAT KIRAN MD FACP FAC CCDS May 31, 2016 13:09
--- NOTE | 2016-05-31 11:14 | Occupational Ther Daily Note ---
OT Current Status-Daily Note Subjective Pt seen in room, up in recliner, agreeable to OT. No pain mentioned initially but she did have some pain getting off BSC and had to sit back down. "This is all so weird. What happens if I don't follow these precautions?" Appearance Alert, cooperative Mental Status/Objective Functional [place] Measure 0=Not Assessed/NA 4=Minimal Assistance 1=Total Assistance 5=Supervision or Setup 2=Maximal Assistance 6=Modified [place] 3=Moderate Assistance 7=Complete [place] ADL-Treatment Hip precautions were discussed throughout treatment. She could recall that people have talked to her about them - this time could remember one - "Something about not bending over". Also, in the shower, she recalled use of the sponge and knew she wasn't supposed to bend over to wash her feet (but did not carry over idea that she could not bend over to dry her feet.) Functional [place] Measure 0=Not Assessed/NA 4=Minimal Assistance 1=Total Assistance 5=Supervision or Setup 2=Maximal Assistance 6=Modified [place] 3=Moderate Assistance 7=Complete IndependenceIRFPAI Quality Coding Scale 6 Independent with activity with or without an assistive device 5 Patient requires set up or clean up by helper. Patient completes activity by themselves 4 Supervision or touching assist (CGA). Lucas provide cues , steadying assist 3 The helper provides less than half the effort to complete the activity 2 The helper provides more than half the effort to complete the activity 1 Dependent. The helper does all the effort to complete an activity 7 Patient refused to complete or attempt activity 9 The patient did not perform the activity before the current illness or injury 88 Not attempted due to Medical conditions or safety concerns Eating (FIM): 5 (setup. Has some trouble opening packages. Able to feed herself without assistance.) Eating (QC): 5 Grooming (FIM): 5 (setup to brush teeth and hair, wash face and hands in shower. No makeup) Oral Hygiene (QC): 5 Bathing (FIM): 4 (Washed and dried all parts except lower legs and back. Pt education use of long handle sponge for washing and dryong lower legs. Shower bench, grab bars, hand held shower. ) Bathing Location: L Arm, R Arm, L Upper Leg, R Upper Leg, Chest, Abdomen, Buttocks, Perineal Area Shower/Bathe Self (QC): 3 Upper Body (FIM): 5 (setup to doff and don shirt. Chooses not to wear bra) Upper Body Dressing (QC): 5 Lower Body Dressing (FIM): 2 (Hep to get feet into pants. Pt educ modified technique. help to get pants over hips. Able to stand SBA when pulling them up. Unable to get slipper socks off or on. pt educ use of dressing stick and catheter builder to assist with dressing. ) Lower Body Dressing (QC): 2 (Pt did about 1/3) On/Off Footwear (QC): 1 Toileting (FIM): 3 (Helps get pants up and down over hips, CGA at time for standing, FWW. Able to wipe. Pt toileted 3 times during session - has UTI, per nursing) Toileting Hygiene (QC): 3 Transfers (B, C, W/C) (FIM): 4 (Min assist sit to stand from recliner, FWW. Cues for hand placement) Toilet/Commode Transfer (FIM): 4 (Min assist off BSC over toilet with arms. Some help needed to maneuver walker to get positioned on toilet) Toilet Transfer (QC): 3 Shower Transfer(FIM): 3 (Mod assist getting off shower bench. Has to pull up from grab bars rather than push up from arm rests.) Other Treatment Pt was returned to her recliner, all needs met. Education OT Patient Education: Modified ADL techniques, Progress toward Goal/Update tx plan, Purpose of tx/functional activities, Reviewed precautions, Safety issues, Transfer techniques, Use of adapted equipment Teaching Recipient: Patient Teaching Methods: Demonstration, Discussion Response to Teaching: Verbalize Understanding, Return Demonstration, Reinforcement Needed OT Short Term Goals Short Term Goals Time Frame: Jun 08, 2016 Lower Body Dressing(FIM): 3 Toileting(FIM): 3 Transfers (B,C,W/C) (FIM): 4 Toilet/Commode Transfer(FIM): 3 Additional Short Term Goals: 2-Verbalize Understanding, 3-ImproveStrength/Jeffrey 1=Demonstrate adherence to instructed precautions during ADL tasks. 2=Patient will verbalize/demonstrate understanding of assistive devices/ modifications for ADL. 3=Patient will improve strength/tolerance for activity to enable patient to perform ADL's. OT Retirement Goals Pictures Editor Goals Time Frame: Jun 20, 2016 Eating (FIM): 6 Eating (QC): 6 Groomin Oral Hygiene (QC): 6 Bathing(FIM): 5 Shower/Bathe Self (QC): 5 Upper Body Dressing(FIM): 5 Upper Body Dressing (QC): 5 Lower Body Dressing(FIM): 5 Lower Body Dressing (QC): 5 On/Off Footwear (QC): 5 Toileting(FIM): 6 Toileting Hygiene (QC): 6 Transfers (B,C,W/C) (FIM): 5 Toilet/Commode Transfer(FIM): 6 Toilet/Commode Transfer (QC): 6 Shower Transfer(FIM): 5 Comprehension(FIM): 5 Expression (FIM): 5 Social Interaction(FIM): 5 Problem Solving(FIM): 4 Memory(FIM): 4 Additional Goals: 2-Verbalize Understanding, 3-ImproveStrength/Jeffrey 1=Demonstrate adherence to instructed precautions during ADL tasks. 2=Patient will verbalize/demonstrate understanding of assistive devices/ modifications for ADL. 3=Patient will improve strength/tolerance for activity to enable patient to perform ADL's. OT Education/Plan Problem List/Assessment Pt would benefit from skilled OT to increase her independence in basic self care to allow her to return safely to her home and to decrease caregiver burden. Discharge Recommendations Plan/Recommendations: Continue POC Treatment Plan/Plan of Care Patient would benefit from OT for education, treatment and training to promote independence in ADL's, mobility, safety and/or upper extremity function for ADL' s. Plan of Care: ADL Retraining, Functional Mobility, Group Exercise/Act as Ind ( education, exercise, memory, functional activities, socialization), UE Funct Exercise/Act, UE Neuromus Re-Ed/Coord, W/C Management Training Treatment Duration: Jun 20, 2016 Visits Per Week: 10-11 Minutes/Day (M-F): 75-90 Minutes/Day (Sat/[place]): PRN Agreement: Yes Rehab Potential: Fair Time/GCodes Start Time: 08:30 Stop Time: 09:45 Total Time Billed (hr/min): 75 Billed Treatment Time visit, 75 minutes ADL BELLA BERMUDEZ OT May 31, 2016 11:14
--- NOTE | 2016-05-31 11:39 | Speech Therapy Daily Note ---
Speech Daily Progress Note Subjective The patient was seated upright in recliner upon entrance. The patient greeted the clinician appropriately and agreed to participate in the cognitive treatment session on this date. Objective Recall of Hip Precautions: The patient stated for a second time that she believed the sign "hip precautions" on her board was "new." The clinician reminded the patient they reviewed precautions on the previous date and will spend today discussing them, as well. The patient's hip precautions were highlighted and placed in several places around the room. The patient was unable to recall any of the precautions at the start of the session. At the close of the session, the patient was able to recall one of three precautions independently and three of three precautions with verbal cues. Assessment Assessment Current Status: Fair Progress Treatment Plan Continue Plan of Care Communication Comprehension: 3 Expression: 4 Social Cognition Social Interaction: 5 Problem Solvin Memory: 2 Speech Short Term Goals Short Term Goals Short Term Goals 1. The patient will demonstrate and recall three functional memory strategies for use at home. 2. The patient will recall hip precautions with 80% accuracy, independently. 3. The patient will demonstrated 80% accuracy with functional safety problem solving. Time Frame-STG: Two Weeks Speech Jute Bag Clipper Goals Prison Goals 1. The patient will demonstrate improved cognitive linguistic skills for increased safety and function with ADL's in the least restrictive setting. Time Frame: Three Weeks Comprehension: 5 Expression: 5 Social Interaction: 5 Problem Solvin Memory: 4 Speech-Plan Treatment Plan Continue skilled speech pathology to target improved functional memory strategies. Treatment Duration: Jun 20, 2016 # of days/week Five. Visits Per Week: Five. Minutes/Day (M-F): 30 Rehab Potential: Fair Safety Risks/Education Teaching Recipient: Patient Teaching Methods: Demonstration, Handout, Discussion Response to Teaching: Reinforcement Needed Education Topics Provided: Hip Precautions Time Speech Therapy Time In: 10:30 Speech Therapy Time Out: 11:00 Total Billed Time: 30 Billed Treatment Time 1JAYSTEPHEN SANJANAVI[address]IA ST May 31, 2016 11:39
--- NOTE | 2016-05-31 12:00 | Physician Query ---
PQ-Further Specificity Admission/Discharge Admission Date: May 30, 2016 at 10:25 Discharge Date: The medical record reflects the following clinical scenario: History/Risk Factors: Fall Clinical Findings: 05/26 pelvic xray - transverse Rt. femoral neck fracture Treatment: Bipolar prosthesis Question: Can you further specify Rt. femoral neck fracture per the clinical indicators above? Please document below. 1. Transverse Rt. femoral neck fracture 2. Rt. femoral neck fracture 3. Other, with explanation of the clinical findings. 4. Clinically undetermined, no explanation for the clinical findings. PHYSICIAN RESPONSE Explanation/Clinical Findings RT displaced closed femoral neck frx as per DR Ribera op note Please remember a lack of response to the above will prompt a phone page by CDI/ coding staff. In responding to this query, please exercise your independent professional judgment. The purpose of this communication is to more accurately reflect the complexity of your patients condition. The fact that a question is asked does not imply that any particular answer is desired or expected. Thank you for your timely response to this clarification. Requestors name: Winifred THIS PHYSICIAN QUERY FORM IS A PERMANENT PART OF THE MEDICAL RECORD WINIFRED WISE May 31, 2016 12:00 BRITTA WALLACE MD Jun 01, 2016 07:05
--- NOTE | 2016-05-31 12:22 | Physical Therapy Daily Note ---
PT Daily Note-Current Subjective Pt sitting in recliner upon arrival. PT reviewing Hip Precautions and pt's surgery when pt's daughter arrives. Pt's daughter had a lot of questions about how this Therapy progress works but pt agreed to PT. Pain Location: Right, Incisional, Lateral Location Body Site: Hip Pain Description: Ache, Tightness Comment: Pt reports pain in R hip at incision site but doesn't rate pain. Mental Status Patient Orientation: Person, Confused Transfers Functional [place] Measure 0=Not Assessed/NA 4=Minimal Assistance 1=Total Assistance 5=Supervision or Setup 2=Maximal Assistance 6=Modified [place] 3=Moderate Assistance 7=Complete IndependenceIRFPAI Quality Coding Scale 6 Independent with activity with or without an assistive device 5 Patient requires set up or clean up by helper. Patient completes activity by themselves 4 Supervision or touching assist (CGA). [place] provide cues , steadying assist 3 The helper provides less than half the effort to complete the activity 2 The helper provides more than half the effort to complete the activity 1 Dependent. The helper does all the effort to complete an activity 7 Patient refused to complete or attempt activity 9 The patient did not perform the activity before the current illness or injury 88 Not attempted due to Medical conditions or safety concerns Transfers (B, C, W/C) (FIM): 4 Scootin Sit to/from Stand: 4 Sit to Stand (QC): 4 Chair/Jda-qp-Nwkzs Xfer(QC): 4 Bed to/from Chair: 4 Weight Bearing Weight Bearing Restriction: Weight Bearing/Tolerated Location Restriction: R LE Gait Training Does the Patient Walk?: Yes Distance (FIM): 1=up to 49 ft Distance: 10' Walk 10 feet (QC): 4 Gait Level of Assist: 4 Gait Persons Needed: 1 Gait Assistive Device: FWW Pt has difficulty ambulating and needs VC to weight shift off stronger LLE and put more weight on RLE in order to advance L side. Pt needs VC for Hip Precautions and WBAT status. Pt's sonia is slow but steady though. Wheelchair Training Does the Pt Use a Wheelchair?: No Treatments Pt's daughter has many questions such as how long pt would stay, what happens after discharge, can pt use 4WW from home, can Therapy or Nursing help shave pt' s chin, does pt still have UTI, can note be put in pt's dietary form to not allow pt soda while in Rehab (pt's family will bring once a week)? Daughter also informed PT that employee benefits attorney would be present at Noon and she needed a few minutes to visit with her Mom before employee benefits attorney arrives. PT gave pt/family education over above items as well as reminder of Hip Precautions and that they are posted next to pt's recliner for review if needed. After visiting with OT, informed pt/daughter that Therapy and Nursing could not shave pt but could assist/monitor as daughter shaved. Pt used BSC per daughter's request before employee benefits attorney arrived. Pt had wet through clothes so PT assisted pt with dressing. Pt returned to recliner to eat lunch and visit with daughter before employee benefits attorney's arrival. Pt is left with all needs met at end of tx. Assessment Pt is improving with transfers and ambulation with increased VC of Hip Precautions and reminders of weight shifting to RLE as tolerated to allow LLE to advance. Pt is dealing with some cognitive deficits. PT Short Term Goals Short Term Goals Time Frame: Jun 06, 2016 Transfers (B,C,W/C) (FIM): 4 Gait (FIM): 2 Gait Distance Comment: 50' Gait Level of Assist: 4 Wheelchair Distance: 10' PT Jail Goals Jail Goals PT Hole Digger Operator Goals Time Frame: Jun 20, 2016 Transfers (B,C,W/C) (FIM): 5 Sit to Lying (QC): 4 Lying-Sitting on Side/Bed(QC): 4 Sit to Stand (QC): 4 Rollin Roll Left to Right (QC): 4 Chair/Nkz-es-Djgrv Xfer(QC): 4 Car Transfer (QC): 3 Gait (FIM): 4 Distance: 150' Walk 10 feet (QC): 4 Walk 10ft-Uneven Surface(QC): 4 Walk 50ft with 2 Turns (QC): 4 Walk 150 ft (QC): 4 Gait Level of Assist: 4 Gait Assistive Device: FWW Stairs (FIM): 2 # of Steps: 4 1 Step (curb) (QC): 4 4 Steps (QC): 4 12 Steps (QC): 88 Stairs Level Of Assist: 4 Picking up an Object (QC): 88 PT Plan Problem List Problem List: Activity Tolerance, Functional Strength, Safety, Balance, Gait, Transfer Treatment/Plan Treatment Plan: Continue Plan of Care Treatment Plan: Bed Mobility, Education, Functional Activity Jeffrey, Functional Strength, Group Therapy, Gait, Safety, Therapeutic Exercise, Transfers Treatment Duration: Jun 20, 2016 Visits Per Week: 10-11 Minutes/Day (M-F): 60-90 Minutes/Day (Sat/[place]): 15-30 Safety Risks/Education Patient Education: Gait Training, Transfer Techniques, Reviewed Precautions, Correct Positioning, Disease Process, Safety Issues Teaching Recipient: Patient, Family Teaching Methods: Discussion Response to Teaching: Verbalize Understanding Time/GCodes Time In: 1100 Time Out: 1200 Total Billed Treatment Time: 60 Total Billed Treatment visit, FA X4 (60m) SHEREE GARCIA PTA May 31, 2016 12:22
--- NOTE | 2016-05-31 14:31 | Physical Therapy Daily Note ---
PT Daily Note-Current Subjective Pt sitting in recliner upon arrival. Pt reports needing to use restroom and then would like to return to bed at end of tx. Mental Status Patient Orientation: Person, Confused Transfers Functional [place] Measure 0=Not Assessed/NA 4=Minimal Assistance 1=Total Assistance 5=Supervision or Setup 2=Maximal Assistance 6=Modified [place] 3=Moderate Assistance 7=Complete IndependenceIRFPAI Quality Coding Scale 6 Independent with activity with or without an assistive device 5 Patient requires set up or clean up by helper. Patient completes activity by themselves 4 Supervision or touching assist ([facility]). [place] provide cues , steadying assist 3 The helper provides less than half the effort to complete the activity 2 The helper provides more than half the effort to complete the activity 1 Dependent. The helper does all the effort to complete an activity 7 Patient refused to complete or attempt activity 9 The patient did not perform the activity before the current illness or injury 88 Not attempted due to Medical conditions or safety concerns Scootin Sit to/from Stand: 4 Sit to Stand (QC): 4 Chair/Ydd-au-Inbzk Xfer(QC): 4 Bed to/from Chair: 4 Weight Bearing Weight Bearing Restriction: Weight Bearing/Tolerated Location Restriction: R LE Gait Training Does the Patient Walk?: Yes Distance (FIM): 1=up to 49 ft Distance: 15' Gait Level of Assist: 4 Gait Persons Needed: 1 Gait Assistive Device: FWW Pt gets confused easy and needs VC for reminders of sequencing and hand placement. Wheelchair Training Does the Pt Use a Wheelchair?: No Treatments Pt transferred to standing from recliner. Pt ambulated to restroom using FWW at [facility]. After finished, pt transferred to standing and ambulated to bed to rest. pt transferred to supine at Min A for assist for lifting BLE into bed. Pt is left with all needs met at end of tx. Assessment Current Status: Fair Progress Pt needs reminders to stay on task instead of visiting. Pt also gets confused about daily items such as which toilet is bigger, BSC or Toilet riser on toilet. Pt is needing looser fitting pants so that dressing is not being rubbed while donning and doffing pants while toileting, while ambulating, etc. PT Short Term Goals Short Term Goals Time Frame: Jun 06, 2016 Transfers (B,C,W/C) (FIM): 4 Gait (FIM): 2 Gait Distance Comment: 50' Gait Level of Assist: 4 Wheelchair Distance: 10' PT Fpc Goals Fpc Goals PT Jacquard Plate Maker Goals Time Frame: Jun 20, 2016 Transfers (B,C,W/C) (FIM): 5 Sit to Lying (QC): 4 Lying-Sitting on Side/Bed(QC): 4 Sit to Stand (QC): 4 Rollin Roll Left to Right (QC): 4 Chair/Eym-ic-Ihous Xfer(QC): 4 Car Transfer (QC): 3 Gait (FIM): 4 Distance: 150' Walk 10 feet (QC): 4 Walk 10ft-Uneven Surface(QC): 4 Walk 50ft with 2 Turns (QC): 4 Walk 150 ft (QC): 4 Gait Level of Assist: 4 Gait Assistive Device: FWW Stairs (FIM): 2 # of Steps: 4 1 Step (curb) (QC): 4 4 Steps (QC): 4 12 Steps (QC): 88 Stairs Level Of Assist: 4 Picking up an Object (QC): 88 PT Plan Problem List Problem List: Activity Tolerance, Functional Strength, Safety, Balance, Gait, Transfer, Bed Mobility Treatment/Plan Treatment Plan: Continue Plan of Care Treatment Plan: Bed Mobility, Education, Functional Activity Jeffrey, Functional Strength, Group Therapy, Gait, Safety, Therapeutic Exercise, Transfers Treatment Duration: Jun 20, 2016 Visits Per Week: 10-11 Minutes/Day (M-F): 60-90 Minutes/Day (Sat/[place]): 15-30 Safety Risks/Education Patient Education: Gait Training, Transfer Techniques, Correct Positioning, Safety Issues Teaching Recipient: Patient Teaching Methods: Discussion Response to Teaching: Reinforcement Needed Time/GCodes Time In: 1350 Time Out: 1405 Total Billed Treatment Time: 15 Total Billed Treatment visit, FA (15m) SHEREE GARCIA PTA May 31, 2016 14:31
[2016-05-31 18:57] VITALS: BP 134/71
[2016-05-31] MEDS: SIMvastatin 40 MG (ZOCOR) TAB PO SCH (20:30)
[2016-06-01 05:00] VITALS: BP 166/79
[2016-06-01] MEDS: ACETAMINOPHEN 325 MG TABLET/CAPLET (TYLENOL) PO PRN ×3 (05:08→20:09)
[2016-06-01] MEDS: CYCLOBENZAPRINE 10 MG (FLEXERIL) TAB PO PRN ×2 (05:08→20:09)
[2016-06-01] MEDS: LACTOBACILLUS Acidoph/Bulgar (LACTINEX/FLORANEX) TAB PO SCH ×3 (05:09→17:18)
[2016-06-01] MEDS: LEVOTHYROXINE 112 MCG (LEVOTHROID) TAB PO SCH (06:12)
[2016-06-01] MEDS: MULTIVIT W/MINERALS TAB (THERAGRAN M) PO SCH (06:12)
[2016-06-01] MEDS: TRIM/SULFAMETH 160/800 (SEPTRA DS) TAB PO SCH ×2 (06:12→17:18)
[2016-06-01] MEDS: LEVOTHYROXINE 25 MCG (LEVOTHROID) TAB PO SCH (06:12)
--- NOTE | 2016-06-01 07:01 | Individualized Plan of Care ---
Individualized Plan of Care Rehab Nursing IPOC Order Admission Date May 30, 2016 at 10:25 Current Orders Orders Atenolol Tablet (Tenormin Tablet) (05/31/16 09:00) Patient Visit (05/31/16 ) Treat. Speech/Lang/Voice (05/31/16 ) Patient Visit (05/31/16 ) Functional Activities, Ea 15 (05/31/16 ) Toilet every (bladder): (hrs): q2 hours while awake PT IPOC Problem List: Activity Tolerance, Functional Strength, Safety, Balance, Gait, Transfer, Bed Mobility Treatment Plan: Continue Plan of Care Bed Mobility, Education, Functional Activity Jeffrey, Functional Strength, Group Therapy, Gait, Safety, Therapeutic Exercise, Transfers Treatment Duration: Jun 20, 2016 Visits Per Week: 10-11 Minutes/Day (M-F): 60-90 Minutes/Day (Sat/[place]): 15-30 OT IPOC Problems: Decreased Activ Tolerance, Decreased Safety Aware, Decreased UE Strength, Dependent Transfers, Impaired Funct Balance, Impaired Self-Care Skills OT Problems Pt would benefit from skilled OT to increase her independence in basic self care to allow her to return safely to her home and to decrease caregiver burden. Plan of Care: ADL Retraining, Functional Mobility, Group Exercise/Act as Ind ( education, exercise, memory, functional activities, socialization), UE Funct Exercise/Act, UE Neuromus Re-Ed/Coord, W/C Management Training Treatment Duration: Jun 20, 2016 Visits Per Week: 10-11 Minutes/Day (M-F): 75-90 Minutes/Day (Sat/[place]): PRN ST IPOC Speech Therapy Treatment Plan: Continue Plan of Care Treatment Duration: Jun 20, 2016 Visits Per Week: Five. Minutes/Day (M-F): 30 Physician IPOC Medical Issues being managed closely and that require the 24 hour availability of a physician:postop anemia.HTN UTI Coronary Art D Medical Issues: DVT Prophylaxis, Falls Precautions, Fluid/Electrolyte/ Nutrition Balance, Infection Protection, Pain Management, Weight Bearing Precautions, Wound Care, Other (List) (as per above) Brief Synthesis of Preadmission Screen, Post-Admission Evaluation, and Therapy Evaluations- 80 yo female s/p fall with rt hip frx had been Modified Independent prior to this now s/p repair dr Rose and referred to [facility] for ortho rehab Being followed by PCP as well as cardiology with UTI being treated and other comorbidities as per above being followed by Cardiology ST following as well for mild cognitive deficits Medical Prognosis: good Anticipated Length of Stay: 06/19/16 Rehab Goals Modified Independent for adls and mobility skills Anticipated discharge destinat: Home with [facility] and family BRITTA WALLACE MD Jun 01, 2016 07:01
--- NOTE | 2016-06-01 07:43 | PM & R (SOAP) Progress Note ---
Subjective Subjective/Events-last exam Patient was seen in her room this AM requesting pain pill for hip pain but doesnt remember if RN provided it-Will check with RN Patient min assist for transfers. Patient min assist for transfers Objective Exam Last Set of Vital Signs Vital Signs Date Time Temp Pulse Resp B/P (MAP) Pulse Ox O2 Delivery O2 Flow Rate FiO2 06/01/16 05:00 100.1 82 20 166/79 95 Room Air Capillary Refill : Less Than 3 Seconds I&O Intake and Output 06/01/16 00:00 Intake Total 950 ml Balance 950 ml Intake Oral 950 ml # Voids 5 # Bowel Movements 1 General: Alert, Oriented X3, Cooperative, No Acute Distress HEENT: Atraumatic, PERRLA, EOMI, Mucous Memb Moist/[place] Neck: Supple, No JVD Lungs: Clear to Auscultation Heart: Regular Rate Abdomen: Normal Bowel Sounds Extremities: Other (trace edema rt ankle) Neuro: Other (weakness proximal rt hip s/p frx and repair) Results Lab Laboratory Tests 05/31/16 05:40: Hemoglobin 8.1L, Hematocrit 25L, Sodium Level 142, Potassium Level 3.6, Chloride Level 111H, Carbon Dioxide Level 24, Anion Gap 7, Blood Urea Nitrogen 16, Creatinine 0.70, Estimat Glomerular Filtration Rate > 60, BUN/Creatinine Ratio 23, Glucose Level 102, Calcium Level 8.4L 06/01/16 05:40: Hemoglobin 8.5L, Hematocrit 27L Assessment/Plan Assessment 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 DR Rose 05/27/16 HTN better controlled with adjustment in meds UTI treated Hypothyroidism-on replacement Mild postop anemia-improving Mild cognitive deficits ST addressing Hypocalcemia Plan Continue PT/OT/ST Check labs-done F/U with PCP and cardiology prn Appreciate DR Lam and cardiology notes and orders BRITTA WALLACE MD Jun 01, 2016 07:43
[2016-06-01] MEDS: POLYETHYLENE GLYCOL 17 GM (MIRALAX) PACK PO SCH (08:02)
[2016-06-01] MEDS: ATENOLOL 50 MG (TENORMIN) TAB PO SCH (08:02)
[2016-06-01] MEDS: GABAPENTIN 300 MG (NEURONTIN) CAP PO SCH ×2 (08:02→20:10)
[2016-06-01] MEDS: FAMOTIDINE 20 MG (PEPCID) TABLET PO SCH ×2 (08:03→20:09)
[2016-06-01] MEDS: SENNOSIDES 8.6 MG (SENOKOT) TAB PO SCH ×2 (08:03→20:09)
[2016-06-01] MEDS: ASPIRIN 81 MG CHEW (CHILDREN'S ASA) PO SCH (08:03)
[2016-06-01] MEDS: amLODIPine 5 MG (NORVASC) TAB PO SCH (08:03)
--- NOTE | 2016-06-01 10:36 | Speech Therapy Daily Note ---
Speech Daily Progress Note Subjective The patient was seated upright in recliner upon entrance. The patient greeted the clinician appropriately and agreed to participate in the cognitive treatment session on this date. Objective Hip Precautions: The patient independently recalled three of three hip precautions previously reviewed and posted in her room, independently. External Memory Strategies: External memory strategies were discussed and demonstrated on this date. The patient stated she keeps three books at home for dates. One book contains appointments, one book contains her budget, and the third book contains "everything else." Additionally, the patient keeps a pill box which she fills on Saturday and Saturday. The patient does not follow a routine, stating "that would be too boring." The speech pathologist recommended consideration of a routine as it aids with recall. Assessment Assessment Current Status: Good Progress Treatment Plan Continue Plan of Care Communication Comprehension: 3 Expression: 5 Social Cognition Social Interaction: 5 Problem Solvin Memory: 2 Speech Short Term Goals Short Term Goals Short Term Goals 1. The patient will demonstrate and recall three functional memory strategies for use at home. 2. The patient will recall hip precautions with 80% accuracy, independently. 3. The patient will demonstrated 80% accuracy with functional safety problem solving. Time Frame-STG: Two Weeks Speech Cloth Bale Header Goals Cloth Bale Header Goals 1. The patient will demonstrate improved cognitive linguistic skills for increased safety and function with ADL's in the least restrictive setting. Time Frame: Three Weeks Comprehension: 5 Expression: 5 Social Interaction: 5 Problem Solvin Memory: 4 Speech-Plan Treatment Plan Speech Therapy Treatment Plan: Continue Plan of Care Continue skilled speech therapy to target functional memory strategies. Treatment Duration: Jun 20, 2016 # of days/week Five. Visits Per Week: Five. Minutes/Day (M-F): 30 Rehab Potential: Fair Safety Risks/Education Teaching Recipient: Patient Teaching Methods: Demonstration, Handout, Discussion Response to Teaching: Verbalize Understanding, Reinforcement Needed Education Topics Provided: External Memory Strategies Time Speech Therapy Time In: 08:15 Speech Therapy Time Out: 08:45 Total Billed Time: 30 Billed Treatment Time MehranJAYJIMMIE BISWASBETH Jun 01, 2016 10:36
[2016-06-01] MEDS: ENOXAPARIN 40 MG/0.4 ML (LOVENOX) SYR SC SCH (10:58)
[2016-06-01] MEDS: CLOPIDOGREL 75 MG (PLAVIX) TABLET PO SCH (11:56)
--- NOTE | 2016-06-01 12:34 | Physical Therapy Daily Note ---
PT Daily Note-Current Subjective Pt sitting in recliner upon arrival. Pt reports needing to use restroom before leaving for tx. PT reminded pt that pt has an UTI and that it si normal to feel the urge to toilet but will stop before leaving room to try. Pt agrees to PT. Pain Location: Right, Incisional, Lateral Location Body Site: Hip Pain Description: Ache, Tightness Mental Status Patient Orientation: Person, Confused Transfers Functional [place] Measure 0=Not Assessed/NA 4=Minimal Assistance 1=Total Assistance 5=Supervision or Setup 2=Maximal Assistance 6=Modified [place] 3=Moderate Assistance 7=Complete IndependenceIRFPAI Quality Coding Scale 6 Independent with activity with or without an assistive device 5 Patient requires set up or clean up by helper. Patient completes activity by themselves 4 Supervision or touching assist ([facility]). [place] provide cues , steadying assist 3 The helper provides less than half the effort to complete the activity 2 The helper provides more than half the effort to complete the activity 1 Dependent. The helper does all the effort to complete an activity 7 Patient refused to complete or attempt activity 9 The patient did not perform the activity before the current illness or injury 88 Not attempted due to Medical conditions or safety concerns Transfers (B, C, W/C) (FIM): 4 Scootin Sit to/from Stand: 4 Sit to Stand (QC): 4 Weight Bearing Weight Bearing Restriction: Weight Bearing/Tolerated Location Restriction: R LE Weight Bearing: Pt needs VC for advancing LLE by WB on RLE Gait Training Does the Patient Walk?: Yes Distance (FIM): 8=218-02 ft Distance: 100' Walk 10 feet (QC): 4 Walk 50 ft with 2 Turns(QC): 4 Gait Level of Assist: 4 Gait Persons Needed: 1 Gait Assistive Device: FWW Pt's sonia is slow but steady with no LOB although fatigues easy. Pt reports discomfort with movement. Pt needs VC for advancing LLE during gait because needing more WB to take weight off L side. Treatments Pt transfers from recliner to standing using FWW at [facility]. Pt uses restroom before ambulating. Pt ambulates using FWW at [facility]. Pt transfers from chair with arms during ambulation several times before returning to room to use restroom again at end of tx. Pt is left with all needs met and nursing present. Assessment Current Status: Fair Progress Pt lacks motivation and needs encouragement to participate but will with encouragement. Pt can ambulate better than pt believes although is CGA due to some confusion during tx. PT Short Term Goals Short Term Goals Time Frame: Jun 06, 2016 Transfers (B,C,W/C) (FIM): 4 Gait (FIM): 2 Gait Distance Comment: 50' Gait Level of Assist: 4 Wheelchair Distance: 10' PT Low Pressure Boiler Operator Goals Low Pressure Boiler Operator Goals PT Low Pressure Boiler Operator Goals Time Frame: Jun 20, 2016 Transfers (B,C,W/C) (FIM): 5 Sit to Lying (QC): 4 Lying-Sitting on Side/Bed(QC): 4 Sit to Stand (QC): 4 Rollin Roll Left to Right (QC): 4 Chair/Qge-ho-Aizsu Xfer(QC): 4 Car Transfer (QC): 3 Gait (FIM): 4 Distance: 150' Walk 10 feet (QC): 4 Walk 10ft-Uneven Surface(QC): 4 Walk 50ft with 2 Turns (QC): 4 Walk 150 ft (QC): 4 Gait Level of Assist: 4 Gait Assistive Device: FWW Stairs (FIM): 2 # of Steps: 4 1 Step (curb) (QC): 4 4 Steps (QC): 4 12 Steps (QC): 88 Stairs Level Of Assist: 4 Picking up an Object (QC): 88 PT Plan Problem List Problem List: Activity Tolerance, Functional Strength, Safety, Balance, Gait, Transfer, Bed Mobility Treatment/Plan Treatment Plan: Continue Plan of Care Treatment Plan: Bed Mobility, Education, Functional Activity Jeffrey, Functional Strength, Group Therapy, Gait, Safety, Therapeutic Exercise, Transfers Treatment Duration: Jun 20, 2016 Visits Per Week: 10-11 Minutes/Day (M-F): 60-90 Minutes/Day (Sat/[place]): 15-30 Safety Risks/Education Patient Education: Gait Training, Transfer Techniques, Reviewed Precautions, Correct Positioning, Safety Issues Teaching Recipient: Patient Teaching Methods: Discussion Response to Teaching: Verbalize Understanding Time/GCodes Time In: 1100 Time Out: 1145 Total Billed Treatment Time: 45 Total Billed Treatment visit, FA X3 (45m) SHEREE GARCIA PTA Jun 01, 2016 12:34
--- NOTE | 2016-06-01 12:58 | Occupational Ther Daily Note ---
OT Current Status-Daily Note Subjective Pt seen in room, up in recliner, agreeable to OT. No pain mentioned except burning in her incision when she stood up. Pt declined bathing, stating, "I just don't feel good. I think I have a urinary infection." Appearance Alert, cooperative Mental Status/Objective Functional [place] Measure 0=Not Assessed/NA 4=Minimal Assistance 1=Total Assistance 5=Supervision or Setup 2=Maximal Assistance 6=Modified [place] 3=Moderate Assistance 7=Complete [place] ADL-Treatment Pt was able to partially recall one of three hip precautions - "I can't bend over to tie my shoes." When addressing use of assistive devices for dressing, pt stated, "This is awkward. When I'm home I just won't wear pants." Functional [place] Measure 0=Not Assessed/NA 4=Minimal Assistance 1=Total Assistance 5=Supervision or Setup 2=Maximal Assistance 6=Modified [place] 3=Moderate Assistance 7=Complete IndependenceIRFPAI Quality Coding Scale 6 Independent with activity with or without an assistive device 5 Patient requires set up or clean up by helper. Patient completes activity by themselves 4 Supervision or touching assist (CGA). [place] provide cues , steadying assist 3 The helper provides less than half the effort to complete the activity 2 The helper provides more than half the effort to complete the activity 1 Dependent. The helper does all the effort to complete an activity 7 Patient refused to complete or attempt activity 9 The patient did not perform the activity before the current illness or injury 88 Not attempted due to Medical conditions or safety concerns Grooming (FIM): 5 (Brushed teeth with setup, in recliner. Brushed hair setup.) Upper Body (FIM): 5 (Donned bra in standing, with SBA, FWW available for support.) Lower Body Dressing (FIM): 4 (Pt used cert occupational therapy asst to doff and don underwear but still needed help getting pants over her feet and slipper socks. She was incontinent and had to change her underwear twice. ) Toileting (FIM): 5 (Managed clothing and hygiene, SBA, FWW) Transfers (B, C, W/C) (FIM): 5 (Skilled cues for hand placement for sit to stand and stand to sit, for safety) Toilet Transfer (QC): 5 (SBA, FWW, BSC over toilet, grab bars.) Pt was left up in recliner, all needs met. Education OT Patient Education: Modified ADL techniques, Progress toward Goal/Update tx plan, Purpose of tx/functional activities, Safety issues, Transfer techniques, Use of adapted equipment Teaching Recipient: Patient Teaching Methods: Demonstration, Discussion Response to Teaching: Verbalize Understanding, Return Demonstration, Reinforcement Needed OT Short Term Goals Short Term Goals Time Frame: Jun 08, 2016 Lower Body Dressing(FIM): 3 Toileting(FIM): 3 Transfers (B,C,W/C) (FIM): 4 Toilet/Commode Transfer(FIM): 3 Additional Short Term Goals: 2-Verbalize Understanding, 3-ImproveStrength/Jeffrey 1=Demonstrate adherence to instructed precautions during ADL tasks. 2=Patient will verbalize/demonstrate understanding of assistive devices/ modifications for ADL. 3=Patient will improve strength/tolerance for activity to enable patient to perform ADL's. OT Inserter Operator Goals Inserter Operator Goals Time Frame: Jun 20, 2016 Eating (FIM): 6 Eating (QC): 6 Groomin Oral Hygiene (QC): 6 Bathing(FIM): 5 Shower/Bathe Self (QC): 5 Upper Body Dressing(FIM): 5 Upper Body Dressing (QC): 5 Lower Body Dressing(FIM): 5 Lower Body Dressing (QC): 5 On/Off Footwear (QC): 5 Toileting(FIM): 6 Toileting Hygiene (QC): 6 Transfers (B,C,W/C) (FIM): 5 Toilet/Commode Transfer(FIM): 6 Toilet/Commode Transfer (QC): 6 Shower Transfer(FIM): 5 Comprehension(FIM): 5 Expression (FIM): 5 Social Interaction(FIM): 5 Problem Solving(FIM): 4 Memory(FIM): 4 Additional Goals: 2-Verbalize Understanding, 3-ImproveStrength/Jeffrey 1=Demonstrate adherence to instructed precautions during ADL tasks. 2=Patient will verbalize/demonstrate understanding of assistive devices/ modifications for ADL. 3=Patient will improve strength/tolerance for activity to enable patient to perform ADL's. OT Education/Plan Problem List/Assessment Pt would benefit from skilled OT to increase her independence in basic self care to allow her to return safely to her home and to decrease caregiver burden. Discharge Recommendations Plan/Recommendations: Continue POC Treatment Plan/Plan of Care Patient would benefit from OT for education, treatment and training to promote independence in ADL's, mobility, safety and/or upper extremity function for ADL' s. Plan of Care: ADL Retraining, Functional Mobility, Group Exercise/Act as Ind ( education, exercise, memory, functional activities, socialization), UE Funct Exercise/Act, UE Neuromus Re-Ed/Coord, W/C Management Training Treatment Duration: Jun 20, 2016 Visits Per Week: 10-11 Minutes/Day (M-F): 75-90 Minutes/Day (Sat/[place]): PRN Agreement: Yes Rehab Potential: Fair Time/GCodes Start Time: 08:45 Stop Time: 09:35 Total Time Billed (hr/min): 50 Billed Treatment Time visit, 50 minutes BELLA IRIWN OT Jun 01, 2016 12:58
--- NOTE | 2016-06-01 14:06 | Progress Note-Standard ---
Standard Progress Note Progress Notes/Assess & Plan Progress/Assessment & Plan To IRU feeling better today RLE--dressing intact. Neg [place]. Neg SLR s/p R bipolar continue PT/OT Final Diagnosis Patient in group No complaints R hip dressing intact s/p R hip bipolar pt/ot ROLO JO MD Jun 01, 2016 14:06
--- NOTE | 2016-06-01 14:32 | Progress Note-Cardiology ---
Cardiology SOAP Progress Note Subjective: Sitting up in a w/c at the bedside. Visitors x2 at the bedside. No c/o CP, SOB , palpitations, syncope or near syncope. Objective: I&O/Vital Signs Vital Sign - Last 12Hours 06/01/16 06/01/16 05:00 09:00 Temp 100.1 Pulse 82 Resp 20 B/P (MAP) 166/79 Pulse Ox 95 O2 Delivery Room Air Room Air Intake and Output 06/01/16 00:00 Intake Total 600 ml Balance 600 ml Weight (Pounds): 215 Weight (Ounces): 0.0 Weight (Calculated Kilograms): 97.783506 Constitutional: AAO x 3 Respiratory: lungs clear to auscultation Cardiovascular: regular rate-rhythm Gastrointestional: soft, round, audible bowel sounds Extremities: significant edema (mild to mod RLE edema (post surgical)) Neurologic/Psychiatric: grossly intact Skin: No rash, No ulcerations Results/Procedures: Labs Laboratory Tests 06/01/16 05:40: Hemoglobin 8.5L, Hematocrit 27L A/P: Assessment: Right hip fracture following a non-syncopal fall on 05/26/16; s/p R hip surgery on 05/27/16 Post-op anemia - management per medical/ortho services UTI - management per medical services Coronary artery disease, primarily single vessel, treated with drug-eluting stenting of the mid left anterior descending artery with Promus 3.0 x 15-mm stent on 04/07/08. 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 Dick. Tests of 01/13/16 are consistent with some degree of hyperthyroidism, probably due to overcorrection, and she is following with Dr Dick for that Moderate distal peripheral arterial disease. Ankle brachial indices in February 2007 were normal, but the toe brachial indices were moderately diminished. MAXIMINO if February 2016 showed no evidence of any significant obstructive peripheral arterial disease Degenerative joint disease Low backache Hyperlipidemia, currently being treated with lovastatin Elevated body mass index of approximately 33 History of chronic right ankle swelling, minimal, following remote trauma, currently controlled Mild bilateral carotid arterial disease per u/s of August 2015 Impaired fasting glucose, mild. Plan: Continue current regimen Monitor lab Cardiac status clinically stable Hgb remains below 9.0; advise transfusion to keep Hgb greater than 9.0. Discussed with patient recommendations for transfusion. She does not wish to have a transfusion. Medical services to manage JENNIFER BASHIR Jun 01, 2016 14:32
--- NOTE | 2016-06-01 14:48 | Therapy Group Daily Note ---
Therapy Daily Group Note Exercises Balance, Sit to/from Stand, Fine Motor, UE Exercise Other/Notes PT ambulated to Group using FWW at [facility]. Pt participated in PT/OT Group which involved Introduction (Name, Where are you from and Favorite Springtime Activity ), Socialization, Sit to Stand, Standing Balance, UE Ex/Fine Motor, Memory Recall for remembering a way to prevent fall in the home that were reviewed in the last Group a few days previous as well as Problem Solving during table top activity. Pt actively participated in Group by recalling Fall Prevention, performing EX and participating in table top game independently. Pt returned to room to rest at end of Group with all needs met. Start Time: 13:00 Stop Time: 14:15 Total Billed Treatment Time: 75 Total Billed Treatment 1, GRP SHEREE GARCIA TANNING WHEEL OPERATOR Jun 01, 2016 14:48
[2016-06-01 18:00] VITALS: BP 148/74
[2016-06-01] MEDS: SIMvastatin 40 MG (ZOCOR) TAB PO SCH (20:09)
[2016-06-02] MEDS: ACETAMINOPHEN 325 MG TABLET/CAPLET (TYLENOL) PO PRN (04:51)
[2016-06-02] MEDS: CYCLOBENZAPRINE 10 MG (FLEXERIL) TAB PO PRN (04:51)
[2016-06-02 05:05] VITALS: BP 152/70
[2016-06-02] MEDS: LEVOTHYROXINE 25 MCG (LEVOTHROID) TAB PO SCH (05:58)
[2016-06-02] MEDS: TRIM/SULFAMETH 160/800 (SEPTRA DS) TAB PO SCH ×2 (05:58→16:52)
[2016-06-02] MEDS: LEVOTHYROXINE 112 MCG (LEVOTHROID) TAB PO SCH (05:58)
[2016-06-02] MEDS: MULTIVIT W/MINERALS TAB (THERAGRAN M) PO SCH (05:58)
[2016-06-02] MEDS: LACTOBACILLUS Acidoph/Bulgar (LACTINEX/FLORANEX) TAB PO SCH ×3 (05:58→16:52)
[2016-06-02] MEDS: amLODIPine 5 MG (NORVASC) TAB PO SCH (08:05)
[2016-06-02] MEDS: ATENOLOL 50 MG (TENORMIN) TAB PO SCH (08:05)
[2016-06-02] MEDS: GABAPENTIN 300 MG (NEURONTIN) CAP PO SCH ×2 (08:05→20:48)
[2016-06-02] MEDS: SENNOSIDES 8.6 MG (SENOKOT) TAB PO SCH ×2 (08:05→20:47)
[2016-06-02] MEDS: FAMOTIDINE 20 MG (PEPCID) TABLET PO SCH ×2 (08:05→20:47)
[2016-06-02] MEDS: ASPIRIN 81 MG CHEW (CHILDREN'S ASA) PO SCH (08:06)
[2016-06-02] MEDS: POLYETHYLENE GLYCOL 17 GM (MIRALAX) PACK PO SCH (08:06)
[2016-06-02] MEDS: ENOXAPARIN 40 MG/0.4 ML (LOVENOX) SYR SC SCH (11:21)
--- NOTE | 2016-06-02 13:12 | Physical Therapy Daily Note ---
PT Daily Note-Current Subjective Pain rated 5/10 (R) hip upon arrival and 5/10 post therapy session. Pt requests BR privileges. Pt able to recall 1/3 hip precautions. Mental Status Patient Orientation: Person, Place, Situation Transfers Functional [place] Measure 0=Not Assessed/NA 4=Minimal Assistance 1=Total Assistance 5=Supervision or Setup 2=Maximal Assistance 6=Modified [place] 3=Moderate Assistance 7=Complete IndependenceIRFPAI Quality Coding Scale 6 Independent with activity with or without an assistive device 5 Patient requires set up or clean up by helper. Patient completes activity by themselves 4 Supervision or touching assist (CGA). [place] provide cues , steadying assist 3 The helper provides less than half the effort to complete the activity 2 The helper provides more than half the effort to complete the activity 1 Dependent. The helper does all the effort to complete an activity 7 Patient refused to complete or attempt activity 9 The patient did not perform the activity before the current illness or injury 88 Not attempted due to Medical conditions or safety concerns SBA for sit to stand transfers. Pt requires vc's for improved proximity to chair prior to sitting. Gait Training Gait Assistive Device: FWW Pt amb with FWW 2 x 50ft with seated rest break between, CGA Treatments Pt SBA for BR privileges and hand washing at sink. Assessment Current Status: Good Progress Pt scout well. Pt needs occasional vc's for safe mobility. Pt back to chair with call light and all needs met. Pt calling in her lunch. PT Short Term Goals Short Term Goals Time Frame: Jun 06, 2016 Transfers (B,C,W/C) (FIM): 4 Gait (FIM): 2 Gait Distance Comment: 50' Gait Level of Assist: 4 Wheelchair Distance: 10' PT Halfway Goals Halfway Goals PT Halfway Goals Time Frame: Jun 20, 2016 Transfers (B,C,W/C) (FIM): 5 Sit to Lying (QC): 4 Lying-Sitting on Side/Bed(QC): 4 Sit to Stand (QC): 4 Rollin Roll Left to Right (QC): 4 Chair/[id number]-Sfzjh Xfer(QC): 4 Car Transfer (QC): 3 Gait (FIM): 4 Distance: 150' Walk 10 feet (QC): 4 Walk 10ft-Uneven Surface(QC): 4 Walk 50ft with 2 Turns (QC): 4 Walk 150 ft (QC): 4 Gait Level of Assist: 4 Gait Assistive Device: FWW Stairs (FIM): 2 # of Steps: 4 1 Step (curb) (QC): 4 4 Steps (QC): 4 12 Steps (QC): 88 Stairs Level Of Assist: 4 Picking up an Object (QC): 88 PT Plan Treatment/Plan Treatment Plan: Continue Plan of Care Treatment Plan: Bed Mobility, Education, Functional Activity Jeffrey, Functional Strength, Group Therapy, Gait, Safety, Therapeutic Exercise, Transfers Treatment Duration: Jun 20, 2016 Visits Per Week: 10-11 Minutes/Day (M-F): 60-90 Minutes/Day (Sat/[place]): 15-30 Time/GCodes Time In: 1140 Time Out: 1205 Total Billed Treatment Time: 25 Total Billed Treatment 1, gait 15 min, FA 10 min DEBBY OTTO CPTA Jun 02, 2016 13:12
[2016-06-02 18:17] VITALS: BP 139/63
[2016-06-02] MEDS: SIMvastatin 40 MG (ZOCOR) TAB PO SCH (20:48)
[2016-06-03 05:14] VITALS: BP 163/72
[2016-06-03] MEDS: TRIM/SULFAMETH 160/800 (SEPTRA DS) TAB PO SCH ×2 (06:17→17:21)
[2016-06-03] MEDS: LEVOTHYROXINE 112 MCG (LEVOTHROID) TAB PO SCH (06:17)
[2016-06-03] MEDS: MULTIVIT W/MINERALS TAB (THERAGRAN M) PO SCH (06:17)
[2016-06-03] MEDS: LACTOBACILLUS Acidoph/Bulgar (LACTINEX/FLORANEX) TAB PO SCH ×3 (06:17→17:21)
[2016-06-03] MEDS: LEVOTHYROXINE 25 MCG (LEVOTHROID) TAB PO SCH (06:17)
[2016-06-03] MEDS: amLODIPine 5 MG (NORVASC) TAB PO SCH (08:31)
[2016-06-03] MEDS: GABAPENTIN 300 MG (NEURONTIN) CAP PO SCH ×2 (08:31→20:58)
[2016-06-03] MEDS: SENNOSIDES 8.6 MG (SENOKOT) TAB PO SCH ×2 (08:31→20:58)
[2016-06-03] MEDS: ASPIRIN 81 MG CHEW (CHILDREN'S ASA) PO SCH (08:31)
[2016-06-03] MEDS: ATENOLOL 50 MG (TENORMIN) TAB PO SCH (08:31)
[2016-06-03] MEDS: FAMOTIDINE 20 MG (PEPCID) TABLET PO SCH ×2 (08:31→20:58)
[2016-06-03] MEDS: POLYETHYLENE GLYCOL 17 GM (MIRALAX) PACK PO SCH (08:33)
[2016-06-03] MEDS: ENOXAPARIN 40 MG/0.4 ML (LOVENOX) SYR SC SCH (09:56)
[2016-06-03 17:58] VITALS: BP 148/72
[2016-06-03] MEDS: SIMvastatin 40 MG (ZOCOR) TAB PO SCH (20:58)
[2016-06-04 04:40] VITALS: BP 134/60
[2016-06-04] MEDS: LEVOTHYROXINE 112 MCG (LEVOTHROID) TAB PO SCH (06:12)
[2016-06-04] MEDS: LEVOTHYROXINE 25 MCG (LEVOTHROID) TAB PO SCH (06:12)
[2016-06-04] MEDS: MULTIVIT W/MINERALS TAB (THERAGRAN M) PO SCH (06:12)
[2016-06-04] MEDS: LACTOBACILLUS Acidoph/Bulgar (LACTINEX/FLORANEX) TAB PO SCH ×3 (06:12→17:07)
[2016-06-04] MEDS: TRIM/SULFAMETH 160/800 (SEPTRA DS) TAB PO SCH ×2 (06:52→17:07)
[2016-06-04] MEDS: ASPIRIN 81 MG CHEW (CHILDREN'S ASA) PO SCH (08:13)
[2016-06-04] MEDS: SENNOSIDES 8.6 MG (SENOKOT) TAB PO SCH ×2 (08:13→20:34)
[2016-06-04] MEDS: FAMOTIDINE 20 MG (PEPCID) TABLET PO SCH ×2 (08:13→20:33)
[2016-06-04] MEDS: POLYETHYLENE GLYCOL 17 GM (MIRALAX) PACK PO SCH ×2 (08:14→08:32)
[2016-06-04] MEDS: ATENOLOL 50 MG (TENORMIN) TAB PO SCH (08:14)
[2016-06-04] MEDS: amLODIPine 5 MG (NORVASC) TAB PO SCH (08:14)
[2016-06-04] MEDS: GABAPENTIN 300 MG (NEURONTIN) CAP PO SCH ×2 (08:14→20:33)
[2016-06-04] MEDS: CYCLOBENZAPRINE 10 MG (FLEXERIL) TAB PO PRN (08:15)
--- NOTE | 2016-06-04 09:33 | Physical Therapy Daily Note ---
PT Daily Note-Current Subjective Patient in bed pre tx, agrees to PT, has 5/10 pain in right leg, states she has been having some muscle spasms. Appearance Patient in recliner post tx with nurse call, phone, tray, all needs met. Has OT right after PT. Mental Status Patient Orientation: Person, Place, Situation Transfers Functional [place] Measure 0=Not Assessed/NA 4=Minimal Assistance 1=Total Assistance 5=Supervision or Setup 2=Maximal Assistance 6=Modified [place] 3=Moderate Assistance 7=Complete IndependenceIRFPAI Quality Coding Scale 6 Independent with activity with or without an assistive device 5 Patient requires set up or clean up by helper. Patient completes activity by themselves 4 Supervision or touching assist (CGA). [place] provide cues , steadying assist 3 The helper provides less than half the effort to complete the activity 2 The helper provides more than half the effort to complete the activity 1 Dependent. The helper does all the effort to complete an activity 7 Patient refused to complete or attempt activity 9 The patient did not perform the activity before the current illness or injury 88 Not attempted due to Medical conditions or safety concerns Transfers (B, C, W/C) (FIM): 4 Scootin Rollin Supine to/from Sit: 4 Bed to/from Chair: 4 min assist for supine to sit, CGA for transfers, cues for hand placement and safety Gait Training Gait (FIM): 2 Distance: 130', 60', 70' Gait Level of Assist: 4 Gait Persons Needed: 1 Gait Assistive Device: FWW CGA, slow, antalgic Exercises Standing: Hip Abduction, Heel/toe raises, Mini squats Standing Reps: 20 LAQ alternating x 5min Treatments bed mobility and transfers, ambulation, functional strengthening Assessment Current Status: Fair Progress improving endurance PT Short Term Goals Short Term Goals Time Frame: Jun 06, 2016 Transfers (B,C,W/C) (FIM): 4 Gait (FIM): 2 Gait Distance Comment: 50' Gait Level of Assist: 4 Wheelchair Distance: 10' PT Snf Goals Customs [employer] Border [employer] Officer Goals PT Customs [employer] Border [employer] Officer Goals Time Frame: Jun 20, 2016 Transfers (B,C,W/C) (FIM): 5 Sit to Lying (QC): 4 Lying-Sitting on Side/Bed(QC): 4 Sit to Stand (QC): 4 Rollin Roll Left to Right (QC): 4 Chair/Nhp-wg-Jgmss Xfer(QC): 4 Car Transfer (QC): 3 Gait (FIM): 4 Distance: 150' Walk 10 feet (QC): 4 Walk 10ft-Uneven Surface(QC): 4 Walk 50ft with 2 Turns (QC): 4 Walk 150 ft (QC): 4 Gait Level of Assist: 4 Gait Assistive Device: FWW Stairs (FIM): 2 # of Steps: 4 1 Step (curb) (QC): 4 4 Steps (QC): 4 12 Steps (QC): 88 Stairs Level Of Assist: 4 Picking up an Object (QC): 88 PT Plan Problem List Problem List: Activity Tolerance, Functional Strength, Safety, Balance, Gait, Transfer, Bed Mobility, ROM Treatment/Plan Treatment Plan: Continue Plan of Care Treatment Plan: Bed Mobility, Education, Functional Activity Jeffrey, Functional Strength, Group Therapy, Gait, Safety, Therapeutic Exercise, Transfers Treatment Duration: Jun 20, 2016 Visits Per Week: 10-11 Minutes/Day (M-F): 60-90 Minutes/Day (Sat/[place]): 15-30 Safety Risks/Education Patient Education: Gait Training, Transfer Techniques, Correct Positioning, Disease Process, Safety Issues Teaching Recipient: Patient Teaching Methods: Demonstration, Discussion Response to Teaching: Reinforcement Needed Time/GCodes Time In: 845 Time Out: 930 Total Billed Treatment Time: 45 Total Billed Treatment 1 visit EX 15 min GT 30 min GISELLE BAH PT Jun 04, 2016 09:33
[2016-06-04] MEDS: CLOPIDOGREL 75 MG (PLAVIX) TABLET PO SCH (10:41)
[2016-06-04] MEDS: ENOXAPARIN 40 MG/0.4 ML (LOVENOX) SYR SC SCH (10:42)
--- NOTE | 2016-06-04 11:32 | Occupational Ther Daily Note ---
OT Current Status-Daily Note Subjective Pt seen in room, up in recliner, agreeable to OT. No pain mentioned. "I'm going to [place] [email or web address] when I leave here, for a week or however long I need to be there." Appearance Alert, cooperative Mental Status/Objective Functional [place] Measure 0=Not Assessed/NA 4=Minimal Assistance 1=Total Assistance 5=Supervision or Setup 2=Maximal Assistance 6=Modified [place] 3=Moderate Assistance 7=Complete [place] ADL-Treatment Pt was able to recall 2 0f 3 hip precautions, with prompting for second one. She understands she cannot reach past her knees but has difficulty applying this to all steps of ADLs (for example, it applies to underwear and also to slacks). All ADLs slower than usual. Pt more comfortable using bundle collector than dressing stick because she used a bundle collector at home prior to fall. Functional [place] Measure 0=Not Assessed/NA 4=Minimal Assistance 1=Total Assistance 5=Supervision or Setup 2=Maximal Assistance 6=Modified [place] 3=Moderate Assistance 7=Complete IndependenceIRFPAI Quality Coding Scale 6 Independent with activity with or without an assistive device 5 Patient requires set up or clean up by helper. Patient completes activity by themselves 4 Supervision or touching assist (CGA). [place] provide cues , steadying assist 3 The helper provides less than half the effort to complete the activity 2 The helper provides more than half the effort to complete the activity 1 Dependent. The helper does all the effort to complete an activity 7 Patient refused to complete or attempt activity 9 The patient did not perform the activity before the current illness or injury 88 Not attempted due to Medical conditions or safety concerns Bathing (FIM): 5 (Pt washed and dried all parts, using shower bench, grab bars , hand held shower, long handled sponge. Pt educ use of sponge to also dry legs) Upper Body (FIM): 5 (Stood SBA to fasten bra and turn it around, FWW. Donned shirt without help.) Lower Body Dressing (FIM): 4 (Minimal help to get pants up over feet, using bundle collector. Pt educ on following hip precautions during dressing. Stood SBA, FWW and help to get pants over hips (due to continued edema over R hip). Pt used dressing stick to take slipper socks off prior to shower. ) Toileting (FIM): 5 (SBA to manage clothing and hygiene, tall toilet, grab bars , FWW) Transfers (B, C, W/C) (FIM): 5 (Struggles to get up and down but able to do it with SBA, FWW. Cues for hand placement) Toilet Transfer (QC): 5 (Verbal cues placement of walker. Tall toilet, grab bars, BSC over toilet) Shower Transfer(FIM): 4 (Min assist to get up off shower bench, using grab bars ) Other Treatment Pt transferred to bed and needed a little help to get her R leg into bed. Skilled cues for positioning herself in bed. 4 rails up, all needs met. Education OT Patient Education: Modified ADL techniques, Purpose of tx/functional activities, Safety issues, Transfer techniques, Use of adapted equipment Teaching Recipient: Patient Teaching Methods: Demonstration, Discussion Response to Teaching: Reinforcement Needed OT Short Term Goals Short Term Goals Time Frame: Jun 08, 2016 Lower Body Dressing(FIM): 3 Toileting(FIM): 3 Transfers (B,C,W/C) (FIM): 4 Toilet/Commode Transfer(FIM): 3 Additional Short Term Goals: 2-Verbalize Understanding, 3-ImproveStrength/Jeffrey 1=Demonstrate adherence to instructed precautions during ADL tasks. 2=Patient will verbalize/demonstrate understanding of assistive devices/ modifications for ADL. 3=Patient will improve strength/tolerance for activity to enable patient to perform ADL's. OT Correction Goals Correction Goals Time Frame: Jun 20, 2016 Eating (FIM): 6 Eating (QC): 6 Groomin Oral Hygiene (QC): 6 Bathing(FIM): 5 Shower/Bathe Self (QC): 5 Upper Body Dressing(FIM): 5 Upper Body Dressing (QC): 5 Lower Body Dressing(FIM): 5 Lower Body Dressing (QC): 5 On/Off Footwear (QC): 5 Toileting(FIM): 6 Toileting Hygiene (QC): 6 Transfers (B,C,W/C) (FIM): 5 Toilet/Commode Transfer(FIM): 6 Toilet/Commode Transfer (QC): 6 Shower Transfer(FIM): 5 Comprehension(FIM): 5 Expression (FIM): 5 Social Interaction(FIM): 5 Problem Solving(FIM): 4 Memory(FIM): 4 Additional Goals: 2-Verbalize Understanding, 3-ImproveStrength/Jeffrey 1=Demonstrate adherence to instructed precautions during ADL tasks. 2=Patient will verbalize/demonstrate understanding of assistive devices/ modifications for ADL. 3=Patient will improve strength/tolerance for activity to enable patient to perform ADL's. OT Education/Plan Problem List/Assessment Pt would benefit from skilled OT to increase her independence in basic self care to allow her to return safely to her home and to decrease caregiver burden. Discharge Recommendations Plan/Recommendations: Continue POC Treatment Plan/Plan of Care Patient would benefit from OT for education, treatment and training to promote independence in ADL's, mobility, safety and/or upper extremity function for ADL' s. Plan of Care: ADL Retraining, Functional Mobility, Group Exercise/Act as Ind ( education, exercise, memory, functional activities, socialization), UE Funct Exercise/Act, UE Neuromus Re-Ed/Coord, W/C Management Training Treatment Duration: Jun 20, 2016 Visits Per Week: 10-11 Minutes/Day (M-F): 75-90 Minutes/Day (Sat/[place]): PRN Agreement: Yes Rehab Potential: Fair Time/GCodes Start Time: 09:30 Stop Time: 10:30 Total Time Billed (hr/min): 60 Billed Treatment Time visit, 60 minutes ADL BELLA BERMUDEZ OT Jun 04, 2016 11:32
--- NOTE | 2016-06-04 12:32 | Speech Therapy Daily Note ---
Speech Daily Progress Note Subjective The patient was seated upright in bed upon entrance. The patient greeted the clinician appropriately and agreed to participate in the cognitive treatment session on this date. Objective Recall of Hip Precautions: The clinician reviewed and discussed hip precautions with the patient. The patient's hip precautions were highlighted and placed in several locations around the room. The patient was able to recall two of three hip precautions independently and three of three hip precautions with mild clinician verbal cueing. Assessment Assessment Current Status: Good Progress Treatment Plan Continue Plan of Care Speech Short Term Goals Short Term Goals Short Term Goals 1. The patient will demonstrate and recall three functional memory strategies for use at home. 2. The patient will recall hip precautions with 80% accuracy, independently. 3. The patient will demonstrated 80% accuracy with functional safety problem solving. Time Frame-STG: Two Weeks Speech Process Improvement Engineer Goals Process Improvement Engineer Goals 1. The patient will demonstrate improved cognitive linguistic skills for increased safety and function with ADL's in the least restrictive setting. Time Frame: Three Weeks Comprehension: 5 Expression: 5 Social Interaction: 5 Problem Solvin Memory: 4 Speech-Plan Treatment Plan Speech Therapy Treatment Plan: Continue Plan of Care Continue skilled speech therapy to target functional problem solving and memory strategies. Treatment Duration: Jun 20, 2016 # of days/week Five Visits Per Week: Five. Minutes/Day (M-F): 30 Rehab Potential: Fair Safety Risks/Education Teaching Recipient: Patient Teaching Methods: Discussion Response to Teaching: Return Demonstration, Reinforcement Needed Education Topics Provided: Hip Precautions Time Speech Therapy Time In: 10:30 Speech Therapy Time Out: 11:00 Total Billed Time: 30 Billed Treatment Time 1MARLON ELIZABETH ST Jun 04, 2016 12:32
--- NOTE | 2016-06-04 13:36 | Occupational Ther Daily Note ---
OT Current Status-Daily Note Mental Status/Objective Functional [place] Measure 0=Not Assessed/NA 4=Minimal Assistance 1=Total Assistance 5=Supervision or Setup 2=Maximal Assistance 6=Modified [place] 3=Moderate Assistance 7=Complete [place] ADL-Treatment Functional [place] Measure 0=Not Assessed/NA 4=Minimal Assistance 1=Total Assistance 5=Supervision or Setup 2=Maximal Assistance 6=Modified [place] 3=Moderate Assistance 7=Complete IndependenceIRFPAI Quality Coding Scale 6 Independent with activity with or without an assistive device 5 Patient requires set up or clean up by helper. Patient completes activity by themselves 4 Supervision or touching assist (CGA). [place] provide cues , steadying assist 3 The helper provides less than half the effort to complete the activity 2 The helper provides more than half the effort to complete the activity 1 Dependent. The helper does all the effort to complete an activity 7 Patient refused to complete or attempt activity 9 The patient did not perform the activity before the current illness or injury 88 Not attempted due to Medical conditions or safety concerns OT Short Term Goals Short Term Goals Time Frame: Jun 08, 2016 Lower Body Dressing(FIM): 3 Toileting(FIM): 3 Transfers (B,C,W/C) (FIM): 4 Toilet/Commode Transfer(FIM): 3 Additional Short Term Goals: 2-Verbalize Understanding, 3-ImproveStrength/Jeffrey 1=Demonstrate adherence to instructed precautions during ADL tasks. 2=Patient will verbalize/demonstrate understanding of assistive devices/ modifications for ADL. 3=Patient will improve strength/tolerance for activity to enable patient to perform ADL's. OT Usp Goals Trim Master Operator Goals Time Frame: Jun 20, 2016 Eating (FIM): 6 Eating (QC): 6 Groomin Oral Hygiene (QC): 6 Bathing(FIM): 5 Shower/Bathe Self (QC): 5 Upper Body Dressing(FIM): 5 Upper Body Dressing (QC): 5 Lower Body Dressing(FIM): 5 Lower Body Dressing (QC): 5 On/Off Footwear (QC): 5 Toileting(FIM): 6 Toileting Hygiene (QC): 6 Transfers (B,C,W/C) (FIM): 5 Toilet/Commode Transfer(FIM): 6 Toilet/Commode Transfer (QC): 6 Shower Transfer(FIM): 5 Comprehension(FIM): 5 Expression (FIM): 5 Social Interaction(FIM): 5 Problem Solving(FIM): 4 Memory(FIM): 4 Additional Goals: 2-Verbalize Understanding, 3-ImproveStrength/Jeffrey 1=Demonstrate adherence to instructed precautions during ADL tasks. 2=Patient will verbalize/demonstrate understanding of assistive devices/ modifications for ADL. 3=Patient will improve strength/tolerance for activity to enable patient to perform ADL's. OT Education/Plan Problem List/Assessment Pt would benefit from skilled OT to increase her independence in basic self care to allow her to return safely to her home and to decrease caregiver burden. Discharge Recommendations Plan/Recommendations: Continue POC Treatment Plan/Plan of Care Patient would benefit from OT for education, treatment and training to promote independence in ADL's, mobility, safety and/or upper extremity function for ADL' s. Plan of Care: ADL Retraining, Functional Mobility, Group Exercise/Act as Ind ( education, exercise, memory, functional activities, socialization), UE Funct Exercise/Act, UE Neuromus Re-Ed/Coord, W/C Management Training Treatment Duration: Jun 20, 2016 Visits Per Week: 10-11 Minutes/Day (M-F): 75-90 Minutes/Day (Sat/[place]): PRN Agreement: Yes Rehab Potential: Fair Time/GCodes Start Time: 13:00 Stop Time: 13:30 Total Time Billed (hr/min): 30 Billed Treatment Time visit, ADL 10 minutes, exercise 20 minutes BELLA BERMUDEZ OT Jun 04, 2016 13:36
--- NOTE | 2016-06-04 14:05 | Physical Therapy Daily Note ---
PT Daily Note-Current Subjective Pt. agrees to Rx reluctantly stating she cant imagine walking an entire 150 ft. States the Rx wears her out but she knows she needs it. Pain Numeric Pain Scale: 0-No Pain Location: No Pain Reported Mental Status Patient Orientation: MR [place] Functional [place] Measure 0=Not Assessed/NA 4=Minimal Assistance 1=Total Assistance 5=Supervision or Setup 2=Maximal Assistance 6=Modified [place] 3=Moderate Assistance 7=Complete IndependenceIRFPAI Quality Coding Scale 6 Independent with activity with or without an assistive device 5 Patient requires set up or clean up by helper. Patient completes activity by themselves 4 Supervision or touching assist (CGA). [place] provide cues , steadying assist 3 The helper provides less than half the effort to complete the activity 2 The helper provides more than half the effort to complete the activity 1 Dependent. The helper does all the effort to complete an activity 7 Patient refused to complete or attempt activity 9 The patient did not perform the activity before the current illness or injury 88 Not attempted due to Medical conditions or safety concerns Transfers (B, C, W/C) (FIM): 3 Scootin Rollin Supine to/from Sit: 3 Sit to/from Stand: 4 Bed to/from Chair: 4 pt.required mod assist sit to supine and for scooting as well Gait Training Does the Patient Walk?: Yes Gait (FIM): 4 Distance (FIM): 3=150 ft (55,150) Gait Level of Assist: 4 Gait Persons Needed: 1 Gait Assistive Device: FWW pt. walks with very slow velocity, need skilled verbal instruction to stay on task and try to have equal step length. pt. veers FWW to right and occas runs in to furniture if not cued Exercises Supine Ex: Ankle pumps, Quad Set, Rolling, Heel Slides, Straight leg raise, Hip abd/add Supine Reps: 10 Assessment Current Status: Good Progress needs much encouragement and education PT Short Term Goals Short Term Goals Time Frame: Jun 06, 2016 Transfers (B,C,W/C) (FIM): 4 Gait (FIM): 2 Gait Distance Comment: 50' Gait Level of Assist: 4 Wheelchair Distance: 10' PT Assisted Goals Assisted Goals PT Assisted Goals Time Frame: Jun 20, 2016 Transfers (B,C,W/C) (FIM): 5 Sit to Lying (QC): 4 Lying-Sitting on Side/Bed(QC): 4 Sit to Stand (QC): 4 Rollin Roll Left to Right (QC): 4 Chair/Ixq-dm-Bydmj Xfer(QC): 4 Car Transfer (QC): 3 Gait (FIM): 4 Distance: 150' Walk 10 feet (QC): 4 Walk 10ft-Uneven Surface(QC): 4 Walk 50ft with 2 Turns (QC): 4 Walk 150 ft (QC): 4 Gait Level of Assist: 4 Gait Assistive Device: FWW Stairs (FIM): 2 # of Steps: 4 1 Step (curb) (QC): 4 4 Steps (QC): 4 12 Steps (QC): 88 Stairs Level Of Assist: 4 Picking up an Object (QC): 88 PT Plan Treatment/Plan Treatment Plan: Continue Plan of Care Treatment Plan: Bed Mobility, Education, Functional Activity Jeffrey, Functional Strength, Group Therapy, Gait, Safety, Therapeutic Exercise, Transfers Treatment Duration: Jun 20, 2016 Visits Per Week: 10-11 Minutes/Day (M-F): 60-90 Minutes/Day (Sat/[place]): 15-30 Safety Risks/Education Patient Education: Gait Training, Transfer Techniques, Correct Positioning, Disease Process, Safety Issues Teaching Recipient: Patient Teaching Methods: Demonstration, Discussion Response to Teaching: Verbalize Understanding, Return Demonstration, Reinforcement Needed Time/GCodes Time In: 1330 Time Out: 1400 Total Billed Treatment Time: 30 Total Billed Treatment 1,GT20m,EX10m G Codes Necessary: JARED Salcedo [employer] ASSOCIATE Jun 04, 2016 14:05
--- NOTE | 2016-06-04 15:12 | Occupational Ther Daily Note ---
OT Current Status-Daily Note Subjective Pt seen in room, in bed, agreeable to OT. Wants to stay in bed but knows she needs to get up. Appearance Alert, cooperative Mental Status/Objective Functional [place] Measure 0=Not Assessed/NA 4=Minimal Assistance 1=Total Assistance 5=Supervision or Setup 2=Maximal Assistance 6=Modified [place] 3=Moderate Assistance 7=Complete [place] ADL-Treatment Functional [place] Measure 0=Not Assessed/NA 4=Minimal Assistance 1=Total Assistance 5=Supervision or Setup 2=Maximal Assistance 6=Modified [place] 3=Moderate Assistance 7=Complete IndependenceIRFPAI Quality Coding Scale 6 Independent with activity with or without an assistive device 5 Patient requires set up or clean up by helper. Patient completes activity by themselves 4 Supervision or touching assist (CGA). [place] provide cues , steadying assist 3 The helper provides less than half the effort to complete the activity 2 The helper provides more than half the effort to complete the activity 1 Dependent. The helper does all the effort to complete an activity 7 Patient refused to complete or attempt activity 9 The patient did not perform the activity before the current illness or injury 88 Not attempted due to Medical conditions or safety concerns Toileting (FIM): 5 (SBA, standing to manage clothing. Tall toilet, FWW, grab bars) Toilet Transfer (QC): 5 (Able to get up and donw on BSC with SBA, FWW. Some cues for managing walker prior to sitting down and once up.) Other Treatment Pt walked to commons area and sat in chair with arms before she was in position. Pt educ walker and hand management for stand to sit. Pt did 10 reps bilat UE exercise with 2# weight, with education on how to do each exercise and some physical assistance to do exercises correctly. She was able to switch sides but had a little difficulty tracking repetitions. If she was interrupted, she started counting reps again at 1. UE exercise to help wit strength to get up and down from chairs and bed. Pt returned to her room, CGA, FWW and was left up in recliner, all needs met. Education OT Patient Education: Exercise program, Progress toward Goal/Update tx plan, Purpose of tx/functional activities, Safety issues, Transfer techniques Teaching Recipient: Patient Teaching Methods: Demonstration, Discussion Response to Teaching: Verbalize Understanding, Return Demonstration, Reinforcement Needed OT Short Term Goals Short Term Goals Time Frame: Jun 08, 2016 Lower Body Dressing(FIM): 3 Toileting(FIM): 3 Transfers (B,C,W/C) (FIM): 4 Toilet/Commode Transfer(FIM): 3 Additional Short Term Goals: 2-Verbalize Understanding, 3-ImproveStrength/Jeffrey 1=Demonstrate adherence to instructed precautions during ADL tasks. 2=Patient will verbalize/demonstrate understanding of assistive devices/ modifications for ADL. 3=Patient will improve strength/tolerance for activity to enable patient to perform ADL's. OT Supervisor Blueprinting And Photocopy Goals Supervisor Blueprinting And Photocopy Goals Time Frame: Jun 20, 2016 Eating (FIM): 6 Eating (QC): 6 Groomin Oral Hygiene (QC): 6 Bathing(FIM): 5 Shower/Bathe Self (QC): 5 Upper Body Dressing(FIM): 5 Upper Body Dressing (QC): 5 Lower Body Dressing(FIM): 5 Lower Body Dressing (QC): 5 On/Off Footwear (QC): 5 Toileting(FIM): 6 Toileting Hygiene (QC): 6 Transfers (B,C,W/C) (FIM): 5 Toilet/Commode Transfer(FIM): 6 Toilet/Commode Transfer (QC): 6 Shower Transfer(FIM): 5 Comprehension(FIM): 5 Expression (FIM): 5 Social Interaction(FIM): 5 Problem Solving(FIM): 4 Memory(FIM): 4 Additional Goals: 2-Verbalize Understanding, 3-ImproveStrength/Jeffrey 1=Demonstrate adherence to instructed precautions during ADL tasks. 2=Patient will verbalize/demonstrate understanding of assistive devices/ modifications for ADL. 3=Patient will improve strength/tolerance for activity to enable patient to perform ADL's. OT Education/Plan Problem List/Assessment Pt would benefit from skilled OT to increase her independence in basic self care to allow her to return safely to her home and to decrease caregiver burden. Discharge Recommendations Plan/Recommendations: Continue POC Treatment Plan/Plan of Care Patient would benefit from OT for education, treatment and training to promote independence in ADL's, mobility, safety and/or upper extremity function for ADL' s. Plan of Care: ADL Retraining, Functional Mobility, Group Exercise/Act as Ind ( education, exercise, memory, functional activities, socialization), UE Funct Exercise/Act, UE Neuromus Re-Ed/Coord, W/C Management Training Treatment Duration: Jun 20, 2016 Visits Per Week: 10-11 Minutes/Day (M-F): 75-90 Minutes/Day (Sat/[place]): PRN Agreement: Yes Rehab Potential: Fair Time/GCodes Start Time: 13:00 Stop Time: 13:30 Total Time Billed (hr/min): 30 Billed Treatment Time visit, 10 minutes ADL, 20 minutes exercise BELLA BERMUDEZ OT Jun 04, 2016 15:12
[2016-06-04 17:35] VITALS: BP 122/57
--- NOTE | 2016-06-04 20:15 | PM & R (SOAP) Progress Note ---
Subjective Subjective/Events-last exam Patient was seen in her room this evening Patient c/o constipation this am but now relieved by RX Patient min assist for transfers. Objective Exam Last Set of Vital Signs Vital Signs Date Time Temp Pulse Resp B/P (MAP) Pulse Ox O2 Delivery O2 Flow Rate FiO2 06/04/16 17:35 100.5 68 18 122/57 95 Room Air Capillary Refill : Less Than 3 Seconds I&O Intake and Output 06/04/16 00:00 Intake Total 1850 ml Balance 1850 ml Intake Oral 1850 ml # Voids 7 General: Alert, Oriented X3, Cooperative, No Acute Distress HEENT: Atraumatic, PERRLA, EOMI, Mucous Memb Moist/[place] Neck: Supple, No JVD Lungs: Clear to Auscultation Heart: Regular Rate Abdomen: Normal Bowel Sounds Extremities: Other (trace edema rt ankle) Neuro: Other (weakness proximal rt hip s/p frx and repair) Results Lab Laboratory Tests 06/02/16 05:47: Hemoglobin 8.9L, Hematocrit 28L 06/03/16 06:09: Hemoglobin 8.7L, Hematocrit 27L 06/04/16 06:59: Hemoglobin 9.7L, Hematocrit 31L Assessment/Plan Assessment 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
[2016-06-04] MEDS: SIMvastatin 40 MG (ZOCOR) TAB PO SCH (20:33)
[2016-06-05] MEDS: ACETAMINOPHEN 325 MG TABLET/CAPLET (TYLENOL) PO PRN ×2 (05:30→11:14)
[2016-06-05] MEDS: LEVOTHYROXINE 25 MCG (LEVOTHROID) TAB PO SCH (05:30)
[2016-06-05] MEDS: LACTOBACILLUS Acidoph/Bulgar (LACTINEX/FLORANEX) TAB PO SCH ×3 (05:30→16:45)
[2016-06-05] MEDS: LEVOTHYROXINE 112 MCG (LEVOTHROID) TAB PO SCH (05:31)
[2016-06-05 05:38] VITALS: BP 162/74
[2016-06-05] MEDS: TRIM/SULFAMETH 160/800 (SEPTRA DS) TAB PO SCH ×2 (06:06→17:50)
[2016-06-05] MEDS: CYCLOBENZAPRINE 10 MG (FLEXERIL) TAB PO PRN ×2 (06:06→11:13)
[2016-06-05] MEDS: MULTIVIT W/MINERALS TAB (THERAGRAN M) PO SCH (06:07)
--- NOTE | 2016-06-05 08:46 | Speech Therapy Daily Note ---
Speech Daily Progress Note Subjective The patient was seated upright in bed upon entrance. The patient greeted the clinician appropriately and agreed to participate in the cognitive treatment session on this date. Objective Assessment of Language Related Functions (CARLA): Functional language tasks were evaluated on this date similar to activities the patient will complete at home. Results are as follows: - Telling Time: The patient was shown specific times on an analog clock and asked to state the time present. The patient demonstrated 90% accuracy with this task, independently. - Daily Math: The patient was provided common math problems (bills, time equations, etc). The patient demonstrated 70% accuracy with this task, independently. Hip Precautions: The patient recalled two of three hip precautions, independently. The patient recalled three of three hip precautions with mild clinician cueing. Assessment Assessment Current Status: Good Progress Treatment Plan Continue Plan of Care Communication Comprehension: 4 Expression: 5 Social Cognition Social Interaction: 5 Problem Solvin Memory: 3 Speech Short Term Goals Short Term Goals Short Term Goals 1. The patient will demonstrate and recall three functional memory strategies for use at home. 2. The patient will recall hip precautions with 80% accuracy, independently. 3. The patient will demonstrated 80% accuracy with functional safety problem solving. Time Frame-STG: Two Weeks Speech Mcfp Goals Scan Coordinator Goals 1. The patient will demonstrate improved cognitive linguistic skills for increased safety and function with ADL's in the least restrictive setting. Time Frame: Three Weeks Comprehension: 5 Expression: 5 Social Interaction: 5 Problem Solvin Memory: 4 Speech-Plan Treatment Plan Speech Therapy Treatment Plan: Continue Plan of Care Continue skilled speech therapy to target functional memory strategies. Treatment Duration: Jun 20, 2016 # of days/week Five. Visits Per Week: Five. Minutes/Day (M-F): 30 Rehab Potential: Fair Safety Risks/Education Teaching Recipient: Patient Teaching Methods: Discussion Response to Teaching: Return Demonstration Education Topics Provided: Memory Strategies Time Speech Therapy Time In: 08:00 Speech Therapy Time Out: 08:30 Total Billed Time: 30 Billed Treatment Time MehranMARLONVICTORIA ST Jun 05, 2016 08:46
[2016-06-05] MEDS: POLYETHYLENE GLYCOL 17 GM (MIRALAX) PACK PO SCH (09:20)
[2016-06-05] MEDS: ASPIRIN 81 MG CHEW (CHILDREN'S ASA) PO SCH (09:20)
[2016-06-05] MEDS: FAMOTIDINE 20 MG (PEPCID) TABLET PO SCH ×2 (09:21→21:10)
[2016-06-05] MEDS: SENNOSIDES 8.6 MG (SENOKOT) TAB PO SCH ×2 (09:21→21:10)
[2016-06-05] MEDS: amLODIPine 5 MG (NORVASC) TAB PO SCH (09:21)
[2016-06-05] MEDS: GABAPENTIN 300 MG (NEURONTIN) CAP PO SCH ×2 (09:21→21:09)
[2016-06-05] MEDS: ATENOLOL 50 MG (TENORMIN) TAB PO SCH (09:22)
--- NOTE | 2016-06-05 11:08 | Physical Therapy Daily Note ---
PT Daily Note-Current Subjective Pt. states she is going to [employer] after DC from here. Pt. states this is the hardest work she has ever done. Pt. is difficult to motivate at times and asks fort this ORE GRADER to help her with TRFs before she has tried, rudi for sup to sit. and sit to supine. Pain Numeric Pain Scale: 4 Location: Right Location Body Site: Hip Pain Description: Ache Comment: during supine to sit TRF Mental Status Patient Orientation: MR (pt. appears to have challenged slow learning) Transfers Functional [place] Measure 0=Not Assessed/NA 4=Minimal Assistance 1=Total Assistance 5=Supervision or Setup 2=Maximal Assistance 6=Modified [place] 3=Moderate Assistance 7=Complete IndependenceIRFPAI Quality Coding Scale 6 Independent with activity with or without an assistive device 5 Patient requires set up or clean up by helper. Patient completes activity by themselves 4 Supervision or touching assist (CGA). [place] provide cues , steadying assist 3 The helper provides less than half the effort to complete the activity 2 The helper provides more than half the effort to complete the activity 1 Dependent. The helper does all the effort to complete an activity 7 Patient refused to complete or attempt activity 9 The patient did not perform the activity before the current illness or injury 88 Not attempted due to Medical conditions or safety concerns Transfers (B, C, W/C) (FIM): 3 Scootin Rollin Supine to/from Sit: 3 Sit to/from Stand: 4 Weight Bearing Weight Bearing Restriction: Weight Bearing/Tolerated Location Restriction: RT FOOT Gait Training Does the Patient Walk?: Yes Gait (FIM): 3 Distance (FIM): 3=150 ft (150x1,75x2) Gait Level of Assist: 4 Gait Persons Needed: 1 Gait Assistive Device: FWW narrow ASHWIN, step to gait pattern Exercises Supine Ex: Ankle pumps, Quad Set, Rolling, Glut sets, Heel Slides, Short Arc Quads, Scooting, Straight leg raise (w assist), Hip abd/add Seated Therapy Exercises: Ankle pumps, Sit to stand, Long arc quads, Hip abd/ add Seated Reps: 12 Treatments toileted with SBA for pants up down Assessment Current Status: Fair Progress poorly motivated, difficulty staying on task, c/o pain at8/10 but then laughs and wants to converse moments later PT Short Term Goals Short Term Goals Time Frame: Jun 06, 2016 Transfers (B,C,W/C) (FIM): 4 Gait (FIM): 2 Gait Distance Comment: 50' Gait Level of Assist: 4 Wheelchair Distance: 10' PT Long-Term Goals Long-Term Goals PT Vp Delivery Goals Time Frame: Jun 20, 2016 Transfers (B,C,W/C) (FIM): 5 Sit to Lying (QC): 4 Lying-Sitting on Side/Bed(QC): 4 Sit to Stand (QC): 4 Rollin Roll Left to Right (QC): 4 Chair/Rfx-dv-Vqqee Xfer(QC): 4 Car Transfer (QC): 3 Gait (FIM): 4 Distance: 150' Walk 10 feet (QC): 4 Walk 10ft-Uneven Surface(QC): 4 Walk 50ft with 2 Turns (QC): 4 Walk 150 ft (QC): 4 Gait Level of Assist: 4 Gait Assistive Device: FWW Stairs (FIM): 2 # of Steps: 4 1 Step (curb) (QC): 4 4 Steps (QC): 4 12 Steps (QC): 88 Stairs Level Of Assist: 4 Picking up an Object (QC): 88 PT Plan Treatment/Plan Treatment Plan: Continue Plan of Care Treatment Plan: Bed Mobility, Education, Functional Activity Jeffrey, Functional Strength, Group Therapy, Gait, Safety, Therapeutic Exercise, Transfers Treatment Duration: Jun 20, 2016 Visits Per Week: 10-11 Minutes/Day (M-F): 60-90 Minutes/Day (Sat/[place]): 15-30 Safety Risks/Education Patient Education: Gait Training, Transfer Techniques, Correct Positioning, Safety Issues Teaching Recipient: Patient Teaching Methods: Demonstration, Discussion Response to Teaching: Verbalize Understanding, Return Demonstration, Reinforcement Needed Time/GCodes Time In: 1005 Time Out: 1105 Total Billed Treatment Time: 60 Total Billed Treatment 1,FA20m,EX15m,GT25m G Codes Necessary: JARED Salcedo [employer] Jun 05, 2016 11:08
[2016-06-05] MEDS: ENOXAPARIN 40 MG/0.4 ML (LOVENOX) SYR SC SCH (11:13)
--- NOTE | 2016-06-05 11:54 | Occupational Ther Daily Note ---
OT Current Status-Daily Note Subjective Pt seen in room, up in bed, agreeable to OT. Stated that she didn't sleep well last night. No pain mentioned. Appearance Alert, cooperative Mental Status/Objective Functional [place] Measure 0=Not Assessed/NA 4=Minimal Assistance 1=Total Assistance 5=Supervision or Setup 2=Maximal Assistance 6=Modified [place] 3=Moderate Assistance 7=Complete [place] Memory(FIM): 3 (Recalled 1 0f 3 hip precautions and had difficulty understanding some of the restirctions. Pt asked at least three times how long she would need to follow them.) ADL-Treatment Pt declined bathing today since she had showered yesterday but did want to brush her teeth and change clothes. Functional [place] Measure 0=Not Assessed/NA 4=Minimal Assistance 1=Total Assistance 5=Supervision or Setup 2=Maximal Assistance 6=Modified [place] 3=Moderate Assistance 7=Complete IndependenceIRFPAI Quality Coding Scale 6 Independent with activity with or without an assistive device 5 Patient requires set up or clean up by helper. Patient completes activity by themselves 4 Supervision or touching assist (CGA). [place] provide cues , steadying assist 3 The helper provides less than half the effort to complete the activity 2 The helper provides more than half the effort to complete the activity 1 Dependent. The helper does all the effort to complete an activity 7 Patient refused to complete or attempt activity 9 The patient did not perform the activity before the current illness or injury 88 Not attempted due to Medical conditions or safety concerns Grooming (FIM): 5 (Pt brushed teeth and comber hair standing at sink with FWW> Pt educ to keep walker in front of her at the sink so that she would have it handy for balancing.) Upper Body (FIM): 5 (Donned bra and shirt while sitting, problem-solving the bra frontend engineer.) Lower Body Dressing (FIM): 4 (A little help needed to pull pants up in back. Pt education and repetition on using loader malt house vs dressing stick to get pants off and back on. FW.) Toileting (FIM): 5 (SBA for hygiene and clothing management. Tall toilet, grab bar, FWW) Transfers (B, C, W/C) (FIM): 5 (On and off bed, on recliner. Pt was able to get up with SBA, FWW) Toilet/Commode Transfer (FIM): 5 (SBA, FWW, grab bars. Managed walker better in small space) Other Treatment Pt was left up in recliner, all needs met, after tx. Education OT Patient Education: Modified ADL techniques, Progress toward Goal/Update tx plan, Purpose of tx/functional activities, Safety issues, Transfer techniques, Use of adapted equipment Teaching Recipient: Patient Teaching Methods: Demonstration, Discussion Response to Teaching: Reinforcement Needed OT Short Term Goals Short Term Goals Time Frame: Jun 08, 2016 Lower Body Dressing(FIM): 3 Toileting(FIM): 3 Transfers (B,C,W/C) (FIM): 4 Toilet/Commode Transfer(FIM): 3 Additional Short Term Goals: 2-Verbalize Understanding, 3-ImproveStrength/Jeffrey 1=Demonstrate adherence to instructed precautions during ADL tasks. 2=Patient will verbalize/demonstrate understanding of assistive devices/ modifications for ADL. 3=Patient will improve strength/tolerance for activity to enable patient to perform ADL's. OT Demonstrator Sales Goals Demonstrator Sales Goals Time Frame: Jun 20, 2016 Eating (FIM): 6 Eating (QC): 6 Groomin Oral Hygiene (QC): 6 Bathing(FIM): 5 Shower/Bathe Self (QC): 5 Upper Body Dressing(FIM): 5 Upper Body Dressing (QC): 5 Lower Body Dressing(FIM): 5 Lower Body Dressing (QC): 5 On/Off Footwear (QC): 5 Toileting(FIM): 6 Toileting Hygiene (QC): 6 Transfers (B,C,W/C) (FIM): 5 Toilet/Commode Transfer(FIM): 6 Toilet/Commode Transfer (QC): 6 Shower Transfer(FIM): 5 Comprehension(FIM): 5 Expression (FIM): 5 Social Interaction(FIM): 5 Problem Solving(FIM): 4 Memory(FIM): 4 Additional Goals: 2-Verbalize Understanding, 3-ImproveStrength/Jeffrey 1=Demonstrate adherence to instructed precautions during ADL tasks. 2=Patient will verbalize/demonstrate understanding of assistive devices/ modifications for ADL. 3=Patient will improve strength/tolerance for activity to enable patient to perform ADL's. OT Education/Plan Problem List/Assessment Pt would benefit from skilled OT to increase her independence in basic self care to allow her to return safely to her home and to decrease caregiver burden. Discharge Recommendations Plan/Recommendations: Continue POC Treatment Plan/Plan of Care Patient would benefit from OT for education, treatment and training to promote independence in ADL's, mobility, safety and/or upper extremity function for ADL' s. Plan of Care: ADL Retraining, Functional Mobility, Group Exercise/Act as Ind ( education, exercise, memory, functional activities, socialization), UE Funct Exercise/Act, UE Neuromus Re-Ed/Coord, W/C Management Training Treatment Duration: Jun 20, 2016 Visits Per Week: 10-11 Minutes/Day (M-F): 75-90 Minutes/Day (Sat/[place]): PRN Agreement: Yes Rehab Potential: Fair Time/GCodes Start Time: 09:20 Stop Time: 10:05 Total Time Billed (hr/min): 45 Billed Treatment Time visit, 45 minutes ADL BELLA BERMUDEZ OT Jun 05, 2016 11:54
--- NOTE | 2016-06-05 13:56 | Physical Therapy Daily Note ---
PT Daily Note-Current Subjective Pt. c/o she is tired and that her hip hurts when she is trying to TRF but she is willing to do Rx if she can rest in bed afterward Pain Numeric Pain Scale: 4 Location: Right Location Body Site: Hip Pain Description: Ache Comment: during TRFs Transfers Functional [place] Measure 0=Not Assessed/NA 4=Minimal Assistance 1=Total Assistance 5=Supervision or Setup 2=Maximal Assistance 6=Modified [place] 3=Moderate Assistance 7=Complete IndependenceIRFPAI Quality Coding Scale 6 Independent with activity with or without an assistive device 5 Patient requires set up or clean up by helper. Patient completes activity by themselves 4 Supervision or touching assist (CGA). [place] provide cues , steadying assist 3 The helper provides less than half the effort to complete the activity 2 The helper provides more than half the effort to complete the activity 1 Dependent. The helper does all the effort to complete an activity 7 Patient refused to complete or attempt activity 9 The patient did not perform the activity before the current illness or injury 88 Not attempted due to Medical conditions or safety concerns sit to stands all SBA and much encouragement and instruction for wt shift. sit to supine is pts greatest challenge, required min to mod assist , lengthy task and requires education each trial Gait Training Does the Patient Walk?: Yes Gait Assistive Device: FWW 75ftx2 FWW better step length, less frequent stops for rest Exercises Supine Ex: Ankle pumps, Heel Slides, Hip abd/add Supine Reps: 10 Assessment Current Status: Fair Progress PT Short Term Goals Short Term Goals Time Frame: Jun 06, 2016 Transfers (B,C,W/C) (FIM): 4 Gait (FIM): 2 Gait Distance Comment: 50' Gait Level of Assist: 4 Wheelchair Distance: 10' PT Machinery Mechanic Goals Correction Goals PT Correction Goals Time Frame: Jun 20, 2016 Transfers (B,C,W/C) (FIM): 5 Sit to Lying (QC): 4 Lying-Sitting on Side/Bed(QC): 4 Sit to Stand (QC): 4 Rollin Roll Left to Right (QC): 4 Chair/[id number]-Pxggz Xfer(QC): 4 Car Transfer (QC): 3 Gait (FIM): 4 Distance: 150' Walk 10 feet (QC): 4 Walk 10ft-Uneven Surface(QC): 4 Walk 50ft with 2 Turns (QC): 4 Walk 150 ft (QC): 4 Gait Level of Assist: 4 Gait Assistive Device: FWW Stairs (FIM): 2 # of Steps: 4 1 Step (curb) (QC): 4 4 Steps (QC): 4 12 Steps (QC): 88 Stairs Level Of Assist: 4 Picking up an Object (QC): 88 PT Plan Treatment/Plan Treatment Plan: Continue Plan of Care Treatment Plan: Bed Mobility, Education, Functional Activity Jeffrey, Functional Strength, Group Therapy, Gait, Safety, Therapeutic Exercise, Transfers Treatment Duration: Jun 20, 2016 Visits Per Week: 10-11 Minutes/Day (M-F): 60-90 Minutes/Day (Sat/[place]): 15-30 Safety Risks/Education Patient Education: Gait Training, Transfer Techniques Time/GCodes Time In: 1335 Time Out: 1355 Total Billed Treatment Time: 20 Total Billed Treatment 1,FA20m G Codes Necessary: JARED Salcedo CLINICAL RESEARCH MANAGEMENT ASSOCIATE Jun 05, 2016 13:56
--- NOTE | 2016-06-05 14:15 | PM & R (SOAP) Progress Note ---
Subjective Subjective/Events-last exam Patient was seen in her room this noonhour Patient min to mod assist for transfers Review of Systems Musculoskeletal: leg pain Objective Exam Last Set of Vital Signs Vital Signs Date Time Temp Pulse Resp B/P (MAP) Pulse Ox O2 Delivery O2 Flow Rate FiO2 06/05/16 05:38 99.0 76 20 162/74 94 Room Air Capillary Refill : Less Than 3 Seconds I&O Intake and Output 06/05/16 00:00 Intake Total 1300 ml Balance 1300 ml Intake Oral 1300 ml # Voids 7 # Bowel Movements 2 General: Alert, Oriented X3, Cooperative, No Acute Distress HEENT: Atraumatic, PERRLA, EOMI, Mucous Memb Moist/[place] Neck: Supple, No JVD Lungs: Clear to Auscultation Heart: Regular Rate Abdomen: Normal Bowel Sounds Extremities: Other ( mild tenderness at hip) Neuro: Other (weakness proximal rt hip s/p frx and repair) Results Lab Laboratory Tests 06/03/16 06:09: Hemoglobin 8.7L, Hematocrit 27L 06/04/16 06:59: Hemoglobin 9.7L, Hematocrit 31L 06/05/16 06:22: Hemoglobin 9.7L, Hematocrit 30L Assessment/Plan Assessment 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
--- NOTE | 2016-06-05 14:34 | Occupational Ther Daily Note ---
OT Current Status-Daily Note Subjective Pt seen in room, up in bed, agreeable to OT. Pt reported R leg hurt but didn't rate pain. Appearance Alert, cooperative Mental Status/Objective Functional [place] Measure 0=Not Assessed/NA 4=Minimal Assistance 1=Total Assistance 5=Supervision or Setup 2=Maximal Assistance 6=Modified [place] 3=Moderate Assistance 7=Complete [place] ADL-Treatment Pt practiced on removing and donning slipper socks, using dressing stick to take them off and hard sock aide to put them on. She needed just a little bit of help as well as instruction in using the devices. Pt left up in recliner, all needs met. Functional [place] Measure 0=Not Assessed/NA 4=Minimal Assistance 1=Total Assistance 5=Supervision or Setup 2=Maximal Assistance 6=Modified [place] 3=Moderate Assistance 7=Complete IndependenceIRFPAI Quality Coding Scale 6 Independent with activity with or without an assistive device 5 Patient requires set up or clean up by helper. Patient completes activity by themselves 4 Supervision or touching assist (CGA). [place] provide cues , steadying assist 3 The helper provides less than half the effort to complete the activity 2 The helper provides more than half the effort to complete the activity 1 Dependent. The helper does all the effort to complete an activity 7 Patient refused to complete or attempt activity 9 The patient did not perform the activity before the current illness or injury 88 Not attempted due to Medical conditions or safety concerns Grooming (FIM): 5 (Washed hands at sink, SBA, FWW. Cues for walker placement) Toileting (FIM): 5 (Managed clothing and hygiene with SBA, BSC over toilet, grab bar) Transfers (B, C, W/C) (FIM): 5 (Verbal cus for hand palcement. Walked in room with SBA, FWW) Toilet/Commode Transfer (FIM): 5 (SBA, on and off BSC over toilet. SKilled cues for hand placement when sitting) OT Short Term Goals Short Term Goals Time Frame: Jun 08, 2016 Lower Body Dressing(FIM): 3 Toileting(FIM): 3 Transfers (B,C,W/C) (FIM): 4 Toilet/Commode Transfer(FIM): 3 Additional Short Term Goals: 2-Verbalize Understanding, 3-ImproveStrength/Jeffrey 1=Demonstrate adherence to instructed precautions during ADL tasks. 2=Patient will verbalize/demonstrate understanding of assistive devices/ modifications for ADL. 3=Patient will improve strength/tolerance for activity to enable patient to perform ADL's. OT Jail Goals Jail Goals Time Frame: Jun 20, 2016 Eating (FIM): 6 Eating (QC): 6 Groomin Oral Hygiene (QC): 6 Bathing(FIM): 5 Shower/Bathe Self (QC): 5 Upper Body Dressing(FIM): 5 Upper Body Dressing (QC): 5 Lower Body Dressing(FIM): 5 Lower Body Dressing (QC): 5 On/Off Footwear (QC): 5 Toileting(FIM): 6 Toileting Hygiene (QC): 6 Transfers (B,C,W/C) (FIM): 5 Toilet/Commode Transfer(FIM): 6 Toilet/Commode Transfer (QC): 6 Shower Transfer(FIM): 5 Comprehension(FIM): 5 Expression (FIM): 5 Social Interaction(FIM): 5 Problem Solving(FIM): 4 Memory(FIM): 4 Additional Goals: 2-Verbalize Understanding, 3-ImproveStrength/Jeffrey 1=Demonstrate adherence to instructed precautions during ADL tasks. 2=Patient will verbalize/demonstrate understanding of assistive devices/ modifications for ADL. 3=Patient will improve strength/tolerance for activity to enable patient to perform ADL's. OT Education/Plan Problem List/Assessment Pt would benefit from skilled OT to increase her independence in basic self care to allow her to return safely to her home and to decrease caregiver burden. Discharge Recommendations Plan/Recommendations: Continue POC Treatment Plan/Plan of Care Patient would benefit from OT for education, treatment and training to promote independence in ADL's, mobility, safety and/or upper extremity function for ADL' s. Plan of Care: ADL Retraining, Functional Mobility, Group Exercise/Act as Ind ( education, exercise, memory, functional activities, socialization), UE Funct Exercise/Act, UE Neuromus Re-Ed/Coord, W/C Management Training Treatment Duration: Jun 20, 2016 Visits Per Week: 10-11 Minutes/Day (M-F): 75-90 Minutes/Day (Sat/[place]): PRN Agreement: Yes Rehab Potential: Fair Time/GCodes Start Time: 13:00 Stop Time: 13:30 Total Time Billed (hr/min): 30 Billed Treatment Time visit, 30 minutes ADL BELLA BERMUDEZ OT Jun 05, 2016 14:34
[2016-06-05 18:18] VITALS: BP 155/76
[2016-06-05] MEDS: SIMvastatin 40 MG (ZOCOR) TAB PO SCH (21:10)
[2016-06-06 05:33] VITALS: BP 146/81
[2016-06-06] MEDS: LACTOBACILLUS Acidoph/Bulgar (LACTINEX/FLORANEX) TAB PO SCH ×3 (06:33→16:53)
[2016-06-06] MEDS: MULTIVIT W/MINERALS TAB (THERAGRAN M) PO SCH (06:33)
[2016-06-06] MEDS: TRIM/SULFAMETH 160/800 (SEPTRA DS) TAB PO SCH ×2 (06:34→16:53)
[2016-06-06] MEDS: LEVOTHYROXINE 112 MCG (LEVOTHROID) TAB PO SCH (06:34)
[2016-06-06] MEDS: LEVOTHYROXINE 25 MCG (LEVOTHROID) TAB PO SCH (06:34)
--- NOTE | 2016-06-06 08:19 | PM & R (SOAP) Progress Note ---
Subjective Subjective/Events-last exam Patient was seen in her room this AM Patient mod assist for transfers but gradually improving with decreasing hip pain.H&H noted Objective Exam Last Set of Vital Signs Vital Signs Date Time Temp Pulse Resp B/P (MAP) Pulse Ox O2 Delivery O2 Flow Rate FiO2 06/06/16 05:33 99.2 70 18 146/81 96 Room Air Capillary Refill : Less Than 3 Seconds I&O Intake and Output 06/06/16 00:00 Intake Total 700 ml Balance 700 ml Intake Oral 700 ml # Voids 7 # Bowel Movements 1 General: Alert, Oriented X3, Cooperative, No Acute Distress HEENT: Atraumatic, PERRLA, EOMI, Mucous Memb Moist/[place] Neck: Supple, No JVD Lungs: Clear to Auscultation Heart: Regular Rate Abdomen: Normal Bowel Sounds Extremities: Other ( mild tenderness at hip) Neuro: Other (weakness proximal rt hip s/p frx and repair) Results Lab Laboratory Tests 06/04/16 06:59: Hemoglobin 9.7L, Hematocrit 31L 06/05/16 06:22: Hemoglobin 9.7L, Hematocrit 30L 06/06/16 05:29: Hemoglobin 9.1L, Hematocrit 29L Assessment/Plan Assessment 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 DR Rose 05/27/16 HTN better controlled with adjustment in meds UTI treated Hypothyroidism-on replacement Mild postop anemia-improving Mild cognitive deficits ST addressing Hypocalcemia Postop constipation improved Plan Continue PT/OT/ST Check labs-done F/U with PCP and cardiology prn Appreciate DR Lam and cardiology notes and orders Next Team Conference later today See report for full functional update and POC and ELOS Pain management as needed Check Incision BRITTA WALLACE MD Jun 06, 2016 08:19
[2016-06-06] MEDS: GABAPENTIN 300 MG (NEURONTIN) CAP PO SCH ×2 (08:43→20:17)
[2016-06-06] MEDS: ATENOLOL 50 MG (TENORMIN) TAB PO SCH (08:43)
[2016-06-06] MEDS: amLODIPine 5 MG (NORVASC) TAB PO SCH (08:43)
[2016-06-06] MEDS: SENNOSIDES 8.6 MG (SENOKOT) TAB PO SCH ×2 (08:44→20:17)
[2016-06-06] MEDS: FAMOTIDINE 20 MG (PEPCID) TABLET PO SCH ×2 (08:44→20:17)
[2016-06-06] MEDS: ASPIRIN 81 MG CHEW (CHILDREN'S ASA) PO SCH (08:44)
[2016-06-06] MEDS: POLYETHYLENE GLYCOL 17 GM (MIRALAX) PACK PO SCH (08:48)
--- NOTE | 2016-06-06 10:58 | Occupational Ther Daily Note ---
OT Current Status-Daily Note Subjective Pt seen in room, up in recliner, agreeable to OT. No pain mentioned Appearance Alert, cooperative. Mental Status/Objective Functional [place] Measure 0=Not Assessed/NA 4=Minimal Assistance 1=Total Assistance 5=Supervision or Setup 2=Maximal Assistance 6=Modified [place] 3=Moderate Assistance 7=Complete [place] Problem Solving(FIM): 4 (Difficulty applying hip precautions to daily tasks) Memory(FIM): 3 (Asks multiple times how long she must follow hip precautions. Requires repetition. Asks every tx about using 4WW that she owns) ADL-Treatment Verbal cues to use long handled sponge to wash feet. "Oh yes, I'm not supposed to reach my feet." Stopped pt from reaching feet to dry them - poor carryover of information. Stopped pt from reaching to pull pants up off the floor when on the toilet - although she could verbalize the hip precautions, she is not able to consistently apply them during ADLs. Functional [place] Measure 0=Not Assessed/NA 4=Minimal Assistance 1=Total Assistance 5=Supervision or Setup 2=Maximal Assistance 6=Modified [place] 3=Moderate Assistance 7=Complete IndependenceIRFPAI Quality Coding Scale 6 Independent with activity with or without an assistive device 5 Patient requires set up or clean up by helper. Patient completes activity by themselves 4 Supervision or touching assist (CGA). [place] provide cues , steadying assist 3 The helper provides less than half the effort to complete the activity 2 The helper provides more than half the effort to complete the activity 1 Dependent. The helper does all the effort to complete an activity 7 Patient refused to complete or attempt activity 9 The patient did not perform the activity before the current illness or injury 88 Not attempted due to Medical conditions or safety concerns Bathing (FIM): 5 (Supervision. washed and dried all parts, using shower bench, grab bars, hand held shower, long handled sponge. Required verbal intervention to maintain hip precautions during bathing) Upper Body (FIM): 5 (Setup, incl bra and shirt) Lower Body Dressing (FIM): 4 (Help with slipper socks and TEDs) Toileting (FIM): 5 (SBA when standing to manage clothing, hygiene. BSC over toilet, grab bars, FWW) Transfers (B, C, W/C) (FIM): 5 (SBA, occasional cues for hand placement, FWW) Toilet/Commode Transfer (FIM): 5 (SBA, BSC over toilet, grab bar, FWW) Shower Transfer(FIM): 4 (Min to CGA assist getting off shower bench. Cues for problem-solving hand placement to get into shower. ) Other Treatment Pt returned to recliner, all needs met. Education OT Patient Education: Modified ADL techniques, Reviewed precautions, Safety issues, Transfer techniques, Use of adapted equipment Teaching Recipient: Patient Teaching Methods: Demonstration, Discussion Response to Teaching: Verbalize Understanding, Return Demonstration, Reinforcement Needed OT Short Term Goals Short Term Goals Time Frame: Jun 08, 2016 Lower Body Dressing(FIM): 3 Toileting(FIM): 3 Transfers (B,C,W/C) (FIM): 4 Toilet/Commode Transfer(FIM): 3 Additional Short Term Goals: 2-Verbalize Understanding, 3-ImproveStrength/Jeffrey 1=Demonstrate adherence to instructed precautions during ADL tasks. 2=Patient will verbalize/demonstrate understanding of assistive devices/ modifications for ADL. 3=Patient will improve strength/tolerance for activity to enable patient to perform ADL's. OT Supervisor Force Adjustment Goals Intermediate Goals Time Frame: Jun 20, 2016 Eating (FIM): 6 Eating (QC): 6 Groomin Oral Hygiene (QC): 6 Bathing(FIM): 5 Shower/Bathe Self (QC): 5 Upper Body Dressing(FIM): 5 Upper Body Dressing (QC): 5 Lower Body Dressing(FIM): 5 Lower Body Dressing (QC): 5 On/Off Footwear (QC): 5 Toileting(FIM): 6 Toileting Hygiene (QC): 6 Transfers (B,C,W/C) (FIM): 5 Toilet/Commode Transfer(FIM): 6 Toilet/Commode Transfer (QC): 6 Shower Transfer(FIM): 5 Comprehension(FIM): 5 Expression (FIM): 5 Social Interaction(FIM): 5 Problem Solving(FIM): 4 Memory(FIM): 4 Additional Goals: 2-Verbalize Understanding, 3-ImproveStrength/Jeffrey 1=Demonstrate adherence to instructed precautions during ADL tasks. 2=Patient will verbalize/demonstrate understanding of assistive devices/ modifications for ADL. 3=Patient will improve strength/tolerance for activity to enable patient to perform ADL's. OT Education/Plan Problem List/Assessment Pt would benefit from skilled OT to increase her independence in basic self care to allow her to return safely to her home and to decrease caregiver burden. Discharge Recommendations Plan/Recommendations: Continue POC Treatment Plan/Plan of Care Patient would benefit from OT for education, treatment and training to promote independence in ADL's, mobility, safety and/or upper extremity function for ADL' s. Plan of Care: ADL Retraining, Functional Mobility, Group Exercise/Act as Ind ( education, exercise, memory, functional activities, socialization), UE Funct Exercise/Act, UE Neuromus Re-Ed/Coord, W/C Management Training Treatment Duration: Jun 20, 2016 Visits Per Week: 10-11 Minutes/Day (M-F): 75-90 Minutes/Day (Sat/[place]): PRN Agreement: Yes Rehab Potential: Fair Time/GCodes Start Time: 08:45 Stop Time: 09:45 Total Time Billed (hr/min): 60 Billed Treatment Time visit, 60 minutes ADL BELLA BERMUDEZ OT Jun 06, 2016 10:58
--- NOTE | 2016-06-06 11:17 | Speech Therapy Daily Note ---
Speech Daily Progress Note Subjective The patient was seated upright in recliner upon entrance. The patient greeted the clinician appropriately and agreed to participate in the cognitive treatment session on this date. Objective Assessment of Language Related Functional Activities (CARLA): The CARLA was continued on this date with the below results: - Writing a Check/Completing a Check Registrar: The patient demonstrated 100% accuracy with writing a check and completing a check registrar for specific bills (independently). - Using a Calendar: The patient demonstrated 100% accuracy with calendar tasks on this date, independently. Assessment Assessment Current Status: Good Progress Treatment Plan Discontinue ST, Goals Met Communication Comprehension: 5 Expression: 5 Social Cognition Social Interaction: 5 Problem Solvin Memory: 3 Speech Short Term Goals Short Term Goals Short Term Goals 1. The patient will demonstrate and recall three functional memory strategies for use at home. 2. The patient will recall hip precautions with 80% accuracy, independently. 3. The patient will demonstrated 80% accuracy with functional safety problem solving. Time Frame-STG: Two Weeks Speech Ingot Header Goals Usp Goals 1. The patient will demonstrate improved cognitive linguistic skills for increased safety and function with ADL's in the least restrictive setting. Time Frame: Three Weeks Comprehension: 5 Expression: 5 Social Interaction: 5 Problem Solvin Memory: 4 Speech-Plan Treatment Plan Speech Therapy Treatment Plan: Discontinue ST, Goals Met Speech pathology goals met. Treatment Duration: Jun 20, 2016 # of days/week Five. Visits Per Week: Five. Minutes/Day (M-F): 30 Rehab Potential: Fair Safety Risks/Education Teaching Recipient: Patient Teaching Methods: Discussion Response to Teaching: Verbalize Understanding Education Topics Provided: Plan of Care, Recommendations Time Speech Therapy Time In: 08:00 Speech Therapy Time Out: 08:30 Total Billed Time: 30 Billed Treatment Time 1, VICTORIA ALANIS Jun 06, 2016 11:17
--- NOTE | 2016-06-06 11:20 | Therapy Team Discharge Summary ---
Therapy Discharge Summary Discharge Recommendations Date of Discharge Therapy D/C Recommendations: Home w/ Family Support Speech-Language Pathology The patient was admitted to [facility] following a hip fracture with repair. Upon admission, the patient demonstrated moderate difficulty with functional memory tasks. Skilled speech pathology focused on functional memory strategies and functional daily tasks. The patient met speech pathology goals placed upon admission with modifications (memory aids). At this time, speech pathology will discharge the patient from services. Additional speech language pathology services are not warranted post discharge. PT Medical Lab Technologist Goals Medical Lab Technologist Goals PT Correction Goals Time Frame: Jun 20, 2016 Transfers (B,C,W/C) (FIM): 5 Roll Left to Right (QC): 4 Sit to Lying (QC): 4 Lying-Sitting on Side/Bed(QC): 4 Sit to Stand (QC): 4 Chair/Bng-ka-Uxtxz Xfer(QC): 4 Car Transfer (QC): 3 Gait (FIM): 4 Distance: 150' Walk 10 feet (QC): 4 Walk 10ft-Uneven Surface(QC): 4 Walk 50ft with 2 Turns (QC): 4 Walk 150 ft (QC): 4 Gait Level of Assist: 4 Gait Assistive Device: FWW Stairs (FIM): 2 # of Steps: 4 1 Step (curb) (QC): 4 4 Steps (QC): 4 12 Steps (QC): 88 Stairs Level Of Assist: 4 Picking up an Object (QC): 88 OT Medical Lab Technologist Goals Correction Goals Time Frame: Jun 20, 2016 Eating (FIM): 6 Eating (QC): 6 Oral Hygiene (QC): 6 Grooming(FIM): 6 Bathing(FIM): 5 Shower/Bathe Self (QC): 5 Upper Body Dressing(FIM): 5 Upper Body Dressing (QC): 5 Lower Body Dressing(FIM): 5 Lower Body Dressing (QC): 5 On/Off Footwear (QC): 5 Toileting(FIM): 6 Toileting Hygiene (QC): 6 Transfers (B,C,W/C) (FIM): 5 Toilet/Commode Transfer(FIM): 6 Toilet/Commode Transfer (QC): 6 Shower Transfer(FIM): 5 Comprehension(FIM): 5 Expression (FIM): 5 Social Interaction(FIM): 5 Problem Solving(FIM): 4 Memory(FIM): 4 Additional Goals: 2-Verbalize Understanding, 3-ImproveStrength/Jeffrey 1=Demonstrate adherence to instructed precautions during ADL tasks. 2=Patient will verbalize/demonstrate understanding of assistive devices/ modifications for ADL. 3=Patient will improve strength/tolerance for activity to enable patient to perform ADL's. Speech Correction Goals Correction Goals 1. The patient will demonstrate improved cognitive linguistic skills for increased safety and function with ADL's in the least restrictive setting. Time Frame: Three Weeks Comprehension: 5 (MET) Expression: 5 (MET) Social Interaction: 5 (MET) Problem Solvin (MET) Memory: 4 (NOT MET) VICTORIA ALLAN Jun 06, 2016 11:20
[2016-06-06] MEDS: ENOXAPARIN 40 MG/0.4 ML (LOVENOX) SYR SC SCH (11:27)
[2016-06-06] MEDS: CLOPIDOGREL 75 MG (PLAVIX) TABLET PO SCH (11:27)
--- NOTE | 2016-06-06 11:37 | Progress Note-Standard ---
Standard Progress Note Progress Notes/Assess & Plan Progress/Assessment & Plan To IRU feeling better today RLE--dressing intact. Neg Ava's. Neg SLR s/p R bipolar continue PT/OT Final Diagnosis No complaints r hip nontender at incision improved SLR improved hip abduction strength s/p r bipolar hip continue PT/OT ROLO JO MD Jun 06, 2016 11:37
--- NOTE | 2016-06-06 12:28 | Physical Therapy Daily Note ---
PT Daily Note-Current Subjective Pt. c/o she is so very tired and cant do this therapy now. Pt. states it would be an attractive DC plan to have someone cook, dispense meds and do laundry , help her when needed etc. Pain Numeric Pain Scale: 4 Location: Right Location Body Site: Hip Pain Description: Pressure Appearance pt. resists and perhaps stalls Rx ea. session Mental Status Patient Orientation: MR (slow to learn, perhaps history of LD) Transfers Functional [place] Measure 0=Not Assessed/NA 4=Minimal Assistance 1=Total Assistance 5=Supervision or Setup 2=Maximal Assistance 6=Modified [place] 3=Moderate Assistance 7=Complete IndependenceIRFPAI Quality Coding Scale 6 Independent with activity with or without an assistive device 5 Patient requires set up or clean up by helper. Patient completes activity by themselves 4 Supervision or touching assist (CGA). [place] provide cues , steadying assist 3 The helper provides less than half the effort to complete the activity 2 The helper provides more than half the effort to complete the activity 1 Dependent. The helper does all the effort to complete an activity 7 Patient refused to complete or attempt activity 9 The patient did not perform the activity before the current illness or injury 88 Not attempted due to Medical conditions or safety concerns Transfers (B, C, W/C) (FIM): 3 Scootin Rollin Supine to/from Sit: 3 Sit to/from Stand: 5 Bed to/from Chair: 4 Gait Training Does the Patient Walk?: Yes Gait (FIM): 4 Distance (FIM): 3=150 ft (x2) Gait Level of Assist: 4 Gait Persons Needed: 1 Gait Assistive Device: FWW step to gait with kyphotic posture, small steps and frequent stops to rest Stair Training no step training today, Exercises Supine Ex: Ankle pumps, Quad Set, Rolling, Glut sets, Heel Slides (assist), Short Arc Quads, Scooting, Straight leg raise (ssist), Hip abd/add (assist) Seated Therapy Exercises: Long arc quads, Hip flexion Seated Reps: 10 Treatments much time spent on sup to sit and sit to sup, pt. reaches for therapist and pulls, doesnt recall instruction from time to time Assessment Current Status: Fair Progress PT Short Term Goals Short Term Goals Time Frame: Jun 06, 2016 Transfers (B,C,W/C) (FIM): 4 Gait (FIM): 2 Gait Distance Comment: 50' Gait Level of Assist: 4 Wheelchair Distance: 10' PT Alf Goals Senior Vice President & General Counsel Goals PT Alf Goals Time Frame: Jun 20, 2016 Transfers (B,C,W/C) (FIM): 5 Sit to Lying (QC): 4 Lying-Sitting on Side/Bed(QC): 4 Sit to Stand (QC): 4 Rollin Roll Left to Right (QC): 4 Chair/Orv-ca-Cqchz Xfer(QC): 4 Car Transfer (QC): 3 Gait (FIM): 4 Distance: 150' Walk 10 feet (QC): 4 Walk 10ft-Uneven Surface(QC): 4 Walk 50ft with 2 Turns (QC): 4 Walk 150 ft (QC): 4 Gait Level of Assist: 4 Gait Assistive Device: FWW Stairs (FIM): 2 # of Steps: 4 1 Step (curb) (QC): 4 4 Steps (QC): 4 12 Steps (QC): 88 Stairs Level Of Assist: 4 Picking up an Object (QC): 88 PT Plan Treatment/Plan Treatment Plan: Continue Plan of Care Treatment Plan: Bed Mobility, Education, Functional Activity Jeffrey, Functional Strength, Group Therapy, Gait, Safety, Therapeutic Exercise, Transfers Treatment Duration: Jun 20, 2016 Visits Per Week: 10-11 Minutes/Day (M-F): 60-90 Minutes/Day (Sat/[place]): 15-30 Safety Risks/Education Patient Education: Gait Training, Transfer Techniques, Correct Positioning, Disease Process, Safety Issues Teaching Recipient: Patient Teaching Methods: Demonstration, Discussion Response to Teaching: Verbalize Understanding, Return Demonstration (needs instruction each time), Reinforcement Needed Time/GCodes Time In: 1015 Time Out: 1100 Total Billed Treatment Time: 45 Total Billed Treatment 1,FA20m,EX15m,GT10m G Codes Necessary: JARED Salcedo DOUGHNUT DOUGH MIXER Jun 06, 2016 12:28
--- NOTE | 2016-06-06 14:41 | Therapy Group Daily Note ---
Therapy Daily Group Note Patient Education Topic Home Safety, Other List Below (Home emergency preparedness, DC planning, continuum of healthcare, Rehab process) Exercises LE Seated Exercise, UE Exercise Other/Notes Pt. attended group PT OT session this date.Pt. required min assist to TRF to ambulate with FWWto from group. Pt was eager participant in introduction and socialization. Pt. requires much encouragement for exercise portion . Seated U/ L extremity exercise was lead by OT. Pts. all contributed to discussion about the healthcare process. Equipment for home use was demonstrated by OT as well. Pt. in bed with rosales at hand after Rx. Alarm insitu Start Time: 13:00 Stop Time: 14:15 Total Billed Treatment Time: 75 Total Billed Treatment 1,GRP JARED MILLER OFFICE SWEEPER Jun 06, 2016 14:41
[2016-06-06] MEDS: ACETAMINOPHEN 325 MG TABLET/CAPLET (TYLENOL) PO PRN (15:14)
[2016-06-06 18:29] VITALS: BP 160/77
[2016-06-06] MEDS: SIMvastatin 40 MG (ZOCOR) TAB PO SCH (20:17)
[2016-06-06] MEDS: CYCLOBENZAPRINE 10 MG (FLEXERIL) TAB PO PRN (22:45)
[2016-06-07] MEDS: LEVOTHYROXINE 112 MCG (LEVOTHROID) TAB PO SCH (05:40)
[2016-06-07] MEDS: LACTOBACILLUS Acidoph/Bulgar (LACTINEX/FLORANEX) TAB PO SCH ×3 (05:40→16:25)
[2016-06-07] MEDS: LEVOTHYROXINE 25 MCG (LEVOTHROID) TAB PO SCH (05:40)
[2016-06-07] MEDS: MULTIVIT W/MINERALS TAB (THERAGRAN M) PO SCH (05:41)
[2016-06-07 06:00] VITALS: BP 156/75
--- NOTE | 2016-06-07 08:20 | PM & R (SOAP) Progress Note ---
Subjective Subjective/Events-last exam Patient was seen in her room this AM Discussed case with RN Patient had BM with Laxative last night Patient Mod assist for transfers ST has signed off as Memory at baseline Compenstation techniques provided by ST for impaired memory Objective Exam Last Set of Vital Signs Vital Signs Date Time Temp Pulse Resp B/P (MAP) Pulse Ox O2 Delivery O2 Flow Rate FiO2 06/07/16 06:00 98.3 68 20 156/75 95 Room Air Capillary Refill : Less Than 3 Seconds I&O Intake and Output 06/07/16 00:00 Intake Total 1490 ml Balance 1490 ml Intake Oral 1490 ml # Voids 6 # Bowel Movements 1 General: Alert, Oriented X3, Cooperative, No Acute Distress HEENT: Atraumatic, PERRLA, EOMI, Mucous Memb Moist/[place] Neck: Supple, No JVD Lungs: Clear to Auscultation Heart: Regular Rate Abdomen: Normal Bowel Sounds Extremities: Other ( mild tenderness at hip) Neuro: Other (weakness proximal rt hip s/p frx and repair) Results Lab Laboratory Tests 06/05/16 06:22: Hemoglobin 9.7L, Hematocrit 30L 06/06/16 05:29: Hemoglobin 9.1L, Hematocrit 29L Assessment/Plan Assessment 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 DR Rose 05/27/16 HTN better controlled with adjustment in meds UTI treated Hypothyroidism-on replacement Mild postop anemia-improving Mild cognitive deficits ST has addressed Hypocalcemia Postop constipation improved Plan Continue PT/OT/ST Check labs-done F/U with PCP and cardiology prn Appreciate DR Lam and cardiology notes and orders Team Conference held yesterday- See report for full functional update and POC and ELOS Pain management as needed Check Incision-done Appreciate Dr Ribera notes BRITTA WALLACE MD Jun 07, 2016 08:20
[2016-06-07] MEDS: SENNOSIDES 8.6 MG (SENOKOT) TAB PO SCH ×2 (09:00→21:10)
[2016-06-07] MEDS: POLYETHYLENE GLYCOL 17 GM (MIRALAX) PACK PO SCH (09:00)
[2016-06-07] MEDS: FAMOTIDINE 20 MG (PEPCID) TABLET PO SCH ×2 (09:10→21:10)
[2016-06-07] MEDS: GABAPENTIN 300 MG (NEURONTIN) CAP PO SCH ×2 (09:10→21:10)
[2016-06-07] MEDS: ATENOLOL 50 MG (TENORMIN) TAB PO SCH (09:10)
[2016-06-07] MEDS: amLODIPine 5 MG (NORVASC) TAB PO SCH (09:10)
[2016-06-07] MEDS: ASPIRIN 81 MG CHEW (CHILDREN'S ASA) PO SCH (09:10)
[2016-06-07] MEDS: ACETAMINOPHEN 325 MG TABLET/CAPLET (TYLENOL) PO PRN (10:10)
[2016-06-07] MEDS: ENOXAPARIN 40 MG/0.4 ML (LOVENOX) SYR SC SCH (10:10)
--- NOTE | 2016-06-07 10:52 | Occupational Ther Daily Note ---
OT Current Status-Daily Note Subjective Pt seen in room, in bed, asleep. Reluctantly agreed to OT, stating that she had diarrhea all night. No pain mentioned Appearance Alert, cooperative Mental Status/Objective Functional [place] Measure 0=Not Assessed/NA 4=Minimal Assistance 1=Total Assistance 5=Supervision or Setup 2=Maximal Assistance 6=Modified [place] 3=Moderate Assistance 7=Complete [place] ADL-Treatment Pt was stopped from reaching below her knees to pull up her pants while she had reproduction production manager and had just used it. She asked, "Why can't I do that?" and had forgotten her hip precautions. Functional [place] Measure 0=Not Assessed/NA 4=Minimal Assistance 1=Total Assistance 5=Supervision or Setup 2=Maximal Assistance 6=Modified [place] 3=Moderate Assistance 7=Complete IndependenceIRFPAI Quality Coding Scale 6 Independent with activity with or without an assistive device 5 Patient requires set up or clean up by helper. Patient completes activity by themselves 4 Supervision or touching assist (CGA). [place] provide cues , steadying assist 3 The helper provides less than half the effort to complete the activity 2 The helper provides more than half the effort to complete the activity 1 Dependent. The helper does all the effort to complete an activity 7 Patient refused to complete or attempt activity 9 The patient did not perform the activity before the current illness or injury 88 Not attempted due to Medical conditions or safety concerns Grooming (FIM): 5 (Stood at sink to brush teeth and comb hair. Skilled cues needed to keep FWW in front of her.) Upper Body (FIM): 5 (Setup. ) Lower Body Dressing (FIM): 4 (Needed to be stopped from reaching to floor for her pants. Able to get slacks on using reproduction production manager but did not understand to grasp the handle of the reproduction production manager to make it pinch. She stated that she had a reproduction production manager at home and used it all the time. "This is awkward." Help with slipper socks) Toileting (FIM): 5 (On and off BSC over toilet, FWW, grab bar. managed clothing and hygiene) Transfers (B, C, W/C) (FIM): 5 (SBA, FWW. Skilled cues for hand placement. Sometimes struggles a little at midpoint) Toilet/Commode Transfer (FIM): 5 (SBA, FWW, BSC over toilet) Pt reported that her friend has equipment she can borrow, including FWW and BSC Other Treatment Pt transferred to recliner, with cues for hand placement. Pt did 10 reps bilat UE exercise with yellow (mild) theraband. She needed some skilled physical and verbal cues to do the exercises correctly. She was not able to track repetitions accurately and, if interrupted started over at 1. She also had difficulty switching sides and figuring out where to hold the band. UE exercise to help with transfers and standing during ADLs. Pt left up in recliner, all needs met. Education OT Patient Education: Exercise program, Modified ADL techniques, Reviewed precautions, Safety issues, Transfer techniques, Use of adapted equipment Teaching Recipient: Patient Teaching Methods: Demonstration, Discussion Response to Teaching: Verbalize Understanding, Return Demonstration, Reinforcement Needed OT Short Term Goals Short Term Goals Time Frame: Jun 08, 2016 Lower Body Dressing(FIM): 3 Toileting(FIM): 3 Transfers (B,C,W/C) (FIM): 4 Toilet/Commode Transfer(FIM): 3 Additional Short Term Goals: 2-Verbalize Understanding, 3-ImproveStrength/Jeffrey 1=Demonstrate adherence to instructed precautions during ADL tasks. 2=Patient will verbalize/demonstrate understanding of assistive devices/ modifications for ADL. 3=Patient will improve strength/tolerance for activity to enable patient to perform ADL's. OT Care Home Goals Care Home Goals Time Frame: Jun 20, 2016 Eating (FIM): 6 Eating (QC): 6 Groomin Oral Hygiene (QC): 6 Bathing(FIM): 5 Shower/Bathe Self (QC): 5 Upper Body Dressing(FIM): 5 Upper Body Dressing (QC): 5 Lower Body Dressing(FIM): 5 Lower Body Dressing (QC): 5 On/Off Footwear (QC): 5 Toileting(FIM): 6 Toileting Hygiene (QC): 6 Transfers (B,C,W/C) (FIM): 5 Toilet/Commode Transfer(FIM): 6 Toilet/Commode Transfer (QC): 6 Shower Transfer(FIM): 5 Comprehension(FIM): 5 (MET) Expression (FIM): 5 (MET) Social Interaction(FIM): 5 (MET) Problem Solving(FIM): 4 (MET) Memory(FIM): 4 (NOT MET) Additional Goals: 2-Verbalize Understanding, 3-ImproveStrength/Jeffrey 1=Demonstrate adherence to instructed precautions during ADL tasks. 2=Patient will verbalize/demonstrate understanding of assistive devices/ modifications for ADL. 3=Patient will improve strength/tolerance for activity to enable patient to perform ADL's. OT Education/Plan Problem List/Assessment Pt would benefit from skilled OT to increase her independence in basic self care to allow her to return safely to her home and to decrease caregiver burden. Discharge Recommendations Plan/Recommendations: Continue POC Treatment Plan/Plan of Care Patient would benefit from OT for education, treatment and training to promote independence in ADL's, mobility, safety and/or upper extremity function for ADL' s. Plan of Care: ADL Retraining, Functional Mobility, Group Exercise/Act as Ind ( education, exercise, memory, functional activities, socialization), UE Funct Exercise/Act, UE Neuromus Re-Ed/Coord, W/C Management Training Treatment Duration: Jun 20, 2016 Visits Per Week: 10-11 Minutes/Day (M-F): 75-90 Minutes/Day (Sat/[place]): PRN Agreement: Yes Rehab Potential: Fair Time/GCodes Start Time: 08:30 Stop Time: 09:30 Total Time Billed (hr/min): 60 Billed Treatment Time visit, 45 minutes ADL, 15 minutes exercise BELLA BERMUDEZ OT Jun 07, 2016 10:52
--- NOTE | 2016-06-07 11:18 | Physical Therapy Daily Note ---
PT Daily Note-Current Subjective Pt. reluctantly agrees to Rx. Inquires as to what the plan is for her DC. States she really wants to ultimately end up in [facility]. c/o edema in RLE. Pain Numeric Pain Scale: 3 Location: Right Location Body Site: Ankle Pain Description: Pressure Comment: appear to be from edema Appearance pitting edema RLE Mental Status Patient Orientation: MR (LD?) Transfers Functional [place] Measure 0=Not Assessed/NA 4=Minimal Assistance 1=Total Assistance 5=Supervision or Setup 2=Maximal Assistance 6=Modified [place] 3=Moderate Assistance 7=Complete IndependenceIRFPAI Quality Coding Scale 6 Independent with activity with or without an assistive device 5 Patient requires set up or clean up by helper. Patient completes activity by themselves 4 Supervision or touching assist (CGA). [place] provide cues , steadying assist 3 The helper provides less than half the effort to complete the activity 2 The helper provides more than half the effort to complete the activity 1 Dependent. The helper does all the effort to complete an activity 7 Patient refused to complete or attempt activity 9 The patient did not perform the activity before the current illness or injury 88 Not attempted due to Medical conditions or safety concerns Transfers (B, C, W/C) (FIM): 3 Scootin Rollin Supine to/from Sit: 3 Sit to/from Stand: 5 (from higher surface) Bed to/from Chair: 4 Weight Bearing Weight Bearing Restriction: Weight Bearing/Tolerated Location Restriction: R LE Gait Training Does the Patient Walk?: Yes Gait (FIM): 4 Distance (FIM): 3=150 ft (x2) Gait Level of Assist: 4 Gait Persons Needed: 1 Gait Assistive Device: FWW needs near constant skilled verbal instruction for gait, ASHWIN broadened and step length more equal Stair Training pt. refuses to attempt stairs Exercises Supine Ex: Ankle pumps, Quad Set, Rolling, Glut sets, Heel Slides, Short Arc Quads, Scooting, Straight leg raise, Hip abd/add Supine Reps: 12 (with assist) Seated Therapy Exercises: Ankle pumps, Sit to stand, Long arc quads, Hip flexion, Hip abd/add Seated Reps: 12 Treatments toileting with assist to bring pt. fresh pad for panties, pt indep to take care of it. also needed different pants as others were too tight, needed mod assist to elaine and doff Assessment Current Status: Fair Progress still greatest struggle to TRF sup to sit and back. pt needs min to mod assist and much skilled verbal instruction. Pt. appears fearful PT Short Term Goals Short Term Goals Time Frame: Jun 06, 2016 Transfers (B,C,W/C) (FIM): 4 Gait (FIM): 2 Gait Distance Comment: 50' Gait Level of Assist: 4 Wheelchair Distance: 10' PT Mucker Cofferdam Goals Chcf Goals PT Mucker [place] Goals Time Frame: Jun 20, 2016 Transfers (B,C,W/C) (FIM): 5 Sit to Lying (QC): 4 Lying-Sitting on Side/Bed(QC): 4 Sit to Stand (QC): 4 Rollin Roll Left to Right (QC): 4 Chair/Xdr-nd-Noxmf Xfer(QC): 4 Car Transfer (QC): 3 Gait (FIM): 4 Distance: 150' Walk 10 feet (QC): 4 Walk 10ft-Uneven Surface(QC): 4 Walk 50ft with 2 Turns (QC): 4 Walk 150 ft (QC): 4 Gait Level of Assist: 4 Gait Assistive Device: FWW Stairs (FIM): 2 # of Steps: 4 1 Step (curb) (QC): 4 4 Steps (QC): 4 12 Steps (QC): 88 Stairs Level Of Assist: 4 Picking up an Object (QC): 88 PT Plan Treatment/Plan Treatment Plan: Bed Mobility, Education, Functional Activity Jeffrey, Functional Strength, Group Therapy, Gait, Safety, Therapeutic Exercise, Transfers Treatment Duration: Jun 20, 2016 Visits Per Week: 10-11 Minutes/Day (M-F): 60-90 Minutes/Day (Sat/[place]): 15-30 Safety Risks/Education Patient Education: Gait Training, Transfer Techniques, Issued Written HEP, Correct Positioning, Disease Process, Safety Issues Teaching Recipient: Patient Teaching Methods: Demonstration, Discussion Response to Teaching: Verbalize Understanding, Return Demonstration, Reinforcement Needed discussed at length again the advantages of exercise for pain and swelling, decreasing both Time/GCodes Time In: 1000 Time Out: 1100 Total Billed Treatment Time: 60 Total Billed Treatment 1,GT30m,FA15m,EX15m G Codes Necessary: JARED Salcedo GEOTHERMAL PRODUCTION MANAGER Jun 07, 2016 11:18
--- NOTE | 2016-06-07 14:13 | Occupational Ther Daily Note ---
OT Current Status-Daily Note Subjective Pt seen in room, up in recliner, agreeable to OT. No pain mentioned. Appearance Alert, cooperative Mental Status/Objective Functional [place] Measure 0=Not Assessed/NA 4=Minimal Assistance 1=Total Assistance 5=Supervision or Setup 2=Maximal Assistance 6=Modified [place] 3=Moderate Assistance 7=Complete [place] ADL-Treatment Functional [place] Measure 0=Not Assessed/NA 4=Minimal Assistance 1=Total Assistance 5=Supervision or Setup 2=Maximal Assistance 6=Modified [place] 3=Moderate Assistance 7=Complete IndependenceIRFPAI Quality Coding Scale 6 Independent with activity with or without an assistive device 5 Patient requires set up or clean up by helper. Patient completes activity by themselves 4 Supervision or touching assist (CGA). [place] provide cues , steadying assist 3 The helper provides less than half the effort to complete the activity 2 The helper provides more than half the effort to complete the activity 1 Dependent. The helper does all the effort to complete an activity 7 Patient refused to complete or attempt activity 9 The patient did not perform the activity before the current illness or injury 88 Not attempted due to Medical conditions or safety concerns Grooming (FIM): 5 (Recalled to keep walker in front of her when she washed her hands) Toileting (FIM): 5 (SBA, BSC over toilet. FWW. managed clothing and hygiene) Transfers (B, C, W/C) (FIM): 5 (Recalled hand placement for sit to stand and stand to sit) Toilet/Commode Transfer (FIM): 5 (SBA, BSC over toilet, FWW. Recall hand placement) Other Treatment Pt walked with SBA for safety, FWW, to gym and did 13 minutes bilat UE exercise with 15W resistance to strengthen arms for transfers and sit to stand. Took one brief recovery break midpoint. Pt recalled hand placement without cues when getting off chair with arms and was able to push up smoothly to stand. Pt walked back to room, SBA for safety, FWW and was seated in recliner, all needs met. Education OT Patient Education: Modified ADL techniques, Purpose of tx/functional activities, Safety issues, Transfer techniques Teaching Recipient: Patient Response to Teaching: Reinforcement Needed OT Short Term Goals Short Term Goals Time Frame: Jun 08, 2016 Lower Body Dressing(FIM): 3 Toileting(FIM): 3 Transfers (B,C,W/C) (FIM): 4 Toilet/Commode Transfer(FIM): 3 Additional Short Term Goals: 2-Verbalize Understanding, 3-ImproveStrength/Jeffrey 1=Demonstrate adherence to instructed precautions during ADL tasks. 2=Patient will verbalize/demonstrate understanding of assistive devices/ modifications for ADL. 3=Patient will improve strength/tolerance for activity to enable patient to perform ADL's. OT Fpc Goals Fpc Goals Time Frame: Jun 20, 2016 Eating (FIM): 6 Eating (QC): 6 Groomin Oral Hygiene (QC): 6 Bathing(FIM): 5 Shower/Bathe Self (QC): 5 Upper Body Dressing(FIM): 5 Upper Body Dressing (QC): 5 Lower Body Dressing(FIM): 5 Lower Body Dressing (QC): 5 On/Off Footwear (QC): 5 Toileting(FIM): 6 Toileting Hygiene (QC): 6 Transfers (B,C,W/C) (FIM): 5 Toilet/Commode Transfer(FIM): 6 Toilet/Commode Transfer (QC): 6 Shower Transfer(FIM): 5 Comprehension(FIM): 5 (MET) Expression (FIM): 5 (MET) Social Interaction(FIM): 5 (MET) Problem Solving(FIM): 4 (MET) Memory(FIM): 4 (NOT MET) Additional Goals: 2-Verbalize Understanding, 3-ImproveStrength/Jeffrey 1=Demonstrate adherence to instructed precautions during ADL tasks. 2=Patient will verbalize/demonstrate understanding of assistive devices/ modifications for ADL. 3=Patient will improve strength/tolerance for activity to enable patient to perform ADL's. OT Education/Plan Problem List/Assessment Pt would benefit from skilled OT to increase her independence in basic self care to allow her to return safely to her home and to decrease caregiver burden. Discharge Recommendations Plan/Recommendations: Continue POC Treatment Plan/Plan of Care Patient would benefit from OT for education, treatment and training to promote independence in ADL's, mobility, safety and/or upper extremity function for ADL' s. Plan of Care: ADL Retraining, Functional Mobility, Group Exercise/Act as Ind ( education, exercise, memory, functional activities, socialization), UE Funct Exercise/Act, UE Neuromus Re-Ed/Coord, W/C Management Training Treatment Duration: Jun 20, 2016 Visits Per Week: 10-11 Minutes/Day (M-F): 75-90 Minutes/Day (Sat/[place]): PRN Agreement: Yes Rehab Potential: Fair Time/GCodes Start Time: 12:55 Stop Time: 13:30 Total Time Billed (hr/min): 35 Billed Treatment Time visit, 15 minutes ADL, 20 minutes exercise BELLA BERMUDEZ OT Jun 07, 2016 14:13
--- NOTE | 2016-06-07 14:17 | Physical Therapy Daily Note ---
PT Daily Note-Current Subjective Pt. agrees to Rx. Mentions again that she is plagued by all the edema in her RLE. "Do you think ice would help'? Pain Numeric Pain Scale: 0-No Pain Mental Status needs frequent and repeated skilled verbal instruction a. pt. appears to stall, stops moving and creates conversation unrelated. needs cues to continue Rx Transfers Functional [place] Measure 0=Not Assessed/NA 4=Minimal Assistance 1=Total Assistance 5=Supervision or Setup 2=Maximal Assistance 6=Modified [place] 3=Moderate Assistance 7=Complete IndependenceIRFPAI Quality Coding Scale 6 Independent with activity with or without an assistive device 5 Patient requires set up or clean up by helper. Patient completes activity by themselves 4 Supervision or touching assist (CGA). [place] provide cues , steadying assist 3 The helper provides less than half the effort to complete the activity 2 The helper provides more than half the effort to complete the activity 1 Dependent. The helper does all the effort to complete an activity 7 Patient refused to complete or attempt activity 9 The patient did not perform the activity before the current illness or injury 88 Not attempted due to Medical conditions or safety concerns mod assist sup to sit and sit to sup. does not recall all instruction given for this previously Gait Training Gait Assistive Device: FWW 155ft x1, 50 ft x1 FWW with many repeated cues for broader ASHWIN and equal step length Exercises Supine Ex: Ankle pumps, Heel Slides, Hip abd/add Supine Reps: 12 Treatments ice pack to right hip as well as LEs elevated Assessment Current Status: Good Progress great difficulty retaining and learning , still requires mod assist for sit to sup PT Short Term Goals Short Term Goals Time Frame: Jun 06, 2016 Transfers (B,C,W/C) (FIM): 4 Gait (FIM): 2 Gait Distance Comment: 50' Gait Level of Assist: 4 Wheelchair Distance: 10' PT International Operations Manager Goals International Operations Manager Goals PT Alf Goals Time Frame: Jun 20, 2016 Transfers (B,C,W/C) (FIM): 5 Sit to Lying (QC): 4 Lying-Sitting on Side/Bed(QC): 4 Sit to Stand (QC): 4 Rollin Roll Left to Right (QC): 4 Chair/Zvn-yv-Bogvc Xfer(QC): 4 Car Transfer (QC): 3 Gait (FIM): 4 Distance: 150' Walk 10 feet (QC): 4 Walk 10ft-Uneven Surface(QC): 4 Walk 50ft with 2 Turns (QC): 4 Walk 150 ft (QC): 4 Gait Level of Assist: 4 Gait Assistive Device: FWW Stairs (FIM): 2 # of Steps: 4 1 Step (curb) (QC): 4 4 Steps (QC): 4 12 Steps (QC): 88 Stairs Level Of Assist: 4 Picking up an Object (QC): 88 PT Plan Treatment/Plan Treatment Plan: Bed Mobility, Education, Functional Activity Jeffrey, Functional Strength, Group Therapy, Gait, Safety, Therapeutic Exercise, Transfers Treatment Duration: Jun 20, 2016 Visits Per Week: 10-11 Minutes/Day (M-F): 60-90 Minutes/Day (Sat/[place]): 15-30 Safety Risks/Education Patient Education: Gait Training, Transfer Techniques, Correct Positioning, Disease Process, Safety Issues Teaching Recipient: Patient Teaching Methods: Demonstration Response to Teaching: Unable to Comprehend, Reinforcement Needed Time/GCodes Time In: 1345 Time Out: 1415 Total Billed Treatment Time: 30 Total Billed Treatment 1,FA30m G Codes Necessary: JARED Salcedo PTA Jun 07, 2016 14:17
[2016-06-07 18:36] VITALS: BP 153/58
[2016-06-07] MEDS: SIMvastatin 40 MG (ZOCOR) TAB PO SCH (21:10)
[2016-06-08 06:00] VITALS: BP 146/77
[2016-06-08] MEDS: LACTOBACILLUS Acidoph/Bulgar (LACTINEX/FLORANEX) TAB PO SCH ×3 (06:45→15:25)
[2016-06-08] MEDS: LEVOTHYROXINE 25 MCG (LEVOTHROID) TAB PO SCH (06:46)
[2016-06-08] MEDS: LEVOTHYROXINE 112 MCG (LEVOTHROID) TAB PO SCH (06:46)
[2016-06-08] MEDS: MULTIVIT W/MINERALS TAB (THERAGRAN M) PO SCH (06:46)
--- NOTE | 2016-06-08 08:55 | Occupational Ther Daily Note ---
OT Current Status-Daily Note Subjective Pt seen in room, up in recliner, dozing. Agreeable to OT. Pt did not report any pain. Mental Status/Objective Functional [place] Measure 0=Not Assessed/NA 4=Minimal Assistance 1=Total Assistance 5=Supervision or Setup 2=Maximal Assistance 6=Modified [place] 3=Moderate Assistance 7=Complete [place] ADL-Treatment Pt declined bathing and changing clothes today but did want to toilet and brush her teeth and hair. Functional [place] Measure 0=Not Assessed/NA 4=Minimal Assistance 1=Total Assistance 5=Supervision or Setup 2=Maximal Assistance 6=Modified [place] 3=Moderate Assistance 7=Complete IndependenceIRFPAI Quality Coding Scale 6 Independent with activity with or without an assistive device 5 Patient requires set up or clean up by helper. Patient completes activity by themselves 4 Supervision or touching assist (CGA). [place] provide cues , steadying assist 3 The helper provides less than half the effort to complete the activity 2 The helper provides more than half the effort to complete the activity 1 Dependent. The helper does all the effort to complete an activity 7 Patient refused to complete or attempt activity 9 The patient did not perform the activity before the current illness or injury 88 Not attempted due to Medical conditions or safety concerns Grooming (FIM): 5 (SBA, FWW for balance. When she steps backwards away from the sink, she is a little unsteady. Brushed teeth and hair, washed hands) Toileting (FIM): 5 (Pt able to manage clothing and hygien with setup. Supervision to follow hip precautions. Pt toileted twice. The first time her pants did not fallto her ankles but they did the seconf time. OT asked pt if she could just reach down to get them and she stated, "Oh, no." OT put certified medical technician in front of her and pt asked why did OT give it to her, that it was new. OT explained that it was to pull her pants up since she couldn't reach below her knees (she has used it). "Ok, I have one of these at home." BSC, grab bars, FWW) Transfers (B, C, W/C) (FIM): 5 (Pt struggled to push up from chair with arms in gym. Got stuck at midpoint, with just not enough push with her arms to come to stand) Toilet/Commode Transfer (FIM): 5 (BSC over toilet, grab bar, FWW) Other Treatment Pt walked with SBA for safety, FWW to gym. Worked on bilat UE strengthening with arm bike set for 14 minutes at 15W resistance (increase of 1 minute) to strengthen arms to help with transfers and sit to stand. Pt also worked with arc activity with short and medium extensions with 1# weight on each arm. Pt education on why she was doing this - at the end of tx she said, 'Whew! My arms are really tired!". Pt walked back to room with SBA, FWW for safety, left on BSC with nursing in room, call light available. Education OT Patient Education: Modified ADL techniques, Progress toward Goal/Update tx plan, Purpose of tx/functional activities, Safety issues, Transfer techniques, Use of adapted equipment Teaching Recipient: Patient Response to Teaching: Reinforcement Needed OT Short Term Goals Short Term Goals Time Frame: Jun 08, 2016 Lower Body Dressing(FIM): 3 Toileting(FIM): 3 Transfers (B,C,W/C) (FIM): 4 Toilet/Commode Transfer(FIM): 3 Additional Short Term Goals: 2-Verbalize Understanding, 3-ImproveStrength/Jeffrey 1=Demonstrate adherence to instructed precautions during ADL tasks. 2=Patient will verbalize/demonstrate understanding of assistive devices/ modifications for ADL. 3=Patient will improve strength/tolerance for activity to enable patient to perform ADL's. OT Extractor Operator Solvent Process Goals Extractor Operator Solvent Process Goals Time Frame: Jun 20, 2016 Eating (FIM): 6 Eating (QC): 6 Groomin Oral Hygiene (QC): 6 Bathing(FIM): 5 Shower/Bathe Self (QC): 5 Upper Body Dressing(FIM): 5 Upper Body Dressing (QC): 5 Lower Body Dressing(FIM): 5 Lower Body Dressing (QC): 5 On/Off Footwear (QC): 5 Toileting(FIM): 6 Toileting Hygiene (QC): 6 Transfers (B,C,W/C) (FIM): 5 Toilet/Commode Transfer(FIM): 6 Toilet/Commode Transfer (QC): 6 Shower Transfer(FIM): 5 Comprehension(FIM): 5 (MET) Expression (FIM): 5 (MET) Social Interaction(FIM): 5 (MET) Problem Solving(FIM): 4 (MET) Memory(FIM): 4 (NOT MET) Additional Goals: 2-Verbalize Understanding, 3-ImproveStrength/Jeffrey 1=Demonstrate adherence to instructed precautions during ADL tasks. 2=Patient will verbalize/demonstrate understanding of assistive devices/ modifications for ADL. 3=Patient will improve strength/tolerance for activity to enable patient to perform ADL's. OT Education/Plan Problem List/Assessment Pt would benefit from skilled OT to increase her independence in basic self care to allow her to return safely to her home and to decrease caregiver burden. Discharge Recommendations Plan/Recommendations: Continue POC Treatment Plan/Plan of Care Patient would benefit from OT for education, treatment and training to promote independence in ADL's, mobility, safety and/or upper extremity function for ADL' s. Plan of Care: ADL Retraining, Functional Mobility, Group Exercise/Act as Ind ( education, exercise, memory, functional activities, socialization), UE Funct Exercise/Act, UE Neuromus Re-Ed/Coord, W/C Management Training Treatment Duration: Jun 20, 2016 Visits Per Week: 10-11 Minutes/Day (M-F): 75-90 Minutes/Day (Sat/[place]): PRN Agreement: Yes Rehab Potential: Fair Time/GCodes Start Time: 08:15 Stop Time: 09:15 Total Time Billed (hr/min): 60 Billed Treatment Time visit, 25 minutes ADL, 35 minutes exercise BELLA BERMUDEZ OT Jun 08, 2016 08:55
[2016-06-08] MEDS: POLYETHYLENE GLYCOL 17 GM (MIRALAX) PACK PO SCH (09:05)
[2016-06-08] MEDS: ENOXAPARIN 40 MG/0.4 ML (LOVENOX) SYR SC SCH (09:05)
[2016-06-08] MEDS: FAMOTIDINE 20 MG (PEPCID) TABLET PO SCH ×2 (09:06→20:55)
[2016-06-08] MEDS: CLOPIDOGREL 75 MG (PLAVIX) TABLET PO SCH (09:06)
[2016-06-08] MEDS: ASPIRIN 81 MG CHEW (CHILDREN'S ASA) PO SCH (09:06)
[2016-06-08] MEDS: ATENOLOL 50 MG (TENORMIN) TAB PO SCH (09:06)
[2016-06-08] MEDS: amLODIPine 5 MG (NORVASC) TAB PO SCH (09:06)
[2016-06-08] MEDS: SENNOSIDES 8.6 MG (SENOKOT) TAB PO SCH ×2 (09:06→20:55)
[2016-06-08] MEDS: GABAPENTIN 300 MG (NEURONTIN) CAP PO SCH ×2 (09:06→20:55)
--- NOTE | 2016-06-08 11:57 | Physical Therapy Daily Note ---
PT Daily Note-Current Subjective Pt. agrees to Rx, states she knows she should get up but its so hard, states she is looking forward to going to [facility]. Feels like she is falling when she gets out of bed and feels this will improve when she doesnt have so much edema in R hip and leg. Pain Numeric Pain Scale: 4 Location: Right Location Body Site: Hip Pain Description: Ache Comment: pain c/o only with exercise, stops with rest. Mental Status Patient Orientation: Confused (slow, STM difficulties) Transfers Functional [place] Measure 0=Not Assessed/NA 4=Minimal Assistance 1=Total Assistance 5=Supervision or Setup 2=Maximal Assistance 6=Modified [place] 3=Moderate Assistance 7=Complete IndependenceIRFPAI Quality Coding Scale 6 Independent with activity with or without an assistive device 5 Patient requires set up or clean up by helper. Patient completes activity by themselves 4 Supervision or touching assist (CGA). [place] provide cues , steadying assist 3 The helper provides less than half the effort to complete the activity 2 The helper provides more than half the effort to complete the activity 1 Dependent. The helper does all the effort to complete an activity 7 Patient refused to complete or attempt activity 9 The patient did not perform the activity before the current illness or injury 88 Not attempted due to Medical conditions or safety concerns Transfers (B, C, W/C) (FIM): 4 Scootin Rollin Supine to/from Sit: 4 Sit to/from Stand: 5 Sit to Stand (QC): 5 Bed to/from Chair: 4 pt. continues to have great challenge with sup to sit and sit to sup. she can do it but reaches and wants to pull on therapist, needs only CGA and guidance but has fear she will fall etc Gait Training Does the Patient Walk?: Yes Gait (FIM): 4 Distance (FIM): 3=150 ft (150,170) Gait Level of Assist: 4 Gait Persons Needed: 1 Gait Assistive Device: FWW short uneven step to gait pattern, bends over walker with heavy wt bearing., needs cues for even steps and safer pattern Exercises Supine Ex: Ankle pumps, Quad Set, Rolling, Heel Slides, Short Arc Quads, Scooting, Straight leg raise, Hip abd/add Supine Reps: 15 (with P/AA) NuStep Minutes: 10 NuStep Workload: 3 Treatments toileted x 2 managing pants and change of pad indep Assessment Current Status: Good Progress very distractable, fearful of falling PT Short Term Goals Short Term Goals Time Frame: Jun 06, 2016 Transfers (B,C,W/C) (FIM): 4 Gait (FIM): 2 Gait Distance Comment: 50' Gait Level of Assist: 4 Wheelchair Distance: 10' PT Salesforce Business Analyst Goals Mcc Goals PT Mcc Goals Time Frame: Jun 20, 2016 Transfers (B,C,W/C) (FIM): 5 Sit to Lying (QC): 4 Lying-Sitting on Side/Bed(QC): 4 Sit to Stand (QC): 4 Rollin Roll Left to Right (QC): 4 Chair/Vuv-ii-Wmbsh Xfer(QC): 4 Car Transfer (QC): 3 Gait (FIM): 4 Distance: 150' Walk 10 feet (QC): 4 Walk 10ft-Uneven Surface(QC): 4 Walk 50ft with 2 Turns (QC): 4 Walk 150 ft (QC): 4 Gait Level of Assist: 4 Gait Assistive Device: FWW Stairs (FIM): 2 # of Steps: 4 1 Step (curb) (QC): 4 4 Steps (QC): 4 12 Steps (QC): 88 Stairs Level Of Assist: 4 Picking up an Object (QC): 88 PT Plan Treatment/Plan Treatment Plan: Continue Plan of Care Treatment Plan: Bed Mobility, Education, Functional Activity [place], Functional Strength, Group Therapy, Gait, Safety, Therapeutic Exercise, Transfers Treatment Duration: Jun 20, 2016 Visits Per Week: 10-11 Minutes/Day (M-F): 60-90 Minutes/Day (Sat/[place]): 15-30 Safety Risks/Education Patient Education: Gait Training, Transfer Techniques, Reviewed Precautions, Correct Positioning, Disease Process, Safety Issues Teaching Recipient: Patient Teaching Methods: Demonstration Response to Teaching: Verbalize Understanding, Return Demonstration, Reinforcement Needed (STM issues needs reminders often) Time/GCodes Time In: 1045 Time Out: 1145 Total Billed Treatment Time: 60 Total Billed Treatment 1,FA30m,GT15m,EX15m G Codes Necessary: JARED Salcedo LANDSCAPING SUPERVISOR Jun 08, 2016 11:57
--- NOTE | 2016-06-08 13:27 | Progress Note-Standard ---
Standard Progress Note Progress Notes/Assess & Plan Progress/Assessment & Plan To IRU feeling better today RLE--dressing intact. Neg Ava's. Neg SLR s/p R bipolar continue PT/OT Final Diagnosis In group No complaints s/p r hip bipolar continue pt and ot sharonda out saturday ROLO JO MD Jun 08, 2016 13:27
--- NOTE | 2016-06-08 14:41 | Therapy Group Daily Note ---
Therapy Daily Group Note Patient Education Topic Other List Below Other/Notes Pt was an active participant in OT/PT group. For introductions, she was able to state her name, where she lived and if she had ever been scammed. She contributed to education/discussion with guest speakers from [place] [employer] who talked about phone and credit card scams, public safety techniques, home safety, and community services available such as well checks. She walked back to her room with SBA for safety, FWW, toileted (following hip precautions) and transferred into bed, with 4 rails up, all needs met. Start Time: 13:00 Stop Time: 14:15 Total Billed Treatment Time: 75 Total Billed Treatment visit, 75 minutes group BELLA BERMUDEZ OT Jun 08, 2016 14:41
[2016-06-08 17:18] VITALS: BP 147/74
[2016-06-08] MEDS: SIMvastatin 40 MG (ZOCOR) TAB PO SCH (20:55)
[2016-06-09 05:53] VITALS: BP 159/67
[2016-06-09] MEDS: MULTIVIT W/MINERALS TAB (THERAGRAN M) PO SCH (06:40)
[2016-06-09] MEDS: LACTOBACILLUS Acidoph/Bulgar (LACTINEX/FLORANEX) TAB PO SCH ×3 (06:40→16:50)
[2016-06-09] MEDS: LEVOTHYROXINE 112 MCG (LEVOTHROID) TAB PO SCH (06:40)
[2016-06-09] MEDS: LEVOTHYROXINE 25 MCG (LEVOTHROID) TAB PO SCH (06:40)
[2016-06-09 08:43] VITALS: BP 134/67
[2016-06-09] MEDS: ASPIRIN 81 MG CHEW (CHILDREN'S ASA) PO SCH (08:44)
[2016-06-09] MEDS: GABAPENTIN 300 MG (NEURONTIN) CAP PO SCH ×2 (08:44→21:39)
[2016-06-09] MEDS: SENNOSIDES 8.6 MG (SENOKOT) TAB PO SCH ×2 (08:44→21:39)
[2016-06-09] MEDS: POLYETHYLENE GLYCOL 17 GM (MIRALAX) PACK PO SCH (08:44)
[2016-06-09] MEDS: FAMOTIDINE 20 MG (PEPCID) TABLET PO SCH ×2 (08:44→21:38)
[2016-06-09] MEDS: amLODIPine 5 MG (NORVASC) TAB PO SCH (08:44)
[2016-06-09] MEDS: ATENOLOL 50 MG (TENORMIN) TAB PO SCH (08:44)
[2016-06-09] MEDS: ACETAMINOPHEN 325 MG TABLET/CAPLET (TYLENOL) PO PRN (10:34)
[2016-06-09] MEDS: ENOXAPARIN 40 MG/0.4 ML (LOVENOX) SYR SC SCH (10:35)
--- NOTE | 2016-06-09 11:28 | Physical Therapy Daily Note ---
PT Daily Note-Current Subjective Pt sitting in recliner upon arrival. Pt agrees to Seated Ex for PT tx. Pain Location: Right Location Body Site: Hip Pain Description: Ache Mental Status Patient Orientation: Person, Place Transfers Functional [place] Measure 0=Not Assessed/NA 4=Minimal Assistance 1=Total Assistance 5=Supervision or Setup 2=Maximal Assistance 6=Modified [place] 3=Moderate Assistance 7=Complete IndependenceIRFPAI Quality Coding Scale 6 Independent with activity with or without an assistive device 5 Patient requires set up or clean up by helper. Patient completes activity by themselves 4 Supervision or touching assist (CGA). [address] provide cues , steadying assist 3 The helper provides less than half the effort to complete the activity 2 The helper provides more than half the effort to complete the activity 1 Dependent. The helper does all the effort to complete an activity 7 Patient refused to complete or attempt activity 9 The patient did not perform the activity before the current illness or injury 88 Not attempted due to Medical conditions or safety concerns Scootin Exercises Seated Therapy Exercises: Ankle pumps, Long arc quads, Hip flexion, Kicking activity Seated Reps: 20 Treatments Pt completes Seated Ex in recliner. Pt rests in recliner at end of tx with all needs met. Assessment Current Status: Fair Progress Pt fatigues and needs rest at end of tx. PT Short Term Goals Short Term Goals Time Frame: Jun 06, 2016 Transfers (B,C,W/C) (FIM): 4 Gait (FIM): 2 Gait Distance Comment: 50' Gait Level of Assist: 4 Wheelchair Distance: 10' PT Senior Process Analyst Goals Senior Process Analyst Goals PT Senior Process Analyst Goals Time Frame: Jun 20, 2016 Transfers (B,C,W/C) (FIM): 5 Sit to Lying (QC): 4 Lying-Sitting on Side/Bed(QC): 4 Sit to Stand (QC): 4 Rollin Roll Left to Right (QC): 4 Chair/Bzr-ku-Pkzut Xfer(QC): 4 Car Transfer (QC): 3 Gait (FIM): 4 Distance: 150' Walk 10 feet (QC): 4 Walk 10ft-Uneven Surface(QC): 4 Walk 50ft with 2 Turns (QC): 4 Walk 150 ft (QC): 4 Gait Level of Assist: 4 Gait Assistive Device: FWW Stairs (FIM): 2 # of Steps: 4 1 Step (curb) (QC): 4 4 Steps (QC): 4 12 Steps (QC): 88 Stairs Level Of Assist: 4 Picking up an Object (QC): 88 PT Plan Problem List Problem List: Activity Tolerance, Functional Strength, Safety, Balance, Gait, Transfer, Bed Mobility Treatment/Plan Treatment Plan: Continue Plan of Care Treatment Plan: Bed Mobility, Education, Functional Activity [place], Functional Strength, Group Therapy, Gait, Safety, Therapeutic Exercise, Transfers Treatment Duration: Jun 20, 2016 Visits Per Week: 10-11 Minutes/Day (M-F): 60-90 Minutes/Day (Sat/[place]): 15-30 Safety Risks/Education Patient Education: Transfer Techniques, Correct Positioning, Safety Issues Teaching Recipient: Patient Teaching Methods: Discussion Response to Teaching: Verbalize Understanding Time/GCodes Time In: 1005 Time Out: 1020 Total Billed Treatment Time: 15 Total Billed Treatment visit, EX (15m) SHEREE GARCIA PTA Jun 09, 2016 11:28
[2016-06-09 18:22] VITALS: BP 127/65
[2016-06-09] MEDS: SIMvastatin 40 MG (ZOCOR) TAB PO SCH (21:39)
[2016-06-10 06:00] VITALS: BP 131/69
[2016-06-10] MEDS: LEVOTHYROXINE 112 MCG (LEVOTHROID) TAB PO SCH (06:33)
[2016-06-10] MEDS: MULTIVIT W/MINERALS TAB (THERAGRAN M) PO SCH (06:33)
[2016-06-10] MEDS: LEVOTHYROXINE 25 MCG (LEVOTHROID) TAB PO SCH (06:33)
[2016-06-10] MEDS: LACTOBACILLUS Acidoph/Bulgar (LACTINEX/FLORANEX) TAB PO SCH ×3 (06:33→16:36)
[2016-06-10] MEDS: ACETAMINOPHEN 325 MG TABLET/CAPLET (TYLENOL) PO PRN (06:34)
[2016-06-10] MEDS: ASPIRIN 81 MG CHEW (CHILDREN'S ASA) PO SCH (08:23)
[2016-06-10] MEDS: amLODIPine 5 MG (NORVASC) TAB PO SCH (08:23)
[2016-06-10] MEDS: GABAPENTIN 300 MG (NEURONTIN) CAP PO SCH ×2 (08:23→20:03)
[2016-06-10] MEDS: SENNOSIDES 8.6 MG (SENOKOT) TAB PO SCH ×2 (08:23→20:03)
[2016-06-10] MEDS: FAMOTIDINE 20 MG (PEPCID) TABLET PO SCH ×2 (08:23→20:03)
[2016-06-10] MEDS: ATENOLOL 50 MG (TENORMIN) TAB PO SCH (08:24)
[2016-06-10] MEDS: POLYETHYLENE GLYCOL 17 GM (MIRALAX) PACK PO SCH (08:25)
[2016-06-10] MEDS: ENOXAPARIN 40 MG/0.4 ML (LOVENOX) SYR SC SCH (11:20)
[2016-06-10 18:10] VITALS: BP 151/79
[2016-06-10] MEDS: SIMvastatin 40 MG (ZOCOR) TAB PO SCH (20:03)
[2016-06-11 05:31] VITALS: BP 148/75
[2016-06-11] MEDS: LEVOTHYROXINE 25 MCG (LEVOTHROID) TAB PO SCH (06:28)
[2016-06-11] MEDS: LEVOTHYROXINE 112 MCG (LEVOTHROID) TAB PO SCH (06:28)
[2016-06-11] MEDS: LACTOBACILLUS Acidoph/Bulgar (LACTINEX/FLORANEX) TAB PO SCH ×3 (06:28→16:44)
[2016-06-11] MEDS: MULTIVIT W/MINERALS TAB (THERAGRAN M) PO SCH (06:28)
[2016-06-11] MEDS: GABAPENTIN 300 MG (NEURONTIN) CAP PO SCH ×2 (07:34→20:14)
[2016-06-11] MEDS: amLODIPine 5 MG (NORVASC) TAB PO SCH (07:34)
[2016-06-11] MEDS: POLYETHYLENE GLYCOL 17 GM (MIRALAX) PACK PO SCH (07:34)
[2016-06-11] MEDS: FAMOTIDINE 20 MG (PEPCID) TABLET PO SCH ×2 (07:34→20:14)
[2016-06-11] MEDS: SENNOSIDES 8.6 MG (SENOKOT) TAB PO SCH ×2 (07:34→20:14)
[2016-06-11] MEDS: ASPIRIN 81 MG CHEW (CHILDREN'S ASA) PO SCH (07:34)
[2016-06-11] MEDS: ATENOLOL 50 MG (TENORMIN) TAB PO SCH (07:34)
--- NOTE | 2016-06-11 11:11 | Physical Therapy Daily Note ---
PT Daily Note-Current Subjective Pt. excited that she just had her sharonda removed. Turns up her nose at the idea of ascending descending step but agrees with encouragement. Pain Numeric Pain Scale: 0-No Pain Appearance less edema right hip and LE Mental Status Patient Orientation: MR (LD) Transfers Functional [place] Measure 0=Not Assessed/NA 4=Minimal Assistance 1=Total Assistance 5=Supervision or Setup 2=Maximal Assistance 6=Modified [place] 3=Moderate Assistance 7=Complete IndependenceIRFPAI Quality Coding Scale 6 Independent with activity with or without an assistive device 5 Patient requires set up or clean up by helper. Patient completes activity by themselves 4 Supervision or touching assist (CGA). [place] provide cues , steadying assist 3 The helper provides less than half the effort to complete the activity 2 The helper provides more than half the effort to complete the activity 1 Dependent. The helper does all the effort to complete an activity 7 Patient refused to complete or attempt activity 9 The patient did not perform the activity before the current illness or injury 88 Not attempted due to Medical conditions or safety concerns Transfers (B, C, W/C) (FIM): 3 Scootin Rollin Supine to/from Sit: 3 Sit to/from Stand: 5 Bed to/from Chair: 5 Gait Training Does the Patient Walk?: Yes Gait (FIM): 4 Distance (FIM): 3=150 ft (155x2) Gait Level of Assist: 4 Gait Persons Needed: 1 Gait Assistive Device: FWW narrow ASHWIN, shuffled gait, does respond to skilled verbal cuing but then reverts back to narrow base etc. easily distracted Stair Training Stair Training: Handrails/: uses walker Stairs (FIM): 2 #of Steps: 4 Stairs: Pattern: Step to Level of Assist: 3 pt. anxious about steps but did well and followed all slow careful instruction Exercises Seated Therapy Exercises: Ankle pumps, Sit to stand, Long arc quads, Hip flexion, Hip abd/add Seated Reps: 10 NuStep Minutes: 12 NuStep Workload: 3 Treatments toileted self with only retrieval of pad Assessment Current Status: Good Progress all around progress noted PT Short Term Goals Short Term Goals Time Frame: Jun 06, 2016 Transfers (B,C,W/C) (FIM): 4 Gait (FIM): 2 Gait Distance Comment: 50' Gait Level of Assist: 4 Wheelchair Distance: 10' PT Chcf Goals Chcf Goals PT Gas Pumping Station Operator Goals Time Frame: Jun 20, 2016 Transfers (B,C,W/C) (FIM): 5 Sit to Lying (QC): 4 Lying-Sitting on Side/Bed(QC): 4 Sit to Stand (QC): 4 Rollin Roll Left to Right (QC): 4 Chair/Ttv-do-Nevyt Xfer(QC): 4 Car Transfer (QC): 3 Gait (FIM): 4 Distance: 150' Walk 10 feet (QC): 4 Walk 10ft-Uneven Surface(QC): 4 Walk 50ft with 2 Turns (QC): 4 Walk 150 ft (QC): 4 Gait Level of Assist: 4 Gait Assistive Device: FWW Stairs (FIM): 2 # of Steps: 4 1 Step (curb) (QC): 4 4 Steps (QC): 4 12 Steps (QC): 88 Stairs Level Of Assist: 4 Picking up an Object (QC): 88 PT Plan Treatment/Plan Treatment Plan: Continue Plan of Care Treatment Plan: Bed Mobility, Education, Functional Activity Jeffrey, Functional Strength, Group Therapy, Gait, Safety, Therapeutic Exercise, Transfers Treatment Duration: Jun 20, 2016 Visits Per Week: 10-11 Minutes/Day (M-F): 60-90 Minutes/Day (Sat/[place]): 15-30 Safety Risks/Education Patient Education: Gait Training, Transfer Techniques, Steps, Reviewed Precautions, Correct Positioning, Disease Process, Safety Issues Teaching Recipient: Patient Teaching Methods: Demonstration, Discussion Response to Teaching: Verbalize Understanding, Return Demonstration, Reinforcement Needed (needs much repetitive education and practice for functional mobility) Time/GCodes Time In: 1010 Time Out: 1110 Total Billed Treatment Time: 60 Total Billed Treatment 1,FA30m,EX15m,GT15m G Codes Necessary: JARED Salcedo STERNMAN Jun 11, 2016 11:11
[2016-06-11] MEDS: ENOXAPARIN 40 MG/0.4 ML (LOVENOX) SYR SC SCH (11:22)
[2016-06-11] MEDS: CLOPIDOGREL 75 MG (PLAVIX) TABLET PO SCH (11:22)
--- NOTE | 2016-06-11 14:40 | Therapy Group Daily Note ---
Therapy Daily Group Note Patient Education Topic Other List Below Exercises LE Seated Exercise, UE Exercise Other/Notes Pt was an active participant in OT/PT group. She introduced herself to the group for socialization by identifying her favorite job. She contributed to the discussion/education on the arthritic progress and joint protection and did seated UE, neck and trunk, and LE exercises and stretches . She walked with her FWW, SBA for safety, to and from group and was returned to her room, taken to the bathroom and left with a call light. Start Time: 13:00 Stop Time: 14:15 Total Billed Treatment Time: 75 Total Billed Treatment visit, 75 minutes group BELLA BERMUDEZ OT Jun 11, 2016 14:40
--- NOTE | 2016-06-11 14:46 | Occupational Ther Daily Note ---
OT Current Status-Daily Note Subjective Pt seen in room, up in recliner, agreeable to OT. No pain mentioned. Appearance Alert, cooperative Mental Status/Objective Functional [place] Measure 0=Not Assessed/NA 4=Minimal Assistance 1=Total Assistance 5=Supervision or Setup 2=Maximal Assistance 6=Modified [place] 3=Moderate Assistance 7=Complete [place] ADL-Treatment Pt recalled that she had hip precautions and knew that she wasn't supposed to reach for her socks as she was reaching for them. She also asked why she had to follow the precautions and for how long (this eduction has been provided multiple times). Pt declined to bathe but agreed to put on clean clothing. Functional [place] Measure 0=Not Assessed/NA 4=Minimal Assistance 1=Total Assistance 5=Supervision or Setup 2=Maximal Assistance 6=Modified [place] 3=Moderate Assistance 7=Complete IndependenceIRFPAI Quality Coding Scale 6 Independent with activity with or without an assistive device 5 Patient requires set up or clean up by helper. Patient completes activity by themselves 4 Supervision or touching assist (CGA). [place] provide cues , steadying assist 3 The helper provides less than half the effort to complete the activity 2 The helper provides more than half the effort to complete the activity 1 Dependent. The helper does all the effort to complete an activity 7 Patient refused to complete or attempt activity 9 The patient did not perform the activity before the current illness or injury 88 Not attempted due to Medical conditions or safety concerns Grooming (FIM): 5 (Pt stood SBA, FWW at sink to brush her teeth and hair, wash hands. She needed a reminder to keeo the walker in front of her for safety) Upper Body (FIM): 5 (Setup) Lower Body Dressing (FIM): 4 (Min assist, help with socks and shoes (R foot is still edematous). Practiced with sock aid and didn't like it. She used turnaround engineer to help get pants on and needs skilled cues for use to let go with L hand, pull pants up from behind the leg, squeeze the turnaround engineer. Stood SBA with FWW to pull pants up. ) Toileting (FIM): 5 (SBA when standing to manage clothing. pt needs supervision because she does not consistently recall hip precautions and follow them. BSC over toilet, grab bar, FWW) Transfers (B, C, W/C) (FIM): 5 (SBA, FWW. Occasional cues for hand placement. Struggles consistently between sitting and standing, pushing up adequately.) Toilet/Commode Transfer (FIM): 5 (SBA, FWW. occasional cues to manage FWW to sidestep toilet. ) Other Treatment Pt walked SBA, FWW to gym without stopping for a break. Occasional cues for picking up L foot instead of sliding it. In gym, pt did 15 minutes bilat UE exercise with 15 W resistance and no breaks. To help strengthen arms for transfers. Pt walked back to her room, toileted and left up in recliner, all needs met. Education OT Patient Education: Modified ADL techniques, Progress toward Goal/Update tx plan, Reviewed precautions, Safety issues, Transfer techniques Teaching Recipient: Patient Response to Teaching: Reinforcement Needed OT Short Term Goals Short Term Goals Time Frame: Jun 08, 2016 Lower Body Dressing(FIM): 3 Toileting(FIM): 3 Transfers (B,C,W/C) (FIM): 4 Toilet/Commode Transfer(FIM): 3 Additional Short Term Goals: 2-Verbalize Understanding, 3-ImproveStrength/Jeffrey 1=Demonstrate adherence to instructed precautions during ADL tasks. 2=Patient will verbalize/demonstrate understanding of assistive devices/ modifications for ADL. 3=Patient will improve strength/tolerance for activity to enable patient to perform ADL's. OT Shelter Goals Supervisor [employer] Canning Goals Time Frame: Jun 20, 2016 Eating (FIM): 6 Eating (QC): 6 Groomin Oral Hygiene (QC): 6 Bathing(FIM): 5 Shower/Bathe Self (QC): 5 Upper Body Dressing(FIM): 5 Upper Body Dressing (QC): 5 Lower Body Dressing(FIM): 5 Lower Body Dressing (QC): 5 On/Off Footwear (QC): 5 Toileting(FIM): 6 Toileting Hygiene (QC): 6 Transfers (B,C,W/C) (FIM): 5 Toilet/Commode Transfer(FIM): 6 Toilet/Commode Transfer (QC): 6 Shower Transfer(FIM): 5 Comprehension(FIM): 5 (MET) Expression (FIM): 5 (MET) Social Interaction(FIM): 5 (MET) Problem Solving(FIM): 4 (MET) Memory(FIM): 4 (NOT MET) Additional Goals: 2-Verbalize Understanding, 3-ImproveStrength/Jeffrey 1=Demonstrate adherence to instructed precautions during ADL tasks. 2=Patient will verbalize/demonstrate understanding of assistive devices/ modifications for ADL. 3=Patient will improve strength/tolerance for activity to enable patient to perform ADL's. OT Education/Plan Problem List/Assessment Pt would benefit from skilled OT to increase her independence in basic self care to allow her to return safely to her home and to decrease caregiver burden. Discharge Recommendations Plan/Recommendations: Continue POC Treatment Plan/Plan of Care Patient would benefit from OT for education, treatment and training to promote independence in ADL's, mobility, safety and/or upper extremity function for ADL' s. Plan of Care: ADL Retraining, Functional Mobility, Group Exercise/Act as Ind ( education, exercise, memory, functional activities, socialization), UE Funct Exercise/Act, UE Neuromus Re-Ed/Coord, W/C Management Training Treatment Duration: Jun 20, 2016 Visits Per Week: 10-11 Minutes/Day (M-F): 75-90 Minutes/Day (Sat/[place]): PRN Agreement: Yes Rehab Potential: Fair Time/GCodes Start Time: 08:15 Stop Time: 09:15 Total Time Billed (hr/min): 60 Billed Treatment Time visit, 35 minutes ADL, 25 minutes exercise BELLA BERMUDEZ OT Jun 11, 2016 14:46
[2016-06-11 17:39] VITALS: BP 134/84
[2016-06-11] MEDS: SIMvastatin 40 MG (ZOCOR) TAB PO SCH (20:14)
[2016-06-12 06:22] VITALS: BP 148/68
[2016-06-12] MEDS: LEVOTHYROXINE 25 MCG (LEVOTHROID) TAB PO SCH (06:27)
[2016-06-12] MEDS: MULTIVIT W/MINERALS TAB (THERAGRAN M) PO SCH (06:27)
[2016-06-12] MEDS: LEVOTHYROXINE 112 MCG (LEVOTHROID) TAB PO SCH (06:27)
[2016-06-12] MEDS: LACTOBACILLUS Acidoph/Bulgar (LACTINEX/FLORANEX) TAB PO SCH ×3 (06:27→16:08)
[2016-06-12] MEDS: ACETAMINOPHEN 325 MG TABLET/CAPLET (TYLENOL) PO PRN (07:57)
[2016-06-12] MEDS: FAMOTIDINE 20 MG (PEPCID) TABLET PO SCH ×2 (08:02→20:53)
[2016-06-12] MEDS: SENNOSIDES 8.6 MG (SENOKOT) TAB PO SCH ×2 (08:02→20:53)
[2016-06-12] MEDS: amLODIPine 5 MG (NORVASC) TAB PO SCH (08:02)
[2016-06-12] MEDS: ATENOLOL 50 MG (TENORMIN) TAB PO SCH (08:02)
[2016-06-12] MEDS: GABAPENTIN 300 MG (NEURONTIN) CAP PO SCH ×2 (08:03→20:53)
[2016-06-12] MEDS: ASPIRIN 81 MG CHEW (CHILDREN'S ASA) PO SCH (08:03)
[2016-06-12] MEDS: POLYETHYLENE GLYCOL 17 GM (MIRALAX) PACK PO SCH (08:04)
--- NOTE | 2016-06-12 09:35 | Physical Therapy Daily Note ---
PT Daily Note-Current Subjective Pt sitting in recliner upon arrival. Pt reports pain in R hip and LLE as well. Pt also wants to use restroom before leaving for Therapy. Pt agrees to PT. Pain Numeric Pain Scale: 7 Location: Right Location Body Site: Hip Pain Description: Ache Mental Status Patient Orientation: Person, Place Transfers Functional [place] Measure 0=Not Assessed/NA 4=Minimal Assistance 1=Total Assistance 5=Supervision or Setup 2=Maximal Assistance 6=Modified [place] 3=Moderate Assistance 7=Complete IndependenceIRFPAI Quality Coding Scale 6 Independent with activity with or without an assistive device 5 Patient requires set up or clean up by helper. Patient completes activity by themselves 4 Supervision or touching assist ([facility]). [place] provide cues , steadying assist 3 The helper provides less than half the effort to complete the activity 2 The helper provides more than half the effort to complete the activity 1 Dependent. The helper does all the effort to complete an activity 7 Patient refused to complete or attempt activity 9 The patient did not perform the activity before the current illness or injury 88 Not attempted due to Medical conditions or safety concerns Transfers (B, C, W/C) (FIM): 4 Scootin Sit to/from Stand: 4 Sit to Stand (QC): 4 Weight Bearing Weight Bearing Restriction: Full Weight Bearing Location Restriction: LE Bilateral Gait Training Does the Patient Walk?: Yes Distance (FIM): 3=150 ft Distance: 150' Walk 10 feet (QC): 4 Walk 50 ft with 2 Turns(QC): 4 Walk 150 ft (QC): 4 Gait Level of Assist: 4 Gait Persons Needed: 1 Gait Assistive Device: FWW Pt walks with slight shuffle and PT encourages pt to WB on RLE as much as she can to normalize gait. PT's gait is slow but steady, no LOB. Stair Training Stair Training: Handrails/: uses walker #of Steps: 2 1 Step (curb) (QC): 4 Stairs: Pattern: Step to Level of Assist: 4 Exercises NuStep Minutes: 10 NuStep Workload: 3 Treatments Pt transferred from recliner to standing using FWW at [facility]. Pt ambulated using FWW at [facility] with VC for normalizing gait. Pt uses restroom before leaving room for tx. Pt used NuStep for strengthening, activity tolerance and gaining ROM. Pt then was encouraged to try the single steps despite pt stating she isn't good at stairs. PT reports pt tried stairs yesterday with staff and did fine so pt tried. Pt returned to room to rest at end of tx. OT present and pt left with all needs met. Assessment Current Status: Good Progress Pt is improving with strength, balance and activity tolerance although pt still has some cognitive deficits with memory. PT Short Term Goals Short Term Goals Time Frame: Jun 06, 2016 Transfers (B,C,W/C) (FIM): 4 Gait (FIM): 2 Gait Distance Comment: 50' Gait Level of Assist: 4 Wheelchair Distance: 10' PT Penitentiary Goals Falsework Builder Goals PT Falsework Builder Goals Time Frame: Jun 20, 2016 Transfers (B,C,W/C) (FIM): 5 Sit to Lying (QC): 4 Lying-Sitting on Side/Bed(QC): 4 Sit to Stand (QC): 4 Rollin Roll Left to Right (QC): 4 Chair/[place] Xfer(QC): 4 Car Transfer (QC): 3 Gait (FIM): 4 Distance: 150' Walk 10 feet (QC): 4 Walk 10ft-Uneven Surface(QC): 4 Walk 50ft with 2 Turns (QC): 4 Walk 150 ft (QC): 4 Gait Level of Assist: 4 Gait Assistive Device: FWW Stairs (FIM): 2 # of Steps: 4 1 Step (curb) (QC): 4 4 Steps (QC): 4 12 Steps (QC): 88 Stairs Level Of Assist: 4 Picking up an Object (QC): 88 PT Plan Problem List Problem List: Activity Tolerance, Functional Strength, Safety, Balance, Gait, Transfer, Bed Mobility Treatment/Plan Treatment Plan: Continue Plan of Care Treatment Plan: Bed Mobility, Education, Functional Activity Jeffrey, Functional Strength, Group Therapy, Gait, Safety, Therapeutic Exercise, Transfers Treatment Duration: Jun 20, 2016 Visits Per Week: 10-11 Minutes/Day (M-F): 60-90 Minutes/Day (Sat/[place]): 15-30 Safety Risks/Education Patient Education: Gait Training, Transfer Techniques, Correct Positioning, Safety Issues Teaching Recipient: Patient Teaching Methods: Discussion Response to Teaching: Verbalize Understanding Time/GCodes Time In: 800 Time Out: 900 Total Billed Treatment Time: 60 Total Billed Treatment visit, FA X2 (30m), EX (15m) & GT (15m) SHEREE GARCIA POSTER Jun 12, 2016 09:35
[2016-06-12] MEDS: ENOXAPARIN 40 MG/0.4 ML (LOVENOX) SYR SC SCH (11:22)
--- NOTE | 2016-06-12 12:49 | Occupational Ther Daily Note ---
OT Current Status-Daily Note Subjective Pt seen in room, up in recliner after PT. Agreeable to OT and ADLs. No pain mentioned. Appearance Alert, cooperative Mental Status/Objective Functional [place] Measure 0=Not Assessed/NA 4=Minimal Assistance 1=Total Assistance 5=Supervision or Setup 2=Maximal Assistance 6=Modified [place] 3=Moderate Assistance 7=Complete [place] ADL-Treatment Pt was able to verbalize that "Oh, I'm not supposed to put my feet together" or "I'm leaving it on the floor because I'm not supposed to bend over and get it" but does not recall why she has these precautions or for how long. She says frequently, "This is awkward." Functional [place] Measure 0=Not Assessed/NA 4=Minimal Assistance 1=Total Assistance 5=Supervision or Setup 2=Maximal Assistance 6=Modified [place] 3=Moderate Assistance 7=Complete IndependenceIRFPAI Quality Coding Scale 6 Independent with activity with or without an assistive device 5 Patient requires set up or clean up by helper. Patient completes activity by themselves 4 Supervision or touching assist (CGA). [place] provide cues , steadying assist 3 The helper provides less than half the effort to complete the activity 2 The helper provides more than half the effort to complete the activity 1 Dependent. The helper does all the effort to complete an activity 7 Patient refused to complete or attempt activity 9 The patient did not perform the activity before the current illness or injury 88 Not attempted due to Medical conditions or safety concerns Eating (FIM): 7 (Orders food herself and doesn't need help opening packages or feeding herself. No dentures) Eating (QC): 6 Grooming (FIM): 5 (SBA at sink to wash hands, brush hair. FWW) Bathing (FIM): 5 (Setup to turn water on and adjust it. Washed and dried all parts with skilled cues and education on how to dry her feet with towel on long handled sponge. General supervision to assure she follow hip precautions.) Shower/Bathe Self (QC): 4 (supervision) Upper Body (FIM): 5 (setup) Upper Body Dressing (QC): 4 (Help with socks and shoes. SUpervision when standing and for use of information assurance, dressing stick) Lower Body Dressing (FIM): 4 (Needs help with socks and shoes. SBA when standing, FWW) Lower Body Dressing (QC): 4 (Supervision for use of AD and following hip precautions) Toileting (FIM): 5 (SBA BSC over toilet, FWW. managed hygiene and clothing) Toileting Hygiene (QC): 5 Transfers (B, C, W/C) (FIM): 5 (recalls hand placement. Struggles a little with sit to stand, FWW) Toilet/Commode Transfer (FIM): 5 (BSC over toilet) Toilet Transfer (QC): 5 (SBA) Shower Transfer(FIM): 4 (Difficulty sidestepping to get into shower, using grab bars and shower bench) Pt may leave Saturday to [facility]. She reported "I'm really scared to live alone now. " Education OT Patient Education: Modified ADL techniques, Progress toward Goal/Update tx plan, Purpose of tx/functional activities, Safety issues, Transfer techniques, Use of adapted equipment Teaching Recipient: Patient Teaching Methods: Demonstration, Discussion Response to Teaching: Return Demonstration OT Short Term Goals Short Term Goals Time Frame: Jun 08, 2016 Lower Body Dressing(FIM): 3 Toileting(FIM): 3 Transfers (B,C,W/C) (FIM): 4 Toilet/Commode Transfer(FIM): 3 Additional Short Term Goals: 2-Verbalize Understanding, 3-ImproveStrength/Jeffrey 1=Demonstrate adherence to instructed precautions during ADL tasks. 2=Patient will verbalize/demonstrate understanding of assistive devices/ modifications for ADL. 3=Patient will improve strength/tolerance for activity to enable patient to perform ADL's. OT Creel Clerk Goals Creel Clerk Goals Time Frame: Jun 20, 2016 Eating (FIM): 6 Eating (QC): 6 Groomin Oral Hygiene (QC): 6 Bathing(FIM): 5 Shower/Bathe Self (QC): 5 Upper Body Dressing(FIM): 5 Upper Body Dressing (QC): 5 Lower Body Dressing(FIM): 5 Lower Body Dressing (QC): 5 On/Off Footwear (QC): 5 Toileting(FIM): 6 Toileting Hygiene (QC): 6 Transfers (B,C,W/C) (FIM): 5 Toilet/Commode Transfer(FIM): 6 Toilet/Commode Transfer (QC): 6 Shower Transfer(FIM): 5 Comprehension(FIM): 5 (MET) Expression (FIM): 5 (MET) Social Interaction(FIM): 5 (MET) Problem Solving(FIM): 4 (MET) Memory(FIM): 4 (NOT MET) Additional Goals: 2-Verbalize Understanding, 3-ImproveStrength/Jeffrey 1=Demonstrate adherence to instructed precautions during ADL tasks. 2=Patient will verbalize/demonstrate understanding of assistive devices/ modifications for ADL. 3=Patient will improve strength/tolerance for activity to enable patient to perform ADL's. OT Education/Plan Problem List/Assessment Pt would benefit from skilled OT to increase her independence in basic self care to allow her to return safely to her home and to decrease caregiver burden. Discharge Recommendations Plan/Recommendations: Continue POC Treatment Plan/Plan of Care Patient would benefit from OT for education, treatment and training to promote independence in ADL's, mobility, safety and/or upper extremity function for ADL' s. Plan of Care: ADL Retraining, Functional Mobility, Group Exercise/Act as Ind ( education, exercise, memory, functional activities, socialization), UE Funct Exercise/Act, UE Neuromus Re-Ed/Coord, W/C Management Training Treatment Duration: Jun 20, 2016 Visits Per Week: 10-11 Minutes/Day (M-F): 75-90 Minutes/Day (Sat/[place]): PRN Agreement: Yes Rehab Potential: Fair Time/GCodes Start Time: 09:00 Stop Time: 10:00 Total Time Billed (hr/min): 60 Billed Treatment Time visit, 60 minutes ADL BELLA BERMUDEZ OT Jun 12, 2016 12:49
--- NOTE | 2016-06-12 13:26 | Occupational Ther Daily Note ---
OT Current Status-Daily Note Subjective Pt seen in room, up in recliner, agreeable to OT. No pain mentioned. Appearance Alert, cooperative but indicated she had been dozing in the recliner. Mental Status/Objective Functional [place] Measure 0=Not Assessed/NA 4=Minimal Assistance 1=Total Assistance 5=Supervision or Setup 2=Maximal Assistance 6=Modified [place] 3=Moderate Assistance 7=Complete [place] ADL-Treatment Pt declined to brush her teeth. Functional [place] Measure 0=Not Assessed/NA 4=Minimal Assistance 1=Total Assistance 5=Supervision or Setup 2=Maximal Assistance 6=Modified [place] 3=Moderate Assistance 7=Complete IndependenceIRFPAI Quality Coding Scale 6 Independent with activity with or without an assistive device 5 Patient requires set up or clean up by helper. Patient completes activity by themselves 4 Supervision or touching assist (CGA). [place] provide cues , steadying assist 3 The helper provides less than half the effort to complete the activity 2 The helper provides more than half the effort to complete the activity 1 Dependent. The helper does all the effort to complete an activity 7 Patient refused to complete or attempt activity 9 The patient did not perform the activity before the current illness or injury 88 Not attempted due to Medical conditions or safety concerns Grooming (FIM): 5 (Washed hands at sink, FWW. SKilled cues to get closer to sink for safety. ) Toileting (FIM): 5 (Sba, supervision for hip precautions. Pt dropped wipes on floor and said, "I'm just going to leave them there because I know I"m not supposed to bend over to pick them up." Managed clothing, hygiene) Toilet/Commode Transfer (FIM): 5 (SBA, FWW, BSC over toilet, grab bar) Other Treatment Pt returned to shower chair with SBA-CGA. FWW for walking. No cues needed for hand placement or positioning before sitting down. Pt did 15 reps bila UE exercise with yellow theraband (increased reps). She had some difficulty switching side but was able to track repetitions (if she was interrupted, often had to start over with counting.) UE exercise to strengthen arms for sit to stand and for standing during ADLs. Pt left up in recliner, all needs met. Education OT Patient Education: Exercise program, Progress toward Goal/Update tx plan, Purpose of tx/functional activities, Safety issues Teaching Recipient: Patient Response to Teaching: Reinforcement Needed OT Short Term Goals Short Term Goals Time Frame: Jun 08, 2016 Lower Body Dressing(FIM): 3 Toileting(FIM): 3 Transfers (B,C,W/C) (FIM): 4 Toilet/Commode Transfer(FIM): 3 Additional Short Term Goals: 2-Verbalize Understanding, 3-ImproveStrength/Jeffrey 1=Demonstrate adherence to instructed precautions during ADL tasks. 2=Patient will verbalize/demonstrate understanding of assistive devices/ modifications for ADL. 3=Patient will improve strength/tolerance for activity to enable patient to perform ADL's. OT Residential Goals Nutritional Services Cook Goals Time Frame: Jun 20, 2016 Eating (FIM): 6 Eating (QC): 6 Groomin Oral Hygiene (QC): 6 Bathing(FIM): 5 Shower/Bathe Self (QC): 5 Upper Body Dressing(FIM): 5 Upper Body Dressing (QC): 5 Lower Body Dressing(FIM): 5 Lower Body Dressing (QC): 5 On/Off Footwear (QC): 5 Toileting(FIM): 6 Toileting Hygiene (QC): 6 Transfers (B,C,W/C) (FIM): 5 Toilet/Commode Transfer(FIM): 6 Toilet/Commode Transfer (QC): 6 Shower Transfer(FIM): 5 Comprehension(FIM): 5 (MET) Expression (FIM): 5 (MET) Social Interaction(FIM): 5 (MET) Problem Solving(FIM): 4 (MET) Memory(FIM): 4 (NOT MET) Additional Goals: 2-Verbalize Understanding, 3-ImproveStrength/Jeffrey 1=Demonstrate adherence to instructed precautions during ADL tasks. 2=Patient will verbalize/demonstrate understanding of assistive devices/ modifications for ADL. 3=Patient will improve strength/tolerance for activity to enable patient to perform ADL's. OT Education/Plan Problem List/Assessment Pt would benefit from skilled OT to increase her independence in basic self care to allow her to return safely to her home and to decrease caregiver burden. Discharge Recommendations Plan/Recommendations: Continue POC Treatment Plan/Plan of Care Patient would benefit from OT for education, treatment and training to promote independence in ADL's, mobility, safety and/or upper extremity function for ADL' s. Plan of Care: ADL Retraining, Functional Mobility, Group Exercise/Act as Ind ( education, exercise, memory, functional activities, socialization), UE Funct Exercise/Act, UE Neuromus Re-Ed/Coord, W/C Management Training Treatment Duration: Jun 20, 2016 Visits Per Week: 10-11 Minutes/Day (M-F): 75-90 Minutes/Day (Sat/[place]): PRN Agreement: Yes Rehab Potential: Fair Time/GCodes Start Time: 11:15 Stop Time: 11:45 Total Time Billed (hr/min): 30 Billed Treatment Time visit, 15 minutes ADL, 15 minutes exercise BELLA BERMUDEZ OT Jun 12, 2016 13:26
--- NOTE | 2016-06-12 15:16 | Physical Therapy Daily Note ---
PT Daily Note-Current Subjective Pt sitting in recliner after just finishing lunch upon arrival. Pt agrees to PT but reports needing to use restroom before leaving room. Mental Status Patient Orientation: Person, Place Transfers Functional [place] Measure 0=Not Assessed/NA 4=Minimal Assistance 1=Total Assistance 5=Supervision or Setup 2=Maximal Assistance 6=Modified [place] 3=Moderate Assistance 7=Complete IndependenceIRFPAI Quality Coding Scale 6 Independent with activity with or without an assistive device 5 Patient requires set up or clean up by helper. Patient completes activity by themselves 4 Supervision or touching assist (CGA). [place] provide cues , steadying assist 3 The helper provides less than half the effort to complete the activity 2 The helper provides more than half the effort to complete the activity 1 Dependent. The helper does all the effort to complete an activity 7 Patient refused to complete or attempt activity 9 The patient did not perform the activity before the current illness or injury 88 Not attempted due to Medical conditions or safety concerns Scootin Sit to/from Stand: 5 Sit to Stand (QC): 5 Weight Bearing Weight Bearing Restriction: Full Weight Bearing Location Restriction: LE Bilateral Gait Training Does the Patient Walk?: Yes Distance (FIM): [phone] ft Distance: 50' Walk 10 feet (QC): 4 Walk 50 ft with 2 Turns(QC): 4 Gait Level of Assist: 4 Gait Persons Needed: 1 Gait Assistive Device: FWW Pt walks with slow shuffle of feet even with VC for more WB on RLE. Wheelchair Training Does the Pt Use a Wheelchair?: No Exercises Seated Therapy Exercises: Ankle pumps, Long arc quads, Hip flexion, Kicking activity Seated Reps: 20 Treatments Pt transferred from recliner using FWW at [facility]. Pt ambulates to restroom using FWW at [facility]. Pt then uses restroom first to urinate then pt has BM. After finishing with restroom, pt needs to return to recliner to rest. Pt completes Seated EX in recliner and rests at end of tx. Pt is left with all needs met at end of tx. Assessment Current Status: Fair Progress Pt moves slowly with tasks and likes to visit so pt gets off task easily. Pt fatigues easy and needs rest breaks. Pt is motivated to get home but doesn't want to complete therapy though. PT Short Term Goals Short Term Goals Time Frame: Jun 06, 2016 Transfers (B,C,W/C) (FIM): 4 Gait (FIM): 2 Gait Distance Comment: 50' Gait Level of Assist: 4 Wheelchair Distance: 10' PT Senior Living Goals Detonator Assembler Goals PT Senior Living Goals Time Frame: Jun 20, 2016 Transfers (B,C,W/C) (FIM): 5 Sit to Lying (QC): 4 Lying-Sitting on Side/Bed(QC): 4 Sit to Stand (QC): 4 Rollin Roll Left to Right (QC): 4 Chair/Acr-ij-Bankx Xfer(QC): 4 Car Transfer (QC): 3 Gait (FIM): 4 Distance: 150' Walk 10 feet (QC): 4 Walk 10ft-Uneven Surface(QC): 4 Walk 50ft with 2 Turns (QC): 4 Walk 150 ft (QC): 4 Gait Level of Assist: 4 Gait Assistive Device: FWW Stairs (FIM): 2 # of Steps: 4 1 Step (curb) (QC): 4 4 Steps (QC): 4 12 Steps (QC): 88 Stairs Level Of Assist: 4 Picking up an Object (QC): 88 PT Plan Problem List Problem List: Activity Tolerance, Functional Strength, Safety, Balance, Gait, Transfer, Bed Mobility Treatment/Plan Treatment Plan: Continue Plan of Care Treatment Plan: Bed Mobility, Education, Functional Activity Jeffrey, Functional Strength, Group Therapy, Gait, Safety, Therapeutic Exercise, Transfers Treatment Duration: Jun 20, 2016 Visits Per Week: 10-11 Minutes/Day (M-F): 60-90 Minutes/Day (Sat/[place]): 15-30 Safety Risks/Education Patient Education: Gait Training, Transfer Techniques, Correct Positioning, Safety Issues Teaching Recipient: Patient Teaching Methods: Discussion Response to Teaching: Reinforcement Needed Time/GCodes Time In: 1330 Time Out: 1400 Total Billed Treatment Time: 30 Total Billed Treatment visit, FA (20m) & EX (10m) SHEREE GARCIA PTA Jun 12, 2016 15:16
[2016-06-12 18:15] VITALS: BP 145/83
[2016-06-12] MEDS: SIMvastatin 40 MG (ZOCOR) TAB PO SCH (20:53)
--- NOTE | 2016-06-12 21:23 | PM & R (SOAP) Progress Note ---
Subjective Subjective/Events-last exam Patient was seen in her room this evening Patient min assist for transfers Objective Exam Last Set of Vital Signs Vital Signs Date Time Temp Pulse Resp B/P (MAP) Pulse Ox O2 Delivery O2 Flow Rate FiO2 06/12/16 18:15 96.7 64 20 145/83 95 Room Air Capillary Refill : Less Than 3 Seconds I&O Intake and Output 06/12/16 00:00 Intake Total 1260 ml Output Total 100 ml Balance 1160 ml Intake Oral 1260 ml Output Urine Total 100 ml # Voids 8 # Bowel Movements 2 General: Alert, Oriented X3, Cooperative, No Acute Distress HEENT: Atraumatic, PERRLA, EOMI, Mucous Memb Moist/[place] Neck: Supple, No JVD Lungs: Clear to Auscultation Heart: Regular Rate Abdomen: Normal Bowel Sounds Extremities: Other ( mild tenderness at hip) Neuro: Other (weakness proximal rt hip s/p frx and repair) Assessment/Plan Assessment 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
[2016-06-13] MEDS: ACETAMINOPHEN 325 MG TABLET/CAPLET (TYLENOL) PO PRN (04:06)
[2016-06-13 05:00] VITALS: BP 149/75
[2016-06-13] MEDS: MULTIVIT W/MINERALS TAB (THERAGRAN M) PO SCH (06:27)
[2016-06-13] MEDS: LEVOTHYROXINE 112 MCG (LEVOTHROID) TAB PO SCH (06:27)
[2016-06-13] MEDS: LACTOBACILLUS Acidoph/Bulgar (LACTINEX/FLORANEX) TAB PO SCH ×3 (06:28→16:33)
[2016-06-13] MEDS: LEVOTHYROXINE 25 MCG (LEVOTHROID) TAB PO SCH (06:29)
[2016-06-13] MEDS: GABAPENTIN 300 MG (NEURONTIN) CAP PO SCH ×2 (08:31→20:34)
[2016-06-13] MEDS: ATENOLOL 50 MG (TENORMIN) TAB PO SCH (08:31)
[2016-06-13] MEDS: SENNOSIDES 8.6 MG (SENOKOT) TAB PO SCH ×3 (08:31→21:00)
[2016-06-13] MEDS: ASPIRIN 81 MG CHEW (CHILDREN'S ASA) PO SCH (08:31)
[2016-06-13] MEDS: FAMOTIDINE 20 MG (PEPCID) TABLET PO SCH ×2 (08:31→20:34)
[2016-06-13] MEDS: amLODIPine 5 MG (NORVASC) TAB PO SCH (08:31)
[2016-06-13] MEDS: POLYETHYLENE GLYCOL 17 GM (MIRALAX) PACK PO SCH (08:32)
--- NOTE | 2016-06-13 10:48 | Occupational Ther Daily Note ---
OT Current Status-Daily Note Subjective Pt seen in room, up in recliner, agreeable to OT. No pain mentioned except itching under dressing on hip (nursing notified). Appearance Alert, cooperative Mental Status/Objective Functional [place] Measure 0=Not Assessed/NA 4=Minimal Assistance 1=Total Assistance 5=Supervision or Setup 2=Maximal Assistance 6=Modified [place] 3=Moderate Assistance 7=Complete [place] ADL-Treatment Pt knows about 40-50% of the time to follow her hip precautions and stops her activity before OT intervention. Still asks how long she will have to follow the precautions and how long she will have to use a walker. Functional [place] Measure 0=Not Assessed/NA 4=Minimal Assistance 1=Total Assistance 5=Supervision or Setup 2=Maximal Assistance 6=Modified [place] 3=Moderate Assistance 7=Complete IndependenceIRFPAI Quality Coding Scale 6 Independent with activity with or without an assistive device 5 Patient requires set up or clean up by helper. Patient completes activity by themselves 4 Supervision or touching assist (CGA). [place] provide cues , steadying assist 3 The helper provides less than half the effort to complete the activity 2 The helper provides more than half the effort to complete the activity 1 Dependent. The helper does all the effort to complete an activity 7 Patient refused to complete or attempt activity 9 The patient did not perform the activity before the current illness or injury 88 Not attempted due to Medical conditions or safety concerns Grooming (FIM): 5 (Stood at sink supervision to brush teeth and wash face and hands. Skilled cues to get close to sink for safety. Very careful when backing up away from sink with FWW.) Upper Body (FIM): 5 (Setup, done seated) Lower Body Dressing (FIM): 4 (Pt consistently needs instruction in use of professor of business administration or dressing stick, where to place it, what to do with L hand, which one to use. Needs occasional hands on assistance. Nursing students put KENNETH hose on but pt practiced using long handled shoe horn to put shoes on - a little more difficult on R due to edema in foot) Toileting (FIM): 5 (Supervision to make sure she doesn't break her hip precautions if her pants drop below here knees. Pt is able to manage clothing otherwise and change pads in her panties, manage hygiene) Transfers (B, C, W/C) (FIM): 5 (SBA, FWW. Still needs occasional cues for hand placement with sit to stand and stand to sit and gets stuck at midpoint of transfer at times) Toilet/Commode Transfer (FIM): 5 (SBA, BSC over toilet, FWW) Other Treatment Pt did 15 reps bilat UE exercise with yellow theraband, to strengthen arms to help with transfers and sit to stand during ADLs. Pt has difficulty switching sides with the same exercise and loses her place when counting if interrupted. Pt left up in recliner, all needs met. Education OT Patient Education: Exercise program, Modified ADL techniques, Purpose of tx/ functional activities, Reviewed precautions, Safety issues, Transfer techniques , Use of adapted equipment Teaching Recipient: Patient Teaching Methods: Demonstration, Discussion Response to Teaching: Reinforcement Needed OT Short Term Goals Short Term Goals Time Frame: Jun 08, 2016 Lower Body Dressing(FIM): 3 Toileting(FIM): 3 Transfers (B,C,W/C) (FIM): 4 Toilet/Commode Transfer(FIM): 3 Additional Short Term Goals: 2-Verbalize Understanding, 3-ImproveStrength/Jeffrey 1=Demonstrate adherence to instructed precautions during ADL tasks. 2=Patient will verbalize/demonstrate understanding of assistive devices/ modifications for ADL. 3=Patient will improve strength/tolerance for activity to enable patient to perform ADL's. OT Supply Chain Vice President Goals [facility] Goals Time Frame: Jun 20, 2016 Eating (FIM): 6 Eating (QC): 6 Groomin Oral Hygiene (QC): 6 Bathing(FIM): 5 Shower/Bathe Self (QC): 5 Upper Body Dressing(FIM): 5 Upper Body Dressing (QC): 5 Lower Body Dressing(FIM): 5 Lower Body Dressing (QC): 5 On/Off Footwear (QC): 5 Toileting(FIM): 6 Toileting Hygiene (QC): 6 Transfers (B,C,W/C) (FIM): 5 Toilet/Commode Transfer(FIM): 6 Toilet/Commode Transfer (QC): 6 Shower Transfer(FIM): 5 Comprehension(FIM): 5 (MET) Expression (FIM): 5 (MET) Social Interaction(FIM): 5 (MET) Problem Solving(FIM): 4 (MET) Memory(FIM): 4 (NOT MET) Additional Goals: 2-Verbalize Understanding, 3-ImproveStrength/Jeffrey 1=Demonstrate adherence to instructed precautions during ADL tasks. 2=Patient will verbalize/demonstrate understanding of assistive devices/ modifications for ADL. 3=Patient will improve strength/tolerance for activity to enable patient to perform ADL's. OT Education/Plan Problem List/Assessment Pt would benefit from skilled OT to increase her independence in basic self care to allow her to return safely to her home and to decrease caregiver burden. Discharge Recommendations Plan/Recommendations: Continue POC Treatment Plan/Plan of Care Patient would benefit from OT for education, treatment and training to promote independence in ADL's, mobility, safety and/or upper extremity function for ADL' s. Plan of Care: ADL Retraining, Functional Mobility, Group Exercise/Act as Ind ( education, exercise, memory, functional activities, socialization), UE Funct Exercise/Act, UE Neuromus Re-Ed/Coord, W/C Management Training Treatment Duration: Jun 20, 2016 Visits Per Week: 10-11 Minutes/Day (M-F): 75-90 Minutes/Day (Sat/[place]): PRN Agreement: Yes Rehab Potential: Fair Time/GCodes Start Time: 08:30 Stop Time: 09:30 Total Time Billed (hr/min): 60 Billed Treatment Time visit, 50 minutes ADL, 10 minutes exercise BELLA BERMUDEZ OT Jun 13, 2016 10:47
--- NOTE | 2016-06-13 11:13 | PM & R (SOAP) Progress Note ---
Subjective Subjective/Events-last exam Patient was seen in her room this AM Patient SBA for transfers Objective Exam Last Set of Vital Signs Vital Signs Date Time Temp Pulse Resp B/P (MAP) Pulse Ox O2 Delivery O2 Flow Rate FiO2 06/13/16 05:00 98.4 74 22 149/75 95 Room Air Capillary Refill : Less Than 3 Seconds I&O Intake and Output 06/13/16 00:00 Intake Total 1160 ml Balance 1160 ml Intake Oral 1160 ml # Voids 7 # Bowel Movements 1 General: Alert, Oriented X3, Cooperative, No Acute Distress HEENT: Atraumatic, PERRLA, EOMI, Mucous Memb Moist/[place] Neck: Supple, No JVD Lungs: Clear to Auscultation Heart: Regular Rate Abdomen: Normal Bowel Sounds Extremities: Other ( mild tenderness at hip) Neuro: Other (weakness proximal rt hip s/p frx and repair) Assessment/Plan Assessment 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 DR Rose 05/27/16 HTN better controlled with adjustment in meds UTI treated Hypothyroidism-on replacement Mild postop anemia-improving Mild cognitive deficits ST has addressed Hypocalcemia Postop constipation improved Plan Continue PT/OT/ST Check labs-done F/U with PCP and cardiology prn Appreciate DR Lam and cardiology notes and orders Pain management as needed Check Incision-done Appreciate Dr Ribera note Team Conference later today-See report for full functional update and POC and BRITTA COLLINS MD Jun 13, 2016 11:13
[2016-06-13] MEDS: CLOPIDOGREL 75 MG (PLAVIX) TABLET PO SCH (11:16)
[2016-06-13] MEDS: ENOXAPARIN 40 MG/0.4 ML (LOVENOX) SYR SC SCH (11:16)
--- NOTE | 2016-06-13 11:25 | Progress Note-Standard ---
Standard Progress Note Progress Notes/Assess & Plan Progress/Assessment & Plan To IRU feeling better today RLE--dressing intact. Neg Ava's. Neg SLR s/p R bipolar continue PT/OT Final Diagnosis No complaints R hip sharonda out. No calf tenderness s/p r bipolar replacement f/u 3 weeks post discharge ROLO JO MD Jun 13, 2016 11:24
--- NOTE | 2016-06-13 12:31 | Physical Therapy Daily Note ---
PT Daily Note-Current Subjective Pt sitting in recliner upon arrival. Pt reports needing to use restroom but agrees to PT. Pain Numeric Pain Scale: 8 Location: Right Location Body Site: Hip Pain Description: Ache Mental Status Patient Orientation: Person, Place Transfers Functional [place] Measure 0=Not Assessed/NA 4=Minimal Assistance 1=Total Assistance 5=Supervision or Setup 2=Maximal Assistance 6=Modified [place] 3=Moderate Assistance 7=Complete IndependenceIRFPAI Quality Coding Scale 6 Independent with activity with or without an assistive device 5 Patient requires set up or clean up by helper. Patient completes activity by themselves 4 Supervision or touching assist (CGA). [place] provide cues , steadying assist 3 The helper provides less than half the effort to complete the activity 2 The helper provides more than half the effort to complete the activity 1 Dependent. The helper does all the effort to complete an activity 7 Patient refused to complete or attempt activity 9 The patient did not perform the activity before the current illness or injury 88 Not attempted due to Medical conditions or safety concerns Sc[place]in Sit to/from Stand: 5 Sit to Stand (QC): 5 Chair/[id number] Xfer(QC): 5 Bed to/from Chair: 5 Weight Bearing Weight Bearing Restriction: Full Weight Bearing Location Restriction: LE Bilateral Gait Training Does the Patient Walk?: Yes Distance (FIM): 3=150 ft Distance: 200' Walk 10 feet (QC): 5 Walk 50 ft with 2 Turns(QC): 5 Walk 150 ft (QC): 5 Gait Level of Assist: 5 Gait Persons Needed: 1 Gait Assistive Device: FWW Pt walks with slight shuffle but Pt encourages pt to normalize gait. Pt's sonia is slow but steady, no LOB. Wheelchair Training Does the Pt Use a Wheelchair?: No Stair Training Stair Training: Handrails/: 2 handrails #of Steps: 4 1 Step (curb) (QC): 4 4 Steps (QC): 4 Stairs: Pattern: Step to Level of Assist: 4 Exercises Seated Therapy Exercises: Ankle pumps, Long arc quads, Hip flexion, Kicking activity Seated Reps: 15 NuStep Minutes: 15 NuStep Workload: 3 Treatments Pt transferred from recliner to standing using FWW at [facility]. Pt ambulated using FWW at [facility]. Pt used restroom before leaving for tx. Pt then used NuStep to help loose LE muscles for additional tasks. Pt then attempted 1 flight (4 steps ) at [facility] with VC for hand placement and sequencing. Pt then rested in chair before completing Seated EX. Pt ambulated back to room and rest in recliner at end of tx with all needs met. Assessment Current Status: Good Progress Pt is still fearful of falling especially with new tasks bu can be encouraged to try new tasks and is able to complete them better than she anticipates. Pt is improving with transfers. PT Short Term Goals Short Term Goals Time Frame: Jun 06, 2016 Transfers (B,C,W/C) (FIM): 4 Gait (FIM): 2 Gait Distance Comment: 50' Gait Level of Assist: 4 Wheelchair Distance: 10' PT Parking Technician Goals Parking Technician Goals PT Halfway Goals Time Frame: Jun 20, 2016 Transfers (B,C,W/C) (FIM): 5 Sit to Lying (QC): 4 Lying-Sitting on Side/Bed(QC): 4 Sit to Stand (QC): 4 Rollin Roll Left to Right (QC): 4 Chair/Cmw-qp-Kuwdz Xfer(QC): 4 Car Transfer (QC): 3 Gait (FIM): 4 Distance: 150' Walk 10 feet (QC): 4 Walk 10ft-Uneven Surface(QC): 4 Walk 50ft with 2 Turns (QC): 4 Walk 150 ft (QC): 4 Gait Level of Assist: 4 Gait Assistive Device: FWW Stairs (FIM): 2 # of Steps: 4 1 Step (curb) (QC): 4 4 Steps (QC): 4 12 Steps (QC): 88 Stairs Level Of Assist: 4 Picking up an Object (QC): 88 PT Plan Problem List Problem List: Activity Tolerance, Functional Strength, Safety, Balance, Gait Treatment/Plan Treatment Plan: Continue Plan of Care Treatment Plan: Bed Mobility, Education, Functional Activity [place], Functional Strength, Group Therapy, Gait, Safety, Therapeutic Exercise, Transfers Treatment Duration: Jun 20, 2016 Visits Per Week: 10-11 Minutes/Day (M-F): 60-90 Minutes/Day (Sat/[place]): 15-30 Safety Risks/Education Patient Education: Gait Training, Transfer Techniques, Steps, Correct Positioning, Safety Issues Teaching Recipient: Patient Teaching Methods: Discussion Response to Teaching: Reinforcement Needed Time/GCodes Time In: 1000 Time Out: 1100 Total Billed Treatment Time: 60 Total Billed Treatment visit, GT (15m), FA (15m) & EX x2 (30m) SHEREE GARCIA ASSEMBLER EQUIPMENT Jun 13, 2016 12:31
--- NOTE | 2016-06-13 14:28 | Therapy Group Daily Note ---
Therapy Daily Group Note Patient Education Topic Other List Below Other/Notes Pt was an active participant in PT/OT group. She introduced herself for socialization by sharing how she came to [place] (to be with her daughter.). She contributed to discussion/education on transfer modes and techniques and demonstrated good hand placement when getting up to go back to room. She also listened to education on the rehab process and shared "Words of [place]" for others. She did chair pushups to help strengthen arms for transfers and walked back to her room with SBA for safety, FWW and was taken to the toilet, call light present, nursing notified. Start Time: 13:00 Stop Time: 14:15 Total Billed Treatment Time: 75 Total Billed Treatment visit, group 75 minutes BELLA BERMUDEZ OT Jun 13, 2016 14:28
[2016-06-13 18:30] VITALS: BP 136/68
[2016-06-13] MEDS: SIMvastatin 40 MG (ZOCOR) TAB PO SCH (20:34)
[2016-06-14] MEDS: MULTIVIT W/MINERALS TAB (THERAGRAN M) PO SCH (06:10)
[2016-06-14] MEDS: LEVOTHYROXINE 25 MCG (LEVOTHROID) TAB PO SCH (06:10)
[2016-06-14] MEDS: LACTOBACILLUS Acidoph/Bulgar (LACTINEX/FLORANEX) TAB PO SCH ×3 (06:10→15:53)
[2016-06-14] MEDS: LEVOTHYROXINE 112 MCG (LEVOTHROID) TAB PO SCH (06:10)
[2016-06-14 06:34] VITALS: BP 157/89
[2016-06-14] MEDS: POLYETHYLENE GLYCOL 17 GM (MIRALAX) PACK PO SCH (09:00)
[2016-06-14] MEDS: SENNOSIDES 8.6 MG (SENOKOT) TAB PO SCH ×2 (09:00→20:29)
[2016-06-14] MEDS: GABAPENTIN 300 MG (NEURONTIN) CAP PO SCH ×2 (09:01→20:28)
[2016-06-14] MEDS: ASPIRIN 81 MG CHEW (CHILDREN'S ASA) PO SCH (09:01)
[2016-06-14] MEDS: amLODIPine 5 MG (NORVASC) TAB PO SCH (09:01)
[2016-06-14] MEDS: ATENOLOL 50 MG (TENORMIN) TAB PO SCH (09:01)
[2016-06-14] MEDS: FAMOTIDINE 20 MG (PEPCID) TABLET PO SCH ×2 (09:01→20:28)
--- NOTE | 2016-06-14 09:59 | Physical Therapy Daily Note ---
PT Daily Note-Current Subjective Pt sitting in recliner upon arrival. Pt report needing to use restroom and wanting robe to cover up before leaving for tx. Pt agrees to PT. Pain Numeric Pain Scale: 7 Location: Right Location Body Site: Hip Pain Description: Ache, Tightness Mental Status Patient Orientation: Person, Place Transfers Functional [place] Measure 0=Not Assessed/NA 4=Minimal Assistance 1=Total Assistance 5=Supervision or Setup 2=Maximal Assistance 6=Modified [place] 3=Moderate Assistance 7=Complete IndependenceIRFPAI Quality Coding Scale 6 Independent with activity with or without an assistive device 5 Patient requires set up or clean up by helper. Patient completes activity by themselves 4 Supervision or touching assist (CGA). Mckenna provide cues , steadying assist 3 The helper provides less than half the effort to complete the activity 2 The helper provides more than half the effort to complete the activity 1 Dependent. The helper does all the effort to complete an activity 7 Patient refused to complete or attempt activity 9 The patient did not perform the activity before the current illness or injury 88 Not attempted due to Medical conditions or safety concerns Scootin Sit to/from Stand: 5 Sit to Stand (QC): 5 Weight Bearing Weight Bearing Restriction: Full Weight Bearing Location Restriction: LE Bilateral Gait Training Does the Patient Walk?: Yes Distance (FIM): 3=150 ft Distance: 150 Walk 10 feet (QC): 4 Walk 50 ft with 2 Turns(QC): 4 Walk 150 ft (QC): 4 Gait Level of Assist: 4 Gait Persons Needed: 1 Gait Assistive Device: FWW Pt shuffles when she walks to avoid putting weight on RLE. Pt is encourages to WB on RLE and gait gets slightly better although pt has increased tightness reported and observed during tx. Wheelchair Training Does the Pt Use a Wheelchair?: No Stair Training Stair Training: Handrails/: 2 handrails #of Steps: 4 1 Step (curb) (QC): 5 4 Steps (QC): 5 Stairs: Pattern: Step to Level of Assist: 5 Exercises Seated Therapy Exercises: Ankle pumps, Long arc quads, Hip flexion, Kicking activity Seated Reps: 15 NuStep Minutes: 15 NuStep Workload: 3 Treatments Pt transfers from recliner to standing suing FWW at A. Pt then ambulates to restroom and then washes hands and brushes teeth at sink. Pt then ambulates to Therapy Gym using FWW at SBA. Pt ambulates slow. Pt then uses NuStep and completes Seated Ex in chair for increased activity tolerance and strengthening. Pt ambulates 4 stairs using 2 hand rails at A. Pt needs short rest before ambulating back to room. Pt transfers back to recliner at A. Pt is left with all needs met at end of tx. Assessment Current Status: Fair Progress Pt ambulates slow and fatigues easy. Pt continues to have social awareness deficits. PT Short Term Goals Short Term Goals Time Frame: Jun 06, 2016 Transfers (B,C,W/C) (FIM): 4 Gait (FIM): 2 Gait Distance Comment: 50' Gait Level of Assist: 4 Wheelchair Distance: 10' PT Manager Ob Goals Mcc Goals PT Manager Ob Goals Time Frame: Jun 20, 2016 Transfers (B,C,W/C) (FIM): 5 Sit to Lying (QC): 4 Lying-Sitting on Side/Bed(QC): 4 Sit to Stand (QC): 4 Rollin Roll Left to Right (QC): 4 Chair/Lbi-mx-Avzju Xfer(QC): 4 Car Transfer (QC): 3 Gait (FIM): 4 Distance: 150' Walk 10 feet (QC): 4 Walk 10ft-Uneven Surface(QC): 4 Walk 50ft with 2 Turns (QC): 4 Walk 150 ft (QC): 4 Gait Level of Assist: 4 Gait Assistive Device: FWW Stairs (FIM): 2 # of Steps: 4 1 Step (curb) (QC): 4 4 Steps (QC): 4 12 Steps (QC): 88 Stairs Level Of Assist: 4 Picking up an Object (QC): 88 PT Plan Problem List Problem List: Activity Tolerance, Functional Strength, Safety, Balance, Gait, Transfer Treatment/Plan Treatment Plan: Continue Plan of Care Treatment Plan: Bed Mobility, Education, Functional Activity Jeffrey, Functional Strength, Group Therapy, Gait, Safety, Therapeutic Exercise, Transfers Treatment Duration: Jun 20, 2016 Visits Per Week: 10-11 Minutes/Day (M-F): 60-90 Minutes/Day (Sat/[place]): 15-30 Safety Risks/Education Patient Education: Gait Training, Transfer Techniques, Correct Positioning, Safety Issues Teaching Recipient: Patient Teaching Methods: Discussion Response to Teaching: Reinforcement Needed Time/GCodes Time In: 815 Time Out: 930 Total Billed Treatment Time: 75 Total Billed Treatment visit, GT X2 (30m), EX X2 (30m) & FA (15m) SHEREE GARCIA HOUSE MOVER Jun 14, 2016 09:59
[2016-06-14] MEDS: ENOXAPARIN 40 MG/0.4 ML (LOVENOX) SYR SC SCH (10:30)
--- NOTE | 2016-06-14 14:37 | PM & R (SOAP) Progress Note ---
Subjective Subjective/Events-last exam Patient was seen in hdr room this AM Appreciate DR Ribera note Objective Exam Last Set of Vital Signs Vital Signs Date Time Temp Pulse Resp B/P (MAP) Pulse Ox O2 Delivery O2 Flow Rate FiO2 06/14/16 09:00 96 Room Air 06/14/16 06:34 97.0 79 18 157/89 Capillary Refill : Less Than 3 Seconds I&O Intake and Output 06/14/16 00:00 Intake Total 1500 ml Balance 1500 ml Intake Oral 1500 ml # Voids 7 # Bowel Movements 2 General: Alert, Oriented X3, Cooperative, No Acute Distress HEENT: Atraumatic, PERRLA, EOMI, Mucous Memb Moist/[place] Neck: Supple, No JVD Lungs: Clear to Auscultation Heart: Regular Rate Abdomen: Normal Bowel Sounds Extremities: Other ( mild tenderness at hip) Neuro: Other (weakness proximal rt hip s/p frx and repair) Assessment/Plan Assessment 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 DR Rose 05/27/16 HTN better controlled with adjustment in meds UTI treated Hypothyroidism-on replacement Mild postop anemia-improving Mild cognitive deficits ST has addressed Hypocalcemia Postop constipation improved Plan Continue PT/OT ST has signed off Check labs-done F/U with PCP and cardiology prn Appreciate DR Lam and cardiology notes and orders Pain management as needed Check Incision-done Appreciate Dr Ribera note Team Conference held yesterday-See report for full functional update and POC and ELOS Discussed case with SW Discharge set for Saturday06/16/16 BRITTA WALLACE MD Jun 14, 2016 14:37
--- NOTE | 2016-06-14 15:06 | Occupational Ther Daily Note ---
OT Current Status-Daily Note Subjective Pt was seen in room, up in recliner, agreeable to OT. No pain mentioned. pt wanted to do a sponge bath today and shower tomorrow. Appearance Alert, cooperative Mental Status/Objective Functional [place] Measure 0=Not Assessed/NA 4=Minimal Assistance 1=Total Assistance 5=Supervision or Setup 2=Maximal Assistance 6=Modified [place] 3=Moderate Assistance 7=Complete [place] ADL-Treatment Throughout ADLs, pt followed hip precautions 100% and did not need to be stopped from breaking them. She frequently verbalized the precautions as she was asking for assistive devices. Functional [place] Measure 0=Not Assessed/NA 4=Minimal Assistance 1=Total Assistance 5=Supervision or Setup 2=Maximal Assistance 6=Modified [place] 3=Moderate Assistance 7=Complete IndependenceIRFPAI Quality Coding Scale 6 Independent with activity with or without an assistive device 5 Patient requires set up or clean up by helper. Patient completes activity by themselves 4 Supervision or touching assist (CGA). [place] provide cues , steadying assist 3 The helper provides less than half the effort to complete the activity 2 The helper provides more than half the effort to complete the activity 1 Dependent. The helper does all the effort to complete an activity 7 Patient refused to complete or attempt activity 9 The patient did not perform the activity before the current illness or injury 88 Not attempted due to Medical conditions or safety concerns Grooming (FIM): 5 (setup at sink to wash face and hands, chair level. Already brushed teeth) Bathing (FIM): 5 (Pt washed all parts with SBA when standing, help setting up sponge bath up at sink. Used long handled sponge to wash and dry feet. ) Upper Body (FIM): 5 (Pt retrieved clean clothes from closet, with pt educ on safety when reaching for items. FWW for balance. pt donned bra and shirt without assistance) Lower Body Dressing (FIM): 4 (Needed a little help with slipper socks, practicing with sock aid. Used dressing stick to doff and don pants, socks. Pt was able to let go of clothing without cues with L hand when donning pants. SBA when standing to pull pants up.) Toileting (FIM): 5 (SBA, BSC over toilet. pt followed hip precautions without cues. ) Transfers (B, C, W/C) (FIM): 5 (Pt needed only occasional cues for hand placement) Toilet/Commode Transfer (FIM): 5 (SBA, FWW, BSC over toilet) ADLs took longer than usual. pt left up in recliner, all needs met. Education OT Patient Education: Modified ADL techniques, Reviewed precautions, Transfer techniques, Use of adapted equipment Teaching Recipient: Patient Response to Teaching: Reinforcement Needed OT Short Term Goals Short Term Goals Time Frame: Jun 08, 2016 Lower Body Dressing(FIM): 3 Toileting(FIM): 3 Transfers (B,C,W/C) (FIM): 4 Toilet/Commode Transfer(FIM): 3 Additional Short Term Goals: 2-Verbalize Understanding, 3-ImproveStrength/Jeffrey 1=Demonstrate adherence to instructed precautions during ADL tasks. 2=Patient will verbalize/demonstrate understanding of assistive devices/ modifications for ADL. 3=Patient will improve strength/tolerance for activity to enable patient to perform ADL's. OT Glass Artist Goals Halfway Goals Time Frame: Jun 20, 2016 Eating (FIM): 6 Eating (QC): 6 Groomin Oral Hygiene (QC): 6 Bathing(FIM): 5 Shower/Bathe Self (QC): 5 Upper Body Dressing(FIM): 5 Upper Body Dressing (QC): 5 Lower Body Dressing(FIM): 5 Lower Body Dressing (QC): 5 On/Off Footwear (QC): 5 Toileting(FIM): 6 Toileting Hygiene (QC): 6 Transfers (B,C,W/C) (FIM): 5 Toilet/Commode Transfer(FIM): 6 Toilet/Commode Transfer (QC): 6 Shower Transfer(FIM): 5 Comprehension(FIM): 5 (MET) Expression (FIM): 5 (MET) Social Interaction(FIM): 5 (MET) Problem Solving(FIM): 4 (MET) Memory(FIM): 4 (NOT MET) Additional Goals: 2-Verbalize Understanding, 3-ImproveStrength/Jeffrey 1=Demonstrate adherence to instructed precautions during ADL tasks. 2=Patient will verbalize/demonstrate understanding of assistive devices/ modifications for ADL. 3=Patient will improve strength/tolerance for activity to enable patient to perform ADL's. OT Education/Plan Problem List/Assessment Pt would benefit from skilled OT to increase her independence in basic self care to allow her to return safely to her home and to decrease caregiver burden. Discharge Recommendations Plan/Recommendations: Continue POC Treatment Plan/Plan of Care Patient would benefit from OT for education, treatment and training to promote independence in ADL's, mobility, safety and/or upper extremity function for ADL' s. Plan of Care: ADL Retraining, Functional Mobility, Group Exercise/Act as Ind ( education, exercise, memory, functional activities, socialization), UE Funct Exercise/Act, UE Neuromus Re-Ed/Coord, W/C Management Training Treatment Duration: Jun 20, 2016 Visits Per Week: 10-11 Minutes/Day (M-F): 75-90 Minutes/Day (Sat/[place]): PRN Agreement: Yes Rehab Potential: Fair Time/GCodes Start Time: 10:30 Stop Time: 11:30 Total Time Billed (hr/min): 60 Billed Treatment Time visit, 60 minutes ADL BELLA BERMUDEZ OT Jun 14, 2016 15:06
--- NOTE | 2016-06-14 15:17 | Occupational Ther Daily Note ---
OT Current Status-Daily Note Subjective Pt seen in room, up in recliner, agreeable to OT. No pain mentioned Appearance Alert, cooperative Mental Status/Objective Functional [place] Measure 0=Not Assessed/NA 4=Minimal Assistance 1=Total Assistance 5=Supervision or Setup 2=Maximal Assistance 6=Modified [place] 3=Moderate Assistance 7=Complete [place] ADL-Treatment Functional [place] Measure 0=Not Assessed/NA 4=Minimal Assistance 1=Total Assistance 5=Supervision or Setup 2=Maximal Assistance 6=Modified [place] 3=Moderate Assistance 7=Complete IndependenceIRFPAI Quality Coding Scale 6 Independent with activity with or without an assistive device 5 Patient requires set up or clean up by helper. Patient completes activity by themselves 4 Supervision or touching assist (CGA). [place] provide cues , steadying assist 3 The helper provides less than half the effort to complete the activity 2 The helper provides more than half the effort to complete the activity 1 Dependent. The helper does all the effort to complete an activity 7 Patient refused to complete or attempt activity 9 The patient did not perform the activity before the current illness or injury 88 Not attempted due to Medical conditions or safety concerns Toileting (FIM): 5 (SBA, FWW, BSC over toilet) Toilet/Commode Transfer (FIM): 5 (SBA, FWW, BSC over toilet) Other Treatment Pt walked with SBA FWW to gym, at times swinging L foot in front of R in a more normal gait pattern. In the gym, she worked on bilat UE exercise with 1# weight on each arm, doing arc activity times 2 sets short extension, 1 set medium extension. Exercise to help strengthen arms since she still struggles to get up from a chair with arms, sometimes taking 2-3 trials to get up. Pt walked back to her room, left up in recliner, all needs met. Education OT Patient Education: Exercise program, Modified ADL techniques, Purpose of tx/ functional activities, Transfer techniques Teaching Recipient: Patient Response to Teaching: Verbalize Understanding, Return Demonstration, Reinforcement Needed OT Short Term Goals Short Term Goals Time Frame: Jun 08, 2016 Lower Body Dressing(FIM): 3 Toileting(FIM): 3 Transfers (B,C,W/C) (FIM): 4 Toilet/Commode Transfer(FIM): 3 Additional Short Term Goals: 2-Verbalize Understanding, 3-ImproveStrength/Jeffrey 1=Demonstrate adherence to instructed precautions during ADL tasks. 2=Patient will verbalize/demonstrate understanding of assistive devices/ modifications for ADL. 3=Patient will improve strength/tolerance for activity to enable patient to perform ADL's. OT Test Engineer Goals Chcf Goals Time Frame: Jun 20, 2016 Eating (FIM): 6 Eating (QC): 6 Groomin Oral Hygiene (QC): 6 Bathing(FIM): 5 Shower/Bathe Self (QC): 5 Upper Body Dressing(FIM): 5 Upper Body Dressing (QC): 5 Lower Body Dressing(FIM): 5 Lower Body Dressing (QC): 5 On/Off Footwear (QC): 5 Toileting(FIM): 6 Toileting Hygiene (QC): 6 Transfers (B,C,W/C) (FIM): 5 Toilet/Commode Transfer(FIM): 6 Toilet/Commode Transfer (QC): 6 Shower Transfer(FIM): 5 Comprehension(FIM): 5 (MET) Expression (FIM): 5 (MET) Social Interaction(FIM): 5 (MET) Problem Solving(FIM): 4 (MET) Memory(FIM): 4 (NOT MET) Additional Goals: 2-Verbalize Understanding, 3-ImproveStrength/Jeffrey 1=Demonstrate adherence to instructed precautions during ADL tasks. 2=Patient will verbalize/demonstrate understanding of assistive devices/ modifications for ADL. 3=Patient will improve strength/tolerance for activity to enable patient to perform ADL's. OT Education/Plan Problem List/Assessment Pt would benefit from skilled OT to increase her independence in basic self care to allow her to return safely to her home and to decrease caregiver burden. Discharge Recommendations Plan/Recommendations: Continue POC Treatment Plan/Plan of Care Patient would benefit from OT for education, treatment and training to promote independence in ADL's, mobility, safety and/or upper extremity function for ADL' s. Plan of Care: ADL Retraining, Functional Mobility, Group Exercise/Act as Ind ( education, exercise, memory, functional activities, socialization), UE Funct Exercise/Act, UE Neuromus Re-Ed/Coord, W/C Management Training Treatment Duration: Jun 20, 2016 Visits Per Week: 10-11 Minutes/Day (M-F): 75-90 Minutes/Day (Sat/[place]): PRN Agreement: Yes Rehab Potential: Fair Time/GCodes Start Time: 13:00 Stop Time: 13:30 Total Time Billed (hr/min): 30 Billed Treatment Time visit, 10 minutes ADL, 20 minutes exercise BELLA BERMUDEZ OT Jun 14, 2016 15:17
--- NOTE | 2016-06-14 15:37 | Physical Therapy Daily Note ---
PT Daily Note-Current Subjective Pt sitting in recliner upon arrival. Pt agrees to PT. Pain Numeric Pain Scale: 6 Location: Right Location Body Site: Hip Pain Description: Ache, Tightness Mental Status Patient Orientation: Person, Place Transfers Functional [place] Measure 0=Not Assessed/NA 4=Minimal Assistance 1=Total Assistance 5=Supervision or Setup 2=Maximal Assistance 6=Modified [place] 3=Moderate Assistance 7=Complete IndependenceIRFPAI Quality Coding Scale 6 Independent with activity with or without an assistive device 5 Patient requires set up or clean up by helper. Patient completes activity by themselves 4 Supervision or touching assist (CGA). [place] provide cues , steadying assist 3 The helper provides less than half the effort to complete the activity 2 The helper provides more than half the effort to complete the activity 1 Dependent. The helper does all the effort to complete an activity 7 Patient refused to complete or attempt activity 9 The patient did not perform the activity before the current illness or injury 88 Not attempted due to Medical conditions or safety concerns Exercises Seated Therapy Exercises: Ankle pumps, Long arc quads, Hip flexion, Kicking activity Seated Reps: 15 Treatments Pt completes Seated Ex in recliner and asks question about shuttle to Saturday Service at [facility]. PT advised pt and family would have to visit with [facility] when pt transfers over on Saturday. Pt is left to visit with company with all needs met at end of tx. Assessment Current Status: Fair Progress Pt is hard to get pt initiated to complete tx but will with encouragement. PT Short Term Goals Short Term Goals Time Frame: Jun 06, 2016 Transfers (B,C,W/C) (FIM): 4 Gait (FIM): 2 Gait Distance Comment: 50' Gait Level of Assist: 4 Wheelchair Distance: 10' PT Screed Operator Goals Intermediate Goals PT Intermediate Goals Time Frame: Jun 20, 2016 Transfers (B,C,W/C) (FIM): 5 Sit to Lying (QC): 4 Lying-Sitting on Side/Bed(QC): 4 Sit to Stand (QC): 4 Rollin Roll Left to Right (QC): 4 Chair/Ifu-fq-Tiihf Xfer(QC): 4 Car Transfer (QC): 3 Gait (FIM): 4 Distance: 150' Walk 10 feet (QC): 4 Walk 10ft-Uneven Surface(QC): 4 Walk 50ft with 2 Turns (QC): 4 Walk 150 ft (QC): 4 Gait Level of Assist: 4 Gait Assistive Device: FWW Stairs (FIM): 2 # of Steps: 4 1 Step (curb) (QC): 4 4 Steps (QC): 4 12 Steps (QC): 88 Stairs Level Of Assist: 4 Picking up an Object (QC): 88 PT Plan Problem List Problem List: Activity Tolerance, Functional Strength, Safety, Balance, Gait, Transfer, Bed Mobility Treatment/Plan Treatment Plan: Continue Plan of Care Treatment Plan: Bed Mobility, Education, Functional Activity Jeffrey, Functional Strength, Group Therapy, Gait, Safety, Therapeutic Exercise, Transfers Treatment Duration: Jun 20, 2016 Visits Per Week: 10-11 Minutes/Day (M-F): 60-90 Minutes/Day (Sat/[place]): 15-30 Safety Risks/Education Patient Education: Transfer Techniques, Reviewed Precautions, Correct Positioning, Disease Process, Safety Issues Teaching Recipient: Patient Teaching Methods: Discussion Response to Teaching: Verbalize Understanding Time/GCodes Time In: 1430 Time Out: 1445 Total Billed Treatment Time: 15 Total Billed Treatment visit, EX (15m) SHEREE GARCIA FLANGING ROLL OPERATOR Jun 14, 2016 15:36
[2016-06-14 18:32] VITALS: BP 146/68
[2016-06-14] MEDS: SIMvastatin 40 MG (ZOCOR) TAB PO SCH (20:28)
[2016-06-15 05:00] VITALS: BP 151/75
[2016-06-15] MEDS: LACTOBACILLUS Acidoph/Bulgar (LACTINEX/FLORANEX) TAB PO SCH ×3 (06:14→16:38)
[2016-06-15] MEDS: LEVOTHYROXINE 25 MCG (LEVOTHROID) TAB PO SCH (06:14)
[2016-06-15] MEDS: LEVOTHYROXINE 112 MCG (LEVOTHROID) TAB PO SCH (06:14)
[2016-06-15] MEDS: MULTIVIT W/MINERALS TAB (THERAGRAN M) PO SCH (06:14)
--- NOTE | 2016-06-15 08:09 | PM & R (SOAP) Progress Note ---
Subjective Subjective/Events-last exam Patient was seen in her room this AM Patient improving gradually but family has decided upon further rehab and care at local SN[facility] [place]Patient SBA for trasnfers Objective Exam Last Set of Vital Signs Vital Signs Date Time Temp Pulse Resp B/P (MAP) Pulse Ox O2 Delivery O2 Flow Rate FiO2 06/15/16 05:00 97.9 71 20 151/75 99 Room Air Capillary Refill : Less Than 3 Seconds I&O Intake and Output 06/15/16 00:00 Intake Total 700 ml Balance 700 ml Intake Oral 700 ml # Voids 4 # Bowel Movements 2 General: Alert, Oriented X3, Cooperative, No Acute Distress HEENT: Atraumatic, PERRLA, EOMI, Mucous Memb Moist/[place] Neck: Supple, No JVD Lungs: Clear to Auscultation Heart: Regular Rate Abdomen: Normal Bowel Sounds Extremities: Other ( mild tenderness at hip) Neuro: Other (weakness proximal rt hip s/p frx and repair) Assessment/Plan Assessment 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 DR Rose 05/27/16 HTN better controlled with adjustment in meds UTI treated Hypothyroidism-on replacement Mild postop anemia-improving Mild cognitive deficits ST has addressed Hypocalcemia Postop constipation improved Plan Continue PT/OT ST has signed off Check labs-done F/U with PCP and cardiology prn Appreciate DR Lam and cardiology notes and orders Pain management as needed Check Incision-done Appreciate Dr Ribera note Team Conference held yesterday-See report for full functional update and POC and ELOS Discussed case with SW yesterday Discharge remians set for tomorrow Saturday06/16/16 See orders BRITTA WALLACE MD Jun 15, 2016 08:09
[2016-06-15] MEDS ORDERED: LEVO25TA5 PO (08:20)
[2016-06-15] MEDS ORDERED: ACET325T49 PO (08:20)
[2016-06-15] MEDS ORDERED: FAMO20TA5 PO (08:20)
[2016-06-15] MEDS ORDERED: Multivitamins/Minerals Therap PO (08:20)
[2016-06-15] MEDS ORDERED: LEVO112T55 PO (08:20)
[2016-06-15] MEDS ORDERED: SENN-140 PO (08:20)
[2016-06-15] MEDS ORDERED: ACID1TAB PO (08:20)
[2016-06-15] MEDS ORDERED: POLY17PO23 PO (08:20)
--- NOTE | 2016-06-15 08:49 | Physical Therapy Daily Note ---
PT Daily Note-Current Subjective Pt. agrees to Rx. States she is looking forward to going to [facility]. Feels she has significantly less swelling in her RLE and this has helped her with ease of movement. Pain Numeric Pain Scale: 0-No Pain Mental Status Patient Orientation: Person, Place, Time, Situation Transfers Functional Reading Measure 0=Not Assessed/NA 4=Minimal Assistance 1=Total Assistance 5=Supervision or Setup 2=Maximal Assistance 6=Modified Reading 3=Moderate Assistance 7=Complete IndependenceIRFPAI Quality Coding Scale 6 Independent with activity with or without an assistive device 5 Patient requires set up or clean up by helper. Patient completes activity by themselves 4 Supervision or touching assist (CGA). Aline provide cues , steadying assist 3 The helper provides less than half the effort to complete the activity 2 The helper provides more than half the effort to complete the activity 1 Dependent. The helper does all the effort to complete an activity 7 Patient refused to complete or attempt activity 9 The patient did not perform the activity before the current illness or injury 88 Not attempted due to Medical conditions or safety concerns Transfers (B, C, W/C) (FIM): 5 Scootin Rollin Roll Left to Right (QC): 5 Supine to/from Sit: 5 Sit to/from Stand: 6 Sit to Lying (QC): 5 Sit to Stand (QC): 6 Chair/Vjz-tq-Hulef Xfer(QC): 6 Bed to/from Chair: 6 all sup to sit and sit to sup are slow with pt occas needing skilled verbal cues. Weight Bearing Weight Bearing Restriction: Weight Bearing/Tolerated Location Restriction: R LE Gait Training Does the Patient Walk?: Yes Gait (FIM): 5 Distance (FIM): 3=150 ft (x2) Walk 10 feet (QC): 6 Walk 50 ft with 2 Turns(QC): 5 Walk 150 ft (QC): 5 Walking 10ft/uneven surface-QC: 5 Gait Level of Assist: 5 Gait Persons Needed: 1 Gait Assistive Device: FWW more even step length today. needs cues for better alignment Stair Training Stair Training: Handrails/: 2 handrails Stairs (FIM): 2 #of Steps: 4 1 Step (curb) (QC): 5 4 Steps (QC): 4 Stairs: Pattern: Step to Level of Assist: 4 Balance Picking up an Object (QC): 88 Special Test Comments hip precaution Exercises Supine Ex: Ankle pumps, Quad Set, Glut sets, Heel Slides, Short Arc Quads, Scooting, Straight leg raise (assist), Hip abd/add Supine Reps: 12 Treatments toileted and managed clothing and pad as well as handwashing with SBA Assessment Current Status: Good Progress PT Short Term Goals Short Term Goals Time Frame: Jun 06, 2016 Transfers (B,C,W/C) (FIM): 4 Gait (FIM): 2 Gait Distance Comment: 50' Gait Level of Assist: 4 Wheelchair Distance: 10' PT Shelter Goals Loftsman/Woman Goals PT Shelter Goals Time Frame: Jun 20, 2016 Transfers (B,C,W/C) (FIM): 5 Sit to Lying (QC): 4 Lying-Sitting on Side/Bed(QC): 4 Sit to Stand (QC): 4 Rollin Roll Left to Right (QC): 4 Chair/Eie-uo-Shwaj Xfer(QC): 4 Car Transfer (QC): 3 Gait (FIM): 4 Distance: 150' Walk 10 feet (QC): 4 Walk 10ft-Uneven Surface(QC): 4 Walk 50ft with 2 Turns (QC): 4 Walk 150 ft (QC): 4 Gait Level of Assist: 4 Gait Assistive Device: FWW Stairs (FIM): 2 # of Steps: 4 1 Step (curb) (QC): 4 4 Steps (QC): 4 12 Steps (QC): 88 Stairs Level Of Assist: 4 Picking up an Object (QC): 88 PT Plan Treatment/Plan Treatment Plan: Continue Plan of Care Treatment Plan: Bed Mobility, Education, Functional Activity Jeffrey, Functional Strength, Group Therapy, Gait, Safety, Therapeutic Exercise, Transfers Treatment Duration: Jun 20, 2016 Visits Per Week: 10-11 Minutes/Day (M-F): 60-90 Minutes/Day (Sat/[place]): 15-30 Safety Risks/Education Patient Education: Gait Training, Transfer Techniques, Steps, Reviewed Precautions, Correct Positioning, Disease Process, Safety Issues Teaching Recipient: Patient Teaching Methods: Demonstration, Discussion Response to Teaching: Verbalize Understanding, Return Demonstration, Reinforcement Needed Time/GCodes Time In: 800 Time Out: 900 Total Billed Treatment Time: 60 Total Billed Treatment 1,FA25m,EX15m,GT20m G Codes Necessary: JARED Salcedo PIE MAKER Jun 15, 2016 08:49
[2016-06-15] MEDS: ASPIRIN 81 MG CHEW (CHILDREN'S ASA) PO SCH (08:59)
[2016-06-15] MEDS: FAMOTIDINE 20 MG (PEPCID) TABLET PO SCH ×2 (08:59→20:14)
[2016-06-15] MEDS: ATENOLOL 50 MG (TENORMIN) TAB PO SCH (08:59)
[2016-06-15] MEDS: GABAPENTIN 300 MG (NEURONTIN) CAP PO SCH ×2 (08:59→20:14)
[2016-06-15] MEDS: amLODIPine 5 MG (NORVASC) TAB PO SCH (08:59)
[2016-06-15] MEDS: POLYETHYLENE GLYCOL 17 GM (MIRALAX) PACK PO SCH (09:00)
[2016-06-15] MEDS: SENNOSIDES 8.6 MG (SENOKOT) TAB PO SCH ×2 (09:00→20:15)
--- NOTE | 2016-06-15 11:05 | Occupational Ther Daily Note ---
OT Current Status-Daily Note Subjective Pt seen in room, up in recliner, agreeable to OT. No pain reported. Appearance Alert, cooperative Mental Status/Objective Functional Pol[place] Measure 0=Not Assessed/NA 4=Minimal Assistance 1=Total Assistance 5=Supervision or Setup 2=Maximal Assistance 6=Modified [place] 3=Moderate Assistance 7=Complete Pol[place] ADL-Treatment Pt was able to follow hip precautions throughout ADLs and often talked about them out loud as if to verify them. She asked again why she had these precautions and how long she would have to follow them. Pt encouraged to take papers with precautions listed with her to the [place]. Functional [place] Measure 0=Not Assessed/NA 4=Minimal Assistance 1=Total Assistance 5=Supervision or Setup 2=Maximal Assistance 6=Modified [place] 3=Moderate Assistance 7=Complete IndependenceIRFPAI Quality Coding Scale 6 Independent with activity with or without an assistive device 5 Patient requires set up or clean up by helper. Patient completes activity by themselves 4 Supervision or touching assist (CGA). Steward provide cues , steadying assist 3 The helper provides less than half the effort to complete the activity 2 The helper provides more than half the effort to complete the activity 1 Dependent. The helper does all the effort to complete an activity 7 Patient refused to complete or attempt activity 9 The patient did not perform the activity before the current illness or injury 88 Not attempted due to Medical conditions or safety concerns Eating (FIM): 6 (Orders her own food and doesn't need help to open packages or cut food. Eats a little slower than usual.) Eating (QC): 6 Grooming (FIM): 6 (Mod I standing at sink to groom. Uses FWW for safety and balance. A little less confidence when backing away from the sink after brushing. ) Oral Hygiene (QC): 6 Bathing (FIM): 5 (Help with setup. Supervision to make sure she follows hip precautions. Uses shower bench, grab bars, hand held shower, long handled sponge. Washes and dries all parts. Reminder of technique to dry legs with long handled sponge and towel) Bathing Location: L Upper Leg Shower/Bathe Self (QC): 4 (Supervision for following hip precautions) Upper Body (FIM): 5 (Able to get clothes out of closet with FWW but needs supervision for ambulatory component. Dressed upper body with setup, including hooking bra) Upper Body Dressing (QC): 5 (setup) Lower Body Dressing (FIM): 5 (Supervision during dressing to make sure she follows hip precautions. Occasional reminders on use of dressing equipment. Used dressing stick, long handled shoe horn. Has also used sock aid and construction administrative assistant. Sit to stand to pull pants up - still struggles at midpoint but able to get herself up. ) Lower Body Dressing (QC): 4 (supervision) On/Off Footwear (QC): 4 (Supervision for following hip precautions. Dressing stick, sock aid, long handled shoe horn) Toileting (FIM): 5 (Setup for pads for panties. Supervision to make sure she follwos hip precautiosn and doesn't bend over to reach for pants. BSC over toilet, grab bar, FWW) Toileting Hygiene (QC): 4 (Supervision to make sure she follows hip precautions ) Toilet/Commode Transfer (FIM): 6 (BSC over toilet, grab bars, FWW. ) Toilet Transfer (QC): 6 Shower Transfer(FIM): 5 (Supervision. OCcasional difficulty problem-solving where to put her hands for transfers on/off shower bench. grab bars, FWW) Other Treatment Pt left up in recliner, all needs met, visiting her tree thinner. Education OT Patient Education: Modified ADL techniques, Progress toward Goal/Update tx plan, Purpose of tx/functional activities, Reviewed precautions, Use of adapted equipment Teaching Recipient: Patient Response to Teaching: Verbalize Understanding, Return Demonstration, Reinforcement Needed OT Short Term Goals Short Term Goals Time Frame: Jun 08, 2016 Lower Body Dressing(FIM): 3 (goal met ) Toileting(FIM): 3 (goal met ) Transfers (B,C,W/C) (FIM): 4 (goal met ) Toilet/Commode Transfer(FIM): 3 (goal met ) Additional Short Term Goals: 2-Verbalize Understanding, 3-ImproveStrength/Jeffrey 1=Demonstrate adherence to instructed precautions during ADL tasks. 2=Patient will verbalize/demonstrate understanding of assistive devices/ modifications for ADL. 3=Patient will improve strength/tolerance for activity to enable patient to perform ADL's. OT Drug Abuse Treatment Specialist Goals Drug Abuse Treatment Specialist Goals Time Frame: Jun 20, 2016 Eating (FIM): 6 (goal met 06-15-16) Eating (QC): 6 (goal met 06-15-16) Groomin (goal met 06-15-16) Oral Hygiene (QC): 6 (goal met 06-15-16) Bathing(FIM): 5 (goal met 06-15-16) Shower/Bathe Self (QC): 5 (Goal not met 06-15-16) Upper Body Dressing(FIM): 5 (goal met 06-15-16) Upper Body Dressing (QC): 5 (goal met 06-15-16) Lower Body Dressing(FIM): 5 (goal met 06-15-16) Lower Body Dressing (QC): 5 (Goal not met 06-15-16) On/Off Footwear (QC): 5 (Goal not met 06-15-16) Toileting(FIM): 6 (Goal not met 06-15-16) Toileting Hygiene (QC): 6 (Goal not met 06-15-16) Transfers (B,C,W/C) (FIM): 5 Toilet/Commode Transfer(FIM): 6 (goal met 06-15-16) Toilet/Commode Transfer (QC): 6 (goal met 06-15-16) Shower Transfer(FIM): 5 (goal met 06-15-16) Comprehension(FIM): 5 (MET) Expression (FIM): 5 (MET) Social Interaction(FIM): 5 (MET) Problem Solving(FIM): 4 (MET) Memory(FIM): 4 (NOT MET) Additional Goals: 2-Verbalize Understanding, 3-ImproveStrength/Jeffrey 1=Demonstrate adherence to instructed precautions during ADL tasks. 2=Patient will verbalize/demonstrate understanding of assistive devices/ modifications for ADL. 3=Patient will improve strength/tolerance for activity to enable patient to perform ADL's. OT Education/Plan Problem List/Assessment Pt would benefit from skilled OT to increase her independence in basic self care to allow her to return safely to her home and to decrease caregiver burden. Discharge Recommendations Plan/Recommendations: Continue POC (dischagre to [facility] tomorrow for short stay) Therapy D/C Recommendations: Retirement (TCU/NH) (OT) Barriers to Progress Decreased short term memory Treatment Plan/Plan of Care Patient would benefit from OT for education, treatment and training to promote independence in ADL's, mobility, safety and/or upper extremity function for ADL' s. Plan of Care: ADL Retraining, Functional Mobility, Group Exercise/Act as Ind ( education, exercise, memory, functional activities, socialization), UE Funct Exercise/Act, UE Neuromus Re-Ed/Coord, W/C Management Training Treatment Duration: Jun 20, 2016 Visits Per Week: 10-11 Minutes/Day (M-F): 75-90 Minutes/Day (Sat/[place]): PRN Agreement: Yes Rehab Potential: Fair Time/GCodes Start Time: 09:30 Stop Time: 10:30 Total Time Billed (hr/min): 60 Billed Treatment Time visit, 60 minutes ADL BELLA BERMUDEZ OT Jun 15, 2016 11:05
[2016-06-15] MEDS: CLOPIDOGREL 75 MG (PLAVIX) TABLET PO SCH (11:18)
[2016-06-15] MEDS: ENOXAPARIN 40 MG/0.4 ML (LOVENOX) SYR SC SCH (11:18)
--- NOTE | 2016-06-15 15:04 | Therapy Group Daily Note ---
Therapy Daily Group Note Other/Notes Pt ambulated to group with CGA using FWW. OT/PT group consisted of introductions (name, place, family history) then socializing within groups while completing fine motor tasks that worked on problem solving, recall/ memory and UE gross motor. Pt was able to tolerate all activities and contributed to conversations appropriately. After therapy, pt in room sitting recliner. Call light/phone in reach. All needs met in room. Start Time: 13:00 Stop Time: 14:20 Total Billed Treatment Time: 80 Total Billed Treatment 1-GRP ANURADHA AGUILERA Jun 15, 2016 15:04
[2016-06-15 18:05] VITALS: BP 160/65
[2016-06-15] MEDS: SIMvastatin 40 MG (ZOCOR) TAB PO SCH (20:14)
[2016-06-16 06:07] VITALS: BP 142/61
[2016-06-16] MEDS: LEVOTHYROXINE 25 MCG (LEVOTHROID) TAB PO SCH (06:11)
[2016-06-16] MEDS: LACTOBACILLUS Acidoph/Bulgar (LACTINEX/FLORANEX) TAB PO SCH (06:11)
[2016-06-16] MEDS: MULTIVIT W/MINERALS TAB (THERAGRAN M) PO SCH (06:11)
[2016-06-16] MEDS: LEVOTHYROXINE 112 MCG (LEVOTHROID) TAB PO SCH (06:11)
[2016-06-16] MEDS: amLODIPine 5 MG (NORVASC) TAB PO SCH (08:18)
[2016-06-16] MEDS: FAMOTIDINE 20 MG (PEPCID) TABLET PO SCH (08:18)
[2016-06-16] MEDS: ATENOLOL 50 MG (TENORMIN) TAB PO SCH (08:18)
[2016-06-16] MEDS: GABAPENTIN 300 MG (NEURONTIN) CAP PO SCH (08:18)
[2016-06-16] MEDS: POLYETHYLENE GLYCOL 17 GM (MIRALAX) PACK PO SCH (08:18)
[2016-06-16] MEDS: ASPIRIN 81 MG CHEW (CHILDREN'S ASA) PO SCH (08:19)
[2016-06-16] MEDS: SENNOSIDES 8.6 MG (SENOKOT) TAB PO SCH (08:21)
[2016-06-16 11:25] VITALS: BP 142/61
--- NOTE | 2016-06-18 11:36 | Therapy Team Discharge Summary ---
Therapy Discharge Summary Discharge Recommendations Date of Discharge Jun 16, 2016 at 10:15 Therapy D/C Recommendations: Care Home (TCU/NH) (OT) Physical Therapy this patient has been seen for skilled PT services post fall resulting right femoral neck fracture; post repair. Upon evaluation on ARU, pt required mod assist with transfers, was able to ambulate 10 ft with FWW with min assist and able to propel the wheelchair 10 ft. Treatment consisted of aggressive functional strengthening and mobility and at discharge, pt required SBA and extra time to complete functional transfers, she ambulated 150 ft with FWW with SBA and was able to traverse 4 stps with min assist. She did make functional gains but all goals not fully met. Pt was fearful or discharging home and desired to transfer to via [facility] at this time. PT Fdc Goals Industrial Hygenist Goals PT Fdc Goals Time Frame: Jun 20, 2016 Transfers (B,C,W/C) (FIM): 5 (met; SBA) Roll Left to Right (QC): 4 (scored a 5) Sit to Lying (QC): 4 (scoreda 5) Lying-Sitting on Side/Bed(QC): 4 Sit to Stand (QC): 4 (scred a 5) Chair/Vnc-jo-Rwjyw Xfer(QC): 4 (scored a 5) Car Transfer (QC): 3 Gait (FIM): 4 (scored a 5; SBA; exceeded) Distance: 150' Walk 10 feet (QC): 4 (scored a 5) Walk 10ft-Uneven Surface(QC): 4 (scored a 5) Walk 50ft with 2 Turns (QC): 4 (scored a 5) Walk 150 ft (QC): 4 (scored a 5) Gait Level of Assist: 4 Gait Assistive Device: FWW Stairs (FIM): 2 (met; scored a 2) # of Steps: 4 1 Step (curb) (QC): 4 (met) 4 Steps (QC): 4 (met) 12 Steps (QC): 88 (not assessed;unable to perform 12 steps) Stairs Level Of Assist: 4 Picking up an Object (QC): 88 OT Industrial Hygenist Goals Fdc Goals Time Frame: Jun 20, 2016 Eating (FIM): 6 (goal met 06-15-16) Eating (QC): 6 (goal met 06-15-16) Oral Hygiene (QC): 6 (goal met 06-15-16) Grooming(FIM): 6 (goal met 06-15-16) Bathing(FIM): 5 (goal met 06-15-16) Shower/Bathe Self (QC): 5 (Goal not met 06-15-16) Upper Body Dressing(FIM): 5 (goal met 06-15-16) Upper Body Dressing (QC): 5 (goal met 06-15-16) Lower Body Dressing(FIM): 5 (goal met 06-15-16) Lower Body Dressing (QC): 5 (Goal not met 06-15-16) On/Off Footwear (QC): 5 (Goal not met 06-15-16) Toileting(FIM): 6 (Goal not met 06-15-16) Toileting Hygiene (QC): 6 (Goal not met 06-15-16) Transfers (B,C,W/C) (FIM): 5 Toilet/Commode Transfer(FIM): 6 (goal met 06-15-16) Toilet/Commode Transfer (QC): 6 (goal met 06-15-16) Shower Transfer(FIM): 5 (goal met 06-15-16) Comprehension(FIM): 5 (MET) Expression (FIM): 5 (MET) Social Interaction(FIM): 5 (MET) Problem Solving(FIM): 4 (MET) Memory(FIM): 4 (NOT MET) Additional Goals: 2-Verbalize Understanding, 3-ImproveStrength/Jeffrey 1=Demonstrate adherence to instructed precautions during ADL tasks. 2=Patient will verbalize/demonstrate understanding of assistive devices/ modifications for ADL. 3=Patient will improve strength/tolerance for activity to enable patient to perform ADL's. Speech Industrial Hygenist Goals Industrial Hygenist Goals 1. The patient will demonstrate improved cognitive linguistic skills for increased safety and function with ADL's in the least restrictive setting. Time Frame: Three Weeks Comprehension: 5 (MET) Expression: 5 (MET) Social Interaction: 5 (MET) Problem Solvin (MET) Memory: 4 (NOT MET) ANURADHA MARTEL PT Jun 18, 2016 11:36
--- NOTE | 2016-06-18 11:55 | Therapy Team Discharge Summary ---
Therapy Discharge Summary Discharge Recommendations Date of Discharge Jun 16, 2016 at 10:15 Therapy D/C Recommendations: Alf (TCU/NH) (OT) Occupational Therapy Pt was seen for skilled OT to increase her independence in basic self care to allow her to return home safely and to decrease caregiver burden after a fall and partial hip replacement. She initially had difficulty recalling her hip precautions byt, with written reminder and repetition, was able to recall them fairly consistently by discharge. On admission she needed setup help for eating , grooming and upper body dressing;,min assist with bathing; mod assist with transfers, max assist lower body dressing; and dependant with toileting. By discharge she was modified independent with eating, grooming, and toilet transfers; setup for upper body dressing; and supervision for lower body dressing, toileting and bathing (due to hip precautions). Equipment used included dressing stick, health data analyst, sock aid, long shoe horn, long handled sponge , FWW. See tx plan for goals met. pt would benefit from continued OT at [facility] [place] PT Policeman Goals Policeman Goals PT Policeman Goals Time Frame: Jun 20, 2016 Transfers (B,C,W/C) (FIM): 5 (met; SBA) Roll Left to Right (QC): 4 (scored a 5) Sit to Lying (QC): 4 (scoreda 5) Lying-Sitting on Side/Bed(QC): 4 Sit to Stand (QC): 4 (scred a 5) Chair/Frb-mh-Ypxbh Xfer(QC): 4 (scored a 5) Car Transfer (QC): 3 Gait (FIM): 4 (scored a 5; SBA; exceeded) Distance: 150' Walk 10 feet (QC): 4 (scored a 5) Walk 10ft-Uneven Surface(QC): 4 (scored a 5) Walk 50ft with 2 Turns (QC): 4 (scored a 5) Walk 150 ft (QC): 4 (scored a 5) Gait Level of Assist: 4 Gait Assistive Device: FWW Stairs (FIM): 2 (met; scored a 2) # of Steps: 4 1 Step (curb) (QC): 4 (met) 4 Steps (QC): 4 (met) 12 Steps (QC): 88 (not assessed;unable to perform 12 steps) Stairs Level Of Assist: 4 Picking up an Object (QC): 88 OT Nursing Home Goals Nursing Home Goals Time Frame: Jun 20, 2016 Eating (FIM): 6 (goal met 06-15-16) Eating (QC): 6 (goal met 06-15-16) Oral Hygiene (QC): 6 (goal met 06-15-16) Grooming(FIM): 6 (goal met 06-15-16) Bathing(FIM): 5 (goal met 06-15-16) Shower/Bathe Self (QC): 5 (Goal not met 06-15-16) Upper Body Dressing(FIM): 5 (goal met 06-15-16) Upper Body Dressing (QC): 5 (goal met 06-15-16) Lower Body Dressing(FIM): 5 (goal met 06-15-16) Lower Body Dressing (QC): 5 (Goal not met 06-15-16) On/Off Footwear (QC): 5 (Goal not met 06-15-16) Toileting(FIM): 6 (Goal not met 06-15-16) Toileting Hygiene (QC): 6 (Goal not met 06-15-16) Transfers (B,C,W/C) (FIM): 5 Toilet/Commode Transfer(FIM): 6 (goal met 06-15-16) Toilet/Commode Transfer (QC): 6 (goal met 06-15-16) Shower Transfer(FIM): 5 (goal met 06-15-16) Comprehension(FIM): 5 (MET) Expression (FIM): 5 (MET) Social Interaction(FIM): 5 (MET) Problem Solving(FIM): 4 (MET) Memory(FIM): 4 (NOT MET) Additional Goals: 2-Verbalize Understanding, 3-ImproveStrength/Jeffrey 1=Demonstrate adherence to instructed precautions during ADL tasks. 2=Patient will verbalize/demonstrate understanding of assistive devices/ modifications for ADL. 3=Patient will improve strength/tolerance for activity to enable patient to perform ADL's. Speech Policeman Goals Nursing Home Goals 1. The patient will demonstrate improved cognitive linguistic skills for increased safety and function with ADL's in the least restrictive setting. Time Frame: Three Weeks Comprehension: 5 (MET) Expression: 5 (MET) Social Interaction: 5 (MET) Problem Solvin (MET) Memory: 4 (NOT MET) BELLA BERMUDEZ OT Jun 18, 2016 11:55
--- OUTSIDE RECORDS SUMMARY | 2016-06-24 04:29 | XMS REPORT | Continuity of Care Document ---
Author Author [facility] Organization [facility] Address Unknown Phone Unavailable Allergies Active Description Code Type Severity Reaction Onset Reported/Identified Relationship to Patient Clinical Status Yes morphine [id number] Drug Allergy Mild NAUSEA 04/07/2008 Yes nylon [id number] Drug Allergy Unknown ITCH 04/07/2008 Yes Penicillins [id number] Drug Allergy Unknown N/A 04/07/2008 Yes codeine [id number] Drug Allergy Mild N/A 11/15/2008 Yes Penicillins [id number] Drug Allergy Unknown HAS RECEIVED AN 05/29/2016 Yes Influenza Virus Vaccines [id number] Drug Allergy Unknown N/ A 05/30/2016 Medications Problems Date Dx Coded Attending Type Code Diagnosis Diagnosed By 07/30/2011 Ot 244.9 HYPOTHYROIDISM NOS 07/30/2011 Ot 272.4 HYPERLIPIDEMIA NEC/NOS 07/30/2011 Ot 274.9 GOUT NOS 07/30/2011 Ot 401.9 HYPERTENSION NOS 07/30/2011 Ot 414.01 CORONARY ATHEROSCLEROSIS OF [place] CORON 07/30/2011 Ot 433.10 CAROTID ARTERY OCCLUSION W O CEREBRAL IN 07/30/2011 Ot 434.91 CEREBRAL ART OCCLUSION NOS W CEREBRAL IN 07/30/2011 Ot 530.81 ESOPHAGEAL REFLUX 07/30/2011 Ot 715.90 OSTEOARTHROS NOS-UNSPEC 07/30/2011 Ot 722.52 LUMB/LUMBOSAC DISC DEGEN 07/30/2011 Ot 788.30 UNSPECIFIED URINARY INCONTINENCE 07/30/2011 Ot V45.82 PERCUTANEOUS TRANSLUM CORON ANGIOPLASTY 09/17/2011 Ot 682.7 CELLULITIS OF FOOT 09/17/2011 Ot 729.5 PAIN IN LIMB 09/21/2011 Ot 041.12 METHICILLIN RESISTANT STAPHYLOCOCCUS AUR 09/21/2011 Ot 244.9 HYPOTHYROIDISM NOS 09/21/2011 Ot 272.4 HYPERLIPIDEMIA NEC/NOS 09/21/2011 Ot 274.9 GOUT NOS 09/21/2011 Ot 401.9 HYPERTENSION NOS 09/21/2011 Ot 414.00 CORON ATHEROSCLER NOS TYPE VESSEL, NATIV 09/21/2011 Ot 438.89 OTH LATE EFFECT-CEREBROVASCULAR DISEASE 09/21/2011 Ot 447.6 ARTERITIS NOS 09/21/2011 Ot 530.81 ESOPHAGEAL REFLUX 09/21/2011 Ot 593.9 RENAL URETERAL DIS NOS 09/21/2011 Ot 682.6 CELLULITIS OF LEG 09/21/2011 Ot 682.7 CELLULITIS OF FOOT 09/21/2011 Ot 707.10 ULCER OF LOWER LIMB NOS 09/21/2011 Ot 715.90 OSTEOARTHROS NOS-UNSPEC 09/21/2011 Ot 722.52 LUMB/LUMBOSAC DISC DEGEN 09/21/2011 Ot 782.0 SKIN SENSATION DISTURB 09/21/2011 Ot 788.30 UNSPECIFIED URINARY INCONTINENCE 09/21/2011 Ot V12.54 PERSONAL HX OF TIA, CEREBRAL INFARCTION 09/21/2011 Ot V45.81 AORTOCORONARY BYPASS 02/01/2012 Ot 041.3 KLEBSIELLA PNEUMONIAE 02/01/2012 Ot 041.6 PROTEUS INFECTION NOS 02/01/2012 Ot 244.9 HYPOTHYROIDISM NOS 02/01/2012 Ot 272.4 HYPERLIPIDEMIA NEC/NOS 02/01/2012 Ot 274.9 GOUT NOS 02/01/2012 Ot 401.9 HYPERTENSION NOS 02/01/2012 Ot 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1 PHYSICAL THERAPY NEC 05/27/2014 QIANA PATEL FACC, ALI FACP CCDS Ot 272.4 05/27/2014 QIANA PATEL FACC, ALI FACP CCDS Ot 278.00 05/27/2014 QIANA PATEL FACC, ALI FACP CCDS Ot 401.9 05/27/2014 QIANA PATEL FACC, ALI FACP CCDS Ot 414.00 05/27/2014 QIANA PATEL FACC, ALI FACP CCDS Ot V85.31 05/27/2014 VANBECELAERE, МАРИНА M ZIPPER IRONER Ot 244.9 05/27/2014 VANBECELAERE, МАРИНА M ZIPPER IRONER Ot 272.4 05/27/2014 VANBECELAERE, МАРИНА M ZIPPER IRONER Ot 401.9 05/27/2014 VANBECELAERE, МАРИНА M ZIPPER IRONER Ot 790.29 05/27/2014 ORENDER DO, BELLA S Ot 244.9 05/27/2014 ORENDER DO, BELLA S Ot 250.00 05/27/2014 ORENDER DO, BELLA S Ot 401.9 05/27/2014 ORENDER DO, BELLA S Ot 244.9 05/27/2014 ORENDER DO, BELLA S Ot 250.00 05/27/2014 ORENDER DO, BELLA S Ot 272.4 05/27/2014 QIANA PATEL FACC, ALI FACP CCDS Ot 244.9 05/27/2014 QIANA PATEL FACC, ALI FACP CCDS Ot 272.4 05/27/2014 QIANA PATEL FACC, ALI FACP CCDS Ot 401.9 05/27/2014 QIANA PATEL FACC, ALI FACP CCDS Ot 414.00 05/27/2014 QIANA PATEL FACC, ALI FACP CCDS Ot 443.9 05/27/2014 QIANA PATEL FACC, ALI FACP CCDS Ot 715.90 05/27/2014 QIANA PATEL FACC, ALI FACP CCDS Ot 724.5 05/27/2014 QIANA PATEL FACC, ALI FACP CCDS Ot 244.9 05/27/2014 QIANA PATEL FACC, ALI FACP CCDS Ot 272.4 05/27/2014 QIANA PATEL FACC, ALI FACP CCDS Ot 401.9 05/27/2014 QIANA PATEL FACC, ALI FACP CCDS Ot 414.00 05/27/2014 QIANA PATEL FACC, ALI FACP CCDS Ot 443.9 05/27/2014 QIANA PATEL FAC, ALI FACP CCDS Ot 715.90 05/27/2014 QIANA PATEL FAC, ALI FACP CCDS Ot 724.5 06/03/2014 QIANA PATEL FAC, ALI FACP CCDS Ot 244.9 06/03/2014 QIANA PATEL FAC, ALI FACP CCDS Ot 272.4 06/03/2014 QIANA PATEL [facility], ALI FACP CCDS Ot 401.9 06/03/2014 QIANA PATEL [facility], ALI FACP CCDS Ot 414.00 06/03/2014 QIANA PATEL FAC, ALI FACP CCDS Ot 443.9 06/03/2014 QIANA PATEL [facility], ALI FACP CCDS Ot 715.90 06/03/2014 QIANA PATEL [facility], ALI FACP CCDS Ot 724.5 07/23/2014 ORENDER DO, BELLA S Ot 244.9 07/23/2014 ORENDER DO, BELLA S Ot 250.00 07/23/2014 ORENDER DO, BELLA S Ot 272.4 10/25/2014 QIANA PATEL [facility], ALI FACP CCDS Ot 272.4 10/25/2014 QIANA PATEL [facility], ALI FACP CCDS Ot 278.00 10/25/2014 QIANA PATEL [facility], ALI FACP CCDS Ot 401.9 10/25/2014 QIANA PATEL [facility], ALI FACP CCDS Ot 414.00 10/25/2014 QIANA PATEL [facility], ALI FACP CCDS Ot V85.31 10/25/2014 VANBECELAERE, МАРИНА M ZIPPER IRONER Ot 244.9 10/25/2014 VANBECELAERE, МАРИНА M ZIPPER IRONER Ot 272.4 10/25/2014 VANBECELAERE, МАРИНА M ZIPPER IRONER Ot 401.9 10/25/2014 VANBECELAERE, МАРИНА M ZIPPER IRONER Ot 790.29 10/25/2014 ORENDER DO, BELLA S Ot 244.9 10/25/2014 ORENDER DO, BELLA S Ot 250.00 10/25/2014 ORENDER DO, BELLA S Ot 401.9 10/25/2014 ORENDER DO, BELLA S Ot 244.9 10/25/2014 BELLA DIEGO DO Ot 250.00 10/25/2014 BELLA DIEGO DO S Ot 272.4 10/25/2014 QIANA MCKEON, RAJAT FACP CCDS Ot 244.9 10/25/2014 QIANA PATEL FACC, RAJAT FACP CCDS Ot 272.4 10/25/2014 QIANA PATEL FAC, RAJAT FACP CCDS Ot 401.9 10/25/2014 QIANA PATEL FAC, RAJAT FACP CCDS Ot 414.00 10/25/2014 QIANA PATEL FAC, RAJAT FACP CCDS Ot 443.9 10/25/2014 QIANA PATEL FAC, RAJAT FACP CCDS Ot 715.90 10/25/2014 QIANA PATEL FAC, RAJAT FACP CCDS Ot 724.5 10/26/2014 VANBECELAERE, МАРИНА M ZIPPER IRONER Ot 724.2 10/26/2014 VANBECELAERE, МАРИНА M ZIPPER IRONER Ot V57.1 11/24/2014 VANBECELAERE, МАРИНА M ZIPPER IRONER Ot 724.2 11/24/2014 VANBECELAERE, МАРИНА M ZIPPER IRONER Ot V57.1 12/01/2014 VANBECELAERE, МАРИНА M ZIPPER IRONER Ot 724.2 LUMBAGO 12/01/2014 VANBECELAERE, МАРИНА M ZIPPER IRONER Ot V57.1 PHYSICAL THERAPY NEC 12/02/2014 VANBECELAERE, МАРИНА M ZIPPER IRONER Ot M54.5 LOW BACK PAIN 12/28/2014 Ot 272.4 12/28/2014 Ot 401.9 12/28/2014 Ot 414.00 12/28/2014 Ot V58.69 12/28/2014 Ot 274.9 12/28/2014 Ot 401.9 12/28/2014 Ot 414.01 12/28/2014 Ot V58.69 12/28/2014 Ot 274.9 12/28/2014 Ot 401.9 12/28/2014 Ot 272.4 12/28/2014 Ot 401.9 12/28/2014 Ot 414.01 12/28/2014 Ot V58.69 12/28/2014 Ot 272.4 12/28/2014 Ot 276.8 12/28/2014 Ot 401.9 12/28/2014 Ot 780.79 12/28/2014 Ot 272.4 12/28/2014 Ot 401.9 12/28/2014 Ot 414.01 12/28/2014 Ot V58.69 12/28/2014 Ot 244.9 12/28/2014 Ot 272.4 12/28/2014 Ot 401.9 12/28/2014 Ot 414.01 12/28/2014 Ot V58.69 12/28/2014 Ot 272.4 12/28/2014 Ot 401.9 12/28/2014 Ot 414.00 12/28/2014 Ot V58.69 12/28/2014 Ot 244.9 12/28/2014 Ot 414.00 12/28/2014 Ot 244.9 12/28/2014 Ot 272.4 12/28/2014 Ot 401.9 12/28/2014 Ot 682.9 12/28/2014 BATOOLMAJENNIFER L ZIPPER IRONER Ot 272.4 12/28/2014 BAIMAJENNIFER L ZIPPER IRONER Ot 401.9 12/28/2014 BAIMAJENNIFER L ZIPPER IRONER Ot 414.01 12/28/2014 BAIJENNIFER WOODALL L ZIPPER IRONER Ot V58.69 12/28/2014 ORENDER DO, BELLA S Ot 244.9 12/28/2014 ORENDER DO, BELLA S Ot 414.01 12/28/2014 ORENDER DO, BELLA S Ot 790.29 12/28/2014 ORENDER DO, BELLA S Ot 244.9 12/28/2014 BAIMAJENNIFER L ZIPPER IRONER Ot 272.4 12/28/2014 BAIMAJENNIFER L ZIPPER IRONER Ot V58.69 12/28/2014 ORENDER DO, BELLA S Ot 244.9 12/28/2014 ORENDER DO, BELLA S Ot 272.4 12/28/2014 ORENDER DO, BELLA S Ot 401.9 12/28/2014 ORENDER DO, BELLA S Ot 435.9 12/28/2014 ORENDER DO, BELLA S Ot 447.9 12/28/2014 ORENDER DO, BELLA S Ot 784.0 12/28/2014 QIANA PATEL FACC, RAJAT MCKEONP CCDS Ot 272.4 12/28/2014 QIANA PATEL FACC, RAJAT FACP CCDS Ot 278.00 12/28/2014 QIANA PATEL FACC, ALI FACP CCDS Ot 401.9 12/28/2014 QIANA PATEL FACC, ALI FACP CCDS Ot 414.00 12/28/2014 QIANA PATEL FAC, ALI FACP CCDS Ot V85.31 12/28/2014 МАРИНА RODRÍGUEZ M ZIPPER IRONER Ot 244.9 12/28/2014 VANBECELAEREМАРИНА M ZIPPER IRONER Ot 272.4 12/28/2014 VANROSALINDELAEREМАРИНА M ZIPPER IRONER Ot 401.9 12/28/2014 VANBECELAEREМАРИНА M ZIPPER IRONER Ot 790.29 12/28/2014 ORENDER DO, BELLA S Ot 244.9 12/28/2014 ORENDER DO, BELLA S Ot 250.00 12/28/2014 ORENDER DO, BELLA S Ot 401.9 12/28/2014 ORENDER DO, BELLA S Ot 244.9 12/28/2014 ORENDER DO, BELLA S Ot 250.00 12/28/2014 ORENDER DO, BELLA S Ot 272.4 12/28/2014 QIANA PATEL FAC, [facility] FACP CCDS Ot 244.9 12/28/2014 QIANA PATEL FAC, [facility] FACP CCDS Ot 272.4 12/28/2014 QIANA PATEL FAC, ALI FACP CCDS Ot 401.9 12/28/2014 QIANA PATEL FAC, ALI FACP CCDS Ot 414.00 12/28/2014 QIANA PATEL FACC, ALI FACP CCDS Ot 443.9 12/28/2014 QIANA PATEL FAC, ALI FACP CCDS Ot 715.90 12/28/2014 QIANA PATEL FAC, ALI FACP CCDS Ot 724.5 12/31/2014 ORENDER DO, BELLA S Ot E03.9 12/31/2014 ORENDER DO, BELLA S Ot E11.9 12/31/2014 ORENDER DO, BELLA S Ot E78.5 12/31/2014 ORENDER DO, BELLA S Ot I10 01/18/2015 Ot 272.4 01/18/2015 Ot 401.9 01/18/2015 Ot 414.00 01/18/2015 Ot V58.69 01/18/2015 Ot 272.4 01/18/2015 Ot 401.9 01/18/2015 Ot 414.01 01/18/2015 Ot V58.69 01/18/2015 Ot 272.4 01/18/2015 Ot 276.8 01/18/2015 Ot 401.9 01/18/2015 Ot 780.79 01/18/2015 Ot 272.4 01/18/2015 Ot 401.9 01/18/2015 Ot 414.01 01/18/2015 Ot V58.69 01/18/2015 Ot 244.9 01/18/2015 Ot 272.4 01/18/2015 Ot 401.9 01/18/2015 Ot 414.01 01/18/2015 Ot V58.69 01/18/2015 Ot 272.4 01/18/2015 Ot 401.9 01/18/2015 Ot 414.00 01/18/2015 Ot V58.69 01/18/2015 Ot 244.9 01/18/2015 Ot 414.00 01/18/2015 Ot 244.9 01/18/2015 Ot 272.4 01/18/2015 Ot 401.9 01/18/2015 Ot 682.9 01/18/2015 JENNIFER BASHIR ZIPPER IRONER Ot 272.4 01/18/2015 JENNIFER BASHIR L ZIPPER IRONER Ot 401.9 01/18/2015 JENNIFER BASHIR L ZIPPER IRONER Ot 414.01 01/18/2015 JENNIFER BASHIR L ZIPPER IRONER Ot V58.69 01/18/2015 JOVANNANDER DO, BELLA S Ot 244.9 01/18/2015 JOVANNANDER DO, BELLA S Ot 414.01 01/18/2015 JOVANNANDER DO BELLA S Ot 790.29 01/18/2015 JOVANNANDER DO, BELLA S Ot 244.9 01/18/2015 JENNIFER BASHIR L ZIPPER IRONER Ot 272.4 01/18/2015 JENNIFER BASHIR L ZIPPER IRONER Ot V58.69 01/18/2015 ORENDER DO, BELLA S Ot 244.9 01/18/2015 ORENDER DO, BELLA S Ot 272.4 01/18/2015 JOVANNANDER DO, BELLA S Ot 401.9 01/18/2015 JOVANNANDER DO, BELLA S Ot 435.9 01/18/2015 JOVANNANDER DO, BELLA S Ot 447.9 01/18/2015 JOVANNANDER DO, BELLA S Ot 784.0 01/18/2015 QIANA PATEL FACC, ALI FACP CCDS Ot 272.4 01/18/2015 QIANA PATEL FAC, ALI FACP CCDS Ot 278.00 01/18/2015 QIANA PATEL FAC, ALI FACP CCDS Ot 401.9 01/18/2015 QIANA PATEL FACC, ALI FACP CCDS Ot 414.00 01/18/2015 QIANA PATEL FACC, ALI FACP CCDS Ot V85.31 01/18/2015 VANBECELAERE, МАРИНА M ZIPPER IRONER Ot 244.9 01/18/2015 VANBECELAERE, МАРИНА M ZIPPER IRONER Ot 272.4 01/18/2015 VANBECELAERE, МАРИНА M ZIPPER IRONER Ot 401.9 01/18/2015 VANBECELAERE, МАРИНА M ZIPPER IRONER Ot 790.29 01/18/2015 JOVANNANDER DO, BELLA S Ot 244.9 01/18/2015 JOVANNANDER DO, BELLA S Ot 250.00 01/18/2015 JOVANNANDER DO, BELLA S Ot 401.9 01/18/2015 ORENDER DO, BELLA S Ot 244.9 01/18/2015 ORENDER DO, BELLA S Ot 250.00 01/18/2015 JOVANNANDER DO, BELLA S Ot 272.4 01/18/2015 QIANA PATEL FAC, ALI FACP CCDS Ot 244.9 01/18/2015 QIANA PATEL FAC, ALI FACP CCDS Ot 272.4 01/18/2015 QIANA PATEL FACC, ALI FACP CCDS Ot 401.9 01/18/2015 QIANA PATEL FACC, ALI FACP CCDS Ot 414.00 01/18/2015 QIANA PATEL FACC, ALI FACP CCDS Ot 443.9 01/18/2015 QIANA PATEL FACC, ALI FACP CCDS Ot 715.90 01/18/2015 QIANA PATEL FACC, ALI FACP CCDS Ot 724.5 01/18/2015 JENNIFER BASHIR ZIPPER IRONER Ot E78.5 01/18/2015 JENNIFER BASHIR ZIPPER IRONER Ot I25.10 01/18/2015 CHRISTINA DIEGO DOQUELINE S Ot E03.9 01/18/2015 ORENDER DO, BELLA S Ot E11.9 01/18/2015 ORENDER DO, BELLA S Ot E78.5 01/18/2015 JOVANNANDER DO, BELLA S Ot I10 01/19/2015 BAIJENNIFER WOODALL L ZIPPER IRONER Ot E78.5 01/19/2015 BAIMA JENNIFER L ZIPPER IRONER Ot I25.10 01/19/2015 JOVANNANDER DO, BELLA S Ot E03.9 01/19/2015 ORENDER DO, BELLA S Ot E11.9 01/19/2015 ORENDER DO, BELLA S Ot E78.5 01/19/2015 JOVANNANDER DO, BELLA S Ot I10 02/09/2015 BAIMAJENNIFER L ZIPPER IRONER Ot E78.5 02/09/2015 BAIMA JENNIFER L ZIPPER IRONER Ot E87.6 02/09/2015 BAIMA JENNIFER L ZIPPER IRONER Ot I10 02/09/2015 BAIMA JENNIFER L ZIPPER IRONER Ot I25.10 02/09/2015 BAIMA JENNIFER L ZIPPER IRONER Ot I73.9 03/10/2015 МАРИНА RODRÍGUEZ ZIPPER IRONER Ot E87.6 09/02/2015 Ot 682.7 CELLULITIS OF FOOT 09/02/2015 Ot 729.5 PAIN IN LIMB 01/03/2016 Ot 272.4 HYPERLIPIDEMIA NEC/NOS 01/03/2016 Ot 401.9 HYPERTENSION NOS 01/03/2016 Ot 414.00 CORON ATHEROSCLER NOS TYPE VESSEL, [place]IV 01/03/2016 Ot V58.69 OTH MED,LT,CURRENT USE 01/03/2016 Ot 682.7 CELLULITIS OF FOOT 01/03/2016 Ot 729.5 PAIN IN LIMB 01/13/2016 Ot 272.4 HYPERLIPIDEMIA NEC/NOS 01/13/2016 Ot 401.9 HYPERTENSION NOS 01/13/2016 Ot 414.00 CORON ATHEROSCLER NOS TYPE VESSEL, [place]IV 01/13/2016 Ot V58.69 OTH MED,LT,CURRENT USE 01/13/2016 Ot 272.4 HYPERLIPIDEMIA NEC/NOS 01/13/2016 Ot 401.9 HYPERTENSION NOS 01/13/2016 Ot 414.01 CORONARY ATHEROSCLEROSIS OF [place] CORON 01/13/2016 Ot V58.69 OTH MED,LT,CURRENT USE 01/13/2016 Ot 244.9 HYPOTHYROIDISM NOS 01/13/2016 Ot 272.4 HYPERLIPIDEMIA NEC/NOS 01/13/2016 Ot 401.9 HYPERTENSION NOS 01/13/2016 Ot 414.01 CORONARY ATHEROSCLEROSIS OF [place] CORON 01/13/2016 Ot V58.69 OTH MED,LT,CURRENT USE 01/13/2016 Ot 272.4 HYPERLIPIDEMIA NEC/NOS 01/13/2016 Ot 401.9 HYPERTENSION NOS 01/13/2016 Ot 414.00 CORON ATHEROSCLER NOS TYPE VESSEL, NATIV 01/13/2016 Ot V58.69 OTH MED,LT,CURRENT USE 01/13/2016 Ot 244.9 HYPOTHYROIDISM NOS 01/13/2016 Ot 414.00 CORON ATHEROSCLER NOS TYPE VESSEL, NATIV 01/13/2016 Ot 244.9 HYPOTHYROIDISM NOS 01/13/2016 Ot 272.4 HYPERLIPIDEMIA NEC/NOS 01/13/2016 Ot 401.9 HYPERTENSION NOS 01/13/2016 Ot 682.9 CELLULITIS NOS 01/13/2016 BATOOLMAJENNIFER L ZIPPER IRONER Ot 272.4 HYPERLIPIDEMIA NEC/NOS 01/13/2016 BAIMA JENNIFER L ZIPPER IRONER Ot 401.9 HYPERTENSION NOS 01/13/2016 BAIMA JENNIFER L ZIPPER IRONER Ot 414.01 CORONARY ATHEROSCLEROSIS OF [place] CORON 01/13/2016 JENNIFER BASHIR L ZIPPER IRONER Ot V58.69 OTH MED,LT,CURRENT USE 01/13/2016 ORENDER DO, BELLA S Ot 244.9 HYPOTHYROIDISM NOS 01/13/2016 ORENDER DO, BELLA S Ot 414.01 CORONARY ATHEROSCLEROSIS OF [place] CORON 01/13/2016 JOVANNANDER DO, BELLA S Ot 790.29 OTHER ABNORMAL GLUCOSE 01/13/2016 ORENDER DO, BELLA S Ot 244.9 HYPOTHYROIDISM NOS 01/13/2016 BAIMA JENNIFER L ZIPPER IRONER Ot 272.4 HYPERLIPIDEMIA NEC/NOS 01/13/2016 BAIMAKARONJENNIFER L ZIPPER IRONER Ot V58.69 OTH MED,LT,CURRENT USE 01/13/2016 ORENDER DO, BELLA S Ot 244.9 HYPOTHYROIDISM NOS 01/13/2016 ORENDER DO, BELLA S Ot 272.4 HYPERLIPIDEMIA NEC/NOS 01/13/2016 ORENDER DO, BELLA S Ot 401.9 HYPERTENSION NOS 01/13/2016 ORENDER DO, BELLA S Ot 435.9 TRANS CEREB ISCHEMIA NOS 01/13/2016 JOVANNANDGABRIELA DO, BELLA S Ot 447.9 ARTERIAL DISEASE NOS 01/13/2016 JOVANNANDER , BELLA S Ot 784.0 HEADACHE 01/13/2016 QIANA APTEL FACC, ALI FACP CCDS Ot 272.4 HYPERLIPIDEMIA NEC/NOS 01/13/2016 QIANA PATEL FACC, ALI FACP CCDS Ot 278.00 OBESITY, NOS 01/13/2016 QIANA PATEL FACC, ALI FACP CCDS Ot 401.9 HYPERTENSION NOS 01/13/2016 QIANA PATEL FACC, ALI FACP CCDS Ot 414.00 CORON ATHEROSCLER NOS TYPE VESSEL, NATIV 01/13/2016 QIANA PATEL FACC, ALI FACP CCDS Ot V85.31 BODY MASS INDEX 31.0-31.9, ADULT 01/13/2016 VANROSALINDELAERE, МАРИНА M ZIPPER IRONER Ot 244.9 HYPOTHYROIDISM NOS 01/13/2016 VANBECELAERE, МАРИНА M ZIPPER IRONER Ot 272.4 HYPERLIPIDEMIA NEC/NOS 01/13/2016 VANBECELAERE, МАРИНА M ZIPPER IRONER Ot 401.9 HYPERTENSION NOS 01/13/2016 VANBECELAERE, МАРИНА M ZIPPER IRONER Ot 790.29 OTHER ABNORMAL GLUCOSE 01/13/2016 JOVANNANDER DO, BELLA S Ot 244.9 HYPOTHYROIDISM NOS 01/13/2016 ORENDER DO, BELLA S Ot 250.00 DIAB CAROL WO COMPL, TYPE II OR UNSPEC TY 01/13/2016 ORENDER DO, BELLA S Ot 401.9 HYPERTENSION NOS 01/13/2016 ORENDER DO, BELLA S Ot 244.9 HYPOTHYROIDISM NOS 01/13/2016 ORENDER DO, BELLA S Ot 250.00 DIAB CAROL WO COMPL, TYPE II OR UNSPEC TY 01/13/2016 ORENDER DO, BELLA S Ot 272.4 HYPERLIPIDEMIA NEC/NOS 01/13/2016 QIANA PATEL FACC, ALI FACP CCDS Ot 244.9 HYPOTHYROIDISM NOS 01/13/2016 QIANA PATEL FACC, ALI FACP CCDS Ot 272.4 HYPERLIPIDEMIA NEC/NOS 01/13/2016 QIANA PATEL FACC, ALI FACP CCDS Ot 401.9 HYPERTENSION NOS 01/13/2016 QIANA PATEL FACC, ALI FACP CCDS Ot 414.00 CORON ATHEROSCLER NOS TYPE VESSEL, NATIV 01/13/2016 QIANA PATEL FACC, RAJAT FACP CCDS Ot 443.9 PERIPH VASCULAR DIS NOS 01/13/2016 QIANA PATEL FACC, RAJAT FACP CCDS Ot 715.90 OSTEOARTHROS NOS-UNSPEC 01/13/2016 QIANA PATEL FACC, RAJAT FACP CCDS Ot 724.5 BACKACHE NOS 01/13/2016 KRYSTEN JENNIFER L ZIPPER IRONER Ot E78.5 HYPERLIPIDEMIA, UNSPECIFIED 01/13/2016 BATOOLJOSE C JENNIFER L ZIPPER IRONER Ot I25.10 ATHSCL HEART DISEASE OF [place] CORONARY 01/13/2016 ORENDER DO, BELLA S Ot E03.9 HYPOTHYROIDISM, UNSPECIFIED 01/13/2016 ORENDER DO, BELLA S Ot E11.9 TYPE 2 DIABETES MELLITUS WITHOUT COMPLIC 01/13/2016 ORENDER DO, BELLA S Ot E78.5 HYPERLIPIDEMIA, UNSPECIFIED 01/13/2016 ORENDER DO, BELLA S Ot I10 ESSENTIAL (PRIMARY) HYPERTENSION 01/13/2016 JENNIFER BASHIR L ZIPPER IRONER Ot E78.5 HYPERLIPIDEMIA, UNSPECIFIED 01/13/2016 BAIJOSE C, JENNIFER L ZIPPER IRONER Ot E87.6 HYPOKALEMIA 01/13/2016 BAIJOSE C JENNIFER L ZIPPER IRONER Ot I10 ESSENTIAL (PRIMARY) HYPERTENSION 01/13/2016 KRYSTEN JENNIFER L ZIPPER IRONER Ot I25.10 ATHSCL HEART DISEASE OF [place] CORONARY 01/13/2016 KRYSTEN JENNIFER L ZIPPER IRONER Ot I73.9 PERIPHERAL VASCULAR DISEASE, UNSPECIFIED 01/13/2016 МАРИНА RODRÍGUEZ ZIPPER IRONER Ot E87.6 HYPOKALEMIA 01/13/2016 QIANA PATEL FACC, RAJAT FACP CCDS Ot 272.4 HYPERLIPIDEMIA NEC/NOS 01/13/2016 QIANA PATEL FACC, ALI FACP CCDS Ot 278.00 OBESITY, NOS 01/13/2016 QIANA PATEL FACC, RAJAT FACP CCDS Ot 401.9 HYPERTENSION NOS 01/13/2016 QIANA PATEL FACC, ALI FACP CCDS Ot 414.00 CORON ATHEROSCLER NOS TYPE VESSEL, NATIV 01/13/2016 QIANA PATEL FACC, ALI FACP CCDS Ot V85.31 BODY MASS INDEX 31.0-31.9, ADULT 01/13/2016 МАРИНА RODRÍGUEZ ZIPPER IRONER Ot 244.9 HYPOTHYROIDISM NOS 01/13/2016 МАРИНА RODRÍGUEZ ZIPPER IRONER Ot 272.4 HYPERLIPIDEMIA NEC/NOS 01/13/2016 МАРИНА RODRÍGUEZ ZIPPER IRONER Ot 401.9 HYPERTENSION NOS 01/13/2016 МРАИНА RODRÍGUEZ ZIPPER IRONER Ot 790.29 OTHER ABNORMAL GLUCOSE 01/13/2016 ORENDER DO, BELLA S Ot 244.9 HYPOTHYROIDISM NOS 01/13/2016 ORENDER DO, BELLA S Ot 250.00 DIAB CAROL WO COMPL, TYPE II OR UNSPEC TY 01/13/2016 ORENDER DO, BELLA S Ot 401.9 HYPERTENSION NOS 01/13/2016 ORENDER DO, BELLA S Ot 244.9 HYPOTHYROIDISM NOS 01/13/2016 ORENDER DO, BELLA S Ot 250.00 DIAB CAROL WO COMPL, TYPE II OR UNSPEC TY 01/13/2016 ORENDER DO, BELLA S Ot 272.4 HYPERLIPIDEMIA NEC/NOS 01/13/2016 QIANA PATEL FACC, ALI FACP CCDS Ot 244.9 HYPOTHYROIDISM NOS 01/13/2016 QIANA PATEL FACC, ALI FACP CCDS Ot 272.4 HYPERLIPIDEMIA NEC/NOS 01/13/2016 QIANA MCKEONC, ALI FACP CCDS Ot 401.9 HYPERTENSION NOS 01/13/2016 QIANA PATEL FACC, ALI FACP CCDS Ot 414.00 CORON ATHEROSCLER NOS TYPE VESSEL, NATIV 01/13/2016 QIANA MCKEONC, ALI FACP CCDS Ot 443.9 PERIPH VASCULAR DIS NOS 01/13/2016 QIANA PATEL FACC, ALI FACP CCDS Ot 715.90 OSTEOARTHROS NOS-UNSPEC 01/13/2016 QIANA PATEL FACC, ALI FACP CCDS Ot 724.5 BACKACHE NOS 01/13/2016 JENNIFER BASHIR ZIPPER IRONER Ot E78.5 HYPERLIPIDEMIA, UNSPECIFIED 01/13/2016 JENNIFER BASHIR L ZIPPER IRONER Ot I25.10 ATHSCL HEART DISEASE OF [place] CORONARY 01/13/2016 ORENDER DO, BELLA S Ot E03.9 HYPOTHYROIDISM, UNSPECIFIED 01/13/2016 ORENDER DO, BELLA S Ot E11.9 TYPE 2 DIABETES MELLITUS WITHOUT COMPLIC 01/13/2016 ORENDER DO, BELLA S Ot E78.5 HYPERLIPIDEMIA, UNSPECIFIED 01/13/2016 ORENDER DO, BELLA S Ot I10 ESSENTIAL (PRIMARY) HYPERTENSION 01/13/2016 JENNIFER BASHIR ZIPPER IRONER Ot E78.5 HYPERLIPIDEMIA, UNSPECIFIED 01/13/2016 JENNIFER BASHIR ZIPPER IRONER Ot E87.6 HYPOKALEMIA 01/13/2016 JENNIFER BASHIR ZIPPER IRONER Ot I10 ESSENTIAL (PRIMARY) HYPERTENSION 01/13/2016 JENNIFER BASHIR ZIPPER IRONER Ot I25.10 ATHSCL HEART DISEASE OF [place] CORONARY 01/13/2016 JENNIFER BASHIR ZIPPER IRONER Ot I73.9 PERIPHERAL VASCULAR DISEASE, UNSPECIFIED 01/13/2016 МАРИНА RODRÍGUEZ ZIPPER IRONER Ot E87.6 HYPOKALEMIA 01/13/2016 ORENDER DO, BELLA S Ot D51.8 OTHER VITAMIN B12 DEFICIENCY ANEMIAS 01/13/2016 ORENDER DO, BELLA S Ot E03.9 HYPOTHYROIDISM, UNSPECIFIED 01/13/2016 ORENDER DO, BELLA S Ot E10.8 TYPE 1 DIABETES MELLITUS WITH UNSPECIFIE 01/13/2016 ORENDER DO, BELLA S Ot E55.9 VITAMIN D DEFICIENCY, UNSPECIFIED 01/13/2016 ORENDER DO, BELLA S Ot E78.5 HYPERLIPIDEMIA, UNSPECIFIED 02/02/2016 Ot 272.4 HYPERLIPIDEMIA NEC/NOS 02/02/2016 Ot 401.9 HYPERTENSION NOS 02/02/2016 Ot 414.00 CORON ATHEROSCLER NOS TYPE VESSEL, NATIV 02/02/2016 Ot V58.69 OTH MED,LT,CURRENT USE 02/03/2016 ORENDER DO, BELLA S Ot D51.8 OTHER VITAMIN B12 DEFICIENCY ANEMIAS 02/03/2016 ORENDER DO, BELLA S Ot E03.9 HYPOTHYROIDISM, UNSPECIFIED 02/03/2016 ORENDER DO, BELLA S Ot E10.8 TYPE 1 DIABETES MELLITUS WITH UNSPECIFIE 02/03/2016 ORENDER DO, BELLA S Ot E55.9 VITAMIN D DEFICIENCY, UNSPECIFIED 02/03/2016 ORENDER DO, BELLA S Ot E78.5 HYPERLIPIDEMIA, UNSPECIFIED 02/15/2016 QIANA PATEL FACC, RAJAT PAUL CCDS Ot I25.10 ATHSCL HEART DISEASE OF [place] CORONARY 02/16/2016 QIANA PATEL FACC, ALI FACP CCDS Ot E78.4 OTHER HYPERLIPIDEMIA 02/16/2016 QIANA PATEL FACC, ALI FACP CCDS Ot I10 ESSENTIAL (PRIMARY) HYPERTENSION 02/16/2016 QIANA PATEL FACC, ALI FACP CCDS Ot I25.10 ATHSCL HEART DISEASE OF [place] CORONARY 02/16/2016 QIANA PATEL FACC, ALI FACP CCDS Ot I65.23 OCCLUSION AND STENOSIS OF [place] 02/16/2016 QIANA PATEL FACC, ALI FACP CCDS Ot I70.213 ATHSCL [place] ARTERIES OF EXTRM W INTRMT 03/04/2016 Ot 682.7 CELLULITIS OF FOOT 03/04/2016 Ot 729.5 PAIN IN LIMB 03/12/2016 QIANA PATEL FACC, ALI FACP CCDS Ot E78.4 OTHER HYPERLIPIDEMIA 03/12/2016 QIANA PATEL FACC, ALI FACP CCDS Ot I10 ESSENTIAL (PRIMARY) HYPERTENSION 03/12/2016 QIANA PATEL FACC, ALI FACP CCDS Ot I25.10 ATHSCL HEART DISEASE OF [place] CORONARY 03/12/2016 QIANA PATEL FACC, ALI FACP CCDS Ot I65.23 OCCLUSION AND STENOSIS OF [place] 03/12/2016 QIANA PATEL FACC, ALI FACP CCDS Ot I70.213 ATHSCL [place] [facility] 05/29/2016 HEATHER DALH MD Ot E78.00 PURE HYPERCHOLESTEROLEMIA, UNSPECIFIED 05/29/2016 HEATHER DAHL MD Ot E89.0 POSTPROCEDURAL HYPOTHYROIDISM 05/29/2016 HEATHER DAHL MD Ot I10 ESSENTIAL (PRIMARY) HYPERTENSION 05/29/2016 HEATHER DAHL MD Ot N39.3 STRESS INCONTINENCE (FEMALE) (MALE) 05/29/2016 HEATHER DAHL MD Ot S72.001A FRACTURE OF UNSP PART OF NECK OF RIGHT F 05/29/2016 HEATHER DAHL MD Ot W18.30XA FALL ON SAME LEVEL, UNSPECIFIED, INITIAL 05/29/2016 HEATHER DAHL MD Ot Y92.[address] [facility] 05/29/2016 HEATHER DAHL MD Ot Z79.02 MARKETING OFFICER (CURRENT) USE OF ANTITHROMBOTI 05/29/2016 HEATHER DAHL MD, Ot Z79.82 MARKETING OFFICER (CURRENT) USE OF ASPIRIN 05/30/2016 HEATHER DAHL MD Ot D64.9 ANEMIA, UNSPECIFIED 05/30/2016 HEATHER DAHL MD Ot E78.00 PURE HYPERCHOLESTEROLEMIA, UNSPECIFIED 05/30/2016 HEATHER DAHL MD Ot E89.0 POSTPROCEDURAL HYPOTHYROIDISM 05/30/2016 HEATHER DAHL MD, Ot G62.9 POLYNEUROPATHY, UNSPECIFIED 05/30/2016 HEATHER DAHL MD Ot I10 ESSENTIAL (PRIMARY) HYPERTENSION 05/30/2016 HEATHER DAHL MD, Ot I11.9 HYPERTENSIVE HEART DISEASE WITHOUT HEART 05/30/2016 HEATHER DAHL MD Ot I65.23 OCCLUSION AND STENOSIS OF [place] 05/30/2016 HEATHER DAHL MD, Ot I73.9 PERIPHERAL VASCULAR DISEASE, UNSPECIFIED 05/30/2016 HEATHER DAHL MD, Ot M54.5 LOW BACK PAIN 05/30/2016 HEATHER DAHL MD, Ot N39.0 URINARY TRACT INFECTION, SITE NOT SPECIF 05/30/2016 HEATHER DAHL MD, Ot N39.3 STRESS INCONTINENCE (FEMALE) (MALE) 05/30/2016 HEATHER DAHL MD, Ot R41.0 DISORIENTATION, UNSPECIFIED 05/30/2016 HEATHER DAHL MD, Ot R73.01 IMPAIRED FASTING GLUCOSE 05/30/2016 HEATHER DAHL MD Ot S72.001A FRACTURE OF UNSP PART OF NECK OF RIGHT F 05/30/2016 HEATHER DAHL MD Ot W18.30XA FALL ON SAME LEVEL, UNSPECIFIED, INITIAL 05/30/2016 HEATHER DAHL MD Ot Y92.[address] [facility] ( [facility] 05/30/2016 HEATHER DAHL MD, Ot Z79.02 ALF (CURRENT) USE OF ANTITHROMBOTI 05/30/2016 HEATHER DAHL MD, Ot Z79.82 ALF (CURRENT) USE OF ASPIRIN 05/30/2016 HEATHER DAHL MD, Ot Z95.5 PRESENCE OF CORONARY ANGIOPLASTY IMPLANT 05/30/2016 HEATHER DAHL MD, Ot Z98.1 ARTHRODESIS STATUS Procedures Code Description Performed By Performed On [id number] REPLACE R HIP JT, FEMORAL W METAL, UNCEM 05/27/2016 Results Test Result Range Complete blood count (CBC) with automated white blood cell (WBC) differential - 01/13/16 10:26 Blood leukocytes automated count (number/volume) 6.4 10*3/ uL 4.3-11.0 Blood erythrocytes automated count (number/volume) 4.85 10*6 /uL 4.35-5.85 Venous blood hemoglobin measurement (mass/volume) 15.0 g/dL 11.5-16.0 Blood hematocrit (volume fraction) 45 % 35-52 Automated erythrocyte mean corpuscular volume 92 [foz_us] 80-99 Automated erythrocyte mean corpuscular hemoglobin (mass per erythrocyte) 31 pg 25-34 Automated erythrocyte mean corpuscular hemoglobin concentration measurement ( mass/volume) 34 g/dL 32-36 Automated erythrocyte distribution width ratio 13.1 % 10.0-14.5 Automated blood platelet count (count/volume) 219 10*3/uL 130-400 Automated blood platelet mean volume measurement 9.5 [foz_us ] 7.4-10.4 Automated blood neutrophils/100 leukocytes 54 % 42-75 Automated blood lymphocytes/100 leukocytes 28 % 12-44 Blood monocytes/100 leukocytes 13 % 0-12 Automated blood eosinophils/100 leukocytes 5 % 0-10 Automated blood basophils/100 leukocytes 0 % 0-10 Blood neutrophils automated count (number/volume) 3.4 10*3 1.8-7.8 Blood lymphocytes automated count (number/volume) 1.8 10*3 1.0-4.0 Blood monocytes automated count (number/volume) 0.8 10*3 0.0-1.0 Automated eosinophil count 0.3 10*3/uL 0.0-0.3 Automated blood basophil count (count/volume) 0.0 10*3/uL 0.0-0.1 Comprehensive metabolic panel - 01/13/16 10:26 Serum or plasma sodium measurement (moles/volume) 141 mmol/ L 135-145 Serum or plasma potassium measurement (moles/volume) 4.2 mmol/L 3.6-5.0 Serum or plasma chloride measurement (moles/volume) 108 mmol /L 98-107 Carbon dioxide 25 mmol/L 21-32 Serum or plasma anion gap determination (moles/volume) 8 mmol/L 5-14 Serum or plasma urea nitrogen measurement (mass/volume) 14 mg/dL 7-18 Serum or plasma creatinine measurement (mass/volume) 0.79 mg /dL 0.60-1.30 Serum or plasma urea nitrogen/creatinine mass ratio 18 NRG Serum or plasma creatinine measurement with calculation of estimated glomerular filtration rate > NRG Serum or plasma glucose measurement (mass/volume) 93 mg/dL 70-105 Serum or plasma calcium measurement (mass/volume) 9.4 mg/dL 8.5-10.1 Serum or plasma total bilirubin measurement (mass/volume) 0.8 mg/dL 0.1-1.0 Serum or plasma alkaline phosphatase measurement (enzymatic activity/volume) 87 U/L 40-136 Serum or plasma aspartate aminotransferase measurement (enzymatic activity/ volume) 18 U/L 5-34 Serum or plasma alanine aminotransferase measurement (enzymatic activity/volume ) 24 U/L 0-55 Serum or plasma protein measurement (mass/volume) 6.8 g/dL 6.4-8.2 Serum or plasma albumin measurement (mass/volume) 4.1 g/dL 3.2-4.5 Lipid 1996 panel - 01/13/16 10:26 Serum or plasma triglyceride measurement (mass/volume) 179 mg/dL <150 Serum or plasma cholesterol measurement (mass/volume) 161 mg /dL < 200 Serum or plasma cholesterol in HDL measurement (mass/volume) 45 mg/dL 40-60 Cholesterol in LDL [mass/volume] in serum or plasma by direct assay 94 mg/dL 1-129 Serum or plasma cholesterol in VLDL measurement (mass/volume) 36 mg/dL 5-40 THYROID STIMULATING HORMONE - 01/13/16 10:26 THYROID STIMULATING HORMONE 0.04 u[iU]/mL 0.35-4.94 Serum or plasma thyroxine (T4) free measurement (mass/volume) - 01/13/16 10:26 Serum or plasma thyroxine (T4) free measurement (mass/volume) 1.79 ng/dL 0.70-1.48 Cyanocobalamin measurement - 01/13/16 10:26 Vitamin B12 1372 pg/mL 200-1000 25-hydroxyvitamin D measurement - 01/13/16 10:26 25-hydroxy vitamin D measurement 30 % 30- 100 Complete blood count (CBC) with automated white blood cell (WBC) differential - 05/26/16 11:30 Blood leukocytes automated count (number/volume) 6.5 10*3/ uL 4.3-11.0 Blood erythrocytes automated count (number/volume) 4.75 10*6 /uL 4.35-5.85 Venous blood hemoglobin measurement (mass/volume) 14.9 g/dL 11.5-16.0 Blood hematocrit (volume fraction) 44 % 35-52 Automated erythrocyte mean corpuscular volume 92 [foz_us] 80-99 Automated erythrocyte mean corpuscular hemoglobin (mass per erythrocyte) 31 pg 25-34 Automated erythrocyte mean corpuscular hemoglobin concentration measurement ( mass/volume) 34 g/dL 32-36 Automated erythrocyte distribution width ratio 13.0 % 10.0-14.5 Automated blood platelet count (count/volume) 213 10*3/uL 130-400 Automated blood platelet mean volume measurement 9.9 [foz_us ] 7.4-10.4 Automated blood neutrophils/100 leukocytes 56 % 42-75 Automated blood lymphocytes/100 leukocytes 30 % 12-44 Blood monocytes/100 leukocytes 9 % 0-12 Automated blood eosinophils/100 leukocytes 4 % 0-10 Automated blood basophils/100 leukocytes 0 % 0-10 Blood neutrophils automated count (number/volume) 3.7 10*3 1.8-7.8 Blood lymphocytes automated count (number/volume) 2.0 10*3 1.0-4.0 Blood monocytes automated count (number/volume) 0.6 10*3 0.0-1.0 Automated eosinophil count 0.3 10*3/uL 0.0-0.3 Automated blood basophil count (count/volume) 0.0 10*3/uL 0.0-0.1 PT panel in platelet poor plasma by coagulation assay - 05/26/16 11:30 Prothrombin time (PT) in platelet poor plasma by coagulation assay 12.9 s 12.2-14.7 INR in platelet poor plasma or blood by coagulation assay 1.0 0.8-1.4 Activated partial thromboplastin time (aPTT) in platelet poor plasma bycoagulation assay - 05/26/16 11:30 Activated partial thromboplastin time (aPTT) in platelet poor plasma bycoagulation assay 24 s 24-35 Comprehensive metabolic panel - 05/26/16 11:30 Serum or plasma sodium measurement (moles/volume) 142 mmol/ L 135-145 Serum or plasma potassium measurement (moles/volume) 4.1 mmol/L 3.6-5.0 Serum or plasma chloride measurement (moles/volume) 110 mmol /L 98-107 Carbon dioxide 21 mmol/L 21-32 Serum or plasma anion gap determination (moles/volume) 11 mmol/L 5-14 Serum or plasma urea nitrogen measurement (mass/volume) 14 mg/dL 7-18 Serum or plasma creatinine measurement (mass/volume) 0.82 mg /dL 0.60-1.30 Serum or plasma urea nitrogen/creatinine mass ratio 17 NRG Serum or plasma creatinine measurement with calculation of estimated glomerular filtration rate > NRG Serum or plasma glucose measurement (mass/volume) 102 mg/dL 70-105 Serum or plasma calcium measurement (mass/volume) 9.3 mg/dL 8.5-10.1 Serum or plasma total bilirubin measurement (mass/volume) 0.7 mg/dL 0.1-1.0 Serum or plasma alkaline phosphatase measurement (enzymatic activity/volume) 77 U/L 40-136 Serum or plasma aspartate aminotransferase measurement (enzymatic activity/ volume) 21 U/L 5-34 Serum or plasma alanine aminotransferase measurement (enzymatic activity/volume ) 15 U/L 0-55 Serum or plasma protein measurement (mass/volume) 6.2 g/dL 6.4-8.2 Serum or plasma albumin measurement (mass/volume) 3.8 g/dL 3.2-4.5 Complete urinalysis with reflex to culture - 05/26/16 12:30 Urine color determination YELLOW NRG Urine clarity determination SLIGHTLY CLOUDY NRG Urine pH measurement by test strip 7 5- 9 Specific gravity of urine by test strip 1.015 1.016-1.022 Urine protein assay by test strip, semi-quantitative 1+ NEGATIVE Urine glucose detection by automated test strip NEGATIVE NEGATIVE Erythrocytes detection in urine sediment by light microscopy 1+ NEGATIVE Urine ketones detection by automated test strip NEGATIVE NEGATIVE Urine nitrite detection by test strip NEGATIVE NEGATIVE Urine total bilirubin detection by test strip NEGATIVE NEGATIVE Urine urobilinogen measurement by automated test strip (mass/volume) NORMAL NORMAL Urine leukocyte esterase detection by dipstick 3+ NEGATIVE Automated urine sediment erythrocyte count by microscopy (number/high power field) NONE NRG Automated urine sediment leukocyte count by microscopy (number/high power field ) [HPF] NRG Bacteria detection in urine sediment by light microscopy MODERATE NRG Squamous epithelial cells detection in urine sediment by light microscopy RARE NRG Crystals detection in urine sediment by light microscopy NONE NRG Casts detection in urine sediment by light microscopy NONE NRG Mucus detection in urine sediment by light microscopy NEGATIVE NRG Complete urinalysis with reflex to culture YES NRG Bacterial urine culture - 05/26/16 12:30 Bacterial urine culture FOOTNOTE NRG Blood type T Indirect antibody screen panel - 05/26/16 15:27 ABO+Rh group OP NRG Transfusion band number [id number] NRG Blood group antibody screen NEGATIVE NRG Complete blood count (CBC) with automated white blood cell (WBC) differential - 05/27/16 04:35 Blood leukocytes automated count (number/volume) 9.6 10*3/ uL 4.3-11.0 Blood erythrocytes automated count (number/volume) 4.27 10*6 /uL 4.35-5.85 Venous blood hemoglobin measurement (mass/volume) 13.2 g/dL 11.5-16.0 Blood hematocrit (volume fraction) 40 % 35-52 Automated erythrocyte mean corpuscular volume 93 [foz_us] 80-99 Automated erythrocyte mean corpuscular hemoglobin (mass per erythrocyte) 31 pg 25-34 Automated erythrocyte mean corpuscular hemoglobin concentration measurement ( mass/volume) 33 g/dL 32-36 Automated erythrocyte distribution width ratio 13.0 % 10.0-14.5 Automated blood platelet count (count/volume) 224 10*3/uL 130-400 Automated blood platelet mean volume measurement 9.8 [foz_us ] 7.4-10.4 Automated blood neutrophils/100 leukocytes 72 % 42-75 Automated blood lymphocytes/100 leukocytes 16 % 12-44 Blood monocytes/100 leukocytes 11 % 0-12 Automated blood eosinophils/100 leukocytes 1 % 0-10 Automated blood basophils/100 leukocytes 0 % 0-10 Blood neutrophils automated count (number/volume) 6.9 10*3 1.8-7.8 Blood lymphocytes automated count (number/volume) 1.5 10*3 1.0-4.0 Blood monocytes automated count (number/volume) 1.0 10*3 0.0-1.0 Automated eosinophil count 0.1 10*3/uL 0.0-0.3 Automated blood basophil count (count/volume) 0.0 10*3/uL 0.0-0.1 Comprehensive metabolic panel - 05/27/16 04:35 Serum or plasma sodium measurement (moles/volume) 141 mmol/ L 135-145 Serum or plasma potassium measurement (moles/volume) 3.9 mmol/L 3.6-5.0 Serum or plasma chloride measurement (moles/volume) 109 mmol /L 98-107 Carbon dioxide 25 mmol/L 21-32 Serum or plasma anion gap determination (moles/volume) 7 mmol/L 5-14 Serum or plasma urea nitrogen measurement (mass/volume) 13 mg/dL 7-18 Serum or plasma creatinine measurement (mass/volume) 0.75 mg /dL 0.60-1.30 Serum or plasma urea nitrogen/creatinine mass ratio 17 NRG Serum or plasma creatinine measurement with calculation of estimated glomerular filtration rate > NRG Serum or plasma glucose measurement (mass/volume) 89 mg/dL 70-105 Serum or plasma calcium measurement (mass/volume) 8.4 mg/dL 8.5-10.1 Serum or plasma total bilirubin measurement (mass/volume) 0.6 mg/dL 0.1-1.0 Serum or plasma alkaline phosphatase measurement (enzymatic activity/volume) 64 U/L 40-136 Serum or plasma aspartate aminotransferase measurement (enzymatic activity/ volume) 15 U/L 5-34 Serum or plasma alanine aminotransferase measurement (enzymatic activity/volume ) 12 U/L 0-55 Serum or plasma protein measurement (mass/volume) 5.5 g/dL 6.4-8.2 Serum or plasma albumin measurement (mass/volume) 3.4 g/dL 3.2-4.5 Methicillin resistant Staphylococcus aureus (MRSA) screening culture - 07:48 Methicillin resistant Staphylococcus aureus (MRSA) screening culture NEG NR Automated blood complete blood count (hemogram) panel - 05/28/16 09:59 Blood leukocytes automated count (number/volume) 10.5 10*3/ uL 4.3-11.0 Blood erythrocytes automated count (number/volume) 3.30 10*6 /uL 4.35-5.85 Venous blood hemoglobin measurement (mass/volume) 10.5 g/dL 11.5-16.0 Blood hematocrit (volume fraction) 31 % 35-52 Automated erythrocyte mean corpuscular volume 95 [foz_us] 80-99 Automated erythrocyte mean corpuscular hemoglobin (mass per erythrocyte) 32 pg 25-34 Automated erythrocyte mean corpuscular hemoglobin concentration measurement ( mass/volume) 34 g/dL 32-36 Automated erythrocyte distribution width ratio 13.1 % 10.0-14.5 Automated blood platelet count (count/volume) 210 10*3/uL 130-400 Automated blood platelet mean volume measurement 9.7 [foz_us ] 7.4-10.4 Whole blood basic metabolic panel - 05/28/16 09:59 Serum or plasma sodium measurement (moles/volume) 138 mmol/ L 135-145 Serum or plasma potassium measurement (moles/volume) 3.8 mmol/L 3.6-5.0 Serum or plasma chloride measurement (moles/volume) 108 mmol /L 98-107 Carbon dioxide 22 mmol/L 21-32 Serum or plasma anion gap determination (moles/volume) 8 mmol/L 5-14 Serum or plasma urea nitrogen measurement (mass/volume) 20 mg/dL 7-18 Serum or plasma creatinine measurement (mass/volume) 0.88 mg /dL 0.60-1.30 Serum or plasma urea nitrogen/creatinine mass ratio 23 NRG Serum or plasma creatinine measurement with calculation of estimated glomerular filtration rate > NRG Serum or plasma glucose measurement (mass/volume) 131 mg/dL 70-105 Serum or plasma calcium measurement (mass/volume) 8.2 mg/dL 8.5-10.1 Whole blood hemoglobin and hematocrit panel - 05/29/16 06:15 Venous blood hemoglobin measurement (mass/volume) 8.9 g/dL 11.5-16.0 Blood hematocrit (volume fraction) 27 % 35-52 Whole blood hemoglobin and hematocrit panel - 05/31/16 05:40 Venous blood hemoglobin measurement (mass/volume) 8.1 g/dL 11.5-16.0 Blood hematocrit (volume fraction) 25 % 35-52 Whole blood basic metabolic panel - 05/31/16 05:40 Serum or plasma sodium measurement (moles/volume) 142 mmol/ L 135-145 Serum or plasma potassium measurement (moles/volume) 3.6 mmol/L 3.6-5.0 Serum or plasma chloride measurement (moles/volume) 111 mmol /L 98-107 Carbon dioxide 24 mmol/L 21-32 Serum or plasma anion gap determination (moles/volume) 7 mmol/L 5-14 Serum or plasma urea nitrogen measurement (mass/volume) 16 mg/dL 7-18 Serum or plasma creatinine measurement (mass/volume) 0.70 mg /dL 0.60-1.30 Serum or plasma urea nitrogen/creatinine mass ratio 23 NRG Serum or plasma creatinine measurement with calculation of estimated glomerular filtration rate > NRG Serum or plasma glucose measurement (mass/volume) 102 mg/dL 70-105 Serum or plasma calcium measurement (mass/volume) 8.4 mg/dL 8.5-10.1 Whole blood hemoglobin and hematocrit panel - 06/01/16 05:40 Venous blood hemoglobin measurement (mass/volume) 8.5 g/dL 11.5-16.0 Blood hematocrit (volume fraction) 27 % 35-52 Whole blood hemoglobin and hematocrit panel - 06/02/16 05:47 Venous blood hemoglobin measurement (mass/volume) 8.9 g/dL 11.5-16.0 Blood hematocrit (volume fraction) 28 % 35-52 Whole blood hemoglobin and hematocrit panel - 06/03/16 06:09 Venous blood hemoglobin measurement (mass/volume) 8.7 g/dL 11.5-16.0 Blood hematocrit (volume fraction) 27 % 35-52 Whole blood hemoglobin and hematocrit panel - 06/04/16 06:59 Venous blood hemoglobin measurement (mass/volume) 9.7 g/dL 11.5-16.0 Blood hematocrit (volume fraction) 31 % 35-52 Whole blood hemoglobin and hematocrit panel - 06/05/16 06:22 Venous blood hemoglobin measurement (mass/volume) 9.7 g/dL 11.5-16.0 Blood hematocrit (volume fraction) 30 % 35-52 Whole blood hemoglobin and hematocrit panel - 06/06/16 05:29 Venous blood hemoglobin measurement (mass/volume) 9.1 g/dL 11.5-16.0 Blood hematocrit (volume fraction) 29 % 35-52 Encounters ACCT No. Visit Date/Time Discharge Status Pt. Type Provider Facility Loc./Unit Complaint [id number] 05/26/2016 12:27:00 2016 10:25:00 DIS Inpatient HEATHER DAHL MD [facility] 4TH RT HIP FRACTURE, FALL [id number] 01/18/2015 09:11:00 2014 23:59:59 CLS Outpatient JENNIFER BASHIR [facility] LAB HLP,HTN,CAD,HYPOKALEMIA [id number] 12/28/2014 08:34:00 2014 23:59:59 CLS Outpatient ORENDER DO BELLA S [facility] LAB HYPOTHYROIDISM, HYPERLIPIDEMIA,HYPERTENSION, DM [id number] 12/28/2014 08:15:00 2014 23:59:59 CLS Outpatient JENNIFER BASHIR [facility] IRON[facility] LAB CAD,HLP [id number] 12/02/2014 08:59:00 2014 10:03:00 DIS Outpatient VANМАРИНА GUADARRAMA [facility] IR[facility] REHAB LOW BACK PAIN [id number] 12/01/2014 09:58:00 2014 00:01:00 DIS Outpatient МАРИНА RODRÍGUEZ [facility] REHAB LOW BACK PAIN [id number] 05/25/2014 08:37:00 2014 23:59:59 CLS Outpatient QIANA PATEL FACC, RAJAT PAUL CCDS [facility] LAB CAD,PAD,OBESITY, HYPOTHYROIDISM,HTN,HLP [id number] 05/25/2014 08:31:00 2014 23:59:59 CLS Outpatient JOVANNANDER DO BELLA S [facility] LAB DM II,HLP,HYPERTHYROIDISM [id number] 01/08/2014 08:19:00 2013 23:59:59 CLS Outpatient JOVANNANDER DO BELLA S [facility] LAB DM,HTN,HYPOTHYROID [id number] 11/05/2013 09:41:00 2013 10:27:00 DIS Outpatient JOVANNANDER DO BELLA S [facility] REHAB LBP,DDD,ARTHRITIS [id number] 11/19/2013 08:00:00 2013 23:59:59 CLS Outpatient QIANA PATEL FACC, RAJAT PAUL CCDS [facility] CARD PAD,HTN,HLP,CAD [id number] 10/08/2013 09:14:00 2013 23:59:59 CLS Outpatient МАРИНА RODRÍGUEZ ZIP[facility] IRONER [facility] LAB HYPOTHYROIDISM, HYPERLIPIDEMIA [id number] 10/08/2013 09:08:00 2013 23:59:59 CLS Outpatient [id number] 04/03/2013 09:04:00 2013 23:59:59 CLS Outpatient JAZMÍN DIEGO DOLINE S [facility] RAD CEPHALGIA,TIA [id number] 01/16/2013 09:02:00 2012 23:59:59 CLS Outpatient JENNIFER BASHIR [facility] LAB HYPERLIPADEMIA [id number] 08/11/2012 09:09:00 2012 23:59:59 CLS Outpatient JOVANNAJAZMÍN VALENCIA DOLINE S [facility] LAB HYPOTHYROIDISM [id number] 07/01/2012 08:47:00 2012 23:59:59 CLS Outpatient JAZMÍN DIEGO DOLINE S [facility] LAB CAD,HYPERLIDADEMA [id number] 07/01/2012 08:40:00 2012 23:59:59 CLS Outpatient JENNIFER BASHIRP [facility] LAB CAD,HYPERLIADEMIA [id number] 05/30/2016 10:25:00 ACT Inpatient RODRIGO PATEL, BRITTA Oconnell [facility] IRF HIP FRACTURE [id number] 02/14/2016 11:33:00 ACT Outpatient QIANA PATEL FACC, RAJAT FACP CCDS [facility] RAD CAD,PAD,HTN,HLP [id number] 01/13/2016 10:00:00 ACT Outpatient BELLA DIEGO DO S [facility] LAB E03.9,E10.8,E78.5,D51.8,E55.9 [id number] 02/15/2015 09:08:00 ACT Outpatient МАРИНА RODRÍGUEZ [facility] LAB HYPOKALEMIA,HYPOTHYROID [id number] 02/12/2012 12:10:00 Document Registration [id number] 01/30/2012 22:07:00 Document Registration [id number] 12/13/2011 10:20:00 Document Registration [id number] 12/13/2011 10:17:00 Document Registration [id number] 09/19/2011 12:18:00 Document Registration [id number] 09/17/2011 08:24:00 Document Registration [id number] 08/07/2011 08:57:00 Document Registration [id number] 07/29/2011 20:04:00 Document Registration [id number] 06/28/2011 07:57:00 Document Registration [id number] 06/28/2011 07:52:00 Document Registration [id number] 02/20/2011 08:53:00 Document Registration [id number] 10/24/2010 08:04:00 Document Registration [id number] 06/06/2010 08:56:00 Document Registration [id number] 01/09/2010 09:02:00 Document Registration [id number] 07/12/2009 09:16:00 Document Registration [id number] 07/12/2009 09:11:00 Document Registration
--- NOTE | 2016-06-27 19:19 | DISCHARGE SUMMARY ---
DATE OF SERVICE: HISTORY OF PRESENT ILLNESS: The patient is an 80-year-old female who was modified independent with a cane and lives alone who fell at home on 05/26/2016. She presented to [facility] ED where x-rays revealed a right femoral neck fracture. She was admitted to the service of Dr. Gonzalez, primary care physician. She was seen in consultation by Dr. Rose and on 05/27 the patient underwent emergency right hip bipolar replacement. The patient had decline in functional independence due to all of this. Her urinalysis was abnormal and she had some confusion. She was treated empirically for urinary tract infection. She was then referred to inpatient rehabilitation unit. DVT prophylaxis was managed with Lovenox subcutaneously. PAST MEDICAL HISTORY: Hypertension, hypercholesterolemia, falls. MEDICAL COURSE: The patient was followed by Dr. Womack, Dr. Gonzalez and cardiology while on the rehab unit. She completed a course of IV antibiotics for UTI. Her hemoglobin and hematocrit was monitored. She was afebrile during her stay. Blood pressure was 142/61 on 06/16, pulse 89, respirations 20, O2 saturation 94% on room air. The hemoglobin and hematocrit on 06/06 was 9.1/29, stable. Chemistry on 05/31 showed normal electrolytes other than a mildly elevated chloride of 111. BUN and creatinine are within normal limits. Calcium was mildly low at 8.4. She continued on Floranex tablets, Pepcid, Synthroid and Senokot tablets, as well as Atenolol, Plavix, Gabapentin, Lovastatin was resumed upon discharge. REHABILITATION COURSE: She had increased strength and endurance. The incision healed well. Pain decreased. [place] were removed. The patient was followed by Dr. Rose as well. SPEECH THERAPY NOTES: Upon admission, the patient demonstrated moderate difficulty with functional memory tasks. Upon discharge, the patient met speech pathology goals placed upon admission with modifications, memory and age. The patient remainedwith mild baseline memory deficits. PHYSICAL THERAPY NOTES: Upon admission, the patient required moderate assistance with transfers and was able to ambulate 10 feet with a front-wheeled walker with minimal assist and able to propel wheelchair 10 feet. At the time of discharge she was standby assistance to complete functional transfers. She ambulated 150 feet from wheeled walker with standby assistance. She was able to traverse 4 steps with minimal assistance. OCCUPATIONAL THERAPY NOTES: Upon admission, she needed set- up for eating, grooming, upper body dressing, minimal assistance for bathing, moderate assistance for transfers, max assist for lower body dressing. She was dependent for toileting. By discharge, she was modified independent with eating, grooming and toilet transfers. She was set up for upper body dressing and supervision for lower body dressing, toileting and bathing due to hip precautions. Equipment used included dressing stick reach for sock and long shoe horn, long handled sponge, front wheeled walker. DISCHARGE INSTRUCTIONS: The patient will have followup with Dr. Rose and Dr. Gonzalez as per their schedule. She had been living alone in [place] as she is . Family decided upon usp unit for patient for ongoing care. alteration worker assisted with this. Continue current diet. DISCHARGE MEDICATIONS: 1. Tylenol 650 mg p.o. q.6h. p.r.n. mild pain or fever. 2. Pepcid 20 mg p.o. b.i.d. 3. Floranex 1 tablet p.o. a.c. t.i.d. 4. Synthroid 137 mcg p.o. daily. 5. MiraLax 17 grams p.o. daily. 6. Senokot 1 tablet p.o. b.i.d. 7. Therapeutic multivitamins 1 tablet p.o. daily. 8. Atenolol 100 mg p.o. daily. 9. Plavix 75 mg p.o. on Saturday, Saturday and Saturday. 10. Gabapentin 300 mg p.o. b.i.d. 11. Lovastatin 80 mg p.o. daily. DISCHARGE DIAGNOSES: 1. Rehabilitation ambulatory dysfunction, status post fall with resulting right displaced closed femoral neck fracture, status post bipolar hip replacement, Dr. Rose on 05/27/16. Weightbearing as tolerated. 2. Hypertension, controlled with medication. 3. Postoperative DVT prophylaxis, Lovenox subcutaneously, now discontinued. 4. Urinary tract infection treated. 5. Hyperlipidemia on statin. 6. Hypothyroidism on replacement. 7. Coronary artery disease, status post stent on Plavix. 8. Mild cognitive deficit. 9. Mild bilateral carotid artery disease per ultrasound in 08/2015. 10. Postoperative anemia, improving. CONDITION ON DISCHARGE: Improved and stable. PROGNOSIS: The prognosis appears good for some continued improvement in a usp unit. Hopefully, she will be a candidate for an assisted living facility in the near future. It would be difficult for her to return home alone due to her age, memory loss, history of falls and multiple comorbidities. Job ID: [id number] DocumentID: [id number] Dictated Date: 06/26/2016 08:42:22 Senior Controls Analyst Date: 06/26/2016 10:22:07 Dictated By: BRITTA WOMACK MD MTDD
== END 2016-06-16 10:15 | DRG 560 ==
LOC: DELPENDDIS → ENPENDDIS 06-16 12:00
PROVIDERS: ADMIT Physical Medicine & Rehabilitation; ATTEND Physical Medicine & Rehabilitation
DX: S72.001D Fracture of unspecified part of neck of right femur, subsequent encounter for closed fracture with routine healing (principal); I10 Essential (primary) hypertension; N39.0 Urinary tract infection, site not specified; E78.5 Hyperlipidemia, unspecified; E03.9 Hypothyroidism, unspecified; I25.10 Atherosclerotic heart disease of native coronary artery without angina pectoris; Z95.5 Presence of coronary angioplasty implant and graft; D64.9 Anemia, unspecified; G31.84 Mild cognitive impairment of uncertain or unknown etiology; E83.51 Hypocalcemia
CPT/HCPCS: 36415; 80048; 85014; 85018

== ENCOUNTER → 2016-10-18 | Outpatient (CLI) | payer MEDICARE, OTHER, MEDICAID ==
[~2016-10-18] MED LIST changes: +ACET325T49 PO; +ACID1TAB PO; +FAMO20TA5 PO; +LEVO112T55 PO; +LEVO25TA5 PO; +Multivitamins/Minerals Therap PO; +POLY17PO23 PO; +SENN-140 PO
--- NOTE | 2016-10-18 14:56 | Diagnostic Imaging Report ---
EXAMINATION: Right knee. INDICATION: Knee pain. FINDINGS: Three views were obtained. There are no prior studies available for comparison. There is no fracture, dislocation, or acute bony abnormality evident. There is at least moderate degenerative disease of the medial compartment and the patellofemoral space. The lateral compartment is fairly well maintained. The soft tissues are unremarkable. IMPRESSION: 1. There is no evidence for an acute bony abnormality. 2. 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 Dictated by: Dictated on workstation # [id number]
== END ==
LOC: RAD 10:39
PROVIDERS: ATTEND Nurse Practitioner Family
DX: M17.11 Unilateral primary osteoarthritis, right knee (principal)
CPT/HCPCS: 73562

== ENCOUNTER → 2016-11-01 | Outpatient (CLI) | payer MEDICARE, OTHER, MEDICAID ==
[~2016-11-01] VITALS: Ht 172.7 cm; Wt 90.7 kg
[~2016-11-01] MED LIST changes: +CATHETER FLUSH 10 ML SYR IV PRN; +REGADENOSON 0.4 MG/5 ML SYR (LEXISCAN) IV ONE
[2016-11-01 09:19] VITALS: BP 204/80
[2016-11-01 09:23] VITALS: BP 188/95
[2016-11-01 09:27] VITALS: BP 191/97
--- NOTE | 2016-11-01 16:37 | STRESS TEST ---
DATE OF SERVICE: 11/01/2016 RESTING AND POST STRESS REGADENOSON TECHNETIUM 99M TETROFOSMIN SPECT CT IMAGING PRIMARY PHYSICIAN: Dr. Gonzalez. CLINICAL DIAGNOSES: Coronary artery disease, hyperlipidemia, hypertension. Baseline images were carried out after injection of 10.2 mCi of technetium 99m Tetrofosmin. This was followed by 0.4 mg regadenoson and 30.1 mCi of technetium 99m Tetrofosmin for stress imaging. The electrocardiogram showed sinus rhythm at baseline and there is ST abnormality that is most prominent in the anterolateral leads. The electrocardiogram did not seem to change significantly with the regadenoson infusion. Review of images at rest and following stress does not indicate any significant perfusion defects consistent with significant myocardial ischemia or infarction. Gated images show normal global left ventricular systolic function with normal regional wall motion. Left ventricular ejection fraction is calculated to be 77%. Left ventricular end diastolic volume is 62 mL. TID is absent (1.15). CONCLUSIONS: 1. No evidence of any significant myocardial ischemia or infarction on this study. 2. Normal regional wall motion. 3. Normal global left ventricular systolic function with a calculated ejection fraction of 77%. Job ID: [id number] DocumentID: [id number] Dictated Date: 11/01/2016 12:29:29 Industrial Truck Mechanic Date: 11/01/2016 15:42:51 Dictated By: RAJAT KIRAN MD, MA, FACP, FACC,
== END ==
LOC: CARD 07:45
PROVIDERS: ATTEND Internal Medicine Cardiovascular Disease
DX: I25.10 Atherosclerotic heart disease of native coronary artery without angina pectoris (principal); I65.23 Occlusion and stenosis of bilateral carotid arteries; E78.4 Other hyperlipidemia; I10 Essential (primary) hypertension; I70.213 Atherosclerosis of native arteries of extremities with intermittent claudication, bilateral legs
CPT/HCPCS: 78452; 93017

== ENCOUNTER 2016-11-27 10:08 | Outpatient (RCR) | payer MEDICARE, OTHER, MEDICAID ==
[~2016-11-27 10:08] MED LIST changes: -CATHETER FLUSH 10 ML SYR IV PRN; -REGADENOSON 0.4 MG/5 ML SYR (LEXISCAN) IV ONE
== END 2016-11-27 11:03 | disposition home or self-care (01) ==
PROVIDERS: ATTEND Nurse Practitioner Family
DX: M25.561 Pain in right knee (principal)

== ENCOUNTER → 2017-12-18 | Outpatient (CLI) | payer MEDICARE, OTHER ==
[~2017-12-18] MED LIST changes: -AMLO2.5T PO; +AMLO2.5T3 PO; -AMLO5TAB2 PO; +AMLO5TAB7 PO
[2017-12-18 09:07] LABS: BASOPHILS % (AUTO) 1 % (0-10); EOSINOPHILS # (AUTO) 0.6 10^3/uL (0.0-0.3); EOSINOPHILS % (AUTO) 7 % (0-10); HEMATOCRIT 42 % (35-52); HEMOGLOBIN 14.5 G/DL (11.5-16.0); LYMPHOCYTES # (AUTO) 2.1 X 10^3 (1.0-4.0); LYMPHOCYTES % (AUTO) 26 % (12-44); MEAN CORPUSCULAR HEMOGLOBIN 32 PG (25-34); MEAN CORPUSCULAR HGB CONC 34 G/DL (32-36); MEAN CORPUSCULAR VOLUME 94 FL (80-99); MEAN PLATELET VOLUME 9.5 FL (7.4-10.4); MONOCYTES # (AUTO) 0.7 X 10^3 (0.0-1.0); MONOCYTES % (AUTO) 9 % (0-12); NEUTROPHILS # (AUTO) 4.7 X 10^3 (1.8-7.8); NEUTROPHILS % (AUTO) 58 % (42-75); PLATELET COUNT 242 10^3/uL (130-400); RED BLOOD COUNT 4.51 10^6/uL (4.35-5.85); RED CELL DISTRIBUTION WIDTH 14.2 % (10.0-14.5); WHITE BLOOD COUNT 8.1 10^3/uL (4.3-11.0)
[2017-12-18 09:28] LABS: ALBUMIN 4.2 GM/DL (3.2-4.5); BILIRUBIN,TOTAL 0.6 MG/DL (0.1-1.0); CALCIUM 9.8 MG/DL (8.5-10.1); CREATININE SERUM 0.95 MG/DL (0.60-1.30); POTASSIUM 4.3 MMOL/L (3.6-5.0); TOTAL PROTEIN 6.9 GM/DL (6.4-8.2)
[2017-12-18 09:49] LABS: FREE T4 (FREE THYROXINE) 1.06 NG/DL (0.70-1.48)
== END ==
LOC: LAB 08:47
PROVIDERS: ATTEND Family Medicine
DX: E03.9 Hypothyroidism, unspecified (principal); I10 Essential (primary) hypertension
CPT/HCPCS: 36415; 80053; 80061; 84439; 84443; 85025

== ENCOUNTER → 2018-03-11 | Outpatient (CLI) | payer MEDICARE, OTHER ==
[~2018-03-11] MED LIST changes: -POLY17PO23 PO; +POLY17PO31 PO; -SENN-140 PO; +SENN-141 PO
[2018-03-11 09:02] LABS: BASOPHILS % (AUTO) 0 % (0-10); EOSINOPHILS # (AUTO) 0.5 10^3/uL (0.0-0.3); EOSINOPHILS % (AUTO) 6 % (0-10); HEMATOCRIT 42 % (35-52); LYMPHOCYTES # (AUTO) 1.9 X 10^3 (1.0-4.0); LYMPHOCYTES % (AUTO) 22 % (12-44); MEAN CORPUSCULAR HEMOGLOBIN 31 PG (25-34); MEAN CORPUSCULAR HGB CONC 33 G/DL (32-36); MEAN CORPUSCULAR VOLUME 94 FL (80-99); MEAN PLATELET VOLUME 8.9 FL (7.4-10.4); MONOCYTES # (AUTO) 0.8 X 10^3 (0.0-1.0); MONOCYTES % (AUTO) 9 % (0-12); NEUTROPHILS # (AUTO) 5.7 X 10^3 (1.8-7.8); NEUTROPHILS % (AUTO) 63 % (42-75); PLATELET COUNT 256 10^3/uL (130-400); RED BLOOD COUNT 4.49 10^6/uL (4.35-5.85); RED CELL DISTRIBUTION WIDTH 13.6 % (10.0-14.5)
[2018-03-11 09:25] LABS: ALBUMIN 4.1 GM/DL (3.2-4.5); BILIRUBIN,TOTAL 0.7 MG/DL (0.1-1.0); CALCIUM 9.6 MG/DL (8.5-10.1); CREATININE SERUM 0.99 MG/DL (0.60-1.30); TOTAL PROTEIN 6.8 GM/DL (6.4-8.2)
[2018-03-11 09:51] LABS: FREE T4 (FREE THYROXINE) 1.34 NG/DL (0.70-1.48)
== END ==
LOC: LAB 08:30
PROVIDERS: ATTEND Family Medicine
DX: E03.4 Atrophy of thyroid (acquired) (principal); R73.01 Impaired fasting glucose; E78.5 Hyperlipidemia, unspecified; Z79.899 Other long term (current) drug therapy; I10 Essential (primary) hypertension; G62.89 Other specified polyneuropathies
CPT/HCPCS: 36415; 80053; 82607; 83036; 84439; 84443; 85025

== ENCOUNTER → 2018-05-12 | Outpatient (CLI) | payer MEDICARE, OTHER ==
[~2018-05-12] MED LIST changes: -AMLO2.5T3 PO; +AMLO2.5T4 PO; -AMLO5TAB7 PO; +AMLO5TAB9 PO
[2018-05-12 11:40] LABS: FREE T4 (FREE THYROXINE) 1.19 NG/DL (0.70-1.48)
== END ==
LOC: LAB 10:29
PROVIDERS: ATTEND Psychiatry & Neurology Neurology
DX: G60.9 Hereditary and idiopathic neuropathy, unspecified (principal)
CPT/HCPCS: 36415; 82607; 84155; 84165; 84439; 84443

== ENCOUNTER 2020-03-31 09:40 | Emergency (ER) | payer MEDICARE, OTHER ==
[~2020-03-31] VITALS: Ht 172 cm; Wt 93.0 kg
[~2020-03-31 09:40] MED LIST changes: +AMLO-250 PO; -AMLO5TAB9 PO; -SENN-141 PO; +SENN-234 PO
--- NOTE | 2020-03-31 09:58 | ED General ---
General Stated Complaint: DIZZINESS Source of Information: Patient, Caregiver Exam Limitations: No Limitations History of Present Illness Date Seen by Provider: Mar 31, 2020 Time Seen by Provider: 09:43 Initial Comments Patient to the ER by private conveyance with her caregiver today with chief complaint she woke up around 730 feeling very dizzy like whenever she tried to stand up she would get lightheaded like she was going to pass out. She says the room was not spinning. She does not have a history of syncope or near syncope. She does follow with Dr. Cervantes and Dr. Randolph although she is not sure why she follows with the urologist. She lives at home alone. She called her caregiver because she could not get out of bed. She denies dysuria fevers cough shortness of air chest pain nausea or vomiting. Allergies and Home Medications Allergies Coded Allergies: codeine (Unverified Allergy, Mild, 11/15/08) Penicillins (Verified Allergy, Unknown, HAS RECEIVED ANCEF IN THE PAST, 05/29/16) morphine (Verified Adverse Reaction, Mild, NAUSEA, 04/07/08) Influenza Virus Vaccines (Unverified Adverse Reaction, Unknown, 05/30/16) nylon (Verified Adverse Reaction, Unknown, ITCH, 04/07/08) Home Medications Acetaminophen 325 Mg Tablet, 650 MG PO Q6H PRN for Mild Pain or Fever Prescribed by: BRITTA WALLACE on 06/15/16819 Atenolol 100 Mg Tablet, 100 MG PO DAILY, (Reported) Clopidogrel Bisulfate 75 Mg Tablet, 75 MG PO MoWeFr, (Reported) Famotidine 20 Mg Tablet, 20 MG PO BID Prescribed by: BRITTA WALLACE on 06/15/16819 Gabapentin 300 Mg Capsule, 300 MG PO BID, (Reported) L. Acidophilus/Bulgaricus 1 Each Tablet, 1 TAB.CHEW PO AC Prescribed by: BRITTA WALLACE on 06/15/16819 Levothyroxine Sodium 112 Mcg Tablet, 112 MCG PO DAILY@0630 Prescribed by: BRITTA WALLACE on 06/15/16819 Levothyroxine Sodium 25 Mcg Tablet, 25 MCG PO DAILY@0630 Prescribed by: BRITTA WALLACE on 06/15/16819 Lovastatin 40 Mg Tablet, 80 MG PO DAILY, (Reported) TAKES 2 (40 MG) TABLETS Polyethylene Glycol 3350 17 Gm Powd.pack, 17 GM PO DAILY Prescribed by: BRITTA WALLACE on 06/15/16819 Sennosides 8.6 Mg Tablet, 8.6 MG PO BID Prescribed by: BRITTA WALLACE on 06/15/16819 [Multivitamins/Minerals Therap] 1 EA TABLET, 1 EA PO DAILY@0700 Prescribed by: BRITTA WALLACE on 06/15/16819 Patient Home Medication List Home Medication List Reviewed: Yes Review of Systems Review of Systems Constitutional: No chills; dizziness; No fever, No malaise; weakness EENTM: No ear discharge, No ear pain Respiratory: No cough, No short of breath Cardiovascular: No chest pain, No Hx of Intervention Gastrointestinal: No abdominal pain, No nausea, No vomiting Genitourinary: No discharge, No dysuria Musculoskeletal: No back pain, No joint pain All Other Systems Reviewed Negative Unless Noted: Yes Past Rugxuos-Vwnyud-Djlhkw Hx Patient Social History Alcohol Use: Denies Use Smoking Status: Never a Smoker 2nd Hand Smoke Exposure: No Recent Hopitalizations: No Immunizations Up To Date Date of Pneumonia Vaccine: May 30, 2014 Seasonal Allergies Seasonal Allergies: No Past Medical History Surgeries: Yes (heart stent, cataracts, MOLE REMOVAL, NECK FUSION) Coronary Stent, Hysterectomy, Thyroidectomy Respiratory: No Currently Using CPAP: No Currently Using BIPAP: No Cardiac: Yes High Cholesterol, Hypertension Neurological: No Reproductive Disorders: No 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 Genitourinary: No Gastrointestinal: Yes (stricture esophagus) Musculoskeletal: No Endocrine: Yes Hypothyroidsim HEENT: Yes Cataract Loss of Vision: Bilateral Hearing Impairment: Hard of Hearing, Bilateral Hearing Aide Cancer: No Psychosocial: No Integumentary: No Blood Disorders: No Family Medical History Completed stroke Hypertension 19 FATHER 19 MOTHER Hypertension, Stroke Physical Exam Vital Signs Vital Signs - First Documented 03/31/20 09:44 Temp 36.4 Pulse 72 Resp 18 B/P (MAP) 198/82 (120) Pulse Ox 97 O2 Delivery Room Air Capillary Refill : Height, Weight, BMI Height: 5'8.00" Weight: 200lbs. 0.0oz. 90.138451co; 30.4 BMI Method:Stated General Appearance: Mild Distress, Obese Eyes: Bilateral Eye Normal Inspection, Bilateral Eye PERRL, Bilateral Eye EOMI HEENT: PERRL/EOMI, Pharynx Normal, Moist Mucous Membranes Neck: Full Range of Motion, Normal Inspection Respiratory: Lungs Clear, Normal Breath Sounds, No Accessory Muscle Use, No Respiratory Distress Cardiovascular: Regular Rate, Rhythm, No Edema, Normal Peripheral Pulses Gastrointestinal: Normal Bowel Sounds, Non Tender, Soft Extremity: Normal Capillary Refill, Normal Inspection Neurologic/Psychiatric: Alert, Oriented x3, Other (Able to transfer with 2 person assist, generalized weakness but symmetric motor strength. No sensory deficits.) Skin: Normal Color, Warm/Dry Progress/Results/Core Measures Suspected Sepsis SIRS Temperature: Pulse: Respiratory Rate: Laboratory Tests 03/31/20 11:12: White Blood Count 8.3 Blood Pressure / Mean: Laboratory Tests 03/31/20 11:12: Creatinine 1.06, Platelet Count 268, Total Bilirubin 0.5 Results/Orders Lab Results Laboratory Tests Test 03/31/20 10:43 03/31/20 11:12 Range/Units Urine Color YELLOW Urine Clarity CLEAR Urine pH 6.0 5-9 Urine Specific [place] 1.025 H 1.016-1.022 Urine Protein 2+ H NEGATIVE Urine Glucose (UA) NEGATIVE NEGATIVE Urine Ketones NEGATIVE NEGATIVE Urine Nitrite NEGATIVE NEGATIVE Urine Bilirubin NEGATIVE NEGATIVE Urine Urobilinogen 0.2 < = 1.0 MG/DL Urine Leukocyte Esterase 3+ H NEGATIVE Urine RBC (Auto) 2+ H NEGATIVE Urine RBC 5-10 H /HPF Urine WBC TNTC H /HPF Urine Squamous Epithelial Cells RARE /HPF Urine Crystals NONE /LPF Urine Bacteria FEW H /HPF Urine Casts NONE /LPF Urine Mucus NEGATIVE /LPF Urine Culture Indicated YES White Blood Count 8.3 4.3-11.0 10^3/uL Red Blood Count 4.48 3.80-5.11 10^6/uL Hemoglobin 14.1 11.5-16.0 g/dL Hematocrit 42 35-52 % Mean Corpuscular Volume 93 80-99 fL Mean Corpuscular Hemoglobin 32 25-34 pg Mean Corpuscular Hemoglobin Concent 34 32-36 g/dL Red Cell Distribution Width 12.8 10.0-14.5 % Platelet Count 268 130-400 10^3/uL Mean Platelet Volume 9.8 9.0-12.2 fL Immature Granulocyte % (Auto) 0 % Neutrophils (%) (Auto) 74 42-75 % Lymphocytes (%) (Auto) 16 12-44 % Monocytes (%) (Auto) 8 0-12 % Eosinophils (%) (Auto) 1 0-10 % Basophils (%) (Auto) 0 0-10 % Neutrophils # (Auto) 6.1 1.8-7.8 10^3/uL Lymphocytes # (Auto) 1.3 1.0-4.0 10^3/uL Monocytes # (Auto) 0.7 0.0-1.0 10^3/uL Eosinophils # (Auto) 0.1 0.0-0.3 10^3/uL Basophils # (Auto) 0.0 0.0-0.1 10^3/uL Immature Granulocyte # (Auto) 0.0 0.0-0.1 10^3/uL Sodium Level 142 135-145 MMOL/L Potassium Level 4.0 3.6-5.0 MMOL/L Chloride Level 110 H 98-107 MMOL/L Carbon Dioxide Level 21 21-32 MMOL/L Anion Gap 11 5-14 MMOL/L Blood Urea Nitrogen 15 7-18 MG/DL Creatinine 1.06 0.60-1.30 MG/DL Estimat Glomerular Filtration Rate 49 BUN/Creatinine Ratio 14 Glucose Level 121 H 70-105 MG/DL Calcium Level 9.2 8.5-10.1 MG/DL Corrected Calcium 9.4 8.5-10.1 MG/DL Total Bilirubin 0.5 0.1-1.0 MG/DL Aspartate Amino Transf (AST/SGOT) 15 5-34 U/L Alanine Aminotransferase (ALT/SGPT) 15 0-55 U/L Alkaline Phosphatase 78 40-136 U/L Troponin I < 0.028 <0.028 NG/ML C-Reactive Protein High Sensitivity 0.97 H 0.00-0.50 MG/DL B-Type Natriuretic Peptide 69.1 <100.0 PG/ML Total Protein 6.7 6.4-8.2 GM/DL Albumin 3.8 3.2-4.5 GM/DL My Orders Orders - KIM CARPIO Ed Iv/Invasive Line Start (03/31/20 09:55) Lactated Ringers (Lr 1000 Ml Iv Solution (03/31/20 10:00) Chest 1 View, Ap/Pa Only (03/31/20 09:55) Ua Culture If Indicated (03/31/20 09:55) Straight Cath For Spec.-Adult (03/31/20 09:55) Cbc With Automated Diff (03/31/20 09:55) Comprehensive Metabolic Panel (03/31/20 09:55) Hs C Reactive Protein (03/31/20 09:55) Ekg Tracing (03/31/20 09:55) Troponin I (03/31/20 09:55) BNP (03/31/20 09:55) Aspirin Chewable Tablet (Baby Aspirin Ch (03/31/20 10:00) Urine Culture (03/31/20 10:43) Blood Culture (03/31/20 11:03) Ceftriaxone For Iv Use (Rocephin For I (03/31/20 11:45) Irf Req Eval/Acute Rehab (03/31/20 11:54) Hydralazine Injection (Apresoline Inject (03/31/20 13:45) Atenolol Tablet (Tenormin Tablet) (03/31/20 14:15) Amlodipine Tablet (Norvasc Tablet) (03/31/20 14:15) Medications Given in ED Current Medications Medications Dose Ordered Sig/Tim Route Start Time Stop Time Status Last Admin Dose Admin Aspirin 324 mg ONCE ONCE PO 03/31/20 10:00 03/31/20 10:01 DC 03/31/20 10:18 324 MG Ceftriaxone Sodium 1000 mg/ Sterile Water 10 ml @ 200 mls/hr ONCE ONCE IV 03/31/20 11:45 03/31/20 11:47 DC 03/31/20 12:14 200 MLS/HR Lactated Ringer's 1,000 ml @ 0 mls/hr Q0M ONCE IV 03/31/20 10:00 03/31/20 10:01 DC 03/31/20 10:27 1,000 MLS/HR Vital Signs/I&O 03/31/20 03/31/20 09:44 14:29 Temp 36.4 Pulse 72 98 Resp 18 18 B/P (MAP) 198/82 (120) 211/102 Pulse Ox 97 98 O2 Delivery Room Air Room Air Capillary Refill : Progress Note #1: Time: 10:39 Progress Note Patient presents for acute onset general malaise and weakness. She says she has not passed out but feels like she could so we are doing a near syncopal work-up. She is too weak to do orthostatic vitals. We are going to give her a liter of lactated Ringer's. She is not diabetic. Some thought was given to the possibility of an atypical anginal events that may have happened while she was asleep so we will give her aspirin and check a troponin. Infection is also a possibility. Her upper respiratory tract is unremarkable on clinical exam. She has a septic vital signs with no hypoxia. Plan to get a straight cath for good clean urine specimen. She says she follows with a urologist but does not know why. There could be some level of dementia at baseline however she is answering appropriately all of her orienting questions and has a GCS of 15. There are no neurologic deficits to suggest stroke. Progress Note #2: Time: 11:42 Progress Note Rocephin 1 g IV for her UTI. Will try and have Dr. Gonzalez put her in for observation for physical debility, antibiotics, IV fluids with PT OT to eval and treat. Progress Note #3: Time: 14:10 Progress Note Patient's initial blood pressure on arrival was not terrible but has gone up above 200 systolic so we gave her a dose of hydralazine which did very little for her blood pressure. We will give her her morning dose of atenolol and some amlodipine and 10 mg. ECG Initial ECG Impression Date: Mar 31, 2020 Initial ECG Impression Time: 10:16 Initial ECG Rate: 64 Initial ECG Rhythm: Normal Sinus Initial ECG Intervals: QT (475) Initial ECG Impression: Normal Initial ECG Comparisson: No Previous ECG Available Comment No clinically relevant ST changes. Diagnostic Imaging Diagonstic Imaging: Xray Plain Films/CT/US/NM/MRI: chest Comments [facility] [place], [place] NAME: LOLA SIMMONS [facility] REC#: [id number] PT STATUS: REG ER : 1935 PHYSICIAN: KIM CARPIO MD ADMIT DATE: 03/31/20/ER Draft Date of Exam:03/31/20 CHEST 1 VIEW, AP/PA ONLY Indication: Weakness and confusion. Time of exam: 10:44 AM Comparison is made with prior chest from 05/26/2016. Heart remains enlarged but stable. Lungs are clear. No infiltrates are seen. There is no effusion or pneumothorax. No evidence of congestive failure. Impression: Cardiomegaly. No acute feature is detected. Dictated on workstation # [id number] Dict: 03/31/20 1056 Trans: 03/31/20 1059 [facility] [id number] Interpreted by: JR ALEJO MD Electronically signed by: Reviewed: Reviewed by Me Departure Communication (Admissions) Time/Spoke to Admitting Phy: 11:40 Discussed the case with Dr. Johnson who would accept the patient to inpatient rehab. She agrees with [facility]. Consult to Dr. Gonzalez Time/Spoke to Consulting Phy: 12:19 Dr. Gonzalez agrees to consult. Impression Primary Impression: UTI (urinary tract infection) Qualified Codes: N30.01 - Acute cystitis with hematuria Additional Impression: Physical debility Disposition: ADMITTED INPATIENT Condition: Stable Admissions Decision to Admit Reason: Admit from ER (General) Decision to Admit/Date: Mar 31, 2020 Time/Decision to Admit Time: 11:00 Departure-Patient Inst. Referrals: HEAHTER GONZALEZ MD (PCP/Family) Primary Care Physician KIM CARPIO Mar 31, 2020 09:58
[2020-03-31] MEDS ORDERED: ASPIRIN 81 MG CHEW (CHILDREN'S ASA) PO ONE (10:00)
[2020-03-31] MEDS ORDERED: LACTATED RINGERS 1,000 ML IV ONE (10:00)
[2020-03-31 10:52] LABS: BILIRUBIN,URINE NEGATIVE (NEGATIVE); CLARITY,URINE CLEAR; COLOR,URINE YELLOW; GLUCOSE, URINE (UA) NEGATIVE (NEGATIVE); KETONES,URINE NEGATIVE (NEGATIVE); LEUKOCYTE ESTERASE ,URINE 3+ (NEGATIVE); NITRITE,URINE NEGATIVE (NEGATIVE); PROTEIN,URINE 2+ (NEGATIVE)
--- NOTE | 2020-03-31 11:00 | Diagnostic Imaging Report ---
Indication: Weakness and confusion. Time of exam: 10:44 AM Comparison is made with prior chest from 05/26/2016. Heart remains enlarged but stable. Lungs are clear. No infiltrates are seen. There is no effusion or pneumothorax. No evidence of congestive failure. Impression: Cardiomegaly. No acute feature is detected. Dictated by: Dictated on workstation # [id number]
[2020-03-31 11:03] LABS: BACTERIA,URINE FEW /HPF; SQUAMOUS EPITHELIAL CELL,UR RARE /HPF; WBC,URINE TNTC /HPF
--- NOTE | 2020-03-31 11:08 | NUR ---
LAB HERE TO DRAW 2ND BLOOD CULTURE
[2020-03-31 11:17] LABS: BASOPHILS % (AUTO) 0 % (0-10); EOSINOPHILS # (AUTO) 0.1 10^3/uL (0.0-0.3); EOSINOPHILS % (AUTO) 1 % (0-10); HEMATOCRIT 42 % (35-52); HEMOGLOBIN 14.1 g/dL (11.5-16.0); LYMPHOCYTES # (AUTO) 1.3 10^3/uL (1.0-4.0); LYMPHOCYTES % (AUTO) 16 % (12-44); MEAN CORPUSCULAR HEMOGLOBIN 32 pg (25-34); MEAN CORPUSCULAR HGB CONC 34 g/dL (32-36); MEAN CORPUSCULAR VOLUME 93 fL (80-99); MEAN PLATELET VOLUME 9.8 fL (9.0-12.2); MONOCYTES # (AUTO) 0.7 10^3/uL (0.0-1.0); MONOCYTES % (AUTO) 8 % (0-12); NEUTROPHILS # (AUTO) 6.1 10^3/uL (1.8-7.8); NEUTROPHILS % (AUTO) 74 % (42-75); PLATELET COUNT 268 10^3/uL (130-400); WHITE BLOOD COUNT 8.3 10^3/uL (4.3-11.0)
[2020-03-31 11:29] LABS: ALBUMIN 3.8 GM/DL (3.2-4.5); CHLORIDE 110 MMOL/L (98-107); SODIUM 142 MMOL/L (135-145)
[2020-03-31 11:30] LABS: CALCIUM 9.2 MG/DL (8.5-10.1)
--- NOTE | 2020-03-31 11:30 | NUR ---
CA;;ED [facility] GAVE GABRIELE UDATE
[2020-03-31 11:32] LABS: GLUCOSE 121 MG/DL (70-105); TOTAL PROTEIN 6.7 GM/DL (6.4-8.2)
[2020-03-31 11:33] LABS: CARBON DIOXIDE 21 MMOL/L (21-32)
[2020-03-31 11:34] LABS: BILIRUBIN,TOTAL 0.5 MG/DL (0.1-1.0)
[2020-03-31 11:35] LABS: ALKALINE PHOSPHATASE 78 U/L (40-136); CREATININE SERUM 1.06 MG/DL (0.60-1.30); GFR ESTIMATED 49
[2020-03-31 11:37] LABS: BUN/CREATININE RATIO 14
[2020-03-31 11:38] LABS: ALANINE AMINOTRANSFERASE 15 U/L (0-55)
[2020-03-31] MEDS ORDERED: cefTRIAXone FOR IV USE 1,000 MG in WATER (STERILE) FOR INJECTION 10 ML IV ONE (11:45)
--- NOTE | 2020-03-31 11:53 | NUR ---
CALLED AND LEFT MESSAGE WITH GABRIELE THAT SHE IS GOING TO BE ADMITTED.
--- NOTE | 2020-03-31 12:24 | NUR ---
REHAB HERE TO TALK WITH PATIENT.
--- NOTE | 2020-03-31 12:35 | NUR ---
IRF Evaluation Determination: Accepted Chart review complete and findings discussed with Dr. Johnson. Met with patient to discuss details related to rehabilitation program. Patient somewhat familiar as she had a rehab stay in 2017 for a fracture/repaired hip. Patient agreeable to admission and required therapy regimen. Dr. Johnson joined this singer songwriter to further assess patient - accepted. Anticipate admission, 03/31/20. Thank you for this referral.
--- NOTE | 2020-03-31 12:40 | NUR ---
DR PATTON HERE WANTS HER TO GO TO REHAB . HOUSE SUP CALLED WILL CALL BACK WITH A ROOM.
--- NOTE | 2020-03-31 13:30 | NUR ---
PATIENT B/P SYSTOLIC IN 200'S DR CARPIO NOTIFIED
[2020-03-31] MEDS ORDERED: hydrALAZINE (APESOLINE) 20 MG/ML VIAL IV ONE (13:45)
[2020-03-31] MEDS ORDERED: amLODIPine 10 MG (NORVASC) TAB PO ONE (14:15)
[2020-03-31] MEDS ORDERED: ATENOLOL 50 MG (TENORMIN) TAB PO ONE (14:15)
[2020-03-31 14:29] VITALS: BP 211/102
[2020-03-31] MEDS ORDERED: LEVO150T6 PO (15:42)
[2020-03-31] MEDS ORDERED: AMLO2.5T4 PO (15:42)
[2020-03-31] MEDS ORDERED: MULT-1136 PO (15:42)
[2020-03-31] MEDS ORDERED: OXYB10TA29 PO (15:42)
[2020-03-31] MEDS ORDERED: DOCU-238 PO (15:42)
== END 2020-03-31 14:29 ==
LOC: EDUNIT# 09:40 → ER 09:41 → 4TH 11:40 → UNDOADMOB 11:40 → UNDOADMIN 13:07 → ER 14:29
DX: N39.0 Urinary tract infection, site not specified (principal); R53.81 Other malaise; E66.9 Obesity, unspecified; I10 Essential (primary) hypertension; E78.00 Pure hypercholesterolemia, unspecified; E03.9 Hypothyroidism, unspecified; Z68.30 Body mass index [BMI] 30.0-30.9, adult; Z88.0 Allergy status to penicillin; Z88.5 Allergy status to narcotic agent; Z88.7 Allergy status to serum and vaccine; Z95.5 Presence of coronary angioplasty implant and graft; Z82.49 Family history of ischemic heart disease and other diseases of the circulatory system; Z79.890 Hormone replacement therapy
CPT/HCPCS: 36415; 51701; 71045; 80053; 81000; 83880; 84484; 85025; 86141; 87040; 87077; 87088; 87186; 93005

== ENCOUNTER 2020-03-31 12:43 | Inpatient (IN) | payer MEDICARE, OTHER ==
[~2020-03-31] VITALS: Ht 170.2 cm; Wt 93.6 kg
[2020-03-31] VITALS (9 sets, daily range): BP systolic 120–170; BP diastolic 55–82
--- NOTE | 2020-03-31 12:59 | PM&R Post Admission Assessment ---
PM&R Date of Visit: Mar 31, 2020 Time of Visit: 18:30 History of Present Illness CC: Debility HPI: This is an 84yoWF clinic patient of Dr Gonzalez, Dr Fairchild and Dr Randolph who presents to the IRF directly from ER due to severe debility and unable to walk along with UTI and confusion. Patient has some confusion at baseline but appears increased today. Rocephin initiated empirically until UCx completed. No pain is reported. Checked meds and labs. Conferred with Dr Gonzalez. Patient did have some right sided weakness after arriving to the IRF with slurred speech and nurse called stroke protocol but Dr Gonzalez did state she does have some facial drooping and slurred speech at times at baseline. CT will be completed and I assessed her to have equal strength at the time of my assessement prior to CT scan. I conferred with Dr Gonzalez after my assessment. Past Xpgutxc-[id number]-[id number] Hx Past Med/Social Hx: Reviewed Nursing Past Med/Soc Hx, Reviewed and Corrections made Patient Social History Marrital Status: single Employed/Student: retired Alcohol Use: Denies Use Smoking Status: Former Smoker 2nd Hand Smoke Exposure: No Recent Hopitalizations: No Immunizations Up To Date Date of Pneumonia Vaccine: May 30, 2014 Seasonal Allergies Seasonal Allergies: No Past Medical History Surgeries: Coronary Stent, Hysterectomy, Thyroidectomy Currently Using CPAP: No Currently Using BIPAP: No Cardiac: High Cholesterol, Hypertension Reproductive: No Hysterectomy Genitourinary: Bladder Infection Endocrine: Hypothyroidsim HEENT: Cataract Loss of Vision: Bilateral Hearing Impairment: Hard of Hearing, Bilateral Hearing Aide History of Blood Disorders: No Family History Completed stroke Hypertension 19 FATHER 19 MOTHER Hypertension, Stroke 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 PM&R Allergy/Meds/Data Review Allergies Coded Allergies: codeine (Unverified Allergy, Mild, 11/15/08) Penicillins (Verified Allergy, Unknown, HAS RECEIVED ANCEF IN THE PAST, 05/29/16) morphine (Verified Adverse Reaction, Mild, NAUSEA, 04/07/08) Influenza Virus Vaccines (Unverified Adverse Reaction, Unknown, 05/30/16) nylon (Verified Adverse Reaction, Unknown, ITCH, 04/07/08) Home Medications Scheduled Amlodipine Besylate (Amlodipine Besylate), 2.5 MG PO DAILY, (Reported) Atenolol (Atenolol), 100 MG PO DAILY, (Reported) Clopidogrel Bisulfate (Clopidogrel), 75 MG PO MoWeFr, (Reported) Levothyroxine Sodium (Levothyroxine Sodium), 150 MCG PO DAILY, (Reported) Multivitamin (Multivitamin), 1 EACH PO DAILY, (Reported) Oxybutynin Chloride (Oxybutynin Chloride ER), 10 MG PO DAILY, (Reported) Scheduled PRN Docusate Sodium (Stool Softener), 100 MG PO DAILY PRN for CONSTIPATION-1ST LINE, (Reported) Discontinued Medications Acetaminophen (Acetaminophen), 650 MG PO Q6H PRN for Mild Pain or Fever Discontinued Reason: Duplicate Order Famotidine (Famotidine), 20 MG PO BID Discontinued Reason: Duplicate Order Gabapentin (Gabapentin), 300 MG PO BID, (Reported) Discontinued Reason: Duplicate Order L. Acidophilus/Bulgaricus (Floranex Tablet), 1 TAB.CHEW PO AC Discontinued Reason: Duplicate Order Levothyroxine Sodium (Levothyroxine Sodium), 112 MCG PO DAILY@0630 Discontinued Reason: Duplicate Order Levothyroxine Sodium (Levothyroxine Sodium), 25 MCG PO DAILY@0630 Discontinued Reason: Duplicate Order Lovastatin (Lovastatin), 80 MG PO DAILY, (Reported) Discontinued Reason: Duplicate Order Polyethylene Glycol 3350 (Polyethylene Glycol 3350), 17 GM PO DAILY Discontinued Reason: Duplicate Order Sennosides (Senna), 8.6 MG PO BID Discontinued Reason: Duplicate Order [Multivitamins/Minerals Therap], 1 EA PO DAILY@0700 Discontinued Reason: Duplicate Order Current Medications Current Medications Reviewed Review of Systems Constitutional: see HPI, dizziness, malaise, weakness EENTM: no symptoms reported Respiratory: no symptoms reported Cardiovascular: no symptoms reported Gastrointestinal: no symptoms reported Genitourinary: decreased output, hematuria Musculoskeletal: no symptoms reported Skin: no symptoms reported Psychiatric/Neurological: No Symptoms Reported All Other Systems Reviewed Negative Unless Noted: Yes Physical Exam Physical Exam Vital Signs Capillary Refill : Height, Weight, BMI Height: 5'8.00" Weight: 200lbs. 0.0oz. 90.332133fi; 31.00 BMI Method:Stated General Appearance: No Apparent Distress, WD/WN, Chronically ill, Obese Eyes: Bilateral Eye Normal Inspection, Bilateral Eye PERRL HEENT: PERRL/EOMI, Normal ENT Inspection, Pharynx Normal Neck: Full Range of Motion, Normal Inspection, Non Tender, Supple, Carotid Bruit Respiratory: Chest Non Tender, Lungs Clear, Normal Breath Sounds, No Accessory Muscle Use, No Respiratory Distress Cardiovascular: Regular Rate, Rhythm, No Edema, No Gallop, No JVD, No Murmur, Normal Peripheral Pulses Gastrointestinal: Normal Bowel Sounds, No Organomegaly, No Pulsatile Mass, Non Tender, Soft Back: Normal Inspection, No CVA Tenderness, No Vertebral Tenderness Extremity: Normal Capillary Refill, Normal Inspection, Normal Range of Motion, Non Tender, No Calf Tenderness, No Pedal Edema Neurologic/Psychiatric: Alert, Oriented x3, No Motor/Sensory Deficits, Normal Mood/Affect, Disoriented (subtle confusion) Skin: Normal Color, Warm/Dry Lymphatic: No Adenopathy PM&R Medical Assessment & Plan REHAB/MEDICAL ASSESSMENT AND PLAN: REHAB IMPAIRMENT GROUP: Debility ETIOLOGIC DIAGNOSIS: Debility The comorbidities that impact the patients function and/or functional outcome by: confusion from UTI, baseline debility, fall risk, lives alone REHAB PLAN: The patient is being admitted to our comprehensive inpatient rehabilitation facility and can tolerate the intensity of service consisting of at least: 180 minutes of therapy a day, 5 out of 7 days a week Rehab treatment will consist of: PT OT ST will all focus on regaining enough function in order to return to live independently by increasing ambulation and increasing ADL's The patient/family has a good understanding of our discharge process and will benefit from an interdisciplinary inpatient rehabilitation program. The patient has potential to make improvement and is in need of at least two of the following multidisciplinary therapies including but not limited to physical, occupational, speech, and prosthetics and orthotics. Additionally the patient will need services from respiratory, nutritional services, wound care, psychology, etc. (Customize this to each patient). Given the patients complex condition and risk of further medical complications, rehabilitation services cannot be safely or effectively provided at a lower level of care such as a [place] [facility] facility. BARRIERS TO DISCHARGE: Lives alone, baseline debility ESTIMATED LOS: 7 days DISPOSITION: Home RELEVANT CHANGES SINCE PREADMISSION SCREENING: I have compared the patients medical and functional status at the time of the preadmission screening and there are: no changes PROGNOSIS: Good REHABILITATION GOALS: 1. PT OT ST will all focus on regaining enough function in order to return to live independently by increasing ambulation and increasing ADL's All the above goals were reviewed with the patient and he/she is in agreement. By signing this document, I acknowledge that I have personally performed a full physical examination on this patient within 24 hours of admission to this inpatient rehabilitation facility and have determined the patient to be able to tolerate the above course of treatment at an intensive level for a reasonable period of time. I will be completing a detailed individualized Plan of Care for this patient by day #4 of the patients stay based upon the Preadmission Screen, the Post-Admission Evaluation, and the therapy evaluations. Admission Dx/Comorbidities: (1) Physical debility Status: Acute ICD Codes: R53.81 - Other malaise (2) Hypothyroidism ICD Codes: E03.9 - Hypothyroidism, unspecified (3) Falls ICD Codes: W19.XXXA - Unspecified fall, initial encounter (4) Obesity ICD Codes: E66.9 - Obesity, unspecified (5) UTI (urinary tract infection) Status: Acute ICD Codes: N39.0 - Urinary tract infection, site not specified Assessment/Plan Assessment and Plan Assess & Plan/Chief Complaint Assessment: Debility Falls UTI acute Slurred speech likely baseline with UTI worsened HTN Hypothyroidism Obesity Plan: Home meds IRF UTI treatment Await LAMBERTO Colvin DO Mar 31, 2020 12:59
[2020-03-31] MEDS ORDERED: LOPERAMIDE 2 MG (IMODIUM) TABLET PO PRN (13:00)
[2020-03-31] MEDS ORDERED: ALPRAZolam 0.25 MG (XANAX) TAB PO PRN (13:00)
[2020-03-31] MEDS ORDERED: ONDANSETRON 4 MG (ZOFRAN) ORAL DISSOLVE TAB PO PRN (13:00)
[2020-03-31] MEDS ORDERED: BISACODYL 10 MG SUPP (DULCOLAX) PR PRN (13:00)
[2020-03-31] MEDS ORDERED: diphenhydrAMINE 25 MG TAB (BENADRYL) PO PRN (13:00)
[2020-03-31] MEDS ORDERED: ACETAMINOPHEN 500 MG TAB (TYLENOL) PO PRN (13:00)
[2020-03-31] MEDS ORDERED: DOCUSATE SODIUM 100 MG (COLACE) CAP PO PRN ×2 (13:00→19:45)
[2020-03-31] MEDS ORDERED: FLEET ENEMA ADULT 1 EA BTL PR PRN (13:00)
[2020-03-31] MEDS ORDERED: CALCIUM CARBONATE 500 MG (TUMS) TAB.CHEW PO PRN (13:00)
[2020-03-31] MEDS ORDERED: guaiFENesin/CODEINE (ROBITUSSIN AC) 10ML UDC PO PRN (13:00)
[2020-03-31] MEDS ORDERED: CATHETER FLUSH 10 ML SYR IV PRN (14:00)
--- NOTE | 2020-03-31 14:35 | NUR ---
LOLA SIMMONS admitted to room 231-1, with an admitting diagnosis of UTI, on 03/31/20 from ER via W/C, accompanied by STAFF.LOLA SIMMONS introduced to surroundings, call light, bed controls, phone, TV, temperature control, lights, meal times, smoking policy, visitor policy, side rail policy, bathrooms and showers. Patient Rights given to patient in the handbook.LOLA SIMMONS verbalizes understanding that [facility] is not responsible for the loss or damage to any personal effects or valuables that are kept in the patients posession during their hospitalization. The following Patient Care Plans were discussed with the PT: Discharge Planning, PAIN CONTROL,IV ANTIBIOTICS, and TESTS AND PT/OT/ST. LOLA SIMMONS verbalizes understanding of Interdisciplinary Patient Education. Patient and/or family were informed about the Rapid Response Team and its purpose.
--- NOTE | 2020-03-31 15:00 | NUR ---
SOME SLURRED SPEECH AT TIMES. ALERT AND ORIENTED X 4. SKIN W/D. RESP. REGULAR. SL. DROOPING OF RIGHT SIDE OF MOUTH, BUT WHEN PT. SMILES HER SMILE IS SYMMETRIC. RIGHT ARM SL. WEAKER THAN LEFT. RIGHT LEG SL. WEAKER THAN LEFT LEG. C/O OF SL. DIZZINESS AT TIMES.
[2020-03-31] MEDS ORDERED: OXYB10TA29 PO (15:42)
[2020-03-31] MEDS ORDERED: MULT-1136 PO (15:42)
[2020-03-31] MEDS ORDERED: DOCU-238 PO (15:42)
[2020-03-31] MEDS ORDERED: LEVO150T6 PO (15:42)
[2020-03-31] MEDS ORDERED: AMLO2.5T4 PO (15:42)
--- NOTE | 2020-03-31 15:44 | NUR ---
SPOKE WITH THE PT, WENT THRU THE EXT MED HISTORY AND CALLED [facility] TO COMPLETE THE MED REC PT COULD NOT REMEMBER THE NAMES OF ALL HER MEDICATIONS, I LISTED WHAT WAS ON THE EXT MED HISTORY AND PT WAS ABLE TO VERIFY WHAT SHE IS TAKING. I CALLED [facility] AND HAD THEM GO OVER THE MEDS THEY HAD FILLED RECENTLY- ALL MEDICATIONS THE PT IS TAKING ARE LISTED ON THE EXT MED HISTORY OTC MEDS: [employer] STOOL SOFTENER
--- NOTE | 2020-03-31 16:12 | Physical Therapy Evaluation ---
PT Evaluation-General Medical Diagnosis Admission Date Mar 31, 2020 at 13:40 Medical Diagnosis: weakness, UTI Onset Date: Mar 31, 2020 Therapy Diagnosis Therapy Diagnosis: impaired mobility, strength, endurance Height/Weight Height (Feet): 5 Height (Inches): 8.00 Weight (Pounds): 200 Weight (Ounces): 0.0 Precautions Precautions/Isolations: Fall Prevention, Standard Precautions, Pressure Ulcer Referral Physician: Izabel Johnson DO Reason for Referral: Evaluation/Treatment Medical History Pertinent Medical History: CAD, HTN, Hypothroidism, Neuropathy, PVD Reviewed History: Yes Social History Home: Apartment Current Living Status: Alone Entry Into Home: Level Entry has a caregiver Prior Prior Level of Function SCALE: Activities may be completed with or without assistive devices. 1-Ogontijsno-wivrikr completes the activity by him/herself with no assistance from a helper. 5-Set-up or Clean-up Assistance-helper sets up or cleans up; patient completes activity. Keymar assists only prior to or following the activity. 4-Supervision or Touching Assistance-helper provides verbal cues and/or touching/steadying and/or contact guard assistance as patient completes activity. Assistance may be provided throughout the activity or intermittently. 3-Partial/Moderate Assistance-helper does LESS THAN HALF the effort. Keymar lifts, holds or supports trunk or limbs, but provides less than half the effort. 2-Substantial/Maximal Assistance-helper does MORE THAN HALF the effort. Keymar lifts or holds trunk or limbs and provides more than half the effort. 1-Okkyxdyoc-hoxtss does ALL the effort. Patient does none of the effort to complete the activity. Or, the assistance of 2 or more helpers is required for the patient to complete the activity. If activity was not attempted, code reason: 7-Patient Refused. 9-Not Applicable-not attempted and the patient did not perform the activity before the current illness, exacerbation or injury. 10-Not Attempted due to Environmental Limitations-(lack of equipment, weather restraints, etc.). 88-Not Attempted due to Medical Conditions or Safety Concerns. Bed Mobility: 6 Transfers (B,C,W/C): 6 Gait: 6 Indoor Mobility (Ambulation): Independent Prior Devices Use: Walker PT Evaluation-Current Subjective Patient in bed from ER pre tx, agrees to PT, has unrated pain in her toes (she says from neuropathy), will be co-treating with OT for part of tx due to poor patient mobility, strength, endurance, to coordinate UE and LE with activity, safety and reduced risk of falls. Patient apparently had a high BP in the ER and now she has 176/110 and O2 is 95% with a heart rate of 95bpm. After a few minutes it is 137/82 and then later 144/90. Pt/Family Goals to be independent at home Objective Patient Orientation: Person, Confused, Place, Situation ROM/Strength ROM Lower Extremities WNL Strength Lower Extremities LLE (hip flexion 3+/5, knee flexion 4/5, knee extension 4+/5, dorsiflexion 4+/5), RLE (hip flexion 3+/5, knee flexion 4/5, knee extension 4+/5, dorsiflexion 4+/5) Neuromuscular (Tone, Coordination, Reflexes) Patient no abnormal ankle clonus, seems to have no facial droop, intact peripheral vision and tracking Sensory Vision: Wears Glasses Hearing: Impaired Sensation Right Lower Extremit: Impaired Sensation Left Lower Extremity: Impaired Transfers Roll Left & Right (QC): 3 Sit to Lying (QC): 7 Lying to Sitting/Side of Bed(Q: 3 Sit to Stand (QC): 3 Chair/Ual-tk-Yhhpm Xfer(QC): 3 Toilet Transfer (QC): 3 Car Transfer (QC): 7 Patient got here from ER on [facility]. Patient supine to sit with min assist and then sit to stand and transfer to commode with mod assist. Patient used commode and was redressed and new brief put on. Then patient ambulated a few feet to recliner and sat down with min assist. Eventually patient needed to use the c ommode again, same process and assistance. Patient refuses to get into bed or ambulate any more than she has. Patient is tired and resistant to performing any more functional mobility testing. Patient does answer questions but is argumentative and seems to have increasing agitation. Gait Does the Patient Walk?: Yes Mode of Locomotion: Walk Anticipated Mode of Locomotion: Walk Walk 10 feet (QC): 7 Walk 50 ft with 2 Turns(QC): 7 Walk 150 ft (QC): 7 Walking 10ft/uneven surface-QC: 7 Distance: 5' Gait Assistive Device: FWW Comments/Gait Description mod assist, slumped posture Wheelchair Training Does the Pt Use a Wheelchair?: Yes Wheel 50 ft with 2 turns (QC): 1 Wheel 150 ft (QC): 1 Type of Wheelchair: Manual Stairs 1 Step (curb) (QC): 88 4 Steps (QC): 88 12 Steps (QC): 88 Balance Sitting Static: Normal Sitting Dynamic: Normal Standing Static: Poor Standing Dynamic: Poor Picking up an Object (QC): 88 Treatment dressing and toileting twice. PT performed bed mobility and transfers, ambulation, assisted with toileting, OT performed toileting and dressing, assisted with UE positioning and safety during activity. Assessment/Needs Patient has impaired mobility, strength, endurance. She needs mod assist with transfers and ambulation. Patient in recliner post tx with nurse call, phone, tray, all needs met. Rehab Potential: Guarded PT Short Term Goals Short Term Goals Time Frame: Apr 07, 2020 Roll Left & Right: 4 Sit to lyin Lying to sitting on side of be: 3 Sit to stand: 3 Chair/yjn-df-ugcbv transfer: 3 Walk 10 feet: 3 PT Snf Goals Snf Goals PT Snf Goals Time Frame: Apr 21, 2020 Roll Left & Right (QC): 4 Sit to Lying (QC): 4 Lying-Sitting on Side/Bed(QC): 4 Sit to Stand (QC): 4 Chair/Ofs-ks-Fchzk Xfer(QC): 4 Toilet Transfer (QC): 4 Car Transfer (QC): 4 Does the Patient Walk: Yes Walk 10 feet (QC): 4 Walk 50ft with 2 Turns (QC): 4 Walk 150 ft (QC): 88 Walking 10ft on Uneven Surface: 4 1 Step (curb) (QC): 4 4 Steps (QC): 88 12 Steps (QC): 88 Picking up an Object (QC): 88 Does the Pt use WC or Scooter?: Yes Wheel 50 feet with 2 turns (QC: 6 Wheel 150 feet: 6 PT Plan Problem List Problem List: Activity Tolerance, Functional Strength, Safety, Balance, Gait, Transfer, Bed Mobility, ROM Treatment/Plan Treatment Plan: Continue Plan of Care Treatment Plan: Bed Mobility, Education, Functional Activity Jeffrey, Functional Strength, Group Therapy, Gait, Safety, Therapeutic Exercise, Transfers Treatment Duration: Apr 07, 2020 Frequency: At least 5 of 7 days/Wk (IRF) Estimated Hrs Per Day: 1.5 hours per day Patient and/or Family Agrees t: Yes Safety Risks/Education Patient Education: Transfer Techniques, Correct Positioning, Safety Issues Teaching Recipient: Patient Teaching Methods: Demonstration, Discussion Response to Teaching: Reinforcement Needed Discharge Recommendations Plan Patient will perform bed mobility and transfer training, balance and endurance training, functional strengthening, gait training, and education, to improve functional mobility and independence at home. Therapy Discharge Recommendati: 24 Hour Supervision Time/GCodes Time In: 1435 Time Out: 1615 Total Billed Treatment Time: 90 Total Billed Treatment 1 visit EVM 10' FA 80' PT eval from [id number], OT eval from [id number], co-treat from [id number] GISELLE BAH PT Mar 31, 2020 16:11
--- NOTE | 2020-03-31 16:15 | Occupational Therapy Eval ---
OT Evaluation-General/PLF Medical Diagnosis Admission Date Mar 31, 2020 at 13:40 Medical Diagnosis: UTI Onset Date: Mar 31, 2020 Therapy Diagnosis Therapy Diagnosis: Weakness Height/Weight Height (Feet): 5 Height (Inches): 8.00 Weight (Pounds): 200 Weight (Ounces): 0.0 Precautions Precautions/Isolations: Fall Prevention, Standard Precautions, Pressure Ulcer Weight Bear Status Weight Bearing Restriction: Weight Bearing/Tolerated Referral Physician: Dr. Johnson Referral Reason: Activity Tolerance, Self Care, Evaluation/Treatment, Strengthening/ROM Medical History Pertinent Medical History: CAD, HTN, Hypothroidism, Neuropathy, PVD Additional Medical History Stent, hysterectomy Current History Pt. began feeling weak this date. Reports nausea. Brought to ER by caregiver. Found to have UTI. Reviewed History: Yes Social History Home: Apartment Current Living Status: Alone (Caregiver assist) Entry Into Home: Level Entry ADL-Prior Level of Function SCALE: Activities may be completed with or without assistive devices. 0-Xwzbeffgyp-pjfigrv completes the activity by him/herself with no assistance from a helper. 5-Set-up or Clean-up Assistance-helper sets up or cleans up; patient completes activity. Balko assists only prior to or following the activity. 4-Supervision or Touching Assistance-helper provides verbal cues and/or touching/steadying and/or contact guard assistance as patient completes activity. Assistance may be provided throughout the activity or intermittently. 3-Partial/Moderate Assistance-helper does LESS THAN HALF the effort. Balko lifts, holds or supports trunk or limbs, but provides less than half the effort. 2-Substantial/Maximal Assistance-helper does MORE THAN HALF the effort. Balko lifts or holds trunk or limbs and provides more than half the effort. 0-Kbigidvml-pvjxag does ALL the effort. Patient does none of the effort to complete the activity. Or, the assistance of 2 or more helpers is required for the patient to complete the activity. If activity was not attempted, code reason: 7-Patient Refused. 9-Not Applicable-not attempted and the patient did not perform the activity before the current illness, exacerbation or injury. 10-Not Attempted due to Environmental Limitations-(lack of equipment, weather restraints, etc.). 88-Not Attempted due to Medical Conditions or Safety Concerns. ADL PLOF Comments Pt. states that she has someone that comes twice a week to cook and clean. This person takes her shopping as well. She is able to do her own bathing/dressing per pt. Self Care: Unknown Functional Cognition: Unknown DME/Equipment: Bath Chair, Tub/Shower DME/Equipment Comments Rolling walker Drive Self: No OT Current Status Subjective Pt. reports that she has discomfort where she had a catheter earlier. Does not report a pain level. Mental Status/Objective Pt. demonstrates poor memory at times. Current Hand Dominance: Right Upper Extremity ROM WFL Upper Extremity Strength Right- 3/5 UE strength Left- 4/5 UE strength ADL-Treatment Eating (QC): 4 (Pt. is able to open cracker and peanut butter package. She is able to spoon peanut butter onto cracker and eat with no difficulty.) Oral Hygiene (QC): 7 Shower/Bathe Self (QC): 7 Upper Body Dressing (QC): 7 Lower Body Dressing (QC): 2 On/Off Footwear (QC): 2 Toileting Hygiene (QC): 2 Other Treatments OT/PT co-treated due to need of skilled assessment x 2 for mobility and ADL skills. OT focused on toileting, LE dressing, and UE assessment while PT focused on transfers and LE assessment. Pt. is inconsistent with transfers, and requires anywhere from mod assist for sit-stand, to max assistance. Pt. incontinent of urine and requests several times to use toilet. In attempting to ambulate to toilet, pt. declines and so BSC if provided. Pt. is encouraged to doff her own pants and brief by kicking them off, while seated on commode, as her brief is wet. Pt. kicks legs back and forth, but does not grasp concept of attempting to get her pants off. OT does this for her, and provides clean brief. Pt. indicates that she is only weak because she has not eaten today. Crackers and peanut butter provided, but pt. only eats small amount. Pt. states that she does not know how she is going to come here for therapy, because she will not have a ride. Pt. seems to have poor concept at times regarding her current status and need for skilled treatment. All needs met at end of session. Education OT Patient Education: Correct positioning, Modified ADL techniques, Progress toward Goal/Update tx plan, Purpose of tx/functional activities, Reviewed precautions, Rehab process, Transfer techniques Teaching Recipient: Patient Teaching Methods: Demonstration, Discussion Response to Teaching: Verbalize Understanding, Return Demonstration OT Short Term Goals Short Term Goals Time Frame: Apr 07, 2020 Eatin Oral hygiene: 4 Toileting hygiene: 3 Shower/bathe self: 3 Upper body dressin Lower body dressin Putting on/taking off footwear: 3 OT Technology Architect Goals Technology Architect Goals Time Frame: Apr 14, 2020 Eating (QC): 6 Oral Hygiene (QC): 5 Toileting Hygiene (QC): 6 Shower/Bathe Self (QC): 4 Upper Body Dressing (QC): 5 Lower Body Dressing (QC): 4 On/Off Footwear (QC): 4 Additional Goals: 1-Demonstrate ADL Tasks, 2-Verbalize Understanding, 3- ImproveStrength/Jeffrey 1=Demonstrate adherence to instructed precautions during ADL tasks. 2=Patient will verbalize/demonstrate understanding of assistive devices/modifications for ADL. 3=Patient will improve strength/tolerance for activity to enable patient to perform ADL's. OT Education/Plan Problem List/Assessment Assessment: Decreased Activ Tolerance, Decreased UE Strength, Dependent Transfers, Impaired Bed Mobility, Impaired Funct Balance, Impaired I ADL's, Impaired Self-Care Skills Discharge Recommendations Plan/Recommendations: Continue POC Treatment Plan/Plan of Care Treatment,Training & Education: Yes Patient would benefit from OT for education, treatment and training to promote independence in ADL's, mobility, safety and/or upper extremity function for ADL's. Plan of Care: ADL Retraining, Functional Mobility, UE Funct Exercise/Act Treatment Duration: Apr 14, 2020 Frequency: At least 5 of 7 days/Wk (IRF) Estimated Hrs Per Day: 1.5 hours per day Agreement: Yes Rehab Potential: Fair Time/GCodes Start Time: 14:35 Stop Time: 16:15 Total Time Billed (hr/min): 90 Billed Treatment Time 4474-4305 PT eval, no charge [id number] 1, EVH x 10minutes [id number] ADL x 80minutes. (co-treatment with PT. Please see above note for designated roles.) STEFANIE MCQUEEN OT Mar 31, 2020 16:15
--- NOTE | 2020-03-31 16:30 | NUR ---
SEEMS STRONGER AT THIS TIME. SPEECH LESS SLURRED. ALERT AND CHEERFUL AND LAUGHING, TAKING FLUIDS WELL.
--- NOTE | 2020-03-31 18:20 | NUR ---
BLOOD SUGAR 166
--- NOTE | 2020-03-31 18:20 | NUR ---
PT. TO BED WITH 2 PEOPLE AND MOD-MAX ASSISTANCE.
--- NOTE | 2020-03-31 18:20 | NUR ---
SITTING UP IN CHAIR, SPEECH SLURRED AND UNABLE TO UNDERSTAND PT. SL. WEAKNESS IN RIGHT ARM AND LEG. RIGHT FACIAL DROOPING NOTED. DR. PATTON NOTIFIED. DR. DAHL NOTIFIED. CT DONE. BUSINESS OBJECTS CONSULTANT NOTIFIED. NIH TEST DONE. V/S MONITORED.
--- NOTE | 2020-03-31 18:50 | NUR ---
V/S STABLE. PT. ALERT WITH CONT. SLURRED SPEECH. SL RIGHT SIDED WEAKNESS CONT.
[2020-03-31] MEDS: ENOXAPARIN 40 MG/0.4 ML (LOVENOX) SYR SC SCH (19:14)
[2020-03-31] MEDS: cefTRIAXone FOR IV USE 1,000 MG in WATER (STERILE) FOR INJECTION 10 ML IV SCH (19:14)
[2020-03-31] MEDS: CATHETER FLUSH 10 ML SYR IV SCH ×2 (19:24→22:44)
--- NOTE | 2020-03-31 19:30 | NUR ---
V/S Q15 MIN. CONDITION THE SAME. SLURRED SPEECH AT TIMES. RIGHT SIDE EXT. SL. WEAKER THAN LEFT EXT.
[2020-03-31] MEDS: SENNA W/DOCUSATE (SENOKOT S) TABLET PO SCH (20:26)
[2020-03-31] MEDS: polyethylene glycoL POWDER 17 GM (MIRALAX) PACK PO SCH (20:26)
[2020-03-31] MEDS: DOCUSATE SODIUM 100 MG (COLACE) CAP PO SCH (20:26)
--- NOTE | 2020-03-31 20:49 | Diagnostic Imaging Report ---
PROCEDURE: CT head w/o r/o stroke. TECHNIQUE: Multiple contiguous axial images were obtained through the brain without the use of intravenous contrast. Auto Exposure Controls were utilized during the CT exam to meet ALARA standards for radiation dose reduction. INDICATION: Slurred speech and right facial droop. COMPARISON: 05/26/2016. FINDINGS: Ventricles and sulci are diffusely prominent. There is significant low density throughout the cerebral white matter, bilaterally. This is most pronounced in the left insula and basal ganglia without definite interval change. No intracranial hemorrhage is identified. There is no abnormal mass effect or shift of midline structures. There is atherosclerotic calcification within distal internal carotid and vertebral arteries. IMPRESSION: No significant change in chronic white matter disease. MRI does have greater sensitivity for detection of acute ischemia with background chronic findings as are present on this exam. Dictated by: Dictated on workstation # [id number]
--- NOTE | 2020-03-31 21:11 | NUR ---
Notified Dr. Gonzalez of patient's CT results. New orders received and entered in computer (see order history). Patient is stable at this time. There is some slurring to her words still. B/P is still elevated. Dr. Gonzalez aware and asked to be notified if systolic is greater than 170. Vitals now q 4 hrs. Will continue to manage.
[2020-04-01] VITALS (7 sets, daily range): BP systolic 130–169; BP diastolic 59–84
--- NOTE | 2020-04-01 | NUR ---
Patient resting with eyes closed. Speech still a little slurred but RN is able to understand patient. Vitals checked and B/P is still elevated. Will continue to manage and notify Dr. Gonzalez if systolic is greater than 170.
[2020-04-01] MEDS: ACETAMINOPHEN 325 MG TABLET PO PRN ×2 (02:16→20:35)
--- NOTE | 2020-04-01 04:00 | NUR ---
Patient up in the chair per her request. Vital signs stable and B/P is better than it was earlier. Patient alert and oriented. She asked about visitors and said that the info on the board was wrong. Date and day of the week changed on the board for the patient.
[2020-04-01 06:36] LABS: BASOPHILS # (AUTO) 0.1 10^3/uL (0.0-0.1); BASOPHILS % (AUTO) 0 % (0-10); EOSINOPHILS # (AUTO) 0.2 10^3/uL (0.0-0.3); EOSINOPHILS % (AUTO) 1 % (0-10); HEMATOCRIT 45 % (35-52); HEMOGLOBIN 14.7 g/dL (11.5-16.0); LYMPHOCYTES % (AUTO) 13 % (12-44); MEAN CORPUSCULAR HEMOGLOBIN 31 pg (25-34); MEAN CORPUSCULAR HGB CONC 33 g/dL (32-36); MEAN CORPUSCULAR VOLUME 93 fL (80-99); MEAN PLATELET VOLUME 9.4 fL (9.0-12.2); MONOCYTES # (AUTO) 1.4 10^3/uL (0.0-1.0); MONOCYTES % (AUTO) 9 % (0-12); NEUTROPHILS # (AUTO) 11.6 10^3/uL (1.8-7.8); NEUTROPHILS % (AUTO) 76 % (42-75); PLATELET COUNT 299 10^3/uL (130-400); WHITE BLOOD COUNT 15.2 10^3/uL (4.3-11.0)
[2020-04-01] MEDS: MULTIVIT W/MINERALS TAB (THERAGRAN M) PO SCH (06:37)
[2020-04-01] MEDS: LEVOTHYROXINE 150 MCG (LEVOTHROID) TAB PO SCH (06:37)
[2020-04-01] MEDS: CATHETER FLUSH 10 ML SYR IV SCH ×3 (06:37→22:40)
[2020-04-01 06:47] LABS: ALBUMIN 3.9 GM/DL (3.2-4.5)
[2020-04-01 06:48] LABS: POTASSIUM 3.8 MMOL/L (3.6-5.0)
[2020-04-01 06:49] LABS: CALCIUM 9.4 MG/DL (8.5-10.1)
[2020-04-01 06:50] LABS: TOTAL PROTEIN 7.1 GM/DL (6.4-8.2)
[2020-04-01 06:52] LABS: BILIRUBIN,TOTAL 0.6 MG/DL (0.1-1.0)
[2020-04-01 06:53] LABS: BAND NEUTROPHILS 1 %; EOSINOPHILS % (MANUAL) 1 %; LYMPHOCYTES % (MANUAL) 20 %; MONOCYTES % (MANUAL) 6 %; NEUTROPHILS % (MANUAL) 72 %; RBC MORPH NORMAL
[2020-04-01 06:54] LABS: CREATININE SERUM 1.08 MG/DL (0.60-1.30)
--- NOTE | 2020-04-01 07:30 | NUR ---
Notified Dr. Gonzalez that patient had increased weakness in right side this morning. She confirmed that the MRI was ordered for this morning. No new orders.
[2020-04-01] MEDS: DOCUSATE SODIUM 100 MG (COLACE) CAP PO SCH ×2 (08:08→20:35)
[2020-04-01] MEDS: SENNA W/DOCUSATE (SENOKOT S) TABLET PO SCH ×2 (08:08→20:35)
[2020-04-01] MEDS: OXYBUTYNIN (DITROPAN) 5 MG TAB PO SCH ×2 (08:09→20:35)
[2020-04-01] MEDS: amLODIPine 2.5MG (NORVASC) TAB PO SCH (08:10)
[2020-04-01] MEDS: ATENOLOL 50 MG (TENORMIN) TAB PO SCH (08:21)
[2020-04-01] MEDS: polyethylene glycoL POWDER 17 GM (MIRALAX) PACK PO SCH ×2 (08:22→20:35)
--- NOTE | 2020-04-01 08:45 | NUR ---
DR. DAHL HERE TO EVALUATE PT. PT. CONT. TO HAVE SEVERE RIGHT SIDED WEAKNESS AND SLURRED VISION. ALERT AND ORIENTED. DENIES PAIN.
[2020-04-01] MEDS ORDERED: NON-FORMULARY MEDICATION 1 EA EA (Atenolol 100 MG) PO SCH (09:00)
[2020-04-01] MEDS ORDERED: NON-FORMULARY MEDICATION 1 EA EA (Multivitamin 1 EACH) PO SCH (09:00)
[2020-04-01] MEDS ORDERED: amLODIPine 2.5MG (NORVASC) TAB PO SCH (09:00)
[2020-04-01] MEDS ORDERED: NON-FORMULARY MEDICATION 1 EA EA (Oxybutynin Chloride (Oxybutynin Chloride ER) 10 MG) PO SCH (09:00)
[2020-04-01] MEDS ORDERED: CLOPIDOGREL 75 MG (PLAVIX) TABLET PO SCH (09:00)
--- NOTE | 2020-04-01 09:22 | History & Physical ---
History of Present Illness History of Present Illness Reason for visit/HPI PT IS AN 84 Y/O FEMALE WHO IS KNOWN TO ME FROM CLINIC. SHE PRESENTED TO THE HOSPITAL AFTER FEELING "WEIRD" FOR A FEW DAYS. SHE HAD A FRIEND COME OVER AND VISIT AND LOLA TOLD HER THAT SHE WAS NOT FEELING WELL AND SHE WAS TRANSPORTED TO THE HOSPITAL FOR EVALUATION. IN THE ER SHE WAS FOUND TO HAVE A MILD URINARY TRACT INFECTION AND ADMITTED FOR WEAKNESS TO THE INPATIENT REHAB UNIT. WHEN SHE WENT UP TO THE REHAB UNIT THERE WAS CONCERN ABOUT HER SPEECH, BUT SHE HAD STRENGTH THROUGHOUT WITHOUT ANY DEFICITS OTHER THAN SPEECH (WHICH IS ALWAYS GARBLED), WE DECIDED TO DO A CT SCAN FOR STROKE EVALUATION, AND IT WAS NEGATIVE. SHE WAS SCHEDULED FOR AN MRI IN THE MORNING DUE TO STAFFING ISSUED OF MRI AT NIGHT. SHE WAS TREATED WITH LOVENOX, PLAVIX AND ASPIRIN AND BLOOD PRESSURE CONTROL. THIS MORNING ON MY EVALUATION, SHE WAS WEAK ON THE RIGHT SIDE, WITH FACIAL DROOP ON THE RIGHT. LOLA ADMITS TO HAVING THE TROUBLE WITH HER SPEECH WELL BEFORE COMING INTO THE HOSPITAL. Date of Admission Mar 31, 2020 at 13:40 Date Seen by a Provider: Apr 01, 2020 Time Seen by a Provider: 08:50 I consulted on this patient on 04/01/20 09:22 Attending Physician Izabel Johnson DO Admitting Physician Heather Gonzalez MD Consult Allergies and Home Medications Allergies Coded Allergies: codeine (Unverified Allergy, Mild, 11/15/08) Penicillins (Verified Allergy, Unknown, HAS RECEIVED ANCEF IN THE PAST, 05/29/16) morphine (Verified Adverse Reaction, Mild, NAUSEA, 04/07/08) Influenza Virus Vaccines (Unverified Adverse Reaction, Unknown, 05/30/16) nylon (Verified Adverse Reaction, Unknown, ITCH, 04/07/08) Home Medications Amlodipine Besylate 2.5 Mg Tablet, 2.5 MG PO DAILY, (Reported) Atenolol 100 Mg Tablet, 100 MG PO DAILY, (Reported) Clopidogrel Bisulfate 75 Mg Tablet, 75 MG PO MoWeFr, (Reported) Docusate Sodium 100 Mg Capsule, 100 MG PO DAILY PRN for CONSTIPATION-1ST LINE, (Reported) Levothyroxine Sodium 150 Mcg Tablet, 150 MCG PO DAILY, (Reported) Multivitamin 1 Each Tablet, 1 EACH PO DAILY, (Reported) Oxybutynin Chloride 10 Mg Tab.er.24, 10 MG PO DAILY, (Reported) Patient Home Medication List Home Medication List Reviewed: Yes Past Hrmwpom-Aseobc-Cydtdw Hx Past Med/Social Hx: Reviewed Nursing Past Med/Soc Hx, Reviewed and Corrections made Patient Social History Marrital Status: single Number of Children: 3 Living Status: LIVES AT [facility] Employed/Student: retired Alcohol Use: Denies Use Smoking Status: Former Smoker 2nd Hand Smoke Exposure: No Recent Hopitalizations: No Immunizations Up To Date Date of Pneumonia Vaccine: May 30, 2014 Seasonal Allergies Seasonal Allergies: No Past Medical History Surgeries: Coronary Stent, Hysterectomy, Thyroidectomy Currently Using CPAP: No Currently Using BIPAP: No Cardiac: High Cholesterol, Hypertension Neurological: Stroke, TIA Reproductive: No Hysterectomy Genitourinary: Bladder Infection Endocrine: Hypothyroidsim HEENT: Cataract Loss of Vision: Bilateral Hearing Impairment: Hard of Hearing, Bilateral Hearing Aide History of Blood Disorders: No Family History Reviewed Nursing Family Hx Completed stroke Hypertension 19 FATHER 19 MOTHER Heart Disease, Hypertension, Stroke Review of Systems Constitutional: No chills, No fever, No malaise; weakness EENTM: hearing loss; No hoarseness, No throat pain Respiratory: No cough, No dyspnea on exertion, No short of breath Cardiovascular: No chest pain, No edema, No palpitations Gastrointestinal: No abdominal pain, No constipation, No diarrhea, No loss of appetite, No melena, No nausea, No vomiting Genitourinary: no symptoms reported Musculoskeletal: muscle weakness Skin: no symptoms reported Psychiatric/Neurological: Denies Anxiety; Pre-Existing Deficit, Weakness, Other (GARBLED SPEECH) All Other Systems Reviewed Negative Unless Noted: Yes Physical Exam Vital Signs Vital Signs - First Documented 03/31/20 15:00 Temp 36.6 Pulse 96 Resp 22 B/P (MAP) 147/72 (97) Pulse Ox 95 O2 Delivery Room Air Capillary Refill : Height, Weight, BMI Height: 5'8.00" Weight: 200lbs. 0.0oz. 90.385565ld; 32.10 BMI Method:Stated General Appearance: No Apparent Distress, WD/WN HEENT: PERRL/EOMI, Pharynx Normal, Other (RIGHT FACIAL DROOP, GARBLED SPEECH) Neck: Full Range of Motion, Supple Respiratory: Chest Non Tender, Lungs Clear, Normal Breath Sounds, No Accessory Muscle Use, No Respiratory Distress Cardiovascular: Regular Rate, Rhythm, Other (NO CAROTID STENOSIS) Gastrointestinal: Normal Bowel Sounds, No Organomegaly, No Pulsatile Mass, Non Tender, Soft Rectal: Deferred Neurologic/Psychiatric: Alert Skin: Normal Color, Warm/Dry Lymphatic: No Adenopathy HEATHER GONZALEZ MD Apr 01, 2020 09:22
--- NOTE | 2020-04-01 09:39 | Diagnostic Imaging Report ---
PROCEDURE: MR imaging of the brain without contrast. TECHNIQUE: Multiplanar, multisequence MR imaging of the brain was performed without contrast. INDICATION: Right-sided weakness and right facial droop since last night as well as speech difficulty. Ventricles and sulci are prominent consistent with the patient's age. Extensive periventricular and subcortical white matter changes are noted consistent with chronic microvascular ischemia. The normal expected flow-voids within the carotid siphons are seen. The diffusion-weighted images demonstrate small area of diffusion restriction in the midline/left para-midline location of the mayte consistent with an acute/subacute infarct. No hemorrhage is detected. Corpus callosum is unremarkable. The sella and parasellar structures are unremarkable. IMPRESSION: 1. Chronic and senescent changes. 2. 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 No hemorrhage is detected. Dictated by: Dictated on workstation # [id number]
--- NOTE | 2020-04-01 12:00 | NUR ---
ABLE TO GRASP WITH RIGHT HAND WITH MUCH WEAKNESS. UNABLE TO RAISE RIGHT ARM. SOME MOVEMENT IN RIGHT LEG, BUT SEVERE WEAKNESS NOTED. ALERT AND ORIENTED. SPEECH REMAINS VERY SLURRED.
--- NOTE | 2020-04-01 12:05 | Physical Therapy Daily Note ---
PT Daily Note-Current Subjective Pt. in bed, garbled speech, and very difficult to understand except she is clear that she wants her bed moved because this is not how it has always been and she wants it moved immediately. Pt. frustrated throughout Rx and resists most of what PT OT co Rx suggest . No c/o pain but pt. does c/o nausea upon initially s itting up . Pain Location: No Pain Reported Mental Status Patient Orientation: Confused Transfers SCALE: Activities may be completed with or without assistive devices. 7-Hzmtonypzq-dboufoe completes the activity by him/herself with no assistance from a helper. 5-Set-up or Clean-up Assistance-helper sets up or cleans up; patient completes activity. [place] assists only prior to or following the activity. 4-Supervision or Touching Assistance-helper provides verbal cues and/or touching/steadying and/or contact guard assistance as patient completes activity. Assistance may be provided throughout the activity or intermittently. 3-Partial/Moderate Assistance-helper does LESS THAN HALF the effort. [place] lifts, holds or supports trunk or limbs, but provides less than half the effort. 2-Substantial/Maximal Assistance-helper does MORE THAN HALF the effort. [place] lifts or holds trunk or limbs and provides more than half the effort. 4-Moeohjagt-dctgpn does ALL the effort. Patient does none of the effort to complete the activity. Or, the assistance of 2 or more helpers is required for the patient to complete the activity. If activity was not attempted, code reason: 7-Patient Refused. 9-Not Applicable-not attempted and the patient did not perform the activity before the current illness, exacerbation or injury. 10-Not Attempted due to Environmental Limitations-(lack of equipment, weather restraints, etc.). 88-Not Attempted due to Medical Conditions or Safety Concerns. Roll Left & Right (QC): 2 Lying to Sitting/Side of Bed(Q: 2 Sit to Stand (QC): 2 Chair/Zbz-wl-Esnla Xfer(QC): 2 max assist sup to sit , pt. resists being scooted via bed pad to edge of bed, max assist of 2 sit to stand and SPT to reclner which was aligned right beside bed to pts left ( unaffected side), awkward TRF with pt. confused as to her p osition in space and resists at times Exercises Supine Ex: Ankle pumps, Rolling, Heel Slides, Scooting, Straight leg raise, Hip abd/add Supine Reps: 15 Seated Therapy Exercises: Ankle pumps, Sit to stand, Long arc quads Seated Reps: 5 assistance for all RLE therex needed Treatments PT OT co Rx for bed mobility, TRFs, LE exercises, donning socks, some hygiene and positioning in recliner, pt. requires mod to max assist of 2 skilled clinicians due to complexity of low function Assessment Current Status: Poor Progress resistive of Rx, nearly combative at times, confused, requires assist of 2 clinicians PT Short Term Goals Short Term Goals Time Frame: Apr 07, 2020 Roll Left & Right: 4 Sit to lyin Lying to sitting on side of be: 3 Sit to stand: 3 Chair/wmy-vj-tkqww transfer: 3 Walk 10 feet: 3 PT Care Home Goals Clearance Rep Goals PT Care Home Goals Time Frame: Apr 21, 2020 Roll Left & Right (QC): 4 Sit to Lying (QC): 4 Lying-Sitting on Side/Bed(QC): 4 Sit to Stand (QC): 4 Chair/Pcb-tx-Wtfzk Xfer(QC): 4 Toilet Transfer (QC): 4 Car Transfer (QC): 4 Does the Patient Walk: Yes Walk 10 feet (QC): 4 Walk 50ft with 2 Turns (QC): 4 Walk 150 ft (QC): 88 Walking 10ft on Uneven Surface: 4 1 Step (curb) (QC): 4 4 Steps (QC): 88 12 Steps (QC): 88 Picking up an Object (QC): 88 Does the Pt use WC or Scooter?: Yes Wheel 50 feet with 2 turns (QC: 6 Wheel 150 feet: 6 PT Plan Treatment/Plan Treatment Plan: Continue Plan of Care Treatment Plan: Bed Mobility, Education, Functional Activity Jeffrey, Functional Strength, Group Therapy, Gait, Safety, Therapeutic Exercise, Transfers Treatment Duration: Apr 07, 2020 Frequency: At least 5 of 7 days/Wk (IRF) Estimated Hrs Per Day: 1.5 hours per day Patient and/or Family Agrees t: Yes Safety Risks/Education Patient Education: Transfer Techniques, Correct Positioning, Disease Process, Safety Issues Teaching Recipient: Patient Teaching Methods: Demonstration, Discussion Response to Teaching: Verbalize Understanding, Return Demonstration, Reinforcement Needed Time/GCodes Time In: 1100 Time Out: 1200 Total Billed Treatment Time: 60 Total Billed Treatment 1,EX20m,FA40m, 60m co Rx w OT JARED MILLER RELIABILITY ENGINEER Apr 01, 2020 12:05
--- NOTE | 2020-04-01 12:38 | Occupational Ther Daily Note ---
OT Current Status-Daily Note Subjective Pt alert, lying in bed. Pt has garbled speech, and very difficult to understand except she is clear that she wants her bed moved because this is not how it has always been and she wants it moved immediately. Pt. frustrated throughout session and resistant to suggestions by PT OT. No c/o pain but pt. does c/o nausea upon initially sitting up. Mental Status/Objective Patient Orientation: Person Attachments: IV ADL-Treatment OT/PT co-treat([id number]), skills of 2 clinician required for skilled instruction and care due to complexity of diagnosis, dependent mobility, fall risk and low activity tolerance. PT focusing on bed mobility, LE strengthening and transfers while OT focusing on functional transfer, ADLs and R UE function. Mod to max assist x2 for bed mobility. Pt fearful of falling and resisted sitting EOB. Max A x2 for SPT from EOB to recliner. Pt incontinent of urine, dependent with toileting. Max A for lower body dressing. Pt able to bring food to mouth though required set up to complete. Pt has minimal movement in R UE. Extra time required during therapy to encourage pt to participate fully and listen to suggestions that therapy is giving. After therapy, pt sitting in recliner with call light/phone in reach. All needs met in room. Therapy Code Descriptions/Definitions Functional [place] Measure: 0=Not Assessed/NA 4=Minimal Assistance 1=Total Assistance 5=Supervision or Setup 2=Maximal Assistance 6=Modified [place] 3=Moderate Assistance 7=Complete IndependenceSCALE: Activities may be completed with or without assistive devices. 3-Bopqoyghhu-hnbdxsx completes the activity by him/herself with no assistance from a helper. 5-Set-up or Clean-up Assistance-helper sets up or cleans up; patient completes activity. [place] assists only prior to or following the activity. 4-Supervision or Touching Assistance-helper provides verbal cues and/or touching/steadying and/or contact guard assistance as patient completes activity. Assistance may be provided throughout the activity or intermittently. 3-Partial/Moderate Assistance-helper does LESS THAN HALF the effort. [place] lifts, holds or supports trunk or limbs, but provides less than half the effort. 2-Substantial/Maximal Assistance-helper does MORE THAN HALF the effort. [place] lifts or holds trunk or limbs and provides more than half the effort. 2-Shvclccgw-tarlhi does ALL the effort. Patient does none of the effort to complete the activity. Or, the assistance of 2 or more helpers is required for the patient to complete the activity. If activity was not attempted, code reason: 7-Patient Refused. 9-Not Applicable-not attempted and the patient did not perform the activity before the current illness, exacerbation or injury. 10-Not Attempted due to Environmental Limitations-(lack of equipment, weather restraints, etc.). 88-Not Attempted due to Medical Conditions or Safety Concerns. Eating (QC): 5 Oral Hygiene (QC): 5 (Using clinical judgment, pt is able to complete oral care after set up.) Shower/Bathe Self (QC): 1 (Using clinical judgement, pt requires assist x2 to complete bathing due to max A x2 to stand and cleanse buttocks. Pt able to complete upper body after set up, max A for lower body.) Upper Body Dressing (QC): 2 (Using clinical judgment, pt requires max A to don/doff upper body clothing.) Lower Body Dressing (QC): 1 On/Off Footwear: 2 Toileting Hygiene (QC): 1 Toilet Transfer (QC): 1 Other Treatment 2nd session ([id number])-Pt required max A x2 to transfer from recliner to bed. Max A x2 for bed mobility. Max A x2 to cleanse from urinary incontinence. After session, pt lying in bed with call light/phone in reach. All needs met in room. OT Short Term Goals Short Term Goals Time Frame: Apr 07, 2020 Eatin Oral hygiene: 4 Toileting hygiene: 3 Shower/bathe self: 3 Upper body dressin Lower body dressin Putting on/taking off footwear: 3 OT User Experience Manager Goals [facility] Goals Time Frame: Apr 14, 2020 Eating (QC): 6 Oral Hygiene (QC): 5 Toileting Hygiene (QC): 6 Shower/Bathe Self (QC): 4 Upper Body Dressing (QC): 5 Lower Body Dressing (QC): 4 On/Off Footwear (QC): 4 Additional Goals: 1-Demonstrate ADL Tasks, 2-Verbalize Understanding, 3- ImproveStrength/Jeffrey 1=Demonstrate adherence to instructed precautions during ADL tasks. 2=Patient will verbalize/demonstrate understanding of assistive devices /modifications for ADL. 3=Patient will improve strength/tolerance for activity to enable patient to perform ADL's. OT Education/Plan Problem List/Assessment Assessment: Decreased Activ Tolerance, Decreased Safety Aware, Decreased UE Strength, Dependent Transfers, Impaired Bed Mobility, Impaired Cognition, Impaired Coordination, Impaired Funct Balance, Impaired I ADL's, Impaired Self- Care Skills, Restricted Funct UE ROM, Visual-Perceptual Deficit Discharge Recommendations Plan/Recommendations: Continue POC Treatment Plan/Plan of Care Patient would benefit from OT for education, treatment and training to promote independence in ADL's, mobility, safety and/or upper extremity function for ADL's. Plan of Care: ADL Retraining, Functional Mobility, UE Funct Exercise/Act Treatment Duration: Apr 14, 2020 Frequency: At least 5 of 7 days/Wk (IRF) Estimated Hrs Per Day: 1.5 hours per day Agreement: Yes Rehab Potential: Guarded Time/GCodes Start Time: 11:00 (1300) Stop Time: 12:00 (1315) Total Time Billed (hr/min): 75 Billed Treatment Time 1 visit-FA 4 (60 min) co-treat with PT [id number], 1 visit-FA 1 (15 min) co- treat with PT [id number] ANURADHA AGUILERA Apr 01, 2020 12:38
--- NOTE | 2020-04-01 13:15 | PM&R Progress Note ---
Subjective HPI/CC On Admission Date Seen by Provider: Apr 01, 2020 Time Seen by Provider: 12:45 Subjective/Events-last exam 04/01/20: MRI revealed subacute CVA and upon further evaluation her symptoms had started 3 days prior Right arm weakness noted Aggressive therapy indicated for new neuro deficit Was not a tPA candidate due to waxing and waning of symptoms Lipid panel ordered along with Cardiology consultation Review of Systems General: Fatigue, Malaise Neurological: Weakness, Incoordination, Confusion Objective Exam Vital Signs Vital Signs Date Time Temp Pulse Resp B/P (MAP) Pulse Ox O2 Delivery O2 Flow Rate FiO2 04/02/20 04:05 35.6 50 18 143/65 (91) 98 Room Air Capillary Refill : General Appearance: No Apparent Distress, WD/WN HEENT: PERRL/EOMI, Pharynx Normal, Other (RIGHT FACIAL DROOP, GARBLED SPEECH) Neck: Full Range of Motion, Supple Respiratory: Chest Non Tender, Lungs Clear, Normal Breath Sounds, No Accessory Muscle Use, No Respiratory Distress Cardiovascular: Regular Rate, Rhythm, No Edema, No Gallop, No JVD, No Murmur, Normal Peripheral Pulses, Other (NO CAROTID STENOSIS) Gastrointestinal: Normal Bowel Sounds, No Organomegaly, No Pulsatile Mass, Non Tender, Soft Rectal: Deferred Back: Normal Inspection, No CVA Tenderness, No Vertebral Tenderness Extremity: Normal Capillary Refill, Normal Inspection, Normal Range of Motion, Non Tender, No Calf Tenderness, No Pedal Edema Neurologic/Psychiatric: Alert, Oriented x3, No Motor/Sensory Deficits, Normal Mood/Affect, esl teacher II-XII Norm as Tested, Aphasia (partial), Disoriented, Facial Droop (right), Motor Weakness (right arm and leg 3/5) Skin: Normal Color, Warm/Dry Lymphatic: No Adenopathy Results/Procedures Lab Laboratory Tests 04/02/20 05:27 Patient resulted labs reviewed. FIM Transfers Therapy Code Descriptions/Definitions Functional [place] Measure: 0=Not Assessed/NA 4=Minimal Assistance 1=Total Assistance 5=Supervision or Setup 2=Maximal Assistance 6=Modified [place] 3=Moderate Assistance 7=Complete IndependenceSCALE: Activities may be completed with or without assistive devices. 9-Jvwkrutekk-lgzltik completes the activity by him/herself with no assistance from a helper. 5-Set-up or Clean-up Assistance-helper sets up or cleans up; patient completes activity. [place] assists only prior to or following the activity. 4-Supervision or Touching Assistance-helper provides verbal cues and/or touching/steadying and/or contact guard assistance as patient completes activity. Assistance may be provided throughout the activity or intermittently. 3-Partial/Moderate Assistance-helper does LESS THAN HALF the effort. [place] lifts, holds or supports trunk or limbs, but provides less than half the effort. 2-Substantial/Maximal Assistance-helper does MORE THAN HALF the effort. [place] lifts or holds trunk or limbs and provides more than half the effort. 9-Ofbpjgkqm-tkubiy does ALL the effort. Patient does none of the effort to complete the activity. Or, the assistance of 2 or more helpers is required for the patient to complete the activity. If activity was not attempted, code reason: 7-Patient Refused. 9-Not Applicable-not attempted and the patient did not perform the activity before the current illness, exacerbation or injury. 10-Not Attempted due to Environmental Limitations-(lack of equipment, weather restraints, etc.). 88-Not Attempted due to Medical Conditions or Safety Concerns. Roll Left to Right (QC): 2 Sit to Lying (QC): 7 Sit to Stand (QC): 2 Chair/Jww-ic-Jhlwz Xfer(QC): 2 Car Transfer (QC): 7 Gait Training Does the Patient Walk?: Yes Walk 10 feet (QC): 7 Walk 50 ft with 2 Turns(QC): 7 Walk 150 ft (QC): 7 Walking 10ft/uneven surface-QC: 7 Gait Assistive Device: FWW Wheelchair Training Does the Pt Use a Wheelchair?: Yes Wheel 50 ft with 2 turns (QC): 1 Wheel 150 ft (QC): 1 Type of Wheelchair: Manual Stair Training 1 Step (curb) (QC): 88 4 Steps (QC): 88 12 Steps (QC): 88 Balance Picking up an Object (QC): 88 ADL-Treatment Eating (QC): 5 Oral Hygiene (QC): 5 (Using clinical judgment, pt is able to complete oral care after set up.) Shower/Bathe Self (QC): 1 (Using clinical judgement, pt requires assist x2 to complete bathing due to max A x2 to stand and cleanse buttocks. 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 Debility Falls UTI acute Slurred speech likely baseline with UTI worsened HTN Hypothyroidism Obesity Plan: Home meds IRF UTI treatment Await UCx 04/01/20: Lipid panel Cardiology consultation ECHO reviewed Carotid USG reviewed (1) Physical debility Status: Acute (2) Hypothyroidism (3) Falls (4) Obesity (5) UTI (urinary tract infection) Status: Acute LAMBERTO PATTON DO Apr 01, 2020 13:15
--- NOTE | 2020-04-01 13:15 | Individualized Plan of Care ---
Individualized Plan of Care Rehab Nursing IPOC Order Admission Date Mar 31, 2020 at 13:40 Current Orders Orders Admission Order(Inpt,Obs,Sdc) (03/31/20 12:56) Vital Signs: Per Unit Policy ( 08,16,00 (03/31/20 12:56) Jose A Faith (03/31/20 12:56) Sequential Compression Device Q4H (03/31/20 12:56) Office Runner-Inpt Rehab Con (03/31/20 12:56) Rehab Nursing Orders-Ipoc (03/31/20 12:56) Physical Therapy Rehab Orders (03/31/20 12:56) Occupational Therapy Rehab Ord (03/31/20 12:56) Speech Therapy Rehab Orders (03/31/20 12:56) Cbc With Automated Diff (04/01/20 06:00) Comprehensive Metabolic Panel (04/01/20 06:00) General/Regular (03/31/20 Lunch) Precautions (Aru) (03/31/20 12:56) Weekly Weight WEEK (03/31/20 12:56) Rehab-Intensity Of Therapy (03/31/20 12:56) Acetaminophen Tablet (Tylenol Tablet) (03/31/20 13:00) Alprazolam Tablet (Xanax Tablet) (03/31/20 13:00) Calcium Carbonate Chew Tablet (Antacid C (03/31/20 13:00) Diphenhydramine Tablet (Benadryl Tablet) (03/31/20 13:00) Docusate Sodium Capsule (Colace Capsule) (03/31/20 21:00) Docusate Sodium Capsule (Colace Capsule) (03/31/20 13:00) Bisacodyl Suppository (Dulcolax Supposit (03/31/20 13:00) Lactulose Oral Solution (Enulose Oral So (03/31/20 13:00) Na Phos/Na Biphos Enema (Fleet Enema Arjun (03/31/20 13:00) Guaifenesin/Codeine Syrup (Robitussin Ac (03/31/20 13:00) Loperamide Tablet (Imodium Tablet) (03/31/20 13:00) Enoxaparin Injection (Lovenox Injection) (03/31/20 13:00) Melatonin Tablet (Melatonin Tablet) (03/31/20 13:00) Polyethylene Glycol Powder Pkt (Miralax (03/31/20 21:00) Ondansetron Oral Dissolve Tab (Zofran (03/31/20 13:00) Senna S Tablet (Senokot S Tablet) (03/31/20 21:00) Initiate Admission Nursing Pro .admission (03/31/20 12:56) Ceftriaxone For Iv Use (Rocephin For I (03/31/20 13:00) Acetaminophen Tablet/Caplet (Tylenol T (03/31/20 13:45) Sodium Chloride Flush (Catheter Flush Sy (03/31/20 14:00) Sodium Chloride Flush (Catheter Flush Sy (03/31/20 14:00) Ct Head Wo-R/O Stroke (03/31/20 ) Amlodipine Tablet (Norvasc Tablet) (04/01/20 09:00) Clopidogrel Tablet (Plavix Tablet) (04/01/20 09:00) Docusate Sodium Capsule (Colace Capsule) (03/31/20 19:45) Levothyroxine Tablet (Synthroid Tablet) (04/01/20 06:30) (Nf) Atenolol (04/01/20 09:00) (Nf) Multivitamin (04/01/20 09:00) (Nf) Oxybutynin Chloride (Oxybutynin Chl (04/01/20 09:00) Atenolol Tablet (Tenormin Tablet) (04/01/20 09:00) Therapeutic Multivitamin Tab (Vitamins, (04/01/20 07:00) Oxybutynin Tablet (Ditropan Tablet) (04/01/20 09:00) Amlodipine Tablet (Norvasc Tablet) (04/01/20 09:00) Manual Differential (04/01/20 06:22) Mri Brain W/O Contrast (04/01/20 08:22) Patient Visit (03/31/20 ) Pt Eval Moderate Complexity (03/31/20 ) Functional Activities, Ea 15 (03/31/20 ) Us Carotid Pavel Complete [id number] (04/01/20 10:18) Echo W Doppler/Color Flow (04/01/20 10:18) Telemetry (04/01/20 10:18) Telemetry Nursing Assessment ( (04/01/20 10:18) Clopidogrel Tablet (Plavix Tablet) (04/02/20 09:00) Cbc No Diff (04/02/20 05:00) Comprehensive Metabolic Panel (04/02/20 05:00) Patient Visit (04/01/20 ) Exercise Therap, Ea 15 Min (04/01/20 ) Functional Activities, Ea 15 (04/01/20 ) Patient Visit (04/01/20 ) Functional Activities, Ea 15 (04/01/20 ) Patient Visit (04/01/20 ) Speech Sound Lang Comp (04/01/20 ) Treat. Speech/Lang/Voice (04/01/20 ) General/Regular (04/01/20 Dinner) General/Regular (04/02/20 Breakfast) Lipid Panel (04/02/20 07:22) Atorvastatin Tablet (Lipitor Tablet) (04/02/20 21:00) Consult Cardiology (04/02/20 07:22) Rehab Nursing Orders: Ongoing Assess. of Cognitive Status, Ongoing Assess. of Function Status, Bladder Management, Bladder Scan, Bladder Training, Bowel Management, Bowel Training, Disease Management & Educaiton, DVT Prophylaxis, Fall Prevention, Fluid/Electrolyte/Nutrition Mgmt, Infection Prevention, Medication Management & Education, Management of Risks & Complications, Management of Skin Intergrity, Nutrition Management, Pain Management, Patient/Family Support, Safety Management, Swallow Precautions Intensity of Therapy to be met Patient to be seen: Min.3h per day/5 of 7d PT IPOC Problem List: Activity Tolerance, Functional Strength, Safety, Balance, Gait, Transfer, Bed Mobility, ROM Treatment Plan: Continue Plan of Care Bed Mobility, Education, Functional Activity Jeffrey, Functional Strength, Group Therapy, Gait, Safety, Therapeutic Exercise, Transfers Treatment Duration: Apr 07, 2020 Frequency: At least 5 of 7 days/Wk (IRF) Estimated Hrs Per Day: 1.5 hours per day OT IPOC Problems: Decreased Activ Tolerance, Decreased Safety Aware, Decreased UE Strength, Dependent Transfers, Impaired Bed Mobility, Impaired Cognition, Impaired Coordination, Impaired Funct Balance, Impaired I ADL's, Impaired Self- Care Skills, Restricted Funct UE ROM, Visual-Perceptual Deficit OT Treatment, Training and Edu: Yes Plan of Care: ADL Retraining, Functional Mobility, UE Funct Exercise/Act Treatment Duration: Apr 14, 2020 Frequency: At least 5 of 7 days/Wk (IRF) Estimated Hrs Per Day: 1.[address] IPOC Speech Therapy Treatment Plan: Modify Plan, See Comments Treatment Duration: Apr 01, 2020 Frequency: Modified Program (IRF) Estimated Hrs Per Day: Other Office Runner/Case Mgmt Office Runner/Case Managemen: Discharge Planning Dietitian/[place] Machine Operator Dietitian/[place] Machine Operator to monitor nutritional status and make changes and/or recommendations as needed and work with speech pathology on dietary upgrades as the occur. Physician IPOC Medical Issues being managed closely and that require the 24 hour availability of a physician: Acute UTI with new right sided weakness that evolved subacutely requiring CVA w/u and close monitoring for CVA extension Brief Synthesis of Preadmission Screen, Post-Admission Evaluation, and Therapy Evaluations: PT OT ST will focus on regaining function in new right sided deficit while completing treatment for UTI along with preventing falls with hopes to regain function Medical Prognosis: Fiar Anticipated Length of Stay: 14 days LAMBERTO PATTON DO Apr 01, 2020 13:15
[2020-04-01] MEDS: cefTRIAXone FOR IV USE 1,000 MG in WATER (STERILE) FOR INJECTION 10 ML IV SCH (13:21)
[2020-04-01] MEDS: ENOXAPARIN 40 MG/0.4 ML (LOVENOX) SYR SC SCH (13:21)
--- NOTE | 2020-04-01 13:25 | Physical Therapy Daily Note ---
PT Daily Note-Current Mental Status Patient Orientation: Confused Transfers SCALE: Activities may be completed with or without assistive devices. 8-Sfsrmfevof-drdqizu completes the activity by him/herself with no assistance from a helper. 5-Set-up or Clean-up Assistance-helper sets up or cleans up; patient completes activity. [place] assists only prior to or following the activity. 4-Supervision or Touching Assistance-helper provides verbal cues and/or touching/steadying and/or contact guard assistance as patient completes activity. Assistance may be provided throughout the activity or intermittently. 3-Partial/Moderate Assistance-helper does LESS THAN HALF the effort. [place] lifts, holds or supports trunk or limbs, but provides less than half the effort. 2-Substantial/Maximal Assistance-helper does MORE THAN HALF the effort. [place] lifts or holds trunk or limbs and provides more than half the effort. 4-Ytuqweepj-qvfcns does ALL the effort. Patient does none of the effort to complete the activity. Or, the assistance of 2 or more helpers is required for the patient to complete the activity. If activity was not attempted, code reason: 7-Patient Refused. 9-Not Applicable-not attempted and the patient did not perform the activity before the current illness, exacerbation or injury. 10-Not Attempted due to Environmental Limitations-(lack of equipment, weather restraints, etc.). 88-Not Attempted due to Medical Conditions or Safety Concerns. Roll Left & Right (QC): 1 ( x 2) Sit to Lying (QC): 1 (x 2) Sit to Stand (QC): 1 (x 2) Chair/Rqd-lq-Jsbtc Xfer(QC): 1 (x 2) dependent assist with all mobility to reposition up in bed Treatments [place] with OT due to complexity of patient's status and need of 2 skilled therapist to address goals and functional mobility. Assessment Patient is in bed with needs met. PT to increase activity as tolerated by patient. PT Short Term Goals Short Term Goals Time Frame: Apr 07, 2020 Roll Left & Right: 4 Sit to lyin Lying to sitting on side of be: 3 Sit to stand: 3 Chair/jve-aj-ardxr transfer: 3 Walk 10 feet: 3 PT Shipping And Receiving Material Handler Goals Shipping And Receiving Material Handler Goals PT Assisted Goals Time Frame: Apr 21, 2020 Roll Left & Right (QC): 4 Sit to Lying (QC): 4 Lying-Sitting on Side/Bed(QC): 4 Sit to Stand (QC): 4 Chair/Myn-jd-Fmddl Xfer(QC): 4 Toilet Transfer (QC): 4 Car Transfer (QC): 4 Does the Patient Walk: Yes Walk 10 feet (QC): 4 Walk 50ft with 2 Turns (QC): 4 Walk 150 ft (QC): 88 Walking 10ft on Uneven Surface: 4 1 Step (curb) (QC): 4 4 Steps (QC): 88 12 Steps (QC): 88 Picking up an Object (QC): 88 Does the Pt use WC or Scooter?: Yes Wheel 50 feet with 2 turns (QC: 6 Wheel 150 feet: 6 PT Plan Treatment/Plan Treatment Plan: Continue Plan of Care Treatment Plan: Bed Mobility, Education, Functional Activity [place], Functional Strength, Group Therapy, Gait, Safety, Therapeutic Exercise, Transfers Treatment Duration: Apr 07, 2020 Frequency: At least 5 of 7 days/Wk (IRF) Estimated Hrs Per Day: 1.5 hours per day Patient and/or Family Agrees t: Yes Time/GCodes Time In: 1300 Time Out: 1315 Total Billed Treatment Time: 15 Total Billed Treatment 1 visit FA 15 min CALI SAM PT Apr 01, 2020 13:25
--- NOTE | 2020-04-01 14:34 | NUR ---
"RD ASSESSMENT PMHx: hypercholesterolemia; HTN; hypothyroidism; PT INTERACTION: Pt was awake and pleasant during nutrition consult for MST score. Pt states current appetite is good. Note avg PO intake 37% x2meal, per chart review. Pt states following a regular diet at home, and has no issues with chewing/swallowing food. Pt states recent issues with nausea and vomiting, and that her last BM was 03/31. Note pt currently on bowel regimen of colace BID, senna BID, and miralax BID, per chart review. Pt states recent wt gain, but was unsure of amount/timeframe. Note unable to determine recent wt hx, per chart review. Est. kcal needs: 2701-1650 kcal | 15-20 kcal/kg Est. Pro needs: 74-93 g Pro | 0.8-1.0 g Pro/kg PES STATEMENT: Inadequate oral intake (NI-2.1) related to loss of appetite, nausea, and vomiting, as evidenced by pt interview, and avg PO intake 37% x2meal. INTERVENTION: Continue with current diet order of Regular diet. Add Ensure Enlive (vary) to meals TID, for increased kcal intake. Provides 350 kcal and 20 g Pro per serving. Will continue to follow and reassess as pt needs, intake, and status change. Jeremías MARIA, MS RD LD [phone] cell"
--- NOTE | 2020-04-01 15:03 | ST Cognitive Linguistic Eval ---
Speech Evaluation-General Medical Diagnosis UTI Onset Date: Mar 31, 2020 Therapy Diagnosis Therapy Diagnosis: Cognitive-communication, Dysarthria Referral Referring Physician: Dr. Johnson Medical History Pertinent Medical History: CAD, HTN, Hypothroidism, Neuropathy, PVD Reviewed History: Yes Social History Current Living Status: Alone (Caregiver assist) Speech PLF-Current Status Prior Level of Function Patient lives in assisted living where she has assistance with her daily needs. Subjective Patient was pleasant and cooperative. She has approximately 505 intelligibility. Language Eval: Auditory Comprehends Simple Yes/No Ques: Functional Indent/Objects Multiple [place]: Functional Ident/Pics in Multiple [place]: Functional Follows 1-Step Commands: Functional Follows Complex Directions: Mild Follows General Conversations: Functional Language Eval: Verbal Language Completes Spontaneous Greeting: Functional Produces Auto, Serial Info: Functional Imitates Simple Words/Phrases: Functional Word Finding: Functional Requests Basic Needs: Mild States Basic Personal Info: Mild Expresses Complex Ideas: Mild Objective Cognitive Domain Attention: WNL Memory: Mild Problem Solving: Mild Executive Functions: Mild Visuospatial Skills: WNL Composite Severity Rating: Mild Clock Drawing Severity Rating: Mild Objective Formal/Standardized Tests [facility] Mental Status ([facility]) Results 18/30, Moderate Dementia range of function Oral Motor/Speech Production Patient exhibits moderate dysarthria with approx 50% speech intelligibility. Impression Patient is a pleasant 84 y/o female who was admitted to the ARU s/p UTI. Patient has stroke like symptoms with right side weakness, moderate dysarthria and cognitive deficits. Patient was given the SLUMS with a score of 18/30 obtained. Patient exhibits cognitive deficits related to word finding, safety awareness and problem solving. These areas as well as speech production will be the focus of ST. Speech Patient Assess Expression of Ideas/Wants: Exhibits (3) Understanding Verbal Content: Usually Understands (3) Brief Interview-Mental Status: Yes Repetition of Three Words: Three (3) Temporal Orientation: Year: Correct (3) Temporal Orientation: Month: Accurate within 5 days(2) Temporal Orientation: Day: Correct (1) Recall : Wear to say "Sock": Yes,after cueing (1) Recall : Color: Yes, after cueing (1) Recall : Bed: Yes,after cueing (1) Memory/Recall Ability: Current season, That he or she is in a hsp/hsp unit Speech Short Term Goals Short Term Goals Short Term Goals 1) Patient will complete memory tasks related to her daily needs at 80% with minimal cues. 2) Patient will complete problem solving tasks related to her daily needs at 80% with minimal cues. 3) Patient will complete safety awareness tasks related to her daily needs at 80% with minimal cues. 4 Patient will complete speech production tasks for improving intelligibility at 90%. Speech Skilled Nursing Goals Paraplanner Goals Patient will improve cognitive-communication necessary for safety and daily living tasks with minimal assist. Patient will improve speech intelligibility in order to communicate her wants/needs effectively. Speech-Plan Patient/Family Goals Patient/Family Goals: Patient plans on returning to her assisted living apartment upon discharge. Treatment Plan Speech Therapy Treatment Plan: Continue Plan of Care Treatment Duration: Mar 18, 2020 Frequency: 4 times per week (Patient will receive skilled AST 4-5x per week) Estimated Hrs Per Day: .5 hour per day Rehab Potential: Guarded Barriers to Learning: Patient's decreased cognitive function, dysarthria Pt/Family Agrees to Plan: Yes Safety Risks/Education Teaching Recipient: Patient Teaching Methods: Discussion Response to Teaching: Verbalize Understanding Education Topics Provided: Safety within her room, communication of wants/needs, utilization of call light as needed Time Speech Therapy Time In: 13:30 Speech Therapy Time Out: 14:00 Total Billed Time: 30 Billed Treatment Time 1, MARLON HEBERT BETHANIA ST Apr 01, 2020 15:02
--- NOTE | 2020-04-01 16:23 | Diagnostic Imaging Report ---
PROCEDURE: US carotid duplex, bilateral. TECHNIQUE: Multiple real-time grayscale images were obtained over the carotid arteries in various projections, bilaterally. Additional spectral analysis and color Doppler duplex images were also obtained. INDICATION: Stroke. Parameters based on the consensus panel Lorenzana-Scale and Doppler ultrasound criteria published January 2003, Radiology, Volume 229. DOPPLER (peak systolic velocity M/S Right Left CCA 0.71 0.74 ICA Proximal 0.89 0.70 ICA Mid 0.87 0.80 ICA Distal 0.59 0.93 RATIO 1.25 1.27 ECA 1.40 1.02 VERT 0.92 NOT SEEN FINDINGS: There is diffuse plaque seen throughout the common carotids, carotid bulbs, and internal carotid arteries. There is decreased diastolic flow within the bilateral internal carotid arteries. The left vertebral artery is not visualized. Normal antegrade flow within the right vertebral artery. IMPRESSION: 1. Atherosclerosis with less than 50% stenosis of the bilateral internal carotid arteries by velocity and ratio criteria. 2. Abnormal decreased diastolic flow is seen within the internal carotid arteries. Dictated by: Dictated on workstation # [id number]
--- NOTE | 2020-04-01 17:30 | NUR ---
ATE SUPPER WITH LEFT HAND WITH ASSISTANCE. COND. SAME WITH SEVERE WEAKNESS IN RIGHT EXTREMITIES. SLURRED SPEECH CONT.
--- NOTE | 2020-04-01 19:25 | NUR ---
Bedside report received from LETI AGARWAL, assume care of pt
[2020-04-01] MEDS: MELATONIN 3 MG TABLET PO PRN (20:34)
--- NOTE | 2020-04-01 20:35 | NUR ---
Pt took all laxatives, no difficulty taking meds one at a time, v/s [id number]%-136/71-8, c/o pain level 8/10 on numeric scale, Tylenol 650mg given, speech continues to be slurred & Rt sided weakness
--- NOTE | 2020-04-01 21:15 | NUR ---
rates pain at 0/10 on numeric scale
[2020-04-02 00:10] VITALS: BP 124/75
[2020-04-02 04:05] VITALS: BP 143/65
[2020-04-02 05:45] LABS: HEMOGLOBIN 13.5 g/dL (11.5-16.0); MEAN PLATELET VOLUME 9.3 fL (9.0-12.2); WHITE BLOOD COUNT 9.1 10^3/uL (4.3-11.0)
[2020-04-02 06:13] LABS: ALBUMIN 3.5 GM/DL (3.2-4.5)
[2020-04-02 06:14] LABS: POTASSIUM 3.8 MMOL/L (3.6-5.0)
[2020-04-02 06:15] LABS: CALCIUM 9.4 MG/DL (8.5-10.1)
[2020-04-02 06:16] LABS: TOTAL PROTEIN 6.2 GM/DL (6.4-8.2)
[2020-04-02 06:18] LABS: BILIRUBIN,TOTAL 0.6 MG/DL (0.1-1.0)
[2020-04-02 06:20] LABS: CREATININE SERUM 1.16 MG/DL (0.60-1.30)
[2020-04-02] MEDS: MULTIVIT W/MINERALS TAB (THERAGRAN M) PO SCH (07:01)
[2020-04-02] MEDS: CATHETER FLUSH 10 ML SYR IV SCH ×3 (07:01→23:04)
[2020-04-02] MEDS: LEVOTHYROXINE 150 MCG (LEVOTHROID) TAB PO SCH (07:01)
[2020-04-02 07:40] LABS: TRIGLYCERIDES 144 MG/DL (<150); VLDL CHOLESTEROL 29 MG/DL (5-40)
[2020-04-02 07:45] LABS: CHOLESTEROL 199 MG/DL (< 200)
[2020-04-02 07:46] LABS: HDL CHOLESTEROL 42 MG/DL (40-60)
[2020-04-02 08:00] VITALS: BP 138/61
[2020-04-02] MEDS: SENNA W/DOCUSATE (SENOKOT S) TABLET PO SCH ×2 (09:43→21:00)
[2020-04-02] MEDS: amLODIPine 2.5MG (NORVASC) TAB PO SCH (09:43)
[2020-04-02] MEDS: OXYBUTYNIN (DITROPAN) 5 MG TAB PO SCH ×2 (09:43→21:00)
[2020-04-02] MEDS: CLOPIDOGREL 75 MG (PLAVIX) TABLET PO SCH (09:44)
[2020-04-02] MEDS: DOCUSATE SODIUM 100 MG (COLACE) CAP PO SCH ×2 (09:44→21:00)
[2020-04-02] MEDS: polyethylene glycoL POWDER 17 GM (MIRALAX) PACK PO SCH ×2 (09:44→21:02)
[2020-04-02] MEDS: ATENOLOL 50 MG (TENORMIN) TAB PO SCH (09:44)
--- NOTE | 2020-04-02 10:38 | Consultation-Cardiology ---
HPI-Cardiology Cardiology Consultation Date of Consultation 04/02/20 Date of Admission Time Seen by Provider: 10:33 Indication: cryptogenic stroke HPI 84 years old lady was admitted for urinary tract and confusion. Patient developed slurred speech and right-sided weakness. Diagnosed with a stroke, denied any previous history of stroke, it was deemed cryptogenic. Currently sti ll having right sided weakness with slurred speech. Denied any chest pain. Denied any palpitation or shortness of breath Home Medications & Allergies Allergies: Coded Allergies: codeine (Unverified Allergy, Mild, 11/15/08) Penicillins (Verified Allergy, Unknown, HAS RECEIVED ANCEF IN THE PAST, 05/29/16) morphine (Verified Adverse Reaction, Mild, NAUSEA, 04/07/08) Influenza Virus Vaccines (Unverified Adverse Reaction, Unknown, 05/30/16) nylon (Verified Adverse Reaction, Unknown, ITCH, 04/07/08) Home Medication List Reviewed: Yes GAB-Xsbbnf-Vdpgae Hx Patient Social History Marital Status: single Number of Children: 3 Living Status: LIVES AT [facility] Employed/Student: retired Smoking Status: Former Smoker 2nd Hand Smoke Exposure: No Recent Hopitalizations: No Have you traveled recently?: No Alcohol Use?: No Immunizations Up To Date Date of Pneumonia Vaccine: May 30, 2014 Past Medical History Discussed below Family Medical History Significant Family History: Heart Disease, Hypertension, Stroke Family History: Completed stroke Hypertension 19 FATHER 19 MOTHER Review of Systems-General Review of Systems Constitutional: No chills, No fever, No malaise; weakness EENTM: hearing loss; No hoarseness, No throat pain Respiratory: No cough, No dyspnea on exertion, No short of breath Cardiovascular: see HPI; No chest pain, No edema, No Hx of Intervention, No palpitations, No syncope, No vascular heart diseas, No other Gastrointestinal: see HPI; No abdominal pain, No constipation, No diarrhea, No loss of appetite, No melena, No nausea, No vomiting Genitourinary: no symptoms reported, see HPI Musculoskeletal: muscle weakness Skin: no symptoms reported Psychiatric/Neurological: Denies Anxiety; Pre-Existing Deficit, Weakness, Other (GARBLED SPEECH) All Other Systems Reviewed Negative Unless Noted: Yes Reviewed Test Results Reviewed Test Results Lab Laboratory Tests Test 04/02/20 05:27 Range/Units White Blood Count 9.1 4.3-11.0 10^3/uL Red Blood Count 4.35 3.80-5.11 10^6/uL Hemoglobin 13.5 11.5-16.0 g/dL Hematocrit 41 35-52 % Mean Corpuscular Volume 94 80-99 fL Mean Corpuscular Hemoglobin 31 25-34 pg Mean Corpuscular Hemoglobin Concent 33 32-36 g/dL Red Cell Distribution Width 13.2 10.0-14.5 % Platelet Count 252 130-400 10^3/uL Mean Platelet Volume 9.3 9.0-12.2 fL Sodium Level 143 135-145 MMOL/L Potassium Level 3.8 3.6-5.0 MMOL/L Chloride Level 111 H 98-107 MMOL/L Carbon Dioxide Level 20 L 21-32 MMOL/L Anion Gap 12 5-14 MMOL/L Blood Urea Nitrogen 22 H 7-18 MG/DL Creatinine 1.16 0.60-1.30 MG/DL Estimat Glomerular Filtration Rate 45 BUN/Creatinine Ratio 19 Glucose Level 101 70-105 MG/DL Calcium Level 9.4 8.5-10.1 MG/DL Corrected Calcium 9.8 8.5-10.1 MG/DL Total Bilirubin 0.6 0.1-1.0 MG/DL Aspartate Amino Transf (AST/SGOT) 22 5-34 U/L Alanine Aminotransferase (ALT/SGPT) 16 0-55 U/L Alkaline Phosphatase 72 40-136 U/L Total Protein 6.2 L 6.4-8.2 GM/DL Albumin 3.5 3.2-4.5 GM/DL Triglycerides Level 144 <150 MG/DL Cholesterol Level 199 < 200 MG/DL LDL Cholesterol Direct 155 H 1-129 MG/DL VLDL Cholesterol 29 5-40 MG/DL HDL Cholesterol 42 40-60 MG/DL Physical Exam Physical Exam Vital Signs Vital Signs - First Documented 03/31/20 15:00 Temp 36.6 Pulse 96 Resp 22 B/P (MAP) 147/72 (97) Pulse Ox 95 O2 Delivery Room Air Capillary Refill : Height, Weight, BMI Height: 5'8.00" Weight: 200lbs. 0.0oz. 90.750293mb; 32.10 BMI Method:Stated General Appearance: No Apparent Distress, WD/WN Eyes: Bilateral Eye Normal Inspection, Bilateral Eye PERRL HEENT: PERRL/EOMI, Pharynx Normal, Other (RIGHT FACIAL DROOP, GARBLED SPEECH) Neck: Full Range of Motion, Supple Respiratory: Chest Non Tender, Lungs Clear, Normal Breath Sounds, No Accessory Muscle Use, No Respiratory Distress Cardiovascular: Regular Rate, Rhythm, No Edema, No Gallop, No JVD, No Murmur, Normal Peripheral Pulses, Other (NO CAROTID STENOSIS) Gastrointestinal: Normal Bowel Sounds, No Organomegaly, No Pulsatile Mass, Non Tender, Soft Rectal: Deferred Back: Normal Inspection, No CVA Tenderness, No Vertebral Tenderness Extremity: Normal Capillary Refill, Normal Inspection, Normal Range of Motion, Non Tender, No Calf Tenderness, No Pedal Edema Neurologic/Psychiatric: Alert, Oriented x3, No Motor/Sensory Deficits, Normal Mood/Affect, buttonhole maker II-XII Norm as Tested, Aphasia (partial), Disoriented, Facial Droop (right), Motor Weakness (right arm and leg 3/5) Skin: Normal Color, Warm/Dry Lymphatic: No Adenopathy A/P-Cardiology Admission Diagnosis Acute CVA Debility Coronary artery disease Hypertension Assessment/Plan Debility, acute CVA with left mayte infarct on MRI, right-sided weakness, facial droop and slurred speech. Receiving physical therapy, workup is in progress, maintained on telemetry, continue to monitor. Debility, receiving physical and occupational therapy Urinary tract infection treated, feeling better. 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 Stratton Hyperlipidemia, maintained on Lipitor 80 mg daily, monitor lipids Obesity, BMI 32. Carotid artery stenosis, mild bilateral disease, evaluate carotid ultrasound MAGALY OLIVARES MD Apr 02, 2020 10:38
--- NOTE | 2020-04-02 11:48 | Physical Therapy Daily Note ---
PT Daily Note-Current Subjective Pt agreeable. Pt expresses she wants to work hard and get better. Pt also expresses she is afraid to stand up b/c the floor is "slick". Pt agreeable to squat pivot transfer with encouragement and 3 people present for assist. Transfers SCALE: Activities may be completed with or without assistive devices. 6-Cbiuuowkrj-qcopzmq completes the activity by him/herself with no assistance from a helper. 5-Set-up or Clean-up Assistance-helper sets up or cleans up; patient completes activity. [place] assists only prior to or following the activity. 4-Supervision or Touching Assistance-helper provides verbal cues and/or touching/steadying and/or contact guard assistance as patient completes activity. Assistance may be provided throughout the activity or intermittently. 3-Partial/Moderate Assistance-helper does LESS THAN HALF the effort. [place] lifts, holds or supports trunk or limbs, but provides less than half the effort. 2-Substantial/Maximal Assistance-helper does MORE THAN HALF the effort. [place] lifts or holds trunk or limbs and provides more than half the effort. 8-Mdvhibvhj-xntzim does ALL the effort. Patient does none of the effort to complete the activity. Or, the assistance of 2 or more helpers is required for the patient to complete the activity. If activity was not attempted, code reason: 7-Patient Refused. 9-Not Applicable-not attempted and the patient did not perform the activity before the current illness, exacerbation or injury. 10-Not Attempted due to Environmental Limitations-(lack of equipment, weather restraints, etc.). 88-Not Attempted due to Medical Conditions or Safety Concerns. Treatments (R) LE ther ex: AP, SAQ, ham curl with resistance, heel slide x 15-20. Pt (R) LE strength grossly 3-/5. Transfer to EOB with mod A of 2. Pt performed squat pivot transfer with assist of 3. Pt resting in recliner with (R) UE supported on pillow and lunch set up in front of her. Call light in reach. Nurse present, will likely use Liko lift to return pt to bed. Assessment Current Status: Fair Progress Pt willing and participates well. Pt transfers are dependent at this time. Strength is present in her legs to stand but pt reluctance and fear makes her transfers awkward and unsafe. Pt should continue to improve with practice. PT Short Term Goals Short Term Goals Time Frame: Apr 07, 2020 Roll Left & Right: 4 Sit to lyin Lying to sitting on side of be: 3 Sit to stand: 3 Chair/fcm-cj-dpekb transfer: 3 Walk 10 feet: 3 PT Custodial Goals Decontaminator Goals PT Custodial Goals Time Frame: Apr 21, 2020 Roll Left & Right (QC): 4 Sit to Lying (QC): 4 Lying-Sitting on Side/Bed(QC): 4 Sit to Stand (QC): 4 Chair/Ery-jy-Deizo Xfer(QC): 4 Toilet Transfer (QC): 4 Car Transfer (QC): 4 Does the Patient Walk: Yes Walk 10 feet (QC): 4 Walk 50ft with 2 Turns (QC): 4 Walk 150 ft (QC): 88 Walking 10ft on Uneven Surface: 4 1 Step (curb) (QC): 4 4 Steps (QC): 88 12 Steps (QC): 88 Picking up an Object (QC): 88 Does the Pt use WC or Scooter?: Yes Wheel 50 feet with 2 turns (QC: 6 Wheel 150 feet: 6 PT Plan Treatment/Plan Treatment Plan: Continue Plan of Care Treatment Plan: Bed Mobility, Education, Functional Activity Jeffrey, Functional Strength, Group Therapy, Gait, Safety, Therapeutic Exercise, Transfers Treatment Duration: Apr 07, 2020 Frequency: At least 5 of 7 days/Wk (IRF) Estimated Hrs Per Day: 1.5 hours per day Patient and/or Family Agrees t: Yes Time/GCodes Time In: 1050 Time Out: 1115 Total Billed Treatment Time: 25 Total Billed Treatment 1, Ther ex 10', FA 15' DEBBY OTTO CPTA Apr 02, 2020 11:48
--- NOTE | 2020-04-02 12:35 | PM&R Progress Note ---
Subjective HPI/CC On Admission Date Seen by Provider: Apr 02, 2020 Time Seen by Provider: 12:45 Subjective/Events-last exam 04/02/20: Improved status overall Dysarthria noted UTI treatment tolerated FH of CVA discussed Lipid panel and statin performed Appreciate Dr Fairchild 04/01/20: MRI revealed subacute CVA and upon further evaluation her symptoms had started 3 days prior Right arm weakness noted Aggressive therapy indicated for new neuro deficit Was not a tPA candidate due to waxing and waning of symptoms Lipid panel ordered along with Cardiology consultation Review of Systems General: Fatigue, Malaise Neurological: Weakness, Incoordination, Change in speech Objective Exam Vital Signs Vital Signs Date Time Temp Pulse Resp B/P (MAP) Pulse Ox O2 Delivery O2 Flow Rate FiO2 04/03/20 05:57 36.1 58 18 160/70 (100) 94 Room Air Capillary Refill : General Appearance: No Apparent Distress, WD/WN HEENT: PERRL/EOMI, Pharynx Normal, Other (RIGHT FACIAL DROOP, GARBLED SPEECH) Neck: Full Range of Motion, Supple Respiratory: Chest Non Tender, Lungs Clear, Normal Breath Sounds, No Accessory Muscle Use, No Respiratory Distress Cardiovascular: Regular Rate, Rhythm, No Edema, No Gallop, No JVD, No Murmur, Normal Peripheral Pulses, Other (NO CAROTID STENOSIS) Gastrointestinal: Normal Bowel Sounds, No Organomegaly, No Pulsatile Mass, Non Tender, Soft Rectal: Deferred Back: Normal Inspection, No CVA Tenderness, No Vertebral Tenderness Extremity: Normal Capillary Refill, Normal Inspection, Normal Range of Motion, Non Tender, No Calf Tenderness, No Pedal Edema Neurologic/Psychiatric: Alert, Oriented x3, No Motor/Sensory Deficits, Normal Mood/Affect, physiognomist II-XII Norm as Tested, Aphasia (partial), Disoriented, Facial Droop (right), Motor Weakness (right arm and leg 3/5) Skin: Normal Color, Warm/Dry Lymphatic: No Adenopathy Results/Procedures Lab Patient resulted labs reviewed. FIM Transfers Therapy Code Descriptions/Definitions Functional [place] Measure: 0=Not Assessed/NA 4=Minimal Assistance 1=Total Assistance 5=Supervision or Setup 2=Maximal Assistance 6=Modified [place] 3=Moderate Assistance 7=Complete IndependenceSCALE: Activities may be completed with or without assistive devices. 1-Kqrfezyasq-lxqayub completes the activity by him/herself with no assistance from a helper. 5-Set-up or Clean-up Assistance-helper sets up or cleans up; patient completes activity. [place] assists only prior to or following the activity. 4-Supervision or Touching Assistance-helper provides verbal cues and/or touching/steadying and/or contact guard assistance as patient completes activity. Assistance may be provided throughout the activity or intermittently. 3-Partial/Moderate Assistance-helper does LESS THAN HALF the effort. [place] lifts, holds or supports trunk or limbs, but provides less than half the effort. 2-Substantial/Maximal Assistance-helper does MORE THAN HALF the effort. [place] lifts or holds trunk or limbs and provides more than half the effort. 1-Zrrdaisml-yyrjuz does ALL the effort. Patient does none of the effort to complete the activity. Or, the assistance of 2 or more helpers is required for the patient to complete the activity. If activity was not attempted, code reason: 7-Patient Refused. 9-Not Applicable-not attempted and the patient did not perform the activity before the current illness, exacerbation or injury. 10-Not Attempted due to Environmental Limitations-(lack of equipment, weather restraints, etc.). 88-Not Attempted due to Medical Conditions or Safety Concerns. Roll Left to Right (QC): 1 ( x 2) Sit to Lying (QC): 1 (x 2) Sit to Stand (QC): 1 (x 2) Chair/Uqg-yg-Vbies Xfer(QC): 1 (x 2) Car Transfer (QC): 7 Gait Training Does the Patient Walk?: Yes Walk 10 feet (QC): 7 Walk 50 ft with 2 Turns(QC): 7 Walk 150 ft (QC): 7 Walking 10ft/uneven surface-QC: 7 Gait Assistive Device: FWW Wheelchair Training Does the Pt Use a Wheelchair?: Yes Wheel 50 ft with 2 turns (QC): 1 Wheel 150 ft (QC): 1 Type of Wheelchair: Manual Stair Training 1 Step (curb) (QC): 88 4 Steps (QC): 88 12 Steps (QC): 88 Balance Picking up an Object (QC): 88 ADL-Treatment Eating (QC): 5 Oral Hygiene (QC): 5 (Using clinical judgment, pt is able to complete oral care after set up.) Shower/Bathe Self (QC): 1 (Using clinical judgement, pt requires assist x2 to complete bathing due to max A x2 to stand and cleanse buttocks. 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
[2020-04-02] MEDS: cefTRIAXone FOR IV USE 1,000 MG in WATER (STERILE) FOR INJECTION 10 ML IV SCH (13:58)
[2020-04-02] MEDS: ENOXAPARIN 40 MG/0.4 ML (LOVENOX) SYR SC SCH (13:58)
[2020-04-02 16:34] VITALS: BP 132/84
--- NOTE | 2020-04-02 18:15 | NUR ---
WALKED INTO PTS ROOM, PT WAS COUGHING & SLIGHT AUDIBLE GURGLING HEARD IN PTS THROAT, PT STATED SHE ATE TO FAST, SHE TENDS TO DO THAT OFTEN. ENCOURAGED PT TO CONTINUE TO COUGH. PT COUGHED UP A MODERATE AMOUNT OF CLEAR THICK FOAMY SPUTUM. WENT TO GET SUCTION TO HELP PT, WHEN RETURNED TO ROOM WITH SUCTION, PT STATED SHE DID NOT NEED THAT. PT SOUNDED MUCH BETTER AND WAS NOT LONGER COUGHING. REMINDED PT TO TUCK CHIN WHEN SWALLOWING TO HELP PREVENT ASPIRATION.
--- NOTE | 2020-04-02 19:08 | NUR ---
Bedside report received from LILIAN AGARWAL, assume care of pt
--- NOTE | 2020-04-02 19:20 | NUR ---
Pt put back to bed with madelyn lift, pt was frightened reassured pt & all went well
[2020-04-02] MEDS: MELATONIN 3 MG TABLET PO PRN (21:00)
--- NOTE | 2020-04-02 21:00 | NUR ---
Pt took Colace & Senokot but refused Miralax, took all meds one at a time without difficulty
[2020-04-03 05:57] VITALS: BP 160/70
[2020-04-03] MEDS: CATHETER FLUSH 10 ML SYR IV SCH ×2 (06:45→13:14)
[2020-04-03] MEDS: MULTIVIT W/MINERALS TAB (THERAGRAN M) PO SCH (08:09)
[2020-04-03] MEDS: LEVOTHYROXINE 150 MCG (LEVOTHROID) TAB PO SCH (08:10)
[2020-04-03 09:03] VITALS: BP 137/65
[2020-04-03] MEDS: SENNA W/DOCUSATE (SENOKOT S) TABLET PO SCH ×2 (09:25→20:13)
[2020-04-03] MEDS: CLOPIDOGREL 75 MG (PLAVIX) TABLET PO SCH (09:25)
[2020-04-03] MEDS: amLODIPine 2.5MG (NORVASC) TAB PO SCH (09:25)
[2020-04-03] MEDS: polyethylene glycoL POWDER 17 GM (MIRALAX) PACK PO SCH ×2 (09:25→20:12)
[2020-04-03] MEDS: ATENOLOL 50 MG (TENORMIN) TAB PO SCH (09:25)
[2020-04-03] MEDS: DOCUSATE SODIUM 100 MG (COLACE) CAP PO SCH ×2 (09:25→20:13)
[2020-04-03] MEDS: OXYBUTYNIN (DITROPAN) 5 MG TAB PO SCH (09:26)
--- NOTE | 2020-04-03 12:00 | NUR ---
PT HAD BEEN ON BEDPAN X2 UP TO THIS POINT WITH ONLY A FEW DRIBBLES. BLADDER SCAN SHOWS 1500CC. CONTACTED DR. PATTON WITH RESULTS, NEW ORDERS RECEIVED TO PLACE LLOY[facility] AND CONSULT UROLOGY. #16 NAURUAN LLOYD CATHETER INSERTED WITHOUT ANY ISSUES. 1550CC OF IMMEDIATE URINE RETURN. DR. SILVA NOTIFIED OF CONSULT.
--- NOTE | 2020-04-03 12:43 | PM&R Progress Note ---
Subjective HPI/CC On Admission Date Seen by Provider: Apr 03, 2020 Time Seen by Provider: 13:30 Subjective/Events-last exam 04/03/20: Patient doing well Bladder scan noted 1500+ so placed catheter and consulted Dr Randolph Suppository ordered for constipation Patient talking better 04/02/20: Improved status overall Dysarthria noted UTI treatment tolerated FH of CVA discussed Lipid panel and statin performed Appreciate Dr Fairchild 04/01/20: MRI revealed subacute CVA and upon further evaluation her symptoms had started 3 days prior Right arm weakness noted Aggressive therapy indicated for new neuro deficit Was not a tPA candidate due to waxing and waning of symptoms Lipid panel ordered along with Cardiology consultation Review of Systems General: Fatigue, Malaise Genitourinary: Retention Neurological: Weakness, Incoordination Objective Exam Vital Signs Vital Signs Date Time Temp Pulse Resp B/P (MAP) Pulse Ox O2 Delivery O2 Flow Rate FiO2 04/03/20 13:00 55 04/03/20 09:03 137/65 (89) Room Air 04/03/20 05:57 36.1 18 94 Capillary Refill : General Appearance: No Apparent Distress, WD/WN, Chronically ill HEENT: PERRL/EOMI, Normal ENT Inspection, Pharynx Normal, Other (RIGHT FACIAL DROOP, GARBLED SPEECH) Neck: Full Range of Motion, Supple Respiratory: Chest Non Tender, Lungs Clear, Normal Breath Sounds, No Accessory Muscle Use, No Respiratory Distress Cardiovascular: Regular Rate, Rhythm, No Edema, No Gallop, No JVD, No Murmur, Normal Peripheral Pulses, Other (NO CAROTID STENOSIS) Gastrointestinal: Normal Bowel Sounds, No Organomegaly, No Pulsatile Mass, Non Tender, Soft Rectal: Deferred Back: Normal Inspection, No CVA Tenderness, No Vertebral Tenderness Extremity: Normal Capillary Refill, Normal Inspection, Normal Range of Motion, Non Tender, No Calf Tenderness, No Pedal Edema Neurologic/Psychiatric: Alert, Oriented x3, No Motor/Sensory Deficits, Normal Mood/Affect, safety representative II-XII Norm as Tested, Aphasia (partial), Disoriented, Facial Droop (right), Motor Weakness (right arm and leg 3/5) Skin: Normal Color, Warm/Dry Lymphatic: No Adenopathy Results/Procedures Lab Patient resulted labs reviewed. FIM Transfers Therapy Code Descriptions/Definitions Functional [place] Measure: 0=Not Assessed/NA 4=Minimal Assistance 1=Total Assistance 5=Supervision or Setup 2=Maximal Assistance 6=Modified [place] 3=Moderate Assistance 7=Complete IndependenceSCALE: Activities may be completed with or without assistive devices. 3-Xjszmzsvfn-jcfxers completes the activity by him/herself with no assistance from a helper. 5-Set-up or Clean-up Assistance-helper sets up or cleans up; patient completes activity. [place] assists only prior to or following the activity. 4-Supervision or Touching Assistance-helper provides verbal cues and/or touching/steadying and/or contact guard assistance as patient completes activity. Assistance may be provided throughout the activity or intermittently. 3-Partial/Moderate Assistance-helper does LESS THAN HALF the effort. [place] lifts, holds or supports trunk or limbs, but provides less than half the effort. 2-Substantial/Maximal Assistance-helper does MORE THAN HALF the effort. [place] lifts or holds trunk or limbs and provides more than half the effort. 2-Jwousysqb-jzzxgk does ALL the effort. Patient does none of the effort to complete the activity. Or, the assistance of 2 or more helpers is required for the patient to complete the activity. If activity was not attempted, code reason: 7-Patient Refused. 9-Not Applicable-not attempted and the patient did not perform the activity before the current illness, exacerbation or injury. 10-Not Attempted due to Environmental Limitations-(lack of equipment, weather restraints, etc.). 88-Not Attempted due to Medical Conditions or Safety Concerns. Roll Left to Right (QC): 1 ( x 2) Sit to Lying (QC): 1 (x 2) Sit to Stand (QC): 1 (x 2) Chair/Bbe-ph-Vboqg Xfer(QC): 1 (x 2) Car Transfer (QC): 7 Gait Training Does the Patient Walk?: Yes Walk 10 feet (QC): 7 Walk 50 ft with 2 Turns(QC): 7 Walk 150 ft (QC): 7 Walking 10ft/uneven surface-QC: 7 Gait Assistive Device: FWW Wheelchair Training Does the Pt Use a Wheelchair?: Yes Wheel 50 ft with 2 turns (QC): 1 Wheel 150 ft (QC): 1 Type of Wheelchair: Manual Stair Training 1 Step (curb) (QC): 88 4 Steps (QC): 88 12 Steps (QC): 88 Balance Picking up an Object (QC): 88 ADL-Treatment Eating (QC): 5 Oral Hygiene (QC): 5 (Using clinical judgment, pt is able to complete oral care after set up.) Shower/Bathe Self (QC): 1 (Using clinical judgement, pt requires assist x2 to c omplete bathing due to max A x2 to stand and cleanse buttocks. 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 Debility Falls UTI acute Slurred speech likely baseline with UTI worsened HTN Hypothyroidism Obesity Urinary retention requiring sánchez catheter 04/03/20 Plan: Home meds IRF UTI treatment Await UCx 04/01/20: Lipid panel Cardiology consultation ECHO reviewed Carotid USG reviewed 04/02/20: Appreciate Dr Fairchild Statin Monitor BP 04/03/20: Sánchez catheter Rocephin last dose today then change to PO abx Dr Randolph consulted (1) Physical debility Status: Acute (2) Hypothyroidism (3) Falls (4) Obesity (5) UTI (urinary tract infection) Status: Acute LAMBERTO PATTON DO Apr 03, 2020 12:43
[2020-04-03] MEDS: cefTRIAXone FOR IV USE 1,000 MG in WATER (STERILE) FOR INJECTION 10 ML IV SCH (13:13)
[2020-04-03] MEDS: ENOXAPARIN 40 MG/0.4 ML (LOVENOX) SYR SC SCH (13:15)
--- NOTE | 2020-04-03 13:38 | Cardiology Progress Note ---
Subjective Date Seen by Provider: Apr 03, 2020 Time Seen by Provider: 13:36 Subjective/Events-last exam Patient is laying down in bed. No new complaint Review of Systems General: No Chills, No Night Sweats, No Fatigue, No Malaise, No Appetite, No Other HEENT: No Head Aches, No Visual Changes, No Eye Pain, No Ear Pain, No Dysphasia, No Sinus Congestion, No Post Nasal Drip, No Sore Throat, No Other Pulmonary: No Dyspnea, No Cough, No Pleuritic Chest Pain, No Other Cardiovascular: No: Chest Pain, Palpitations, Orthopnea, Paroxysmal Noc. Dyspnea, Edema, Lt Headedness, Other Objective-Cardiology Exam Last Set of Vital Signs Vital Signs 04/03/20 04/03/20 04/03/20 05:57 09:03 13:00 Temp 36.1 Pulse 55 Resp 18 B/P (MAP) 137/65 (89) Pulse Ox 94 O2 Delivery Room Air Capillary Refill : I&O Intake and Output 04/02/20 23:59 Intake Total 1430 ml Balance 1430 ml Intake Oral 1430 ml # Voids 3 General: Alert, Oriented X3, Cooperative HEENT: Atraumatic, PERRLA Neck: Supple, No JVD, No Thyromegaly Lungs: Clear to Auscultation, Normal Air Movement Heart: Regular Rate, Normal S1, Normal S2, No Murmurs Abdomen: Normal Bowel Sounds, Soft, No Tenderness, No Hepatosplenomegaly, No Masses Extremities: No Clubbing, No Cyanosis, No Edema, Normal Pulses, No Tenderness/Swelling Skin: No Rashes, No Breakdown, No Significant Lesion Neuro: Other (slurred speech, hemiplegia) Psych/Mental Status: Mental Status NL, Mood NL A/P-Cardiology Admission Diagnosis Acute CVA Debility Coronary artery disease Hypertension Assessment/Plan Debility, acute CVA with left mayte infarct on MRI, right-sided weakness, facial droop and slurred speech. Receiving physical therapy, continue to monitor telem etry, had long discussion with the patient regarding implantable loop recorder, patient is hesitant to have the procedure done. 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 Stratton Hyperlipidemia, maintained on Lipitor 80 mg daily, monitor lipids Obesity, BMI 32. Carotid artery stenosis, mild bilateral disease, evaluate carotid ultrasound MAGALY OLIVARES MD Apr 03, 2020 13:38
[2020-04-03] MEDS: LOSARTAN 25 MG (COZAAR) TAB PO SCH (15:16)
--- NOTE | 2020-04-03 16:13 | NUR ---
This nurse resumed patient care at 1430. Bedside report received from ANY Valverde. Patient is alert and orientated X3 and patient denies pain. Gena is currently resting comfortably in bed during assessment. She is currently on room air, lung clear/bases diminished. Bowel sounds active and no pain report during palpation. Gena does have a sánchez cath in place that was placed today at 1200. Dr. Randolph rounded and updated on patient care. He did make noted medication changes (holding Oxybutin and started patient on Flomax). Patient is still requiring X2 assist for transfers depending of lethargy level. No further issues noted. This nurse will monitor patient throughout shift and assist with any needs.
[2020-04-03 17:17] VITALS: BP 136/60
[2020-04-03] MEDS: TAMSULOSIN 0.4 MG (FLOMAX) CAP PO SCH (17:40)
--- NOTE | 2020-04-03 19:10 | NUR ---
Bedside report received from VALENCIA AGARWAL, assume care of pt
[2020-04-03] MEDS: MELATONIN 3 MG TABLET PO PRN (20:12)
--- NOTE | 2020-04-03 20:13 | NUR ---
All laxatives given, took meds one at a time without difficulty
--- NOTE | 2020-04-03 20:16 | CONSULTATION REPORT ---
DATE OF SERVICE: 04/03/2020 ATTENDING PHYSICIAN: Dr. Johnson -- Dr. Gonzalez. SUMMARY: After reviewing the patient's records, interviewing her and examining her, this is an 84-year-old white lady admitted to the rehabilitation unit. She was found to have a right CVA from a left pontine stroke affecting her right upper and lower extremity and somewhat her speech. She was found to be in retention. A bladder scan postvoid residual showed 1500 mL. Catheter was inserted with recovery of 1550 mL of clear urine. The patient denies any voiding symptoms at home except for urinary incontinence for which she was voiding about two diapers a day and taking oxybutynin chloride 10 mg daily ER.. ALLERGIES: SHE IS ALLERGIC TO CODEINE, PENICILLIN, MORPHINE, INFLUENZA VACCINE AND NYLON. PAST MEDICAL HISTORY: She has history of hypertension, hypothyroidism. MEDICATIONS: She is on amlodipine, atenolol, Plavix, Synthroid and the oxybutynin chloride. Doses and frequency per history, which I reviewed. SOCIAL HISTORY: The patient is single, has three children. No smoking, no alcohol, no drugs. No known seasonal allergies. PAST SURGICAL HISTORY: Had a coronary stent, hysterectomy, thyroidectomy, bilateral cataracts. FAMILY HISTORY: Hypertension and stroke. PHYSICAL EXAMINATION: VITAL SIGNS: Per chart. GENERAL: Well-nourished, well-developed, in no acute distress. HEENT: Head is normocephalic. ENT: Unremarkable. NECK: Supple. CHEST: Clear. HEART: Regular rate and rhythm. ABDOMEN: Soft. EXTREMITIES: Lower extremity and upper extremity, there is existing deficits and weakness on the right side and some slurred speech. IMPRESSION: 1. Neurogenic bladder with urinary retention and history of incontinence. 2. Right CVA. 3. Coronary artery disease, hypertension, hypercholesterolemia. 4. Hypothyroidism. PLAN: 1. Leave the Morrell in for now to give rest to the bladder. 2. Stop oxybutynin. 3. Start her on Flomax 0.4 mg daily in a day or two when she washes out somehow the oxybutynin. We will give her a trial of voiding and we may resort to Urecholine at that time. She has no contraindication for it and is not ____. Plan was fully explained to the patient. Job ID: [id number] DocumentID: [id number] Dictated Date: 04/03/2020 16:05:19 Binding Machine Operator Date: 04/03/2020 17:25:45 Dictated By: JYOTI SILVA MD
[2020-04-04] MEDS: CATHETER FLUSH 10 ML SYR IV SCH ×4 (01:11→21:20)
--- NOTE | 2020-04-04 05:05 | NUR ---
Pt refusing lab draw until after breakfast, tried to explain to pt doctor wants labs back for her to check when she gets here so that is why we do them early, pt states they should be more understanding of her patients, explained doctor is very busy & needs to see patients here then clinic, so would be better if everything was ready for her to look at when she gets here but pt continues to say it is my blood & I will decide when they can have it, will try later to draw labs
[2020-04-04 05:43] VITALS: BP 136/64
[2020-04-04] MEDS: MULTIVIT W/MINERALS TAB (THERAGRAN M) PO SCH (06:57)
[2020-04-04] MEDS: LEVOTHYROXINE 150 MCG (LEVOTHROID) TAB PO SCH (06:57)
[2020-04-04 08:10] LABS: BASOPHILS % (AUTO) 0 % (0-10); EOSINOPHILS # (AUTO) 0.4 10^3/uL (0.0-0.3); EOSINOPHILS % (AUTO) 5 % (0-10); HEMATOCRIT 42 % (35-52); HEMOGLOBIN 13.7 g/dL (11.5-16.0); LYMPHOCYTES % (AUTO) 23 % (12-44); MEAN CORPUSCULAR HEMOGLOBIN 31 pg (25-34); MEAN CORPUSCULAR HGB CONC 32 g/dL (32-36); MEAN CORPUSCULAR VOLUME 95 fL (80-99); MEAN PLATELET VOLUME 9.5 fL (9.0-12.2); MONOCYTES # (AUTO) 0.7 10^3/uL (0.0-1.0); MONOCYTES % (AUTO) 8 % (0-12); NEUTROPHILS # (AUTO) 5.6 10^3/uL (1.8-7.8); NEUTROPHILS % (AUTO) 64 % (42-75); PLATELET COUNT 241 10^3/uL (130-400); WHITE BLOOD COUNT 8.8 10^3/uL (4.3-11.0)
[2020-04-04 08:37] LABS: ALBUMIN 3.5 GM/DL (3.2-4.5); BILIRUBIN,TOTAL 0.6 MG/DL (0.1-1.0); POTASSIUM 3.9 MMOL/L (3.6-5.0); TOTAL PROTEIN 6.3 GM/DL (6.4-8.2)
--- NOTE | 2020-04-04 08:38 | PM&R Progress Note ---
Subjective HPI/CC On Admission Date Seen by Provider: Apr 04, 2020 Time Seen by Provider: 08:45 Subjective/Events-last exam 04/04/20: Dr. Fairchild changed a few medications around Dr. Randolph will be managing the catheter Started Flomax and stopped the Oxybutynin Very debilitated 04/03/20: Patient doing well Bladder scan noted 1500+ so placed catheter and consulted Dr Randolph Suppository ordered for constipation Patient talking better 04/02/20: Improved status overall Dysarthria noted UTI treatment tolerated FH of CVA discussed Lipid panel and statin performed Appreciate Dr Fairchild 04/01/20: MRI revealed subacute CVA and upon further evaluation her symptoms had started 3 days prior Right arm weakness noted Aggressive therapy indicated for new neuro deficit Was not a tPA candidate due to waxing and waning of symptoms Lipid panel ordered along with Cardiology consultation Review of Systems General: Fatigue, Malaise Genitourinary: Retention Neurological: Weakness, Incoordination, Change in speech Objective Exam Vital Signs Vital Signs Date Time Temp Pulse Resp B/P (MAP) Pulse Ox O2 Delivery O2 Flow Rate FiO2 04/05/20 00:48 89 04/04/20 20:20 Room Air 04/04/20 05:43 36.4 18 136/64 (88) 92 Capillary Refill : General Appearance: No Apparent Distress, WD/WN, Chronically ill HEENT: PERRL/EOMI, Normal ENT Inspection, Pharynx Normal, Other (RIGHT FACIAL DROOP, GARBLED SPEECH) Neck: Full Range of Motion, Supple Respiratory: Chest Non Tender, Lungs Clear, Normal Breath Sounds, No Accessory Muscle Use, No Respiratory Distress Cardiovascular: Regular Rate, Rhythm, No Edema, No Gallop, No JVD, No Murmur, Normal Peripheral Pulses, Other (NO CAROTID STENOSIS) Gastrointestinal: Normal Bowel Sounds, No Organomegaly, No Pulsatile Mass, Non Tender, Soft Rectal: Deferred Back: Normal Inspection, No CVA Tenderness, No Vertebral Tenderness Extremity: Normal Capillary Refill, Normal Inspection, Normal Range of Motion, Non Tender, No Calf Tenderness, No Pedal Edema Neurologic/Psychiatric: Alert, Oriented x3, No Motor/Sensory Deficits, Normal 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 FIM Transfers Therapy Code Descriptions/Definitions Functional [place] Measure: 0=Not Assessed/NA 4=Minimal Assistance 1=Total Assistance 5=Supervision or Setup 2=Maximal Assistance 6=Modified [place] 3=Moderate Assistance 7=Complete IndependenceSCALE: Activities may be completed with or without assistive devices. 4-Drwljbzdkk-rmvsbtd completes the activity by him/herself with no assistance from a helper. 5-Set-up or Clean-up Assistance-helper sets up or cleans up; patient completes activity. [place] assists only prior to or following the activity. 4-Supervision or Touching Assistance-helper provides verbal cues and/or touching/steadying and/or contact guard assistance as patient completes activity. Assistance may be provided throughout the activity or intermittently. 3-Partial/Moderate Assistance-helper does LESS THAN HALF the effort. [place] lifts, holds or supports trunk or limbs, but provides less than half the effort. 2-Substantial/Maximal Assistance-helper does MORE THAN HALF the effort. [place] lifts or holds trunk or limbs and provides more than half the effort. 5-Dyoxjdhgv-aqyirl does ALL the effort. Patient does none of the effort to complete the activity. Or, the assistance of 2 or more helpers is required for the patient to complete the activity. If activity was not attempted, code reason: 7-Patient Refused. 9-Not Applicable-not attempted and the patient did not perform the activity before the current illness, exacerbation or injury. 10-Not Attempted due to Environmental Limitations-(lack of equipment, weather restraints, etc.). 88-Not Attempted due to Medical Conditions or Safety Concerns. Roll Left to Right (QC): 1 ( x 2) Sit to Lying (QC): 1 (x 2) Sit to Stand (QC): 1 (x 2) Chair/Vsr-bs-Wtyfr Xfer(QC): 1 (x 2) Car Transfer (QC): 7 Gait Training Does the Patient Walk?: Yes Walk 10 feet (QC): 7 Walk 50 ft with 2 Turns(QC): 7 Walk 150 ft (QC): 7 Walking 10ft/uneven surface-QC: 7 Gait Assistive Device: FWW Wheelchair Training Does the Pt Use a Wheelchair?: Yes Wheel 50 ft with 2 turns (QC): 1 Wheel 150 ft (QC): 1 Type of Wheelchair: Manual Stair Training 1 Step (curb) (QC): 88 4 Steps (QC): 88 12 Steps (QC): 88 Balance Picking up an Object (QC): 88 ADL-Treatment Eating (QC): 5 Oral Hygiene (QC): 5 (Using clinical judgment, pt is able to complete oral care after set up.) Shower/Bathe Self (QC): 1 (Using clinical judgement, pt requires assist x2 to complete bathing due to max A x2 to stand and cleanse buttocks. 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 Debility Falls UTI acute Slurred speech likely baseline with UTI worsened HTN Hypothyroidism Obesity Urinary retention requiring sánchez catheter 04/03/20 Plan: Home meds IRF UTI treatment Await UCx 04/01/20: Lipid panel Cardiology consultation ECHO reviewed Carotid USG reviewed 04/02/20: Appreciate Dr Fairchild Statin Monitor BP 04/03/20: Sánchez catheter Rocephin last dose today then change to PO abx Dr Randolph consulted 04/04/20: Sánchez Monitor BP Labs reviewed (1) Physical debility Status: Acute (2) Hypothyroidism (3) Falls (4) Obesity (5) UTI (urinary tract infection) Status: Acute LAMBERTO PATTON DO Apr 04, 2020 08:38
--- NOTE | 2020-04-04 08:44 | Progress Note ---
Subjective Review of Systems General: Fatigue, Malaise HEENT: No Head Aches, No Visual Changes, No Eye Pain, No Ear Pain, No Dysphasia, No Sinus Congestion, No Post Nasal Drip, No Sore Throat, No Other Pulmonary: No Dyspnea, No Cough, No Pleuritic Chest Pain, No Other Cardiovascular: No: Chest Pain, Palpitations, Orthopnea, Paroxysmal Noc. Dyspnea, Edema, Lt Headedness, Other Genitourinary: Retention Neurological: Weakness, Incoordination All Other Systems Reviewed All Other Systems Reviewed: Yes Objective Exam Vital Signs Vital Signs - First Documented 03/31/20 15:00 Temp 36.6 Pulse 96 Resp 22 B/P (MAP) 147/72 (97) Pulse Ox 95 O2 Delivery Room Air Capillary Refill : General Appearance: No Apparent Distress, WD/WN, Chronically ill Eyes: Bilateral Eye Normal Inspection, Bilateral Eye PERRL HEENT: PERRL/EOMI, Normal ENT Inspection, Pharynx Normal, Other (RIGHT FACIAL DROOP, GARBLED SPEECH) Neck: Full Range of Motion, Supple Respiratory: Chest Non Tender, Lungs Clear, Normal Breath Sounds, No Accessory Muscle Use, No Respiratory Distress Cardiovascular: Regular Rate, Rhythm, No Edema, No Gallop, No JVD, No Murmur, Normal Peripheral Pulses, Other (NO CAROTID STENOSIS) Gastrointestinal: Normal Bowel Sounds, No Organomegaly, No Pulsatile Mass, Non Tender, Soft Rectal: Deferred Back: Normal Inspection, No CVA Tenderness, No Vertebral Tenderness Extremity: Normal Capillary Refill, Normal Inspection, Normal Range of Motion, Non Tender, No Calf Tenderness, No Pedal Edema Neurologic/Psychiatric: Alert, Oriented x3, No Motor/Sensory Deficits, Normal 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, 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, Aphasia (partial), Disoriented, Facial Droop (right), Motor Weakness (right arm and leg 3/5) Skin: Normal Color, Warm/Dry Lymphatic: No Adenopathy Results Lab Laboratory Tests 04/04/20 08:05: White Blood Count 8.8, Red Blood Count 4.46, Hemoglobin 13.7, Hematocrit 42, Mean Corpuscular Volume 95, Mean Corpuscular Hemoglobin 31, Mean Corpuscular Hemoglobin Concent 32, Red Cell Distribution Width 13.0, Platelet Count 241, Mean Platelet Volume 9.5, Immature Granulocyte % (Auto) 0, Neutrophils (%) (Auto) 64, Lymphocytes (%) (Auto) 23, Monocytes (%) (Auto) 8, Eosinophils (%) (Auto) 5, Basophils (%) (Auto) 0, Neutrophils # (Auto) 5.6, Lymphocytes # (Auto) 2.0, Monocytes # (Auto) 0.7, Eosinophils # (Auto) 0.4H, Basophils # (Auto) 0.0, Immature Granulocyte # (Auto) 0.0, Sodium Level 141, Potassium Level 3.9, Chloride Level 109H, Carbon Dioxide Level 20L, Anion Gap 12, Blood Urea Nitrogen 21H, Creatinine 1.00, Estimat Glomerular Filtration Rate 53, BUN/Creatinine Ratio 21, Glucose Level 145H, Calcium Level 9.0, Corrected Calcium 9.4, Total Bilirubin 0.6, Aspartate Amino Transf (AST/SGOT) 18, Alanine Aminotransferase (ALT/SGPT) 17, Alkaline Phosphatase 74, Total Protein 6.3L, Albumin 3.5 Assessment/Plan Assessment/Plan Problems: (1) Physical debility (2) Hypothyroidism (3) Falls (4) Obesity (5) UTI (urinary tract infection) HEATHER DAHL MD Apr 04, 2020 08:44
[2020-04-04] MEDS: LACTULOSE SYRUP 10GM/15ML (ENULOSE) 30ML UDC PO PRN (08:58)
[2020-04-04] MEDS: LOSARTAN 25 MG (COZAAR) TAB PO SCH (08:59)
[2020-04-04] MEDS: DOCUSATE SODIUM 100 MG (COLACE) CAP PO SCH ×2 (08:59→21:20)
[2020-04-04] MEDS: SENNA W/DOCUSATE (SENOKOT S) TABLET PO SCH ×2 (08:59→21:20)
[2020-04-04] MEDS: amLODIPine 2.5MG (NORVASC) TAB PO SCH (08:59)
[2020-04-04] MEDS: CEFDINIR 300 MG (OMNICEF) CAP PO SCH ×2 (08:59→21:20)
[2020-04-04] MEDS: polyethylene glycoL POWDER 17 GM (MIRALAX) PACK PO SCH ×2 (08:59→21:20)
[2020-04-04] MEDS: CLOPIDOGREL 75 MG (PLAVIX) TABLET PO SCH (08:59)
[2020-04-04] MEDS ORDERED: meTOproloL SUCCINATE 50 MG (TOPROL XL) TAB PO SCH (09:00)
--- NOTE | 2020-04-04 10:02 | Physical Therapy Daily Note ---
PT Daily Note-Current Subjective Pt laying Supine in bed upon arrival. Pt agrees to PT/OT co-treat. Mental Status Patient Orientation: Person, Confused Attachments: Morrell Catheter Transfers SCALE: Activities may be completed with or without assistive devices. 6-Elrgnymjto-luwfnnp completes the activity by him/herself with no assistance from a helper. 5-Set-up or Clean-up Assistance-helper sets up or cleans up; patient completes activity. [place] assists only prior to or following the activity. 4-Supervision or Touching Assistance-helper provides verbal cues and/or touching/steadying and/or contact guard assistance as patient completes activity. Assistance may be provided throughout the activity or intermittently. 3-Partial/Moderate Assistance-helper does LESS THAN HALF the effort. [place] lifts, holds or supports trunk or limbs, but provides less than half the effort. 2-Substantial/Maximal Assistance-helper does MORE THAN HALF the effort. [place] lifts or holds trunk or limbs and provides more than half the effort. 0-Moblcpbyz-ffqjuq does ALL the effort. Patient does none of the effort to complete the activity. Or, the assistance of 2 or more helpers is required for the patient to complete the activity. If activity was not attempted, code reason: 7-Patient Refused. 9-Not Applicable-not attempted and the patient did not perform the activity before the current illness, exacerbation or injury. 10-Not Attempted due to Environmental Limitations-(lack of equipment, weather restraints, etc.). 88-Not Attempted due to Medical Conditions or Safety Concerns. Lying to Sitting/Side of Bed(Q: 3 Sit to Stand (QC): 2 Chair/Gxp-oi-Nmeul Xfer(QC): 2 Weight Bearing Full Weight Bearing Full Weight Bearing Wheelchair Training Does the Pt Use a Wheelchair?: Yes Wheel 50 ft with 2 turns (QC): 3 Type of Wheelchair: Manual Encouraged to use B feet to assist with propelling WCH. Exercises Seated Therapy Exercises: Ankle pumps, Long arc quads, Hip flexion, Kicking activity Seated Reps: 10 Treatments PT/OT co-treat ([id number]), skilled instruction and care required to be completed by 2 clinicians due to pt's fall risk, decreased mobility and decreased activity tolerance. PT focusing on bed mobility, standing, B LE strengthening and transfers while OT focusing on ADLs, bed mobility, B UE yolanda cement during mobility. Pt agrees to sponge bath today. Mod A x2 for supine to EOB. Max A x2 for standing then SPT to w/c. Attempted to use FWW and pt unable to process instructions of where to place B UE's to push up from bed then place on FWW. Pt very afraid of falling and will pull on instead of push off, lean backwards instead of 'nose over toes' and not use B LE to extend to push to stand. Pt is self limiting with transfers and the use of R UE. Pt demonstrates spontaneous movement of R side though when asked to use it pt states 'I can't use it.' Pt able to bathe upper body after setup, max A for lower body and dependent for buttocks. Mod A for upper body dressing, max A for footwear and dependent for lower body dressing (max Ax2). Pt stands at //bars with assist in bringing but under pt for tall stand. Pt completes Seated EX in [facility]. Pt returns to room with all needs met, call light in hand. With encouragement, pt able to set own self up for oral care and complete task. Assessment Current Status: Fair Progress Pt is self limiting due to fear of falling. Pt remains confused and decreased social awareness. PT Short Term Goals Short Term Goals Time Frame: Apr 07, 2020 Roll Left & Right: 4 Sit to lyin Lying to sitting on side of be: 3 Sit to stand: 3 Chair/zso-et-lqwdv transfer: 3 Walk 10 feet: 3 PT Intermediate Goals Intermediate Goals PT Intermediate Goals Time Frame: Apr 21, 2020 Roll Left & Right (QC): 4 Sit to Lying (QC): 4 Lying-Sitting on Side/Bed(QC): 4 Sit to Stand (QC): 4 Chair/Obw-wb-Heucc Xfer(QC): 4 Toilet Transfer (QC): 4 Car Transfer (QC): 4 Does the Patient Walk: Yes Walk 10 feet (QC): 4 Walk 50ft with 2 Turns (QC): 4 Walk 150 ft (QC): 88 Walking 10ft on Uneven Surface: 4 1 Step (curb) (QC): 4 4 Steps (QC): 88 12 Steps (QC): 88 Picking up an Object (QC): 88 Does the Pt use WC or Scooter?: Yes Wheel 50 feet with 2 turns (QC: 6 Wheel 150 feet: 6 PT Plan Problem List Problem List: Activity Tolerance, Functional Strength, Safety, Transfer Treatment/Plan Treatment Plan: Continue Plan of Care Treatment Plan: Bed Mobility, Education, Functional Activity [place], Functional Strength, Group Therapy, Gait, Safety, Therapeutic Exercise, Transfers Treatment Duration: Apr 07, 2020 Frequency: At least 5 of 7 days/Wk (IRF) Estimated Hrs Per Day: 1.5 hours per day Patient and/or Family Agrees t: Yes Safety Risks/Education Patient Education: Transfer Techniques, Correct Positioning, W/C Management, Safety Issues Teaching Recipient: Patient Teaching Methods: Discussion Response to Teaching: Reinforcement Needed Time/GCodes Time In: 900 Time Out: 1015 Total Billed Treatment Time: 75 Total Billed Treatment 1, FA x3 (45m), WCH (15m) & EX (15m) Co-treat w/OT for 75m SHEREE GARCIA DIRECTOR MATERNAL CHILD Apr 04, 2020 10:02
--- NOTE | 2020-04-04 10:04 | Cardiology Progress Note ---
Subjective Date Seen by Provider: Apr 04, 2020 Time Seen by Provider: 10:02 Subjective/Events-last exam Patient with PT, no new complaints. Denies any chest pain or dizziness. Objective-Cardiology Exam Last Set of Vital Signs Vital Signs 04/04/20 04/04/20 05:43 06:52 Temp 36.4 Pulse 49 Resp 18 B/P (MAP) 136/64 (88) Pulse Ox 92 O2 Delivery Room Air Capillary Refill : I&O Intake and Output 04/04/20 00:00 Intake Total 1250 ml Output Total 1550 ml Balance -300 ml Intake Oral 1250 ml Output Urine Total 1550 ml # Voids 1 # Urine Diapers 2 General: Alert, Oriented X3, Cooperative HEENT: Atraumatic, PERRLA Neck: Supple, No JVD, No Thyromegaly Lungs: Clear to Auscultation, Normal Air Movement Heart: Regular Rate, Normal S1, Normal S2, No Murmurs Abdomen: Normal Bowel Sounds, Soft, No Tenderness, No Hepatosplenomegaly, No Masses Extremities: No Clubbing, No Cyanosis, No Edema, Normal Pulses, No Tenderness/Swelling Skin: No Rashes, No Breakdown, No Significant Lesion Neuro: Other (slurred speech, hemiplegia) Psych/Mental Status: Mental Status NL, Mood NL Results Lab Laboratory Tests 04/04/20 08:05 A/P-Cardiology Admission Diagnosis Acute CVA Debility Coronary artery disease Hypertension Assessment/Plan Debility, acute CVA with left mayte infarct on MRI, right-sided weakness, facial droop and slurred speech. Receiving physical therapy, continue to monitor telemetry, had long discussion with the patient regarding implantable loop r ecorder, patient is hesitant to have the procedure done. Bradycardia, atenolol 100 mg was discontinued and started on Toprol-XL 50 mg, will continue to monitor HR. 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 Stratton Hyperlipidemia, maintained on Lipitor 80 mg daily, monitor lipids Obesity, BMI 32. Carotid artery stenosis, mild bilateral disease per duplex done 04/01/20 Patient was seen and evaluated with Yaneli, examination performed, management plan was discussed, agree with the current scribed note, I made few changes to the note using Italic font Patient is laying down in bed, no new complaint, feeling better Discussed the possibility of loop recorder, patient does not want to have a loop monitor implanted Continue to monitor on telemetry, continue current medication monitor blood pressure YANELI CASTRO Apr 04, 2020 10:04 am MAGALY OLIVARES MD Apr 04, 2020 12:13 pm
--- NOTE | 2020-04-04 10:28 | Occupational Ther Daily Note ---
OT Current Status-Daily Note Subjective Pt alert, lying in bed. Pt agrees to therapy. No c/o pain. Pt fearful of falling which is limiting pt's ability to assist with standing and transfers. Mental Status/Objective Patient Orientation: Person, Place, Time, Situation Attachments: Morrell Catheter, IV ADL-Treatment PT/OT co-treat ([id number]), skilled instruction and care required to be completed by 2 clinicians due to pt's fall risk, decreased mobility and decreased activity tolerance. PT focusing on bed mobility, standing, B LE strengthening and transfers while OT focusing on ADLs, bed mobility, B UE placement during mobility. Pt agrees to sponge bath today. Mod A x2 for supine to EOB. Max A x2 for standing then SPT to w/c. Attempted to use FWW and pt unable to process instructions of where to place B UE's to push up from bed then place on FWW. Pt very afraid of falling and will pull on instead of push off, lean backwards instead of 'nose over toes' and not use B LE to extend to push to stand. Pt is self limiting with transfers and the use of R UE. Pt demonstrates spontaneous movement of R side though when asked to use it pt states 'I can't us e it.' Pt able to bathe upper body after setup, max A for lower body and dependent for buttocks. Mod A for upper body dressing, max A for footwear and dependent for lower body dressing (max Ax2). With encouragement, pt able to set own self up for oral care and complete task. Therapy Code Descriptions/Definitions Functional [place] Measure: 0=Not Assessed/NA 4=Minimal Assistance 1=Total Assistance 5=Supervision or Setup 2=Maximal Assistance 6=Modified [place] 3=Moderate Assistance 7=Complete IndependenceSCALE: Activities may be completed with or without assistive devices. 9-Uhxvjzgfip-pwehlcj completes the activity by him/herself with no assistance from a helper. 5-Set-up or Clean-up Assistance-helper sets up or cleans up; patient completes activity. [place] assists only prior to or following the activity. 4-Supervision or Touching Assistance-helper provides verbal cues and/or touching/steadying and/or contact guard assistance as patient completes activity. Assistance may be provided throughout the activity or intermittently. 3-Partial/Moderate Assistance-helper does LESS THAN HALF the effort. [place] lifts, holds or supports trunk or limbs, but provides less than half the effort. 2-Substantial/Maximal Assistance-helper does MORE THAN HALF the effort. [place] lifts or holds trunk or limbs and provides more than half the effort. 0-Eztcgenyv-mdvwue does ALL the effort. Patient does none of the effort to complete the activity. Or, the assistance of 2 or more helpers is required for the patient to complete the activity. If activity was not attempted, code reason: 7-Patient Refused. 9-Not Applicable-not attempted and the patient did not perform the activity before the current illness, exacerbation or injury. 10-Not Attempted due to Environmental Limitations-(lack of equipment, weather restraints, etc.). 88-Not Attempted due to Medical Conditions or Safety Concerns. Oral Hygiene (QC): 6 Bathing Location: L Arm, R Arm, Chest, Abdomen Shower/Bathe Self (QC): 1 Upper Body Dressing (QC): 3 Lower Body Dressing (QC): 1 On/Off Footwear: 2 Other Treatment Pt propelled w/c to therapy gym. Max Ax2 for sit to stand and standing in parallel bars. See PT notes for standing. After session, pt requested to stay in w/c. Call light/phone in reach. All needs met in room. OT Short Term Goals Short Term Goals Time Frame: Apr 07, 2020 Eatin Oral hygiene: 4 Toileting hygiene: 3 Shower/bathe self: 3 Upper body dressin Lower body dressin Putting on/taking off footwear: 3 OT Fci Goals Fci Goals Time Frame: Apr 14, 2020 Eating (QC): 6 Oral Hygiene (QC): 5 Toileting Hygiene (QC): 6 Shower/Bathe Self (QC): 4 Upper Body Dressing (QC): 5 Lower Body Dressing (QC): 4 On/Off Footwear (QC): 4 Additional Goals: 1-Demonstrate ADL Tasks, 2-Verbalize Understanding, 3- ImproveStrength/Jeffrey 1=Demonstrate adherence to instructed precautions during ADL tasks. 2=Patient will verbalize/demonstrate understanding of assistive devices/modifications for ADL. 3=Patient will improve strength/tolerance for activity to enable patient to perform ADL's. OT Education/Plan Problem List/Assessment Assessment: Decreased Activ Tolerance, Decreased Safety Aware, Decreased UE Strength, Dependent Transfers, Impaired Bed Mobility, Impaired Cognition, Impaired Coordination, Impaired Funct Balance, Impaired Self-Care Skills, Re stricted Funct UE ROM Discharge Recommendations Plan/Recommendations: Continue POC Treatment Plan/Plan of Care Patient would benefit from OT for education, treatment and training to promote independence in ADL's, mobility, safety and/or upper extremity function for ADL's. Plan of Care: ADL Retraining, Functional Mobility, UE Funct Exercise/Act Treatment Duration: Apr 14, 2020 Frequency: At least 5 of 7 days/Wk (IRF) Estimated Hrs Per Day: 1.5 hours per day Agreement: Yes Rehab Potential: Guarded Time/GCodes Start Time: 09:00 Stop Time: 10:15 Total Time Billed (hr/min): 75 Billed Treatment Time 1 visit-ADL 4 (55 min) FA 1 (20 min) ANURADHA AGUILERA Apr 04, 2020 10:28
--- NOTE | 2020-04-04 11:40 | Speech Therapy Daily Note ---
Speech Daily Progress Note Subjective Date Seen by Provider: Apr 04, 2020 Time Seen by Provider: 00:30 Patient was sitting up in her wheelchair watching television when I entered her room. Objective Patient completed a series of speech exercises with noted increase intelligibility to 80% with minimal cues/repetitions. Assessment Assessment Current Status: Good Progress Treatment Plan Continue Plan of Care Speech Short Term Goals Short Term Goals Short Term Goals 1) Patient will complete memory tasks related to her daily needs at 80% with minimal cues. 2) Patient will complete problem solving tasks related to her daily needs at 80% with minimal cues. 3) Patient will complete safety awareness tasks related to her daily needs at 80% with minimal cues. 4 Patient will complete speech production tasks for improving intelligibility at 90%. Speech Automotive Service Director Goals Usp Goals Patient will improve cognitive-communication necessary for safety and daily living tasks with minimal assist. Patient will improve speech intelligibility in order to communicate her wants/needs effectively. Speech-Plan Patient/Family Goals Patient/Family Goals: Patient states she may go to [facility] upon discharge. She does voice concerns that she may not be able to afford it though. Treatment Plan Speech Therapy Treatment Plan: Continue Plan of Care Treatment Duration: Apr 15, 2020 Frequency: 4 times per week (Patient will receive skilled ST 4-5x per week) Estimated Hrs Per Day: Other Rehab Potential: Guarded Barriers to Learning: New onset CVA, speech deficit, HUSLIA, age Pt/Family Agrees to Plan: Yes Safety Risks/Education Teaching Recipient: Patient Teaching Methods: Demonstration, Discussion Response to Teaching: Verbalize Understanding, Return Demonstration Education Topics Provided: Continued safety within her room, utilization of call light for communication of wants/needs Time Speech Therapy Time In: 10:30 Speech Therapy Time Out: 11:00 Total Billed Time: 30 Billed Treatment Time 1MARLON [address] ST Apr 04, 2020 11:40
[2020-04-04] MEDS: ENOXAPARIN 40 MG/0.4 ML (LOVENOX) SYR SC SCH (13:30)
--- NOTE | 2020-04-04 17:29 | NUR ---
CM/SS ADMISSION Patient was admitted to ARU 03/31/20 directly from [facility] Emergency Department for Debility. 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 Statistical Secretary is familiar with patient over several years of intermittent hospital stays for her as well as her spouse, now . She reportedly resides at [facility] and that her PCP Dr. Carmella Gonzalez has recommended a move to assisted living. Since patient is not capable of managing arrangements on her own, senior writer is trying to connect with family members re same. Patient reports that her son, Miky Umana, resides locally but does not have a vehicle. She has a daughter in [facility] whom she has little contact with. Her niece Pratima Yee resides in [place] and has made several attempts to contact senior writer; however, senior writer's attempts to respond back have been to no avail. Left both text and voice message x 2 on Pratima's cell phone and offered availability anytime, including evening. Patient indicates she had been in an assisted living in [place], when senior writer said the [facility], patient stated that was it and she would be in agreement to return there. Statistical Secretary will need to confirm that is indeed the facility as opposed to [facility]. Patient income and ability to pay my also create issue, exploration needed, including their acceptance for residency admit. Patient does not physically meet criteria at this time and ASS[facility]ED may or may not be an option depending on recovery. PCP: Dr. Carmella Gonzalez MD, [facility]: [facility], and [facility] INSURANCE: Medicare, [employer] DME: 4WW, older FWW, shower stool BARRIERS TO DISCHARGE PLANNING: Overall recovery and maximum level of independent performance. This will determined whether she can be accepted into assisted living vs requiring a halfway environment. Financial status will also determine whether she can pay privately for [facility]. CONTACTS: Miky Umana, Son [address] [place], [place] [phone] Mili Zamora, Daughter (somewhat estranged per patient) [place], [place] [phone] Pratima Yee, Niece [place] [phone] Patient has 4 children, one in the state of [place] and unclear where the other son is. Patient indicated understanding about the purpose and process of the weekly patient care conference. This will be reviewed with family members as they are contacted. Patient asked more than once whether senior writer knew how long she would be staying. Her first review will be April 06.
[2020-04-04] MEDS: TAMSULOSIN 0.4 MG (FLOMAX) CAP PO SCH (18:32)
[2020-04-04] MEDS: MELATONIN 3 MG TABLET PO PRN (21:20)
[2020-04-05 05:06] VITALS: BP 164/80
[2020-04-05] MEDS: MULTIVIT W/MINERALS TAB (THERAGRAN M) PO SCH (06:55)
[2020-04-05] MEDS: LEVOTHYROXINE 150 MCG (LEVOTHROID) TAB PO SCH (06:55)
[2020-04-05] MEDS: CATHETER FLUSH 10 ML SYR IV SCH ×3 (06:55→20:58)
[2020-04-05] MEDS: polyethylene glycoL POWDER 17 GM (MIRALAX) PACK PO SCH ×2 (08:40→19:31)
[2020-04-05] MEDS: CEFDINIR 300 MG (OMNICEF) CAP PO SCH ×2 (08:40→20:57)
[2020-04-05] MEDS: LACTULOSE SYRUP 10GM/15ML (ENULOSE) 30ML UDC PO PRN (08:40)
[2020-04-05] MEDS: DOCUSATE SODIUM 100 MG (COLACE) CAP PO SCH ×2 (08:40→19:31)
[2020-04-05] MEDS: CLOPIDOGREL 75 MG (PLAVIX) TABLET PO SCH (08:41)
[2020-04-05] MEDS: SENNA W/DOCUSATE (SENOKOT S) TABLET PO SCH ×2 (08:41→19:32)
[2020-04-05] MEDS: amLODIPine 2.5MG (NORVASC) TAB PO SCH (08:41)
[2020-04-05] MEDS: LOSARTAN 25 MG (COZAAR) TAB PO SCH (08:41)
[2020-04-05] MEDS: ACETAMINOPHEN 325 MG TABLET PO PRN (08:43)
--- NOTE | 2020-04-05 08:50 | Occupational Ther Daily Note ---
OT Current Status-Daily Note Subjective Pt alert, sitting in recliner. Pt agrees to therapy. No c/o pain at this time. Mental Status/Objective Patient Orientation: Person, Place, Time, Situation ADL-Treatment 1st session()-Pt requests to use BSC. Max A for sit to stand with multiple verbal cues of hand position and sequence of task. Max Ax2 for SPT to BSC. Max A x2 for toileting. Max A to thread clothing over feet then max A x2 to hike clothing over hips. After session, pt sitting in recliner with call light/phone in reach. All needs met in room. 2nd session()-Co-treat with PT (), skilled instruction and care required by 2 clinicians due to fall risk, dependence with mobility/transfers and decreased activity tolerance. PT focusing on transfers, standing and w/c mobility while OT focusing on B hand placement during transfers/standing and ADLs. Pt extremely fearful of falling making transfers and standing difficult. Pt has difficulties processing sequence of where to place hands and feet during mobility or how to use to push up and move. Pt required Max A x3 to complete toileting, 2 for standing and 1 to complete clothing manipulation, hygiene and to move one seat to replace it with another. Attempted to have pt propel w/c to therapy gym with assistance to steer. Attempted to woodworking machine operator parallel bars 2x's, pt's fear of falling hindered ability to stand due to resisting movement. After therapy, pt lying in bed with call light/phone in reach. All needs met in room. Therapy Code Descriptions/Definitions Functional [place] Measure: 0=Not Assessed/NA 4=Minimal Assistance 1=Total Assistance 5=Supervision or Setup 2=Maximal Assistance 6=Modified [place] 3=Moderate Assistance 7=Complete IndependenceSCALE: Activities may be completed with or without assistive devices. 0-Tytwwrboye-aoecrio completes the activity by him/herself with no assistance from a helper. 5-Set-up or Clean-up Assistance-helper sets up or cleans up; patient completes activity. [place] assists only prior to or following the activity. 4-Supervision or Touching Assistance-helper provides verbal cues and/or touching/steadying and/or contact guard assistance as patient completes activity. Assistance may be provided throughout the activity or intermittently. 3-Partial/Moderate Assistance-helper does LESS THAN HALF the effort. [place] lifts, holds or supports trunk or limbs, but provides less than half the effort. 2-Substantial/Maximal Assistance-helper does MORE THAN HALF the effort. [place] lifts or holds trunk or limbs and provides more than half the effort. 9-Waweqikpx-zfehpi does ALL the effort. Patient does none of the effort to complete the activity. Or, the assistance of 2 or more helpers is required for the patient to complete the activity. If activity was not attempted, code reason: 7-Patient Refused. 9-Not Applicable-not attempted and the patient did not perform the activity before the current illness, exacerbation or injury. 10-Not Attempted due to Environmental Limitations-(lack of equipment, weather restraints, etc.). 88-Not Attempted due to Medical Conditions or Safety Concerns. Oral Hygiene (QC): 4 (Pt required verbal cues to complete using B UE's.) Lower Body Dressing (QC): 1 On/Off Footwear: 2 Toileting Hygiene (QC): 1 Toilet Transfer (QC): 1 Pt declined shower today, stating that she just didn't have enough umph. Pt appears to have increased slurring today and R side is not moving as much as yesterday. OT Short Term Goals Short Term Goals Time Frame: Apr 07, 2020 Eatin Oral hygiene: 4 Toileting hygiene: 3 Shower/bathe self: 3 Upper body dressin Lower body dressin Putting on/taking off footwear: 3 OT Retirement Goals Laundry Tech Goals Time Frame: Apr 14, 2020 Eating (QC): 6 Oral Hygiene (QC): 5 Toileting Hygiene (QC): 6 Shower/Bathe Self (QC): 4 Upper Body Dressing (QC): 5 Lower Body Dressing (QC): 4 On/Off Footwear (QC): 4 Additional Goals: 1-Demonstrate ADL Tasks, 2-Verbalize Understanding, 3-Im proveStrength/Jeffrey 1=Demonstrate adherence to instructed precautions during ADL tasks. 2=Patient will verbalize/demonstrate understanding of assistive devices/modifications for ADL. 3=Patient will improve strength/tolerance for activity to enable patient to perform ADL's. OT Education/Plan Problem List/Assessment Assessment: Decreased Activ Tolerance, Decreased Safety Aware, Decreased UE Strength, Dependent Transfers, Impaired Cognition, Impaired Coordination, Impaired Funct Balance, Impaired Self-Care Skills Discharge Recommendations Plan/Recommendations: Continue POC Treatment Plan/Plan of Care Patient would benefit from OT for education, treatment and training to promote independence in ADL's, mobility, safety and/or upper extremity function for ADL's. Plan of Care: ADL Retraining, Functional Mobility, UE Funct Exercise/Act Treatment Duration: Apr 14, 2020 Frequency: At least 5 of 7 days/Wk (IRF) Estimated Hrs Per Day: 1.5 hours per day Agreement: Yes Rehab Potential: Guarded Time/GCodes Start Time: 07:15 (0900) Stop Time: 07:30 (1015) Total Time Billed (hr/min): 90 Billed Treatment Time 2 visits-ADL 2 (30 min) FA 4 (60 min) co-treat with PT [id number], individual [id number] ANURADHA AGUILERA Apr 05, 2020 08:50
--- NOTE | 2020-04-05 09:15 | PM&R Progress Note ---
Subjective HPI/CC On Admission Date Seen by Provider: Apr 05, 2020 Time Seen by Provider: 09:30 Subjective/Events-last exam 04/05/20: Nikhil lift required now Omnicef maintained for UTI Dysarthria noted Sánchez cath in place 04/04/20: Dr. Fairchild changed a few medications around Dr. Randolph will be managing the catheter Started Flomax and stopped the Oxybutynin Very debilitated 04/03/20: Patient doing well Bladder scan noted 1500+ so placed catheter and consulted Dr Randolph Suppository ordered for constipation Patient talking better 04/02/20: Improved status overall Dysarthria noted UTI treatment tolerated FH of CVA discussed Lipid panel and statin performed Appreciate Dr Fairchild 04/01/20: MRI revealed subacute CVA and upon further evaluation her symptoms had started 3 days prior Right arm weakness noted Aggressive therapy indicated for new neuro deficit Was not a tPA candidate due to waxing and waning of symptoms Lipid panel ordered along with Cardiology consultation Review of Systems General: Fatigue, Malaise Genitourinary: Retention Neurological: Weakness, Incoordination, Change in speech Objective Exam Vital Signs Vital Signs Date Time Temp Pulse Resp B/P (MAP) Pulse Ox O2 Delivery O2 Flow Rate FiO2 04/06/20 01:00 74 04/05/20 20:20 Room Air 04/05/20 16:00 36.3 18 131/61 (84) 93 Capillary Refill : General Appearance: No Apparent Distress, WD/WN, Chronically ill HEENT: PERRL/EOMI, Normal ENT Inspection, Pharynx Normal, Other (RIGHT FACIAL DROOP, GARBLED SPEECH) Neck: Full Range of Motion, Supple Respiratory: Chest Non Tender, Lungs Clear, Normal Breath Sounds, No Accessory Muscle Use, No Respiratory Distress Cardiovascular: Regular Rate, Rhythm, No Edema, No Gallop, No JVD, No Murmur, Normal Peripheral Pulses, Other (NO CAROTID STENOSIS) Gastrointestinal: Normal Bowel Sounds, No Organomegaly, No Pulsatile Mass, Non Tender, Soft Rectal: Deferred Back: Normal Inspection, No CVA Tenderness, No Vertebral Tenderness Extremity: Normal Capillary Refill, Normal Inspection, Normal Range of Motion, Non Tender, No Calf Tenderness, No Pedal Edema Neurologic/Psychiatric: Alert, Oriented x3, No Motor/Sensory Deficits, Normal Mood/Affect, business agent II-XII Norm as Tested, Aphasia (partial), Disoriented, Facial Droop (right), Motor Weakness (right arm and leg 3/5) Skin: Normal Color, Warm/Dry Lymphatic: No Adenopathy Results/Procedures Lab Patient resulted labs reviewed. FIM Transfers Therapy Code Descriptions/Definitions Functional [place] Measure: 0=Not Assessed/NA 4=Minimal Assistance 1=Total Assistance 5=Supervision or Setup 2=Maximal Assistance 6=Modified [place] 3=Moderate Assistance 7=Complete IndependenceSCALE: Activities may be completed with or without assistive devices. 8-Lhjoedcjsa-eupjjiz completes the activity by him/herself with no assistance from a helper. 5-Set-up or Clean-up Assistance-helper sets up or cleans up; patient completes activity. [place] assists only prior to or following the activity. 4-Supervision or Touching Assistance-helper provides verbal cues and/or touching/steadying and/or contact guard assistance as patient completes activity. Assistance may be provided throughout the activity or intermittently. 3-Partial/Moderate Assistance-helper does LESS THAN HALF the effort. [place] lifts, holds or supports trunk or limbs, but provides less than half the effort. 2-Substantial/Maximal Assistance-helper does MORE THAN HALF the effort. [place] lifts or holds trunk or limbs and provides more than half the effort. 4-Qukbqkrlq-achwbd does ALL the effort. Patient does none of the effort to complete the activity. Or, the assistance of 2 or more helpers is required for the patient to complete the activity. If activity was not attempted, code reason: 7-Patient Refused. 9-Not Applicable-not attempted and the patient did not perform the activity before the current illness, exacerbation or injury. 10-Not Attempted due to Environmental Limitations-(lack of equipment, weather restraints, etc.). 88-Not Attempted due to Medical Conditions or Safety Concerns. Roll Left to Right (QC): 1 ( x 2) Sit to Lying (QC): 1 (x 2) Sit to Stand (QC): 2 Chair/Vax-zu-Vqakb Xfer(QC): 2 Car Transfer (QC): 7 Gait Training Walk 10 feet (QC): 7 Walk 50 ft with 2 Turns(QC): 7 Walk 150 ft (QC): 7 Walking 10ft/uneven surface-QC: 7 Gait Assistive Device: FWW Wheelchair Training Wheel 50 ft with 2 turns (QC): 3 Wheel 150 ft (QC): 1 Stair Training 1 Step (curb) (QC): 88 4 Steps (QC): 88 12 Steps (QC): 88 Balance Picking up an Object (QC): 88 ADL-Treatment Eating (QC): 5 Oral Hygiene (QC): 6 Bathing Location: L Arm, R Arm, Chest, Abdomen Shower/Bathe Self (QC): 1 Upper Body Dressing (QC): 3 Lower Body Dressing (QC): 1 On/Off Footwear (QC): 2 Toileting Hygiene (QC): 1 Toilet Transfer (QC): 1 Assessment/Plan Assessment and Plan Assess & Plan/Chief Complaint Assessment: 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 Debility Falls UTI acute Slurred speech likely baseline with UTI worsened HTN Hypothyroidism Obesity Urinary retention requiring sánchez catheter 04/03/20 Plan: Home meds IRF UTI treatment Await UCx 04/01/20: Lipid panel Cardiology consultation ECHO reviewed Carotid USG reviewed 04/02/20: Appreciate Dr Fairchild Statin Monitor BP 04/03/20: Sánchez catheter Rocephin last dose today then change to PO abx Dr Randolph consulted 04/04/20: Sánchez Monitor BP Labs reviewed 04/05/20: Nikhil lift Very debilitated Appreciate Dr Randolph and Dr Fairchild (1) Physical debility Status: Acute (2) Hypothyroidism (3) Falls (4) Obesity (5) UTI (urinary tract infection) Status: Acute LAMBERTO PATTON DO Apr 05, 2020 09:15
--- NOTE | 2020-04-05 09:55 | Cardiology Progress Note ---
Subjective Date Seen by Provider: Apr 05, 2020 Time Seen by Provider: 09:55 Subjective/Events-last exam Patient sitting up in chair, no new complaints. Denies any chest pain Objective-Cardiology Exam Last Set of Vital Signs Vital Signs 04/05/20 04/05/20 05:06 07:02 Temp 36.8 Pulse 79 Resp 20 B/P (MAP) 164/80 (108) Pulse Ox 92 O2 Delivery Room Air Capillary Refill : I&O Intake and Output 04/05/20 00:00 Intake Total 1225 ml Output Total 900 ml Balance 325 ml Intake Oral 1225 ml Output Urine Total 900 ml General: Alert, Oriented X3, Cooperative HEENT: Atraumatic, PERRLA Neck: Supple, No JVD, No Thyromegaly Lungs: Clear to Auscultation, Normal Air Movement Heart: Regular Rate, Normal S1, Normal S2, No Murmurs Abdomen: Normal Bowel Sounds, Soft, No Tenderness, No Hepatosplenomegaly, No Masses Extremities: No Clubbing, No Cyanosis, No Edema, Normal Pulses, No Tenderness/Swelling Skin: No Rashes, No Breakdown, No Significant Lesion Neuro: Other (slurred speech, hemiplegia) Psych/Mental Status: Mental Status NL, Mood NL A/P-Cardiology Admission Diagnosis Acute CVA Debility Coronary artery disease Hypertension Assessment/Plan Debility, acute CVA with left mayte infarct on MRI, right-sided weakness, facial droop and slurred speech. Receiving physical therapy, continue to monitor telemetry, had long discussion with the patient regarding implantable loop recorder, patient is hesitant to have the procedure done. Bradycardia, atenolol 100 mg was discontinued and started on Toprol-XL 25 mg, will continue to monitor HR. Hypertension, controlled, continue to monitor. 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 Stratton Hyperlipidemia, maintained on Lipitor 80 mg daily, monitor lipids Obesity, BMI 32. Carotid artery stenosis, mild bilateral disease per duplex done 04/01/20 Patient was seen and evaluated with Yaneli, examination performed, management plan was discussed, agree with the current scribed note, I made few changes to the note using Italic font Patient was seen at bedside sitting comfortably, no new complaint Continue on current medication, continue to monitor blood pressure and heart rate YANELI CASTRO Apr 05, 2020 09:55 MAGALY OLIVARES MD Apr 05, 2020 13:07
--- NOTE | 2020-04-05 10:22 | Physical Therapy Daily Note ---
PT Daily Note-Current Subjective Pt sitting in recliner upon arrival. Pt agrees to PT. Pain Location: No Pain Reported Mental Status Patient Orientation: Person, Confused Transfers SCALE: Activities may be completed with or without assistive devices. 3-Lfrwzczfbv-bowdlvh completes the activity by him/herself with no assistance from a helper. 5-Set-up or Clean-up Assistance-helper sets up or cleans up; patient completes activity. [place] assists only prior to or following the activity. 4-Supervision or Touching Assistance-helper provides verbal cues and/or touching/steadying and/or contact guard assistance as patient completes activity. Assistance may be provided throughout the activity or intermittently. 3-Partial/Moderate Assistance-helper does LESS THAN HALF the effort. [place] lifts, holds or supports trunk or limbs, but provides less than half the effort. 2-Substantial/Maximal Assistance-helper does MORE THAN HALF the effort. [place] lifts or holds trunk or limbs and provides more than half the effort. 5-Roezichsf-fjeafk does ALL the effort. Patient does none of the effort to complete the activity. Or, the assistance of 2 or more helpers is required for the patient to complete the activity. If activity was not attempted, code reason: 7-Patient Refused. 9-Not Applicable-not attempted and the patient did not perform the activity before the current illness, exacerbation or injury. 10-Not Attempted due to Environmental Limitations-(lack of equipment, weather restraints, etc.). 88-Not Attempted due to Medical Conditions or Safety Concerns. Roll Left & Right (QC): 3 Lying to Sitting/Side of Bed(Q: 2 Sit to Stand (QC): 1 Toilet Transfer (QC): 1 Weight Bearing Full Weight Bearing Full Weight Bearing Wheelchair Training Does the Pt Use a Wheelchair?: Yes Type of Wheelchair: Manual Exercises Seated Therapy Exercises: Ankle pumps, Long arc quads, Hip flexion, Kicking activity, Glut set Seated Reps: 15 Treatments Co-treat with PT ([id number]), skilled instruction and care required by 2 clinicians due to fall risk, dependence with mobility/transfers and decreased activity tolerance. PT focusing on transfers, standing and w/c mobility while OT focusing on B hand placement during transfers/standing and ADLs. Pt extremely fearful of falling making transfers and standing difficult. Pt has difficulties processing sequence of where to place hands and feet during mobility or how to use to push up and move. Pt required Max A x3 to complete toileting, 2 for standing and 1 to complete clothing manipulation, hygiene and to move one seat to replace it with another. Attempted to have pt propel w/c to therapy gym with assistance to steer. Attempted to land inspector parallel bars 2x's, pt's fear of falling hindered ability to stand due to resisting movement. After therapy, pt lying in bed with call light/phone in reach. All needs met in room. Assessment Current Status: Poor Progress Pt continues to be resistive to Therapy stating "I don't want to do this today". Pt is also retropulsive, pushing back making a difficult transfer more difficult. Pt has fear of falling and is reassured by Therapist to no avail. PT Short Term Goals Short Term Goals Time Frame: Apr 07, 2020 Roll Left & Right: 4 Sit to lyin Lying to sitting on side of be: 3 Sit to stand: 3 Chair/fzm-fy-ydkln transfer: 3 Walk 10 feet: 3 PT Subacute Nurse Goals Subacute Nurse Goals PT Subacute Nurse Goals Time Frame: Apr 21, 2020 Roll Left & Right (QC): 4 Sit to Lying (QC): 4 Lying-Sitting on Side/Bed(QC): 4 Sit to Stand (QC): 4 Chair/Nff-vy-Lljjc Xfer(QC): 4 Toilet Transfer (QC): 4 Car Transfer (QC): 4 Does the Patient Walk: Yes Walk 10 feet (QC): 4 Walk 50ft with 2 Turns (QC): 4 Walk 150 ft (QC): 88 Walking 10ft on Uneven Surface: 4 1 Step (curb) (QC): 4 4 Steps (QC): 88 12 Steps (QC): 88 Picking up an Object (QC): 88 Does the Pt use WC or Scooter?: Yes Wheel 50 feet with 2 turns (QC: 6 Wheel 150 feet: 6 PT Plan Problem List Problem List: Activity Tolerance, Functional Strength, Safety, Balance, Transfer, Bed Mobility Treatment/Plan Treatment Plan: Continue Plan of Care Treatment Plan: Bed Mobility, Education, Functional Activity Jeffrey, Functional Strength, Group Therapy, Gait, Safety, Therapeutic Exercise, Transfers Treatment Duration: Apr 07, 2020 Frequency: At least 5 of 7 days/Wk (IRF) Estimated Hrs Per Day: 1.5 hours per day Patient and/or Family Agrees t: Yes Safety Risks/Education Patient Education: Transfer Techniques, Correct Positioning, W/C Management, Safety Issues Teaching Recipient: Patient Teaching Methods: Demonstration, Discussion Response to Teaching: Reinforcement Needed Time/GCodes Time In: 900 Time Out: 1015 Total Billed Treatment Time: 75 Total Billed Treatment 1, FA x3 (40m), WCH (15m) & EX (20m) Co-treat w/OT for 75m ([id number]) SHEREE GARCIA KILN FIREMAN Apr 05, 2020 10:22
--- NOTE | 2020-04-05 12:33 | Progress Note - Urology ---
Progress Note-Urology Progress Notes/Assess & Plan Progress/Assessment & Plan TOV TODAY Final Diagnosis URINE RETENTION JYOTI SILVA MD Apr 05, 2020 12:33
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
[2020-04-05] MEDS: ENOXAPARIN 40 MG/0.4 ML (LOVENOX) SYR SC SCH (13:59)
--- NOTE | 2020-04-05 14:29 | Speech Therapy Daily Note ---
Speech Daily Progress Note Subjective Date Seen by Provider: Apr 05, 2020 Time Seen by Provider: 00:30 Patient was resting in her bed following her other therapy this am. Objective Patient completed a series of general information q/a at 80% with min to mod cues. Assessment Assessment Current Status: Good Progress Treatment Plan Continue Plan of Care Speech Short Term Goals Short Term Goals Short Term Goals 1) Patient will complete memory tasks related to her daily needs at 80% with minimal cues. 2) Patient will complete problem solving tasks related to her daily needs at 80% with minimal cues. 3) Patient will complete safety awareness tasks related to her daily needs at 80% with minimal cues. 4 Patient will complete speech production tasks for improving intelligibility at 90%. Speech Airway Traffic Controller Goals Usp Goals Patient will improve cognitive-communication necessary for safety and daily living tasks with minimal assist. Patient will improve speech intelligibility in order to communicate her wants/needs effectively. Speech-Plan Patient/Family Goals Patient/Family Goals: Patient plans on returning to her apartment or moving to an [facility] if funds are available. Treatment Plan Speech Therapy Treatment Plan: Continue Plan of Care Treatment Duration: Apr 15, 2020 Frequency: 4 times per week (Patient will receive skilled ST 4-5x per week) Estimated Hrs Per Day: Other Rehab Potential: Guarded Barriers to Learning: Patient's recent CVA, decline in function, age Pt/Family Agrees to Plan: Yes Safety Risks/Education Teaching Recipient: Patient Teaching Methods: Demonstration, Discussion Response to Teaching: Verbalize Understanding, Return Demonstration Education Topics Provided: Continued safety within her room and communication of wants/needs. Time Speech Therapy Time In: 11:00 Speech Therapy Time Out: 11:30 Total Billed Time: 30 Billed Treatment Time 1, SHEKHAR Gonzalez Apr 05, 2020 14:29
[2020-04-05 16:00] VITALS: BP 131/61
[2020-04-05] MEDS: TAMSULOSIN 0.4 MG (FLOMAX) CAP PO SCH (17:21)
[2020-04-05] MEDS: MICONAZOLE 2% POWDER (DESENEX AF) 90 GM TOP SCH (20:57)
[2020-04-05] MEDS: NYSTATIN CREAM (MYCOSTATIN) 30 GM TUBE TP SCH (20:57)
[2020-04-06 06:00] VITALS: BP 145/62
[2020-04-06] MEDS: CATHETER FLUSH 10 ML SYR IV SCH ×3 (06:46→21:56)
[2020-04-06] MEDS: MULTIVIT W/MINERALS TAB (THERAGRAN M) PO SCH (06:46)
[2020-04-06] MEDS: LEVOTHYROXINE 150 MCG (LEVOTHROID) TAB PO SCH (06:46)
[2020-04-06] MEDS: LOSARTAN 25 MG (COZAAR) TAB PO SCH (08:24)
[2020-04-06] MEDS: DOCUSATE SODIUM 100 MG (COLACE) CAP PO SCH ×2 (08:24→21:50)
[2020-04-06] MEDS: amLODIPine 2.5MG (NORVASC) TAB PO SCH (08:24)
[2020-04-06] MEDS: CEFDINIR 300 MG (OMNICEF) CAP PO SCH ×2 (08:24→21:52)
[2020-04-06] MEDS: CLOPIDOGREL 75 MG (PLAVIX) TABLET PO SCH (08:24)
[2020-04-06] MEDS: polyethylene glycoL POWDER 17 GM (MIRALAX) PACK PO SCH ×2 (08:25→21:50)
[2020-04-06] MEDS: NYSTATIN CREAM (MYCOSTATIN) 30 GM TUBE TP SCH ×2 (08:25→21:52)
[2020-04-06] MEDS: SENNA W/DOCUSATE (SENOKOT S) TABLET PO SCH ×2 (08:25→21:50)
[2020-04-06] MEDS: MICONAZOLE 2% POWDER (DESENEX AF) 90 GM TOP SCH ×2 (08:26→21:53)
--- NOTE | 2020-04-06 08:26 | PM&R Progress Note ---
Subjective HPI/CC On Admission Date Seen by Provider: Apr 06, 2020 Time Seen by Provider: 08:45 Subjective/Events-last exam 04/06/20: Sánchez cath was discontinued so in-and-out cath will be performed Loose stools noted Dsw-hm-hxswt today instead of nikhil lift Feeding herself now Bowels moved yesterday Overall a little bit confused Will discontinue telemetry Refused the loop recorder so will monitor that closely 04/05/20: Nikhil lift required now Omnicef maintained for UTI Dysarthria noted Sánchez cath in place 04/04/20: Dr. Fairchild changed a few medications around Dr. Randolph will be managing the catheter Started Flomax and stopped the Oxybutynin Very debilitated 04/03/20: Patient doing well Bladder scan noted 1500+ so placed catheter and consulted Dr Randolph Suppository ordered for constipation Patient talking better 04/02/20: Improved status overall Dysarthria noted UTI treatment tolerated FH of CVA discussed Lipid panel and statin performed Appreciate Dr Fairchild 04/01/20: MRI revealed subacute CVA and upon further evaluation her symptoms had started 3 days prior Right arm weakness noted Aggressive therapy indicated for new neuro deficit Was not a tPA candidate due to waxing and waning of symptoms Lipid panel ordered along with Cardiology consultation Review of Systems General: Fatigue Genitourinary: Retention Neurological: Weakness, Change in speech, Confusion Objective Exam Vital Signs Vital Signs Date Time Temp Pulse Resp B/P (MAP) Pulse Ox O2 Delivery O2 Flow Rate FiO2 04/06/20 17:46 36.5 76 18 135/68 (90) 96 Room Air Capillary Refill : General Appearance: No Apparent Distress, WD/WN, Chronically ill HEENT: PERRL/EOMI, Normal ENT Inspection, Pharynx Normal, Other (RIGHT FACIAL DROOP, GARBLED SPEECH) Neck: Full Range of Motion, Supple Respiratory: Chest Non Tender, Lungs Clear, Normal Breath Sounds, No Accessory Muscle Use, No Respiratory Distress Cardiovascular: Regular Rate, Rhythm, No Edema, No Gallop, No JVD, No Murmur, Normal Peripheral Pulses, Other (NO CAROTID STENOSIS) Gastrointestinal: Normal Bowel Sounds, No Organomegaly, No Pulsatile Mass, Non Tender, Soft Rectal: Deferred Back: Normal Inspection, No CVA Tenderness, No Vertebral Tenderness Extremity: Normal Capillary Refill, Normal Inspection, Normal Range of Motion, Non Tender, No Calf Tenderness, No Pedal Edema Neurologic/Psychiatric: Alert, Oriented x3, No Motor/Sensory Deficits, Normal Mood/Affect, protective services case worker II-XII Norm as Tested, Aphasia (partial), Disoriented, Facial Droop (right), Motor Weakness (right arm and leg 3/5) Skin: Normal Color, Warm/Dry Lymphatic: No Adenopathy Results/Procedures Lab Patient resulted labs reviewed. FIM Transfers Therapy Code Descriptions/Definitions Functional Alexander Measure: 0=Not Assessed/NA 4=Minimal Assistance 1=Total Assistance 5=Supervision or Setup 2=Maximal Assistance 6=Modified Alexander 3=Moderate Assistance 7=Complete IndependenceSCALE: Activities may be completed with or without assistive devices. 1-Bszmexirbv-obplmws completes the activity by him/herself with no assistance from a helper. 5-Set-up or Clean-up Assistance-helper sets up or cleans up; patient completes activity. [place] assists only prior to or following the activity. 4-Supervision or Touching Assistance-helper provides verbal cues and/or touching/steadying and/or contact guard assistance as patient completes activity. Assistance may be provided throughout the activity or intermittently. 3-Partial/Moderate Assistance-helper does LESS THAN HALF the effort. [place] lifts, holds or supports trunk or limbs, but provides less than half the effort. 2-Substantial/Maximal Assistance-helper does MORE THAN HALF the effort. [place] lifts or holds trunk or limbs and provides more than half the effort. 7-Qjdazfurq-fbhyjc does ALL the effort. Patient does none of the effort to com plete the activity. Or, the assistance of 2 or more helpers is required for the patient to complete the activity. If activity was not attempted, code reason: 7-Patient Refused. 9-Not Applicable-not attempted and the patient did not perform the activity before the current illness, exacerbation or injury. 10-Not Attempted due to Environmental Limitations-(lack of equipment, weather restraints, etc.). 88-Not Attempted due to Medical Conditions or Safety Concerns. Roll Left to Right (QC): 3 Sit to Lying (QC): 1 (x 2) Sit to Stand (QC): 1 Chair/Jvb-yq-Lfejv Xfer(QC): 2 Car Transfer (QC): 7 Gait Training Walk 10 feet (QC): 7 Walk 50 ft with 2 Turns(QC): 7 Walk 150 ft (QC): 7 Walking 10ft/uneven surface-QC: 7 Gait Assistive Device: FWW Wheelchair Training Does the Pt Use a Wheelchair?: Yes Wheel 50 ft with 2 turns (QC): 3 Wheel 150 ft (QC): 1 Type of Wheelchair: Manual Stair Training 1 Step (curb) (QC): 88 4 Steps (QC): 88 12 Steps (QC): 88 Balance Picking up an Object (QC): 88 ADL-Treatment Eating (QC): 5 Oral Hygiene (QC): 4 (Pt required verbal cues to complete using B UE's.) Bathing Location: L Arm, R Arm, Chest, Abdomen Shower/Bathe Self (QC): 1 Upper Body Dressing (QC): 3 Lower Body Dressing (QC): 1 On/Off Footwear (QC): 2 Toileting Hygiene (QC): 1 Toilet Transfer (QC): 1 Assessment/Plan Assessment and Plan Assess & Plan/Chief Complaint Assessment: 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 Debility Falls UTI acute Slurred speech likely baseline with UTI worsened HTN Hypothyroidism Obesity Urinary retention requiring sánchez catheter 04/03/20 Plan: Home meds IRF UTI treatment Await UCx 04/01/20: Lipid panel Cardiology consultation ECHO reviewed Carotid USG reviewed 04/02/20: Appreciate Dr Fairchild Statin Monitor BP 04/03/20: Sánchez catheter Rocephin last dose today then change to PO abx Dr Randolph consulted 04/04/20: Sánchez Monitor BP Labs reviewed 04/05/20: Nikhil lift Very debilitated Appreciate Dr Randolph and Dr Fairchild 04/06/20: DC Tely Declines loop recorder (1) Physical debility Status: Acute (2) Hypothyroidism (3) Falls (4) Obesity (5) UTI (urinary tract infection) Status: Acute LAMBERTO PATTON DO Apr 06, 2020 08:26
--- NOTE | 2020-04-06 09:31 | Cardiology Progress Note ---
Subjective Date Seen by Provider: Apr 06, 2020 Time Seen by Provider: 09:00 Subjective/Events-last exam Sitting up in chair, no new complaints. Denies any chest pain or dyspnea. Review of Systems General: No Chills, No Night Sweats; Fatigue; No Malaise, No Appetite, No Other HEENT: No Head Aches, No Visual Changes, No Eye Pain, No Ear Pain, No Dysphasia, No Sinus Congestion, No Post Nasal Drip, No Sore Throat, No Other Pulmonary: No Dyspnea, No Cough, No Pleuritic Chest Pain, No Other Cardiovascular: No: Chest Pain, Palpitations, Orthopnea, Paroxysmal Noc. Dyspnea, Edema, Lt Headedness, Other Objective-Cardiology Exam Last Set of Vital Signs Vital Signs 04/06/20 04/06/20 06:00 09:00 Temp 36.2 Pulse 72 Resp 16 B/P (MAP) 145/62 (89) Pulse Ox 93 O2 Delivery Room Air Capillary Refill : I&O Intake and Output 04/06/20 00:00 Intake Total 800 ml Output Total 1100 ml Balance -300 ml Intake Oral 800 ml Output Urine Total 1100 ml # Voids 5 # Bowel Movements 4 General: Alert, Oriented X3, Cooperative HEENT: Atraumatic, PERRLA Neck: Supple, No JVD, No Thyromegaly Lungs: Clear to Auscultation, Normal Air Movement Heart: Regular Rate, Normal S1, Normal S2, No Murmurs Abdomen: Normal Bowel Sounds, Soft, No Tenderness, No Hepatosplenomegaly, No Masses Extremities: No Clubbing, No Cyanosis, No Edema, Normal Pulses, No Tenderness/Swelling Skin: No Rashes, No Breakdown, No Significant Lesion Neuro: Other (slurred speech, hemiplegia) Psych/Mental Status: Mental Status NL, Mood NL A/P-Cardiology Admission Diagnosis Acute CVA Debility Coronary artery disease Hypertension Assessment/Plan Debility, acute CVA with left mayte infarct on MRI, right-sided weakness, facial droop and slurred speech. Receiving physical therapy, continue to monitor telemetry, had long discussion with the patient regarding implantable loop recorder, patient is hesitant to have the procedure done. Bradycardia, atenolol 100 mg was discontinued and started on Toprol-XL 25 mg, HR improved. . Hypertension, controlled, continue to monitor. 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 Stratton Hyperlipidemia, maintained on Lipitor 80 mg daily, monitor lipids Obesity, BMI 32. Carotid artery stenosis, mild bilateral disease per duplex done 04/01/20 Patient was seen and evaluated with Yaneli, examination performed, management plan was discussed, agree with the current scribed note, I made few changes to the note using Italic font Patient was seen at bedside laying down comfortably, no new complaint. Blood pressure is controlled. Continue to monitor YANELI CASTRO Apr 06, 2020 9:31 am MAGALY OLIVARES MD Apr 06, 2020 3:17 pm
--- NOTE | 2020-04-06 10:10 | Physical Therapy Daily Note ---
PT Daily Note-Current Subjective Pt sitting up in recliner upon arrival. Pt demonstrates decrease in active movement of R side and increase slurring in words. Pt does agree to therapy. Hypersensitivity in R hand. Pain Location: Right Location Body Site: Arm Pain Description: Sharp Comment: Pt reports pain with arm movement but doesn't rate. Mental Status Patient Orientation: Person, Confused Transfers SCALE: Activities may be completed with or without assistive devices. 4-Noywzajlmf-nxrxlec completes the activity by him/herself with no assistance from a helper. 5-Set-up or Clean-up Assistance-helper sets up or cleans up; patient completes activity. [place] assists only prior to or following the activity. 4-Supervision or Touching Assistance-helper provides verbal cues and/or touchi ng/steadying and/or contact guard assistance as patient completes activity. Assistance may be provided throughout the activity or intermittently. 3-Partial/Moderate Assistance-helper does LESS THAN HALF the effort. [place] lifts, holds or supports trunk or limbs, but provides less than half the effort. 2-Substantial/Maximal Assistance-helper does MORE THAN HALF the effort. [place] lifts or holds trunk or limbs and provides more than half the effort. 1-Kolepziyu-aejsdv does ALL the effort. Patient does none of the effort to complete the activity. Or, the assistance of 2 or more helpers is required for the patient to complete the activity. If activity was not attempted, code reason: 7-Patient Refused. 9-Not Applicable-not attempted and the patient did not perform the activity before the current illness, exacerbation or injury. 10-Not Attempted due to Environmental Limitations-(lack of equipment, weather restraints, etc.). 88-Not Attempted due to Medical Conditions or Safety Concerns. Lying to Sitting/Side of Bed(Q: 1 Sit to Stand (QC): 1 Weight Bearing Full Weight Bearing Full Weight Bearing Treatments PT/OT co-treat([id number]), skilled care and instruction requires 2 clinicians to complete due to decreased mobility, increased risk of falls and dependent transfers. PT focusing on transfers and mobility while OT focuses on functional transfers, B UE placement during mobility and ADLs. Pt's AROM has decreased over the last 2 days. On Saturday pt was lifting R UE and grasping, today pt's has hypersensitivity with R hand and is has minimal to no movement in R UE. Reported to nrsg. Pt agrees to shower today. Pt is max A x2/3 person assist to transfer onto shower chair with cutout. Pt is dependent with bathing and lower body dressing. Pt will wash face, chest and abdomen. Max A for upper body dressing and footwear. Verbal cues to sequence how to complete oral care then is able to complete by self. Dependent with toileting and toilet transfers. After session, pt lying in bed with call light/phone in reach. All needs met in room. Assessment Current Status: Poor Progress Pt scout. tx poorly today. Continued confusion and cannot retain conservations had 30 sec. before. Pt reports hypersensitivity with any R UE movement. Increased slurred speech and decreased/no motivation to attempt tasks on own, asking Therapist to move body parts for her. PT Short Term Goals Short Term Goals Time Frame: Apr 07, 2020 Roll Left & Right: 4 Sit to lyin Lying to sitting on side of be: 3 Sit to stand: 3 Chair/vgh-ro-mfatt transfer: 3 Walk 10 feet: 3 PT Custodial Goals Customer Service Assistant Goals PT Customer Service Assistant Goals Time Frame: Apr 21, 2020 Roll Left & Right (QC): 4 Sit to Lying (QC): 4 Lying-Sitting on Side/Bed(QC): 4 Sit to Stand (QC): 4 Chair/Dlg-zy-Spbju Xfer(QC): 4 Toilet Transfer (QC): 4 Car Transfer (QC): 4 Does the Patient Walk: Yes Walk 10 feet (QC): 4 Walk 50ft with 2 Turns (QC): 4 Walk 150 ft (QC): 88 Walking 10ft on Uneven Surface: 4 1 Step (curb) (QC): 4 4 Steps (QC): 88 12 Steps (QC): 88 Picking up an Object (QC): 88 Does the Pt use WC or Scooter?: Yes Wheel 50 feet with 2 turns (QC: 6 Wheel 150 feet: 6 PT Plan Problem List Problem List: Activity Tolerance, Functional Strength, Safety, Balance, Transfer, Bed Mobility, ROM Treatment/Plan Treatment Plan: Continue Plan of Care Treatment Plan: Bed Mobility, Education, Functional Activity Jeffrey, Functional Strength, Group Therapy, Gait, Safety, Therapeutic Exercise, Transfers Treatment Duration: Apr 07, 2020 Frequency: At least 5 of 7 days/Wk (IRF) Estimated Hrs Per Day: 1.5 hours per day Patient and/or Family Agrees t: Yes Safety Risks/Education Patient Education: Transfer Techniques, Correct Positioning, W/C Management, Safety Issues Teaching Recipient: Patient Teaching Methods: Discussion Response to Teaching: Reinforcement Needed Time/GCodes Time In: 900 Time Out: 1015 Total Billed Treatment Time: 75 Total Billed Treatment 1, FA x5 (75m) Co-treat w/OT for 75m (900-1015) SHEREE GARCIA SKATE HOP Apr 06, 2020 10:10
--- NOTE | 2020-04-06 10:13 | Occupational Ther Daily Note ---
OT Current Status-Daily Note Subjective Pt demonstrates decrease in active movement of R side and increase slurring in words. Pt does agree to therapy. Hypersensitivity in R hand. Mental Status/Objective Patient Orientation: Person, Place, Time, Situation Attachments: IV ADL-Treatment PT/OT co-treat([id number]), skilled care and instruction requires 2 clinicians to complete due to decreased mobility, increased risk of falls and dependent transfers. PT focusing on transfers and mobility while OT focuses on functional transfers, B UE placement during mobility and ADLs. Pt's AROM has decreased over the last 2 days. On Saturday pt was lifting R UE and grasping, today pt's has hypersensitivity with R hand and is has minimal to no movement in R UE. Reported to nrsg. Pt agrees to shower today. Pt is max A x2/3 person assist to transfer onto shower chair with cutout. Pt is dependent with bathing and lower body dressing. Pt will wash face, chest and abdomen. Max A for upper body dressing and footwear. Verbal cues to sequence how to complete oral care then is able to complete by self. Dependent with toileting and toilet transfers. After session, pt lying in bed with call light/phone in reach. All needs met in room. Therapy Code Descriptions/Definitions Functional [place] Measure: 0=Not Assessed/NA 4=Minimal Assistance 1=Total Assistance 5=Supervision or Setup 2=Maximal Assistance 6=Modified [place] 3=Moderate Assistance 7=Complete IndependenceSCALE: Activities may be completed with or without assistive devices. 5-Zhwmrpmfvr-hdoviov completes the activity by him/herself with no assistance from a helper. 5-Set-up or Clean-up Assistance-helper sets up or cleans up; patient completes activity. [place] assists only prior to or following the activity. 4-Supervision or Touching Assistance-helper provides verbal cues and/or touching/steadying and/or contact guard assistance as patient completes activity. Assistance may be provided throughout the activity or intermittently. 3-Partial/Moderate Assistance-helper does LESS THAN HALF the effort. [place] lifts, holds or supports trunk or limbs, but provides less than half the effort. 2-Substantial/Maximal Assistance-helper does MORE THAN HALF the effort. [place] lifts or holds trunk or limbs and provides more than half the effort. 6-Towfxizca-uvdogd does ALL the effort. Patient does none of the effort to complete the activity. Or, the assistance of 2 or more helpers is required for the patient to complete the activity. If activity was not attempted, code reason: 7-Patient Refused. 9-Not Applicable-not attempted and the patient did not perform the activity before the current illness, exacerbation or injury. 10-Not Attempted due to Environmental Limitations-(lack of equipment, weather restraints, etc.). 88-Not Attempted due to Medical Conditions or Safety Concerns. Shower/Bathe Self (QC): 1 Upper Body Dressing (QC): 2 Lower Body Dressing (QC): 1 On/Off Footwear: 2 Toileting Hygiene (QC): 1 Toilet Transfer (QC): 1 OT Short Term Goals Short Term Goals Time Frame: Apr 07, 2020 Eatin Oral hygiene: 4 Toileting hygiene: 3 Shower/bathe self: 3 Upper body dressin Lower body dressin Putting on/taking off footwear: 3 OT Core Sticker Goals Detention Goals Time Frame: Apr 14, 2020 Eating (QC): 6 Oral Hygiene (QC): 5 Toileting Hygiene (QC): 6 Shower/Bathe Self (QC): 4 Upper Body Dressing (QC): 5 Lower Body Dressing (QC): 4 On/Off Footwear (QC): 4 Additional Goals: 1-Demonstrate ADL Tasks, 2-Verbalize Understanding, 3- ImproveStrength/Jeffrey 1=Demonstrate adherence to instructed precautions during ADL tasks. 2=Patient will verbalize/demonstrate understanding of assistive devices/modifications for ADL. 3=Patient will improve strength/tolerance for activity to enable patient to perform ADL's. OT Education/Plan Problem List/Assessment Assessment: Decreased Activ Tolerance, Decreased Safety Aware, Decreased UE Strength, Dependent Transfers, Impaired Bed Mobility, Impaired Coordination, Impaired Funct Balance, Impaired I ADL's, Impaired Self-Care Skills, Restricted Funct UE ROM Discharge Recommendations Plan/Recommendations: Continue POC Treatment Plan/Plan of Care Patient would benefit from OT for education, treatment and training to promote independence in ADL's, mobility, safety and/or upper extremity function for ADL's. Plan of Care: ADL Retraining, Functional Mobility, UE Funct Exercise/Act Treatment Duration: Apr 14, 2020 Frequency: At least 5 of 7 days/Wk (IRF) Estimated Hrs Per Day: 1.5 hours per day Agreement: Yes Rehab Potential: Guarded Time/GCodes Start Time: 09:00 Stop Time: 10:15 Total Time Billed (hr/min): 75 Billed Treatment Time 1 visit-ADL 5 (75 min) co-treat with PT [id number] ANURADHA AGUILERA Apr 06, 2020 10:13
--- NOTE | 2020-04-06 11:20 | NUR ---
Straight cathed pt for a bladder scan of 400 mL's. 450 mL's was drained from pt's bladder at this time.
[2020-04-06] MEDS: ENOXAPARIN 40 MG/0.4 ML (LOVENOX) SYR SC SCH (14:00)
--- NOTE | 2020-04-06 14:00 | Speech Therapy Daily Note ---
Speech Daily Progress Note Subjective Date Seen by Provider: Apr 06, 2020 Time Seen by Provider: 00:30 Patient was sitting up in bed waiting for her lunch to be served when I entered her room. Her meal arrived within a few minutes which I helped set up. Objective Patient completed speech exercises prior to meal arrival with 10 sets of each. Patient's speech is noted to be more slurred today. Assessment Assessment Current Status: Fair Progress Treatment Plan Continue Plan of Care Speech Short Term Goals Short Term Goals Short Term Goals 1) Patient will complete memory tasks related to her daily needs at 80% with minimal cues. 2) Patient will complete problem solving tasks related to her daily needs at 80% with minimal cues. 3) Patient will complete safety awareness tasks related to her daily needs at 80% with minimal cues. 4 Patient will complete speech production tasks for improving intelligibility at 90%. Speech Antique Refinisher Goals Antique Refinisher Goals Patient will improve cognitive-communication necessary for safety and daily living tasks with minimal assist. Patient will improve speech intelligibility in order to communicate her wants/needs effectively. Speech-Plan Patient/Family Goals Patient/Family Goals: Patient will discharge to a SNF once the insurance and details are in place. Treatment Plan Speech Therapy Treatment Plan: Continue Plan of Care Treatment Duration: Apr 15, 2020 Frequency: 4 times per week (Patient will receive skilled ST 4-5x per week) Estimated Hrs Per Day: .5 hour per day Rehab Potential: Guarded Barriers to Learning: Patient's recent CVA with dysarthria Pt/Family Agrees to Plan: Yes Safety Risks/Education Teaching Recipient: Patient Teaching Methods: Demonstration, Discussion Response to Teaching: Verbalize Understanding, Return Demonstration Education Topics Provided: Continued safety within her room, communication of wants/needs Time Speech Therapy Time In: 13:00 Speech Therapy Time Out: 13:30 Total Billed Time: 30 Billed Treatment Time 1MARLON [address] ST Apr 06, 2020 14:00
--- NOTE | 2020-04-06 15:44 | NUR ---
Attempted visit by Chaplain Wilde. Pattern Clerk services will follow up as able.
[2020-04-06] MEDS: TAMSULOSIN 0.4 MG (FLOMAX) CAP PO SCH (17:17)
[2020-04-06 17:44] VITALS: BP 138/55
[2020-04-06 17:46] VITALS: BP 135/68
[2020-04-06] MEDS: MELATONIN 3 MG TABLET PO PRN (21:52)
[2020-04-07 06:24] VITALS: BP 155/69
[2020-04-07] MEDS: CATHETER FLUSH 10 ML SYR IV SCH ×3 (06:40→22:06)
[2020-04-07] MEDS: MULTIVIT W/MINERALS TAB (THERAGRAN M) PO SCH (07:43)
[2020-04-07] MEDS: DOCUSATE SODIUM 100 MG (COLACE) CAP PO SCH ×2 (07:43→21:49)
[2020-04-07] MEDS: amLODIPine 2.5MG (NORVASC) TAB PO SCH (07:43)
[2020-04-07] MEDS: LOSARTAN 25 MG (COZAAR) TAB PO SCH (07:43)
[2020-04-07] MEDS: SENNA W/DOCUSATE (SENOKOT S) TABLET PO SCH ×2 (07:43→21:49)
[2020-04-07] MEDS: CLOPIDOGREL 75 MG (PLAVIX) TABLET PO SCH (07:44)
[2020-04-07] MEDS: NYSTATIN CREAM (MYCOSTATIN) 30 GM TUBE TP SCH ×2 (07:44→21:52)
[2020-04-07] MEDS: LEVOTHYROXINE 150 MCG (LEVOTHROID) TAB PO SCH (07:44)
[2020-04-07] MEDS: MICONAZOLE 2% POWDER (DESENEX AF) 90 GM TOP SCH ×2 (07:44→21:52)
[2020-04-07] MEDS: polyethylene glycoL POWDER 17 GM (MIRALAX) PACK PO SCH ×2 (07:44→21:52)
[2020-04-07] MEDS: CEFDINIR 300 MG (OMNICEF) CAP PO SCH ×2 (07:44→21:49)
--- NOTE | 2020-04-07 08:23 | Speech Therapy Daily Note ---
Speech Daily Progress Note Subjective Date Seen by Provider: Apr 07, 2020 Time Seen by Provider: 00:30 Patient had just finished using the restroom with nursing help when I entered her room. Objective Patient completed speech exercises with 25% verbal and/or visual cuing at 10 sets each. Assessment Assessment Current Status: Fair Progress Treatment Plan Discontinue ST Speech Short Term Goals Short Term Goals Short Term Goals 1) Patient will complete memory tasks related to her daily needs at 80% with minimal cues. 2) Patient will complete problem solving tasks related to her daily needs at 80% with minimal cues. 3) Patient will complete safety awareness tasks related to her daily needs at 80% with minimal cues. 4 Patient will complete speech production tasks for improving intelligibility at 90%. Speech Detention Goals Detention Goals Patient will improve cognitive-communication necessary for safety and daily living tasks with minimal assist. Patient will improve speech intelligibility in order to communicate her wants/needs effectively. Speech-Plan Patient/Family Goals Patient/Family Goals: Patient is scheduled to discharge to SNF tomorrow. Treatment Plan Speech Therapy Treatment Plan: Discontinue ST Treatment Duration: Apr 15, 2020 Frequency: 4 times per week (Patient will receive skilled ST 4-5x per week) Estimated Hrs Per Day: .5 hour per day Rehab Potential: Guarded Barriers to Learning: Patient's recent CVA, speech deficits Pt/Family Agrees to Plan: Yes Safety Risks/Education Teaching Recipient: Patient Teaching Methods: Demonstration, Discussion Response to Teaching: Verbalize Understanding, Return Demonstration Education Topics Provided: Continued safety upon her discharge Time Speech Therapy Time In: 10:30 Speech Therapy Time Out: 11:00 Total Billed Time: 30 Billed Treatment Time 1, SLTS No QUALITY CODES EXPRESSION OF IDEAS/WANTS: 3 UNDERSTANDING VERBAL CONTENT: 3 BRIEF INTERVIEW MENTAL STATUS: YES REPETITION OF 3 WORDS: 3 TEMPORAL ORIENTATION: YEAR, CORRECT, MONTH: CORRECT, DAY: MISSED BY 1 DAY RECALL SOCK: NO, COLOR: YES WITH CUE, BED: NO MEMORY/RECALL ABILITY: SEASON, THAT SHE IS IN THE [facility] Apr 07, 2020 08:23
--- NOTE | 2020-04-07 09:20 | Cardiology Progress Note ---
Subjective Date Seen by Provider: Apr 07, 2020 Time Seen by Provider: 08:30 Subjective/Events-last exam Patient eating breakfast, no new complaints. Denies any chest pain Objective-Cardiology Exam Last Set of Vital Signs Vital Signs 04/07/20 06:24 Temp 36.2 Pulse 81 Resp 18 B/P (MAP) 155/69 (97) Pulse Ox 94 O2 Delivery Room Air Capillary Refill : I&O Intake and Output 04/07/20 00:00 Intake Total 525 ml Output Total 0 ml Balance 525 ml Intake Oral 525 ml Output Urine Total 0 ml General: Alert, Oriented X3, Cooperative HEENT: Atraumatic, PERRLA Neck: Supple, No JVD, No Thyromegaly Lungs: Clear to Auscultation, Normal Air Movement Heart: Regular Rate, Normal S1, Normal S2, No Murmurs Abdomen: Normal Bowel Sounds, Soft, No Tenderness, No Hepatosplenomegaly, No Masses Extremities: No Clubbing, No Cyanosis, No Edema, Normal Pulses, No Tenderness/Swelling Skin: No Rashes, No Breakdown, No Significant Lesion Neuro: Other (slurred speech, hemiplegia) Psych/Mental Status: Mental Status NL, Mood NL A/P-Cardiology Admission Diagnosis Acute CVA Debility Coronary artery disease Hypertension Assessment/Plan Debility, acute CVA with left mayte infarct on MRI, right-sided weakness, facial droop and slurred speech. Receiving physical therapy, continue to monitor telemetry, had long discussion with the patient regarding implantable loop recorder, patient is hesitant to have the procedure done. Bradycardia, atenolol 100 mg was discontinued and started on Toprol-XL 25 mg, HR improved. . Hypertension, controlled, continue to monitor. 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 Stratton Hyperlipidemia, maintained on Lipitor 80 mg daily, monitor lipids Obesity, BMI 32. Carotid artery stenosis, mild bilateral disease per duplex done 04/01/20 Patient was seen and evaluated with Yaneli, examination performed, management plan was discussed, agree with the current scribed note, I made few changes to the note using Italic font Patient is feeling better. Continue on current medication. No changes are recommended. YANELI CASTRO Apr 07, 2020 09:20 MAGALY OLIVARES MD Apr 07, 2020 15:22
--- NOTE | 2020-04-07 10:04 | Occupational Ther Daily Note ---
OT Current Status-Daily Note Subjective Pt alert, lying in bed. Pt agrees to therapy. No c/o pain at this time. Mental Status/Objective Patient Orientation: Person, Place, Time, Situation, [place] Attachments: IV ADL-Treatment Attempted to get pt to cleanse mel area while in bed, pt states that she is squeaky clean and does not need it. Pt completed oral care with verbal cues for one handed technique then completed on own. Mod A with HOB elevated to go from supine to sitting EOB. Pt required CGA due to leaning toward R side or back. Pt required max A to don/doff shirt. Max A to thread feet into lower body clothing and footwear. Max A x2 to hike pants over hips, 1 person on each side then each person pulling up in back. Max A x2 to transfer from surface to surface or nrsg to use sit to stand lift. Therapy Code Descriptions/Definitions Functional [place] Measure: 0=Not Assessed/NA 4=Minimal Assistance 1=Total Assistance 5=Supervision or Setup 2=Maximal Assistance 6=Modified [place] 3=Moderate Assistance 7=Complete IndependenceSCALE: Activities may be completed with or without assistive devices. 4-Jqoldgurbl-gccfxlc completes the activity by him/herself with no assistance from a helper. 5-Set-up or Clean-up Assistance-helper sets up or cleans up; patient completes activity. [place] assists only prior to or following the activity. 4-Supervision or Touching Assistance-helper provides verbal cues and/or touchin g/steadying and/or contact guard assistance as patient completes activity. Assistance may be provided throughout the activity or intermittently. 3-Partial/Moderate Assistance-helper does LESS THAN HALF the effort. [place] lifts, holds or supports trunk or limbs, but provides less than half the effort. 2-Substantial/Maximal Assistance-helper does MORE THAN HALF the effort. [place] lifts or holds trunk or limbs and provides more than half the effort. 0-Itwopnjvg-chkmcn does ALL the effort. Patient does none of the effort to complete the activity. Or, the assistance of 2 or more helpers is required for the patient to complete the activity. If activity was not attempted, code reason: 7-Patient Refused. 9-Not Applicable-not attempted and the patient did not perform the activity before the current illness, exacerbation or injury. 10-Not Attempted due to Environmental Limitations-(lack of equipment, weather restraints, etc.). 88-Not Attempted due to Medical Conditions or Safety Concerns. Eating (QC): 5 (Set up then pt able to eat using regular utensils.) Oral Hygiene (QC): 5 Upper Body Dressing (QC): 2 Lower Body Dressing (QC): 1 On/Off Footwear: 2 Other Treatment Pt is demonstrating no movement with R hand. OT/PT co-treat([id number]), skilled instruction and care requires 2 clinicians due to fall risk, dependent mobility and increased fatigue. PT focusing on transfers, bed mobility and w/c mobility while OT focusing on ADLs, functional transfers and B UE placement during mobility. Pt requires assist to propel w/c. After session, pt requests to sit in w/c. Call light/phone in reach. All needs met in room. OT Short Term Goals Short Term Goals Time Frame: Apr 07, 2020 Eatin Oral hygiene: 4 Toileting hygiene: 3 Shower/bathe self: 3 Upper body dressin Lower body dressin Putting on/taking off footwear: 3 OT Oracle Security Consultant Goals Oracle Security Consultant Goals Time Frame: Apr 14, 2020 Eating (QC): 6 (not met) Oral Hygiene (QC): 5 (met) Toileting Hygiene (QC): 6 (not met) Shower/Bathe Self (QC): 4 (not met) Upper Body Dressing (QC): 5 (not met) Lower Body Dressing (QC): 4 (not met) On/Off Footwear (QC): 4 (not met) Additional Goals: 1-Demonstrate ADL Tasks, 2-Verbalize Understanding, 3- ImproveStrength/Jeffrey 1=Demonstrate adherence to instructed precautions during ADL tasks. 2=Patient will verbalize/demonstrate understanding of assistive devices/modifications for ADL. 3=Patient will improve strength/tolerance for activity to enable patient to perform ADL's. OT Education/Plan Problem List/Assessment Assessment: Decreased Activ Tolerance, Decreased Safety Aware, Decreased UE Strength, Dependent Transfers, Impaired Bed Mobility, Impaired Cognition, Impaired Coordination, Impaired Funct Balance, Impaired I ADL's, Impaired Self- Care Skills, Restricted Funct UE ROM Discharge Recommendations Plan/Recommendations: Continue POC Treatment Plan/Plan of Care Patient would benefit from OT for education, treatment and training to promote independence in ADL's, mobility, safety and/or upper extremity function for ADL's. Plan of Care: ADL Retraining, Functional Mobility, UE Funct Exercise/Act Treatment Duration: Apr 14, 2020 Frequency: At least 5 of 7 days/Wk (IRF) Estimated Hrs Per Day: 1.5 hours per day Agreement: Yes Rehab Potential: Guarded Time/GCodes Start Time: 08:45 Stop Time: 10:00 Total Time Billed (hr/min): 75 Billed Treatment Time 1 visit-ADL 4 (60 min) FA 1 (15 min) co-treat with PT [id number], individual [id number] ANURADHA AGUILERA Apr 07, 2020 10:04
--- NOTE | 2020-04-07 10:12 | NUR ---
CM/SS PATIENT CARE CONFERENCE Presented Summary to patient yesterday afternoon and she verbalized understanding of the proposed plan for her to discharge into a community long term setting with target of April 08. Spoke last evening with her GPOA/Niece Pratima Dobbshm. She had been contacting facilities asking for private pay costs and stressing over that situation. [employer] Worker again summarized Medicare and benefits regarding skilled stays and patient does have an established supplement for the co-pay window. Since patient had [employer] in the past and allowed it to lapse, and since her monthly income total is reportedly $1300 with no other assets, it seems likely she will again qualify for [employer] for LTC waiver. Pratima indicated she understood that patient income would be applied toward her care costs with the exception of a monthly personal allowance of around $60. PLAN: Pursue SNF of patient's choice. SNF will assist patient in pursuing LTC Medicaid which should bridge expenses after skilled is no longer accessible. Patient will likely not experience a private pay situation. Pratima does not recollect where patient was in the past, she did discharge from [facility] to [facility] at one point. Will review facilities again with patient to determine her preference and then complete referral. CARE Assessment pending.
--- NOTE | 2020-04-07 10:16 | Physical Therapy Daily Note ---
PT Daily Note-Current Subjective Pt laying Supine in bed upon arrival. Pt is working w/OT and had c/o dizziness. Pt agrees to PT for QC scoring what pt is capable of completing. Mental Status Patient Orientation: Person, Place, [place] Transfers SCALE: Activities may be completed with or without assistive devices. 0-Dzvdohfhzi-lzxihzj completes the activity by him/herself with no assistance from a helper. 5-Set-up or Clean-up Assistance-helper sets up or cleans up; patient completes activity. [place] assists only prior to or following the activity. 4-Supervision or Touching Assistance-helper provides verbal cues and/or touching/steadying and/or contact guard assistance as patient completes activity. Assistance may be provided throughout the activity or intermittently. 3-Partial/Moderate Assistance-helper does LESS THAN HALF the effort. [place] lifts, holds or supports trunk or limbs, but provides less than half the effort. 2-Substantial/Maximal Assistance-helper does MORE THAN HALF the effort. [place] lifts or holds trunk or limbs and provides more than half the effort. 2-Pzwgjbagw-yxyvsg does ALL the effort. Patient does none of the effort to compl ete the activity. Or, the assistance of 2 or more helpers is required for the patient to complete the activity. If activity was not attempted, code reason: 7-Patient Refused. 9-Not Applicable-not attempted and the patient did not perform the activity before the current illness, exacerbation or injury. 10-Not Attempted due to Environmental Limitations-(lack of equipment, weather restraints, etc.). 88-Not Attempted due to Medical Conditions or Safety Concerns. Roll Left & Right (QC): 3 Sit to Lying (QC): 2 Lying to Sitting/Side of Bed(Q: 2 Sit to Stand (QC): 1 Chair/Aju-bj-Zxaot Xfer(QC): 1 Toilet Transfer (QC): 1 Car Transfer (QC): 88 Weight Bearing Full Weight Bearing Full Weight Bearing Gait Training Does the Patient Walk?: No and Walking Goal NOT indicated Walk 10 feet (QC): 88 Walk 50 ft with 2 Turns(QC): 88 Walk 150 ft (QC): 88 Walking 10ft/uneven surface-QC: 88 Wheelchair Training Does the Pt Use a Wheelchair?: Yes Wheel 50 ft with 2 turns (QC): 3 Wheel 150 ft (QC): 3 Type of Wheelchair: Manual Stair Training 1 Step (curb) (QC): 88 4 Steps (QC): 88 12 Steps (QC): 88 Balance Picking up an Object (QC): 7 Special Test Comments Pt reports not being able to complete task even w/SATIN FINISHER reassurance. Exercises Seated Therapy Exercises: Ankle pumps, Long arc quads, Hip flexion, Kicking activity Seated Reps: 10 (AROM on L side & PROM on R side) Treatments Attempted to get pt to cleanse mel area while in bed, pt states that she is squeaky clean and does not need it. Pt completed oral care with verbal cues for one handed technique then completed on own. Mod A with HOB elevated to go from supine to sitting EOB. Pt required CGA due to leaning toward R side or back. Pt required max A to don/doff shirt. Max A to thread feet into lower body clothing and footwear. Max A x2 to hike pants over hips, 1 person on each side then each person pulling up in back. Max A x2 to transfer from surface to surface or nrsg to use sit to stand lift. Pt is demonstrating no movement with R hand. OT/PT co-treat([id number]), skilled instruction and care requires 2 clinicians due to fall risk, dependent mobility and increased fatigue. PT focusing on transfers, bed mobility and w/c mobility while OT focusing on ADLs, functional transfers and B UE placement during mobility. Pt requires Mod A to propel w/c. Pt completes Seated EX in H w/assist from SATIN FINISHER. After session, pt requests to sit in w/c. Call light/phone in reach. All needs met in room. [id number]: Pt very distracted with getting utilities cancelled and DC information settled. Pt couldn't remember talking with SW and requested to speak with her again. Pt is repositioned and resting at end of tx. All needs met, call light in hand. Visitor still present. Assessment Current Status: Poor Progress Pt demonstrates less pain in R arm but continues to not use it or even attempt to. This limits participation in many activities including ADLs & [facility] mobility. PT Short Term Goals Short Term Goals Time Frame: Apr 07, 2020 Roll Left & Right: 4 Sit to lyin Lying to sitting on side of be: 3 Sit to stand: 3 Chair/mxk-er-qsbzu transfer: 3 Walk 10 feet: 3 PT Residential Goals Medical I D Sales Goals PT Medical I D Sales Goals Time Frame: Apr 21, 2020 Roll Left & Right (QC): 4 Sit to Lying (QC): 4 Lying-Sitting on Side/Bed(QC): 4 Sit to Stand (QC): 4 Chair/Wbv-vj-Ouwkn Xfer(QC): 4 Toilet Transfer (QC): 4 Car Transfer (QC): 4 Does the Patient Walk: Yes Walk 10 feet (QC): 4 Walk 50ft with 2 Turns (QC): 4 Walk 150 ft (QC): 88 Walking 10ft on Uneven Surface: 4 1 Step (curb) (QC): 4 4 Steps (QC): 88 12 Steps (QC): 88 Picking up an Object (QC): 88 Does the Pt use WC or Scooter?: Yes Wheel 50 feet with 2 turns (QC: 6 Wheel 150 feet: 6 PT Plan Problem List Problem List: Activity Tolerance, Functional Strength, Safety, Balance, Gait, Transfer, Bed Mobility, ROM Treatment/Plan Treatment Plan: Continue Plan of Care Treatment Plan: Bed Mobility, Education, Functional Activity Jeffrey, Functional Strength, Group Therapy, Gait, Safety, Therapeutic Exercise, Transfers Treatment Duration: Apr 07, 2020 Frequency: At least 5 of 7 days/Wk (IRF) Estimated Hrs Per Day: 1.5 hours per day Patient and/or Family Agrees t: Yes Safety Risks/Education Patient Education: Transfer Techniques, Correct Positioning, W/C Management, Safety Issues Teaching Recipient: Patient, Friend Teaching Methods: Discussion Response to Teaching: Verbalize Understanding Time/GCodes Time In: 915 Time Out: 1355 Total Billed Treatment Time: 80 Total Billed Treatment 1, FA x2 (30m), WCH (15m) & EX (15m) Co-treat w/OT for 45m (368-1000) [id number]: 1, FA (20m) SHEREE GARCIA PTA Apr 07, 2020 10:16
--- NOTE | 2020-04-07 11:05 | Progress Note - Urology ---
Progress Note-Urology Progress Notes/Assess & Plan Progress/Assessment & Plan UNABLE TO VOID ON OWN. PLAN START URECHOLINE 25 AC AND HS. L[place] IF UNABLE TO VOID AGAIN Final Diagnosis URINE RETENTION JYOTI SILVA MD Apr 07, 2020 11:05
--- NOTE | 2020-04-07 11:22 | PM&R Progress Note ---
Subjective HPI/CC On Admission Date Seen by Provider: Apr 07, 2020 Time Seen by Provider: 11:30 Subjective/Events-last exam 04/07/20: Doing well BM in the commode today NH placement tomorrow Sánchez back in place Sit to stand working well 04/06/20: Sánchez cath was discontinued so in-and-out cath will be performed Loose stools noted Tpi-rb-tpwly today instead of nikhil lift Feeding herself now Bowels moved yesterday Overall a little bit confused Will discontinue telemetry Refused the loop recorder so will monitor that closely 04/05/20: Nikhil lift required now Omnicef maintained for UTI Dysarthria noted Sánchez cath in place 04/04/20: Dr. Fairchild changed a few medications around Dr. Randolph will be managing the catheter Started Flomax and stopped the Oxybutynin Very debilitated 04/03/20: Patient doing well Bladder scan noted 1500+ so placed catheter and consulted Dr Randolph Suppository ordered for constipation Patient talking better 04/02/20: Improved status overall Dysarthria noted UTI treatment tolerated FH of CVA discussed Lipid panel and statin performed Appreciate Dr Fairchild 04/01/20: MRI revealed subacute CVA and upon further evaluation her symptoms had started 3 days prior Right arm weakness noted Aggressive therapy indicated for new neuro deficit Was not a tPA candidate due to waxing and waning of symptoms Lipid panel ordered along with Cardiology consultation Review of Systems General: Fatigue, Malaise Neurological: Weakness, Incoordination, Change in speech Objective Exam Vital Signs Vital Signs Date Time Temp Pulse Resp B/P (MAP) Pulse Ox O2 Delivery O2 Flow Rate FiO2 04/07/20 21:55 Room Air 04/07/20 18:00 36.9 70 20 152/69 (96) 94 Capillary Refill : General Appearance: No Apparent Distress, WD/WN, Chronically ill HEENT: PERRL/EOMI, Normal ENT Inspection, Pharynx Normal, Other (RIGHT FACIAL DROOP, GARBLED SPEECH) Neck: Full Range of Motion, Supple Respiratory: Chest Non Tender, Lungs Clear, Normal Breath Sounds, No Accessory Muscle Use, No Respiratory Distress Cardiovascular: Regular Rate, Rhythm, No Edema, No Gallop, No JVD, No Murmur, Normal Peripheral Pulses, Other (NO CAROTID STENOSIS) Gastrointestinal: Normal Bowel Sounds, No Organomegaly, No Pulsatile Mass, Non Tender, Soft Rectal: Deferred Back: Normal Inspection, No CVA Tenderness, No Vertebral Tenderness Extremity: Normal Capillary Refill, Normal Inspection, Normal Range of Motion, Non Tender, No Calf Tenderness, No Pedal Edema Neurologic/Psychiatric: Alert, Oriented x3, No Motor/Sensory Deficits, Normal Mood/Affect, 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 FIM Transfers Therapy Code Descriptions/Definitions Functional [place] Measure: 0=Not Assessed/NA 4=Minimal Assistance 1=Total Assistance 5=Supervision or Setup 2=Maximal Assistance 6=Modified [place] 3=Moderate Assistance 7=Complete IndependenceSCALE: Activities may be completed with or without assistive devices. 3-Qiydrhsdsc-lsdjnjt completes the activity by him/herself with no assistance from a helper. 5-Set-up or Clean-up Assistance-helper sets up or cleans up; patient completes activity. [place] assists only prior to or following the activity. 4-Supervision or Touching Assistance-helper provides verbal cues and/or touching/steadying and/or contact guard assistance as patient completes activity. Assistance may be provided throughout the activity or intermittently. 3-Partial/Moderate Assistance-helper does LESS THAN HALF the effort. [place] lifts, holds or supports trunk or limbs, but provides less than half the effort. 2-Substantial/Maximal Assistance-helper does MORE THAN HALF the effort. [place] lifts or holds trunk or limbs and provides more than half the effort. 0-Qvcwwalsg-hzifrc does ALL the effort. Patient does none of the effort to complete the activity. Or, the assistance of 2 or more helpers is required for the patient to complete the activity. If activity was not attempted, code reason: 7-Patient Refused. 9-Not Applicable-not attempted and the patient did not perform the activity before the current illness, exacerbation or injury. 10-Not Attempted due to Environmental Limitations-(lack of equipment, weather restraints, etc.). 88-Not Attempted due to Medical Conditions or Safety Concerns. Roll Left to Right (QC): 3 Sit to Lying (QC): 2 Sit to Stand (QC): 1 Chair/Pgc-zt-Spgga Xfer(QC): 1 Car Transfer (QC): 88 Gait Training Does the Patient Walk?: No and Walking Goal NOT indicated Walk 10 feet (QC): 88 Walk 50 ft with 2 Turns(QC): 88 Walk 150 ft (QC): 88 Walking 10ft/uneven surface-QC: 88 Gait Assistive Device: FWW Wheelchair Training Does the Pt Use a Wheelchair?: Yes Wheel 50 ft with 2 turns (QC): 3 Wheel 150 ft (QC): 3 Type of Wheelchair: Manual Stair Training 1 Step (curb) (QC): 88 4 Steps (QC): 88 12 Steps (QC): 88 Balance Picking up an Object (QC): 7 ADL-Treatment Eating (QC): 5 (Set up then pt able to eat using regular utensils.) Oral Hygiene (QC): 5 Bathing Location: L Arm, R Arm, Chest, Abdomen Shower/Bathe Self (QC): 1 Upper Body Dressing (QC): 2 Lower Body Dressing (QC): 1 On/Off Footwear (QC): 2 Toileting Hygiene (QC): 1 Toilet Transfer (QC): 1 Assessment/Plan Assessment and Plan Assess & Plan/Chief Complaint Assessment: 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 Debility Falls UTI acute Slurred speech likely baseline with UTI worsened HTN Hypothyroidism Obesity Urinary retention requiring sánchez catheter 04/03/20 Plan: Home meds IRF UTI treatment Await UCx 04/01/20: Lipid panel Cardiology consultation ECHO reviewed Carotid USG reviewed 04/02/20: Appreciate Dr Fairchild Statin Monitor BP 04/03/20: Sánchez catheter Rocephin last dose today then change to PO abx Dr Randolph consulted 04/04/20: Sánchez Monitor BP Labs reviewed 04/05/20: Nikhil lift Very debilitated Appreciate Dr Randolph and Dr Fairchild 04/06/20: DC Tely Declines loop recorder 04/07/20: Catheter per Dr Randolph NH placement tomorrow (1) Physical debility Status: Acute (2) Hypothyroidism (3) Falls (4) Obesity (5) UTI (urinary tract infection) Status: Acute LAMBERTO PATTON DO Apr 07, 2020 11:22
[2020-04-07] MEDS: BETHANECHOL 25 MG (URECHOLINE) TAB PO SCH ×2 (15:11→21:51)
[2020-04-07] MEDS: ENOXAPARIN 40 MG/0.4 ML (LOVENOX) SYR SC SCH (15:11)
--- NOTE | 2020-04-07 15:14 | NUR ---
CM/SS DISCHARGE PLANNING Patient was accepted for Medicare skilled admission tomorrow to [facility] via their transport at 1300. Updated patient. IMM2 reviewed, discussed, patient stated she could not sign due to dominate right neglect from stroke. Verbal taken and documented, no intention to appeal. Updated TANIYA chavez, Pratima Yee. CARE Assessment and requested Covid swab pending. Unit RN and therapy head orthopedic team physician updated. Finalize in a.m.
[2020-04-07] MEDS ORDERED: BETHANECHOL 25 MG (URECHOLINE) TAB PO SCH (16:00)
[2020-04-07 18:00] VITALS: BP 152/69
[2020-04-07] MEDS: TAMSULOSIN 0.4 MG (FLOMAX) CAP PO SCH (18:22)
--- NOTE | 2020-04-07 19:10 | NUR ---
Bedside report received from LETI AGARWAL, assume care of pt
[2020-04-07] MEDS: MELATONIN 3 MG TABLET PO PRN (21:49)
--- NOTE | 2020-04-07 21:51 | NUR ---
pt took Colace & Senokot refused Miralax, took pills without difficulty one at a time
[2020-04-07] MEDS: ACETAMINOPHEN 325 MG TABLET PO PRN (22:58)
--- NOTE | 2020-04-07 22:58 | NUR ---
pt c/o pain rt index finger, finger is swollen, pain level 5/10 on numeric scale, Tylenol 650mg given
--- NOTE | 2020-04-07 23:42 | NUR ---
Resting quietly in bed, pain level 0/10 on CNPI SCALE
[2020-04-08] MEDS ORDERED: ENOX40DI8 SC (05:54)
[2020-04-08] MEDS ORDERED: CLOP75TA28 PO (05:54)
[2020-04-08] MEDS ORDERED: TMSL.4C PO (05:54)
[2020-04-08] MEDS ORDERED: MTP25TSR PO (05:54)
[2020-04-08] MEDS ORDERED: Bethanechol Chl PO (05:54)
[2020-04-08] MEDS ORDERED: MICO90PO TOP (05:54)
[2020-04-08] MEDS ORDERED: NYST15CR TP (05:54)
[2020-04-08] MEDS ORDERED: LOSA25TA41 PO (05:54)
[2020-04-08] MEDS ORDERED: AMLO-250 PO (05:54)
[2020-04-08] MEDS ORDERED: CEFD300C3 PO (05:54)
[2020-04-08] MEDS ORDERED: ATOR80TA76 PO (05:54)
--- NOTE | 2020-04-08 05:55 | Discharge Inst-Skilled Nursing ---
Discharge Inst-Skilled NF Reconcile Patient Problems Problems Reviewed?: Yes Patient Instructions Patient Problems: CVA UTI Urinary retention Goal: [place] Consult/Follow Up/Orders Follow Up Appt.: Dr Gonzalez 1 week Skilled NF Admit to: [facility] Certification ([facility]) I certify that [facility] services are required to be given on an inpatient basis because of the above named patient's need for half-way care on a continuing basis for the conditions(s) for which he/she was receiving inpatient hospital services prior to his/her transfer to the [facility]. Ret[facility] Facility Order: Nursing Services, Choir Leader-Evaluate & Treat, Physical Therapy-Evaluate & Treat, Speech Language-Evaluate & Treat Oxygen Delivery Method: Room Air Discharge Diet: No Restrictions New & Resume Previous Orders New Medications: Amlodipine Besylate (Amlodipine Besylate) 5 Mg Tablet 5 MG PO DAILY for 30 Days, TAB Atorvastatin Calcium (Atorvastatin Calcium) 80 Mg Tablet 80 MG PO HS for 30 Days, TAB [Bethanechol Chl] () 25 MG TAB 25 MG PO ACHS for 30 Days, TAB Cefdinir (Cefdinir) 300 Mg Capsule 300 MG PO BID for 2 Days, CAP Clopidogrel Bisulfate (Clopidogrel) 75 Mg Tablet 75 MG PO DAILY@0900 for 30 Days, TAB Enoxaparin Sodium (Enoxaparin Sodium) 40 Mg/0.4 Ml Syringe 40 MG SC Q24H for 30 Days, SYRINGE Losartan Potassium (Losartan Potassium) 25 Mg Tablet 25 MG PO DAILY for 30 Days, TAB Metoprolol Succinate (Metoprolol Succinate) 25 Mg Tab.er.24h 25 MG PO DAILY for 30 Days, TAB Miconazole Nitrate (Lotrimin AF) 90 Gm Powder 0 GM TOP BID for 30 Days, EA Nystatin (Nystatin) 15 Gm Cream..g. 0 GM TP BID for 30 Days, TUBE Tamsulosin HCl (Flomax) 0.4 Mg Cap 0.4 MG PO DAILY@1800 for 30 Days, CAP Continued Medications: Docusate Sodium (Stool Softener) 100 Mg Capsule 100 MG PO DAILY PRN for CONSTIPATION-1ST LINE, CAP Levothyroxine Sodium (Levothyroxine Sodium) 150 Mcg Tablet 150 MCG PO DAILY, TAB Multivitamin (Multivitamin) 1 Each Tablet 1 EACH PO DAILY, TAB Discontinued Medications: Amlodipine Besylate (Amlodipine Besylate) 2.5 Mg Tablet 2.5 MG PO DAILY, TAB Atenolol (Atenolol) 100 Mg Tablet 100 MG PO DAILY, TAB Clopidogrel Bisulfate (Clopidogrel) 75 Mg Tablet 75 MG PO , TAB Oxybutynin Chloride (Oxybutynin Chloride ER) 10 Mg Tab.er.24 10 MG PO DAILY, TAB Izabel Johnson Apr 08, 2020 05:54 IZABEL JOHNSON DO Apr 08, 2020 05:55
[2020-04-08 06:00] VITALS: BP 129/95
[2020-04-08] MEDS: BETHANECHOL 25 MG (URECHOLINE) TAB PO SCH ×2 (07:42→10:51)
[2020-04-08] MEDS: MULTIVIT W/MINERALS TAB (THERAGRAN M) PO SCH (07:42)
[2020-04-08] MEDS: LEVOTHYROXINE 150 MCG (LEVOTHROID) TAB PO SCH (07:42)
[2020-04-08] MEDS: CATHETER FLUSH 10 ML SYR IV SCH (07:43)
[2020-04-08] MEDS: DOCUSATE SODIUM 100 MG (COLACE) CAP PO SCH (08:33)
[2020-04-08] MEDS: SENNA W/DOCUSATE (SENOKOT S) TABLET PO SCH (08:33)
[2020-04-08] MEDS: CEFDINIR 300 MG (OMNICEF) CAP PO SCH (08:33)
[2020-04-08] MEDS: polyethylene glycoL POWDER 17 GM (MIRALAX) PACK PO SCH (08:33)
[2020-04-08] MEDS: NYSTATIN CREAM (MYCOSTATIN) 30 GM TUBE TP SCH (08:33)
[2020-04-08] MEDS: CLOPIDOGREL 75 MG (PLAVIX) TABLET PO SCH (08:33)
[2020-04-08] MEDS: LOSARTAN 25 MG (COZAAR) TAB PO SCH (08:33)
[2020-04-08] MEDS: MICONAZOLE 2% POWDER (DESENEX AF) 90 GM TOP SCH (08:34)
[2020-04-08 08:36] VITALS: BP 140/60
[2020-04-08] MEDS ORDERED: amLODIPine 5 MG (NORVASC) TAB PO SCH (09:00)
--- NOTE | 2020-04-08 09:32 | Progress Note ---
Subjective Review of Systems General: Fatigue, Malaise HEENT: No Head Aches, No Visual Changes, No Eye Pain, No Ear Pain, No Dysphasia, No Sinus Congestion, No Post Nasal Drip, No Sore Throat, No Other Pulmonary: No Dyspnea, No Cough, No Pleuritic Chest Pain, No Other Cardiovascular: No: Chest Pain, Palpitations, Orthopnea, Paroxysmal Noc. Dyspnea, Edema, Lt Headedness, Other Genitourinary: Retention Neurological: Weakness, Incoordination, Change in speech All Other Systems Reviewed All Other Systems Reviewed: Yes Objective Exam Vital Signs Vital Signs - First Documented 04/02/20 00:10 Temp 36.2 Pulse 51 Resp 16 B/P (MAP) 124/75 (91) Pulse Ox 97 O2 Delivery Room Air Capillary Refill : General Appearance: No Apparent Distress, WD/WN, Chronically ill Eyes: Bilateral Eye Normal Inspection, Bilateral Eye PERRL HEENT: PERRL/EOMI, Normal ENT Inspection, Pharynx Normal, Other (RIGHT FACIAL DROOP, GARBLED SPEECH) Neck: Full Range of Motion, Supple Respiratory: Chest Non Tender, Lungs Clear, Normal Breath Sounds, No Accessory Muscle Use, No Respiratory Distress Cardiovascular: Regular Rate, Rhythm, No Edema, No Gallop, No JVD, No Murmur, Normal Peripheral Pulses, Other (NO CAROTID STENOSIS) Gastrointestinal: Normal Bowel Sounds, No Organomegaly, No Pulsatile Mass, Non Tender, Soft Rectal: Deferred Back: Normal Inspection, No CVA Tenderness, No Vertebral Tenderness Extremity: Normal Capillary Refill, Normal Inspection, Normal Range of Motion, Non Tender, No Calf Tenderness, No Pedal Edema Neurologic/Psychiatric: Alert, Oriented x3, No Motor/Sensory Deficits, Normal Mood/Affect, 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
--- NOTE | 2020-04-08 09:41 | Discharge Summary ---
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 Debility Falls UTI acute Slurred speech likely baseline with UTI worsened HTN Hypothyroidism Obesity Urinary retention requiring sánchez catheter 04/03/20 Plan: Home meds IRF UTI treatment Await UCx 04/01/20: Lipid panel Cardiology consultation ECHO reviewed Carotid USG reviewed 04/02/20: Appreciate Dr Fairchild Statin Monitor BP 04/03/20: Sánchez catheter Rocephin last dose today then change to PO abx Dr Randolph consulted 04/04/20: Sánchez Monitor BP Labs reviewed 04/05/20: Nikhil lift Very debilitated Appreciate Dr Randolph and Dr Fairchild 04/06/20: DC Tely Declines loop recorder 04/07/20: Catheter per Dr Randolph [facility] placement tomorrow (1) Physical debility Status: Acute (2) Hypothyroidism (3) Falls (4) Obesity (5) UTI (urinary tract infection) Status: Acute Discharge Summary Discharge Physical Examination Allergies: Coded Allergies: codeine (Unverified Allergy, Mild, 11/15/08) Penicillins (Verified Allergy, Unknown, HAS RECEIVED ANCEF IN THE PAST, 05/29/16) morphine (Verified Adverse Reaction, Mild, NAUSEA, 04/07/08) Influenza Virus Vaccines (Unverified Adverse Reaction, Unknown, 05/30/16) nylon (Verified Adverse Reaction, Unknown, ITCH, 04/07/08) Vitals & I&Os Vital Signs Date Time Temp Pulse Resp B/P (MAP) Pulse Ox O2 Delivery O2 Flow Rate FiO2 04/08/20 13:31 36.3 65 18 140/60 92 Room Air General Appearance: Alert, Oriented X3, Cooperative Respiratory: Clear to Auscultation Cardiovascular: Regular Rate Hospital Course Was the Problem List Reviewed?: Yes Standard hospital course after admitted from ER with decline in status and falls and UTI. Patient had symptoms of neuro deficits for 3 days prior and it appeared she had a subacute CVA identified after she was admitted to IRF. Patient was not a tPa candidate but did complete the CVA w/u. Rocephin treated UTI which was transitioned to Cefdinir. Dr Fairchild consulted and all w/u revealed no source of the CVA confirmed on MRI. BP remained stable and patient refused loop recorder. Overall she had urinary retention complications consulted Dr Randolph requiring sánchez and in/out caths. Patient was deemed stable for SCP and was moved to [facility] in stable condition. Labs (last 24 hrs) Laboratory Tests 03/31/20 18:18: Glucometer 166H 04/01/20 06:22: White Blood Count 15.2H, Red Blood Count 4.81, Hemoglobin 14.7, Hematocrit 45, Mean Corpuscular Volume 93, Mean Corpuscular Hemoglobin 31, Mean Corpuscular Hemoglobin Concent 33, Red Cell Distribution Width 13.0, Platelet Count 299, Kathleen n Platelet Volume 9.4, Immature Granulocyte % (Auto) 0, Neutrophils (%) (Auto) 76H, Lymphocytes (%) (Auto) 13, Monocytes (%) (Auto) 9, Eosinophils (%) (Auto) 1, Basophils (%) (Auto) 0, Neutrophils # (Auto) 11.6H, Lymphocytes # (Auto) 2.0, Monocytes # (Auto) 1.4H, Eosinophils # (Auto) 0.2, Basophils # (Auto) 0.1, Immature Granulocyte # (Auto) 0.1, Neutrophils % (Manual) 72, Lymphocytes % (Manual) 20, Monocytes % (Manual) 6, Eosinophils % (Manual) 1, Band Neutrophils 1, Blood Morphology Comment NORMAL, Sodium Level 141, Potassium Level 3.8, Chloride Level 110H, Carbon Dioxide Level 20L, Anion Gap 11, Blood Urea Nitrogen 15, Creatinine 1.08, Estimat Glomerular Filtration Rate 48, BUN/Creatinine Ratio 14, Glucose Level 92, Calcium Level 9.4, Corrected Calcium 9.5, Total Bilirubin 0.6, Aspartate Amino Transf (AST/SGOT) 22, Alanine Aminotransferase (ALT/SGPT) 17, Alkaline Phosphatase 83, Total Protein 7.1, Albumin 3.9 04/02/20 05:27: White Blood Count 9.1, Red Blood Count 4.35, Hemoglobin 13.5, Hematocrit 41, Mean Corpuscular Volume 94, Mean Corpuscular Hemoglobin 31, Mean Corpuscular Hemoglobin Concent 33, Red Cell Distribution Width 13.2, Platelet Count 252, Mean Platelet Volume 9.3, Sodium Level 143, Potassium Level 3.8, Chloride Level 111H, Carbon Dioxide Level 20L, Anion Gap 12, Blood Urea Nitrogen 22H, Creatinine 1.16, Estimat Glomerular Filtration Rate 45, BUN/Creatinine Ratio 19, Glucose Level 101, Calcium Level 9.4, Corrected Calcium 9.8, Total Bilirubin 0.6, Aspartate Amino Transf (AST/SGOT) 22, Alanine Aminotransferase (ALT/SGPT) 16, Alkaline Phosphatase 72, Total Protein 6.2L, Albumin 3.5, Triglycerides Level 144, Cholesterol Level 199, LDL Cholesterol Direct 155H, VLDL Cholesterol 29, HDL Cholesterol 42 04/04/20 08:05: White Blood Count 8.8, Red Blood Count 4.46, Hemoglobin 13.7, Hematocrit 42, Mean Corpuscular Volume 95, Mean Corpuscular Hemoglobin 31, Mean Corpuscular Hemoglobin Concent 32, Red Cell Distribution Width 13.0, Platelet Count 241, Mean Platelet Volume 9.5, Immature Granulocyte % (Auto) 0, Neutrophils (%) (Auto) 64, Lymphocytes (%) (Auto) 23, Monocytes (%) (Auto) 8, Eosinophils (%) (Auto) 5, Basophils (%) (Auto) 0, Neutrophils # (Auto) 5.6, Lymphocytes # (Auto) 2.0, Monocytes # (Auto) 0.7, Eosinophils # (Auto) 0.4H, Basophils # (Auto) 0.0, Immature Granulocyte # (Auto) 0.0, Sodium Level 141, Potassium Level 3.9, Chloride Level 109H, Carbon Dioxide Level 20L, Anion Gap 12, Blood Urea Nitrogen 21H, Creatinine 1.00, Estimat Glomerular Filtration Rate 53, BUN/Creatinine Ratio 21, Glucose Level 145H, Calcium Level 9.0, Corrected Calcium 9.4, Total Bilirubin 0.6, Aspartate Amino Transf (AST/SGOT) 18, Alanine Aminotransferase (ALT/SGPT) 17, Alkaline Phosphatase 74, Total Protein 6.3L, Albumin 3.5 04/07/20 16:10: Coronavirus 2019 (DANAY) Negative Pending Labs Laboratory Tests 03/31/20 18:18: Glucometer 166 04/01/20 06:22: White Blood Count 15.2, Red Blood Count 4.81, Hemoglobin 14.7, Hematocrit 45, Mean Corpuscular Volume 93, Mean Corpuscular Hemoglobin 31, Mean Corpuscular Hemoglobin Concent 33, Red Cell Distribution Width 13.0, Platelet Count 299, Mean Platelet Volume 9.4, Immature Granulocyte % (Auto) 0, Neutrophils (%) (Auto) 76, Lymphocytes (%) (Auto) 13, Monocytes (%) (Auto) 9, Eosinophils (%) (Auto) 1, Basophils (%) (Auto) 0, Neutrophils # (Auto) 11.6, Lymphocytes # (Auto) 2.0, Monocytes # (Auto) 1.4, Eosinophils # (Auto) 0.2, Basophils # (Auto) 0.1, Immature Granulocyte # (Auto) 0.1, Neutrophils % (Manual) 72, Lymphocytes % (Manual) 20, Monocytes % (Manual) 6, Eosinophils % (Manual) 1, Band Neutrophils 1, Blood Morphology Comment NORMAL, Sodium Level 141, Potassium Level 3.8, Chloride Level 110, Carbon Dioxide Level 20, Anion Gap 11, Blood Urea Nitrogen 15, Creatinine 1.08, Estimat Glomerular Filtration Rate 48, BUN/Creatinine Ratio 14, Glucose Level 92, Calcium Level 9.4, Corrected Calcium 9.5, Total Bilirubin 0.6, Aspartate Amino Transf (AST/SGOT) 22, Alanine Aminotransferase (ALT/SGPT) 17, Alkaline Phosphatase 83, Total Protein 7.1, Albumin 3.9 04/02/20 05:27: White Blood Count 9.1, Red Blood Count 4.35, Hemoglobin 13.5, Hematocrit 41, Mean Corpuscular Volume 94, Mean Corpuscular Hemoglobin 31, Mean Corpuscular Hemoglobin Concent 33, Red Cell Distribution Width 13.2, Platelet Count 252, Mean Platelet Volume 9.3, Sodium Level 143, Potassium Level 3.8, Chloride Level 111, Carbon Dioxide Level 20, Anion Gap 12, Blood Urea Nitrogen 22, Creatinine 1.16, Estimat Glomerular Filtration Rate 45, BUN/Creatinine Ratio 19, Glucose Level 101, Calcium Level 9.4, Corrected Calcium 9.8, Total Bilirubin 0.6, Aspartate Amino Transf (AST/SGOT) 22, Alanine Aminotransferase (ALT/SGPT) 16, Alkaline Phosphatase 72, Total Protein 6.2, Albumin 3.5, Triglycerides Level 144, Cholesterol Level 199, LDL Cholesterol Direct 155, VLDL Cholesterol 29, HDL Cholesterol 42 04/04/20 08:05: White Blood Count 8.8, Red Blood Count 4.46, Hemoglobin 13.7, Hematocrit 42, Mean Corpuscular Volume 95, Mean Corpuscular Hemoglobin 31, Mean Corpuscular Hemoglobin Concent 32, Red Cell Distribution Width 13.0, Platelet Count 241, Mean Platelet Volume 9.5, Immature Granulocyte % (Auto) 0, Neutrophils (%) (Auto) 64, Lymphocytes (%) (Auto) 23, Monocytes (%) (Auto) 8, Eosinophils (%) (Auto) 5, Basophils (%) (Auto) 0, Neutrophils # (Auto) 5.6, Lymphocytes # (Auto) 2.0, Monocytes # (Auto) 0.7, Eosinophils # (Auto) 0.4, Basophils # (Auto) 0.0, Immature Granulocyte # (Auto) 0.0, Sodium Level 141, Potassium Level 3.9, Chloride Level 109, Carbon Dioxide Level 20, Anion Gap 12, Blood Urea Nitrogen 21, Creatinine 1.00, Estimat Glomerular Filtration Rate 53, BUN/Creatinine Ratio 21, Glucose Level 145, Calcium Level 9.0, Corrected Calcium 9.4, Total Bilirubin 0.6, Aspartate Amino Transf (AST/SGOT) 18, Alanine Aminotransferase (ALT/SGPT) 17, Alkaline Phosphatase 74, Total Protein 6.3, Albumin 3.5 04/07/20 16:10: Coronavirus 2019 ([facility]NAY) Negative Discharge Home Medications: Active Scripts Active Nystatin 15 Gm Cream..g. 0 Gm TP BID 30 Days Lotrimin AF (Miconazole Nitrate) 90 Gm Powder 0 Gm TOP BID 30 Days Losartan Potassium 25 Mg Tablet 25 Mg PO DAILY 30 Days Amlodipine Besylate 5 Mg Tablet 5 Mg PO DAILY 30 Days Metoprolol Succinate 25 Mg Tab.er.24h 25 Mg PO DAILY 30 Days Atorvastatin Calcium 80 Mg Tablet 80 Mg PO HS 30 Days Clopidogrel (Clopidogrel Bisulfate) 75 Mg Tablet 75 Mg PO DAILY@0900 30 Days Enoxaparin Sodium 40 Mg/0.4 Ml Syringe 40 Mg SC Q24H 30 Days Flomax (Tamsulosin HCl) 0.4 Mg Cap 0.4 Mg PO DAILY@1800 30 Days [Bethanechol Chl] 25 MG Tab 25 Mg PO ACHS 30 Days Cefdinir 300 Mg Capsule 300 Mg PO BID 2 Days Reported Stool Softener (Docusate Sodium) 100 Mg Capsule 100 Mg PO DAILY PRN Multivitamin 1 Each Tablet 1 Each PO DAILY Levothyroxine Sodium 150 Mcg Tablet 150 Mcg PO DAILY Instructions to patient/family Please see electronic discharge instructions given to patient. Diagnosis/Problems Diagnosis/Problems (1) Physical debility Status: Acute (2) Hypothyroidism (3) Falls (4) Obesity (5) UTI (urinary tract infection) Status: Acute LAMBERTO PATTON DO Apr 08, 2020 09:41
--- NOTE | 2020-04-08 10:34 | NUR ---
DR. SILVA TO THE FLOOR. ORDERS TO REMOVE LLOYD CATHETER PRIOR TO DC. POST VOID BLADDER SCAN DAILY AND PRN. STRAIGHT CATH IF GREATER THAN 300 MLS. DC ON URECHOLINE AND FLOMAX.
[2020-04-08] MEDS: ENOXAPARIN 40 MG/0.4 ML (LOVENOX) SYR SC SCH (12:38)
--- NOTE | 2020-04-08 13:23 | Therapy Team Discharge Summary ---
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 Patient received ST services for speech and cognitive function with gains made toward meeting all goals. Patient was discharged to the [facility] this afternoon where she will conitinue her thrapy. PT Residential Goals Residential Goals PT Boiler Shop Supervisor Goals Time Frame: Apr 21, 2020 Roll Left to Right (QC): 4 Sit to Lying (QC): 4 Lying-Sitting on Side/Bed(QC): 4 Sit to Stand (QC): 4 Chair/Xxv-sh-Wuhxz Xfer(QC): 4 Car Transfer (QC): 4 Does the Patient Walk: Yes Walk 10 feet (QC): 4 Walk 10ft-Uneven Surface(QC): 4 Walk 50ft with 2 Turns (QC): 4 Walk 150 ft (QC): 88 Does the Pt use WC or Scooter?: Yes Wheel 50 feet with 2 turns (QC: 6 1 Step (curb) (QC): 4 4 Steps (QC): 88 12 Steps (QC): 88 Picking up an Object (QC): 88 OT Boiler Shop Supervisor Goals Boiler Shop Supervisor Goals Time Frame: Apr 14, 2020 Eating (QC): 6 (not met) Oral Hygiene (QC): 5 (met) Shower/Bathe Self (QC): 4 (not met) Upper Body Dressing (QC): 5 (not met) Lower Body Dressing (QC): 4 (not met) On/Off Footwear (QC): 4 (not met) Toileting Hygiene (QC): 6 (not met) Toilet/Commode Transfer (QC): 4 Additional Goals: 1-Demonstrate ADL Tasks, 2-Verbalize Understanding, 3- ImproveStrength/Jeffrey 1=Demonstrate adherence to instructed precautions during ADL tasks. 2=Patient will verbalize/demonstrate understanding of assistive devices/modifications for ADL. 3=Patient will improve strength/tolerance for activity to enable patient to perform ADL's. Speech Residential Goals Boiler Shop Supervisor Goals Patient will improve cognitive-communication necessary for safety and daily living tasks with minimal assist. Patient will improve speech intelligibility in order to communicate her wants/needs effectively. SHEKHAR BROCK Apr 08, 2020 13:23
[2020-04-08 13:31] VITALS: BP 140/60
--- NOTE | 2020-04-08 13:44 | NUR ---
CM/SS DISCHARGE Patient discharged to new Medicare skilled placement with [facility] by their transport as scheduled. CARE Assessment completed with patient, faxed to [facility] per protocols. Continuum of care packet prepared to accompany patient. Notified niece Pratima Yee last evening of all arrangements. She is currently contacting attorneys in order to create a new POA and POA-HC since she only has the last page of the previously prepared document. Neither patient nor Pratima know where the rest of the document is. Pratima understands that once patient leaves [facility] she will have an assigned SW at [facility] to assist going forward. Unit RN aware of all plans.
--- NOTE | 2020-04-11 11:50 | Therapy Team Discharge Summary ---
Therapy Discharge Summary Discharge Recommendations Date of Discharge Apr 08, 2020 at 13:44 Therapy D/C Recommendations: 24 hr Supervision, Snf (TCU/NH) Occupational Therapy Pt. was seen by occupational therapy to increase overall strength and independence with daily tasks. Pt. did not meet goals, and at discharge required set up for feeding/oral care, and max/dependent assistance for all other ADL skills. Pt. discharged to [facility] facility for 24 hour care. Would benefit from continued therapy to increase overall strength with daily tasks and mobility. Decreased Activ Tolerance, Decreased Safety Aware, Decreased UE Strength, Dependent Transfers, Impaired Bed Mobility, Impaired Cognition, Impaired Coordination, Impaired Funct Balance, Impaired I ADL's, Impaired Self-Care Skil ls, Restricted Funct UE ROM PT Ladies Attendant Goals Penitentiary Goals PT Penitentiary Goals Time Frame: Apr 21, 2020 Roll Left to Right (QC): 4 Sit to Lying (QC): 4 Lying-Sitting on Side/Bed(QC): 4 Sit to Stand (QC): 4 Chair/Vev-gn-Clbuz Xfer(QC): 4 Car Transfer (QC): 4 Does the Patient Walk: Yes Walk 10 feet (QC): 4 Walk 10ft-Uneven Surface(QC): 4 Walk 50ft with 2 Turns (QC): 4 Walk 150 ft (QC): 88 Does the Pt use WC or Scooter?: Yes Wheel 50 feet with 2 turns (QC: 6 1 Step (curb) (QC): 4 4 Steps (QC): 88 12 Steps (QC): 88 Picking up an Object (QC): 88 OT Penitentiary Goals Ladies Attendant Goals Time Frame: Apr 14, 2020 Eating (QC): 6 (not met) Oral Hygiene (QC): 5 (met) Shower/Bathe Self (QC): 4 (not met) Upper Body Dressing (QC): 5 (not met) Lower Body Dressing (QC): 4 (not met) On/Off Footwear (QC): 4 (not met) Toileting Hygiene (QC): 6 (not met) Toilet/Commode Transfer (QC): 4 Additional Goals: 1-Demonstrate ADL Tasks, 2-Verbalize Understanding, 3- ImproveStrength/Jeffrey 1=Demonstrate adherence to instructed precautions during ADL tasks. 2=Patient will verbalize/demonstrate understanding of assistive devices/modifications for ADL. 3=Patient will improve strength/tolerance for activity to enable patient to perform ADL's. Speech Ladies Attendant Goals Penitentiary Goals Patient will improve cognitive-communication necessary for safety and daily living tasks with minimal assist. Patient will improve speech intelligibility in order to communicate her wants/needs effectively. STEFANIE MCQUEEN OT Apr 11, 2020 11:50
== END 2020-04-08 13:44 | DRG 57 ==
PROVIDERS: ADMIT Internal Medicine; ATTEND Internal Medicine
DX: I69.351 Hemiplegia and hemiparesis following cerebral infarction affecting right dominant side (principal); N39.0 Urinary tract infection, site not specified; I69.392 Facial weakness following cerebral infarction; I69.322 Dysarthria following cerebral infarction; I69.328 Other speech and language deficits following cerebral infarction; R47.81 Slurred speech; I10 Essential (primary) hypertension; I25.10 Atherosclerotic heart disease of native coronary artery without angina pectoris; Z20.822 Contact with and (suspected) exposure to COVID-19; E78.00 Pure hypercholesterolemia, unspecified; E03.9 Hypothyroidism, unspecified; Z91.81 History of falling; K59.00 Constipation, unspecified; R33.9 Retention of urine, unspecified; N31.9 Neuromuscular dysfunction of bladder, unspecified; R00.1 Bradycardia, unspecified; H54.3 Unqualified visual loss, both eyes; H91.93 Unspecified hearing loss, bilateral; E66.9 Obesity, unspecified; Z68.32 Body mass index [BMI] 32.0-32.9, adult; I73.9 Peripheral vascular disease, unspecified; E78.5 Hyperlipidemia, unspecified; I65.23 Occlusion and stenosis of bilateral carotid arteries; Z87.891 Personal history of nicotine dependence; Z95.5 Presence of coronary angioplasty implant and graft; Z88.6 Allergy status to analgesic agent; Z88.0 Allergy status to penicillin; Z88.7 Allergy status to serum and vaccine; Z91.048 Other nonmedicinal substance allergy status; Z82.3 Family history of stroke; Z82.49 Family history of ischemic heart disease and other diseases of the circulatory system
CPT/HCPCS: 36415; 70450; 70551; 80053; 80061; 82962; 85007; 85025; 85027; 87635; 93306; 93880

== ENCOUNTER → 2020-07-12 | Outpatient (CLI) | payer MEDICARE, OTHER ==
[~2020-07-12] MED LIST changes: +ATOR80TA76 PO; +Bethanechol Chl PO; +DOCU-241 PO; +ENOX40DI8 SC; +LEVO150T6 PO; +LOSA25TA41 PO; +MICO90PO TOP; +MTP25TSR PO; +MULT-1136 PO; +NYST15CR TP; +OXYB10TA29 PO; -POLY17PO31 PO; +POLY17PO54 PO; +TMSL.4C PO
--- NOTE | 2020-07-12 15:52 | Diagnostic Imaging Report ---
PROCEDURE: CT head without contrast. TECHNIQUE: Multiple contiguous axial images were obtained through the brain without the use of intravenous contrast. Auto Exposure Controls were utilized during the CT exam to meet ALARA standards for radiation dose reduction. INDICATION: Weakness. COMPARISON: Comparison is made with prior head CT from 03/31/2020. FINDINGS: Ventricular size is stable. There is extensive periventricular white matter changes consistent with chronic microvascular ischemia. There is a large area of low density in the right occipital lobe. This is new since CT from March 2020 and most likely represents subacute versus chronic infarct that has occurred since March. There is no sulcal effacement or midline shift. No acute intra-axial or extra-axial hemorrhage is detected. Cisterns are patent. 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 Visualized paranasal sinuses are clear. IMPRESSION: Changes of chronic microvascular ischemia. There is a large area of subacute versus chronic infarct in the right occipital lobe that has occurred since March 2020 CT. No acute intracranial hemorrhage is detected. Dictated by: Dictated on workstation # [id number]
== END ==
LOC: RAD 15:04
PROVIDERS: ATTEND Nurse Practitioner Family
DX: G81.90 Hemiplegia, unspecified affecting unspecified side (principal); G45.9 Transient cerebral ischemic attack, unspecified
CPT/HCPCS: 70450

== ENCOUNTER → 2020-08-27 | Outpatient (CLI) | payer MEDICARE, OTHER ==
[~2020-08-27] MED LIST changes: -DOCU-241 PO; +DOCU-26 PO
[2020-08-27 13:42] LABS: BILIRUBIN,URINE NEGATIVE (NEGATIVE); CLARITY,URINE CLOUDY; COLOR,URINE YELLOW; GLUCOSE, URINE (UA) NEGATIVE (NEGATIVE); KETONES,URINE NEGATIVE (NEGATIVE); LEUKOCYTE ESTERASE ,URINE 2+ (NEGATIVE); NITRITE,URINE POSITIVE (NEGATIVE); PROTEIN,URINE 2+ (NEGATIVE)
[2020-08-27 13:50] LABS: BACTERIA,URINE LARGE /HPF; SQUAMOUS EPITHELIAL CELL,UR 0-2 /HPF; WBC,URINE TNTC /HPF
== END ==
LOC: LAB 13:36
PROVIDERS: ATTEND Family Medicine
DX: Z01.89 Encounter for other specified special examinations (principal)
CPT/HCPCS: 81000; 87077; 87088; 87186

== ENCOUNTER → 2020-09-18 | Outpatient (CLI) | payer MEDICARE, OTHER ==
[~2020-09-18] MED LIST changes: -SULF1TAB35 PO
[2020-09-18 08:33] LABS: BILIRUBIN,URINE NEGATIVE (NEGATIVE); CLARITY,URINE CLOUDY; COLOR,URINE ORANGE; GLUCOSE, URINE (UA) NEGATIVE (NEGATIVE); KETONES,URINE NEGATIVE (NEGATIVE); LEUKOCYTE ESTERASE ,URINE 2+ (NEGATIVE); NITRITE,URINE NEGATIVE (NEGATIVE); PH,URINE 5.5 (5-9); PROTEIN,URINE 1+ (NEGATIVE)
[2020-09-18 08:53] LABS: BACTERIA,URINE NEGATIVE /HPF; SQUAMOUS EPITHELIAL CELL,UR 0-2 /HPF; WBC,URINE TNTC /HPF; YEAST,URINE MODERATE /HPF
== END ==
LOC: LAB 08:26
PROVIDERS: ATTEND Family Medicine
DX: N39.0 Urinary tract infection, site not specified (principal)
CPT/HCPCS: 81000; 87088